=== PATIENT | female | born 1955 | race African-American/Black ===

== ENCOUNTER 2020-05-18 09:41 | Outpatient (REF) | payer MEDICAID, SELFPAY ==
[2020-05-18 11:09] LABS: Alanine Aminotransferase 8 U/L (0-31); Albumin Level 2.8 g/dL (3.5-5.0); Alkaline Phosphatase 96 U/L (39-117); Anion Gap 16 (12-20); Aspartate Amino Transferase 10 U/L (5-31); Bilirubin Total 0.2 mg/dL (0.0-1.0); Blood Urea Nitrogen 17 mg/dL (9-16); Calcium 8.2 mg/dL (8.4-10.2); Carbon Dioxide 27 mmol/L (22-29); Chloride 99 mmol/L (96-108); Cholesterol 142 mg/dL; Estimated Glomerular Filt Rate 15; Glucose Fasting 135 mg/dL (60-99); HDL Cholesterol 40 mg/dL; LDL Cholesterol Calculated 73 mg/dl; Potassium 3.7 mmol/l (3.3-5.1); Sodium 138 mmol/L (135-145); Total Protein 7.2 g/dL (6.5-8.0); Triglycerides 145 mg/dL
[2020-05-22 12:28] LABS: Vitamin D 25-OH, D2 <4 ng/mL; Vitamin D 25-OH, D3 13 ng/mL; Vitamin D 25-OH, Total 13 ng/mL (30-100)
== END 2020-05-18 09:42 | disposition home or self-care (01) ==
LOC: HO.LAB 09:41
PROVIDERS: PCP Internal Medicine; Visit Provider Internal Medicine
DX: E55.9 Vitamin D deficiency, unspecified (principal); E11.9 Type 2 diabetes mellitus without complications; E78.5 Hyperlipidemia, unspecified
CPT/HCPCS: 36415; 80053; 80061; 82306

== ENCOUNTER 2020-06-13 13:47 | Outpatient (RCR) | payer MEDICAID, SELFPAY | END 2020-06-19 11:42 | disposition home or self-care (01) | LOC: HO.WCC 13:47 | PROVIDERS: PCP Internal Medicine; Visit Provider Surgery | DX: Z09 Encounter for follow-up examination after completed treatment for conditions other than malignant neoplasm (principal); E10.22 Type 1 diabetes mellitus with diabetic chronic kidney disease; N18.6 End stage renal disease; I10 Essential (primary) hypertension; Z99.2 Dependence on renal dialysis; Z95.828 Presence of other vascular implants and grafts | CPT/HCPCS: 99212 ==

== ENCOUNTER → 2020-07-04 07:48 | Outpatient (BNVA) | payer OTHER, SELFPAY | PROVIDERS: PCP Internal Medicine; Visit Provider Internal Medicine Endocrinology, Diabetes & Metabolism | DX: E11.65 Type 2 diabetes mellitus with hyperglycemia (principal); E11.42 Type 2 diabetes mellitus with diabetic polyneuropathy; E11.21 Type 2 diabetes mellitus with diabetic nephropathy; E11.22 Type 2 diabetes mellitus with diabetic chronic kidney disease; I12.9 Hypertensive chronic kidney disease with stage 1 through stage 4 chronic kidney disease, or unspecified chronic kidney disease; N18.6 End stage renal disease; Z79.4 Long term (current) use of insulin; Z99.2 Dependence on renal dialysis; E78.5 Hyperlipidemia, unspecified; E55.9 Vitamin D deficiency, unspecified | CPT/HCPCS: 82947; 99202 ==

== ENCOUNTER → 2020-08-07 11:14 | Outpatient (BNVA) | payer OTHER, SELFPAY | PROVIDERS: PCP Internal Medicine; Visit Provider Dietitian, Registered | DX: E11.65 Type 2 diabetes mellitus with hyperglycemia (principal) | CPT/HCPCS: 97802 ==

== ENCOUNTER → 2020-09-19 11:29 | Outpatient (BNVA) | payer OTHER, SELFPAY | PROVIDERS: PCP Internal Medicine; Visit Provider Dietitian, Registered | DX: E11.65 Type 2 diabetes mellitus with hyperglycemia (principal); Z79.4 Long term (current) use of insulin | CPT/HCPCS: 97803 ==

== ENCOUNTER → 2020-10-05 11:38 | Outpatient (BNVA) | payer OTHER, SELFPAY | PROVIDERS: PCP Internal Medicine; Visit Provider Internal Medicine Endocrinology, Diabetes & Metabolism ==

== ENCOUNTER 2020-10-28 11:53 | Emergency (ER) | payer OTHER, SELFPAY ==
--- NOTE | ~2020-10-28 | XR_ITS ---
EXAMINATION: XR FOOT, LEFT CLINICAL INFORMATION: Left foot and left ankle pain. COMPARISON: There is diffuse osteopenia none. TECHNIQUE: AP, lateral, and oblique views of the left foot. FINDINGS: Diffuse osteopenia with no visible acute fracture, dislocation or subluxation seen. The soft tissues are normal. The ankle mortise and subtalar joints are normal. There is vascular calcifications. XR/XR foot LT min 3V IMPRESSION: Diffuse osteopenia with no visible obvious fracture or dislocation. There is diffuse extensive vascular calcification question ischemic changes.
--- NOTE | ~2020-10-28 | US_ITS ---
EXAMINATION: US VENOUS ULTRASOUND WITH DOPPLER LOWER EXTREMITY, LEFT CLINICAL INFORMATION: Atraumatic left lower leg pain. COMPARISON: None TECHNIQUE: Ultrasound of the deep veins is performed from the hip to the calf with compression sonography and color and pulse Doppler assessment. Spectral analysis with color-flow imaging is performed. FINDINGS: There is normal venous compression and respiratory variation and augmented flow. The visualized common femoral vein, superficial femoral vein, profunda femoral vein, popliteal vein, and the trifurcation region shows no evidence of deep venous thrombosis. There is no significant popliteal fossa cyst. If the patient's symptoms persist, followup ultrasound in 5 days 7 days might be of value to exclude proximal propagation from a non-visualized calf vein. US/US venous duplex LE LT IMPRESSION: No DVT demonstrated in the left lower extremity.
--- NOTE | ~2020-10-28 | US_ITS ---
EXAMINATION: COLOR-FLOW DUPLEX IMAGING OF THE LEFT LOWER EXTREMITY ARTERIAL SYSTEM CLINICAL INFORMATION: The patient is a 77 year-old woman with atraumatic foot and ankle pain. TECHNIQUE: Using a linear array transducer with grayscale, color and pulsed modalities, ultrasound evaluation is performed of the [place] left lower extremity arterial system. LEFT FEMORAL RUNOFF VELOCITIES: The left common femoral artery peak systolic velocity is 140 cm/s. The waveform is monophasic. The left proximal profunda femoral artery peak systolic velocity is 109 cm/s. The waveform is biphasic. The left proximal superficial femoral artery peak systolic velocity is 141 cm/s. The waveform is monophasic. The left mid superficial femoral artery peak systolic velocity is 141 cm/s. The waveform is biphasic. The left distal superficial femoral artery peak systolic velocity is 160 cm/s. The waveform is monophasic. The left popliteal artery peak systolic velocity is 454 cm/s. The waveform is biphasic. The left posterior tibial artery peak systolic velocity is 41 cm/s. The waveform is monophasic. US/US arterial duplex LE LT IMPRESSION: Findings are consistent with marked, hemodynamically significant left femoropopliteal arterial disease. If clinically indicated, this can be more fully evaluated with CTA or MRA.
[2020-10-28 11:56] VITALS: BP 158/70; BP 193/84; PULSE 78; PULSE 80; RESP 20; TEMP 36.9; O2SAT 99; BMI 25.6
[2020-10-28] MEDS: oxyCODONE HCl Immed Release 5 MG TABLET PO (12:32)
[2020-10-28 12:36] VITALS: BP 176/75; PULSE 79; RESP 18; TEMP 37; O2SAT 100
[2020-10-28 12:49] LABS: Basophils Absolute Auto 0.1 X10*3/uL (0.0-0.2); Basophils Percent Auto 0.4 % (0-2); Eosinophils Absolute Auto 0.1 X10*3/uL (0.0-0.4); Eosinophils Percent Auto 0.8 % (0-4); Hematocrit 36.8 % (37-47); Hemoglobin 11.7 g/dl (12.0-16.0); Imm Gran Abs Auto 0.04 X10*3/uL (0.00-0.03); Imm Gran Pct Auto 0.3 % (0.0-0.4); Lymphocytes Absolute Auto 2.1 X10*3/uL (1.2-4.9); Lymphocytes Percent Auto 16.7 % (20-40); MANUAL DIFF FLAG NO; Mean Corpuscular HGB Conc 31.8 g/dl (31.0-35.0); Mean Corpuscular Hemoglobin 25.9 pg (27.0-33.0); Mean Corpuscular Volume 81.4 fL (80-98); Mean Platelet Volume 10.4 fL (9.4-12.3); Monocytes Absolute Auto 1.1 X10*3/uL (0.1-1.2); Monocytes Percent Auto 8.7 % (2-11); Neutrophils Absolute Auto 9.1 X10*3/uL (2.0-8.3); Neutrophils Percent Auto 73.1 % (45-73); Platelet Count 223 X10*3/uL (160-400); Red Blood Count 4.52 X10*6/uL (4.20-5.50); Red Cell Distribution Width 16.6 % (11.0-16.0); White Blood Count 12.5 X10*3/uL (4.8-10.8)
[2020-10-28 12:57] LABS: Prothrombin Time 11.9 SEC (10.8-13.0)
[2020-10-28 13:13] LABS: Alanine Aminotransferase 11 U/L (0-31); Albumin Level 3.7 g/dL (3.5-5.0); Alkaline Phosphatase 92 U/L (39-117); Anion Gap 17 (12-20); Aspartate Amino Transferase 13 U/L (5-31); Bilirubin Total 0.2 mg/dL (0.0-1.0); Blood Urea Nitrogen 32 mg/dL (9-16); Calcium 8.9 mg/dL (8.4-10.2); Carbon Dioxide 21 mmol/L (22-29); Chloride 102 mmol/L (96-108); Creatinine Clr Calc Pharmacy 11.6; Estimated Glomerular Filt Rate 10; Glucose Random 133 mg/dL (60-115); Magnesium 2.1 mg/dL (1.6-2.6); Sodium 135 mmol/L (135-145); Total Protein 7.7 g/dL (6.5-8.0)
[2020-10-28 14:08] LABS: Phosphorus 3.7 mg/dL (2.7-4.5)
--- NOTE | 2020-10-28 14:08 | ED.EXTPRO ---
HPI - Extremity Problem General Chief complaint: General Medical Stated complaint: left leg pain Time Seen by Provider: 10/28/20 12:09 Source: patient, family and EMS Mode of arrival: EMS Limitations: language barrier ( Scottish-speaking) History of Present Illness HPI Narrative: 65-year-old female with a past medical history of ESRD on hemodialysis Thursday/ / Thursday recently had hemodialysis yesterday, diabetes, diabetic neuropathy, hypertension, hyperlipidemia with amputation of the left hand and wheelchair-bound presenting to the ED with her daughter at bedside with complaints of acute / sudden onset of left ankle /foot pain that started since last night. They report there were no injuries and the patient did not fall. MD Complaint: extremity pain Onset (ago): day(s) ( Since last night worse today) Pain Consistency: constant Location: left and lower extremity ( ankle/foot) Severity scale (1-10): >10 Quality: stabbing, aching, sharp and constant Radiation: none Relieving factors: nothing Exacerbating factors: weight bearing and palpation Associated symptoms: denies other symptoms Related Data Home Medications Medication Instructions Recorded Confirmed polyethylene glycol 3350 17 17 g PO DAILY 05/08/20 10/05/20 gram/dose oral powder pantoprazole 40 mg tablet,delayed 40 mg PO DAILY 10/05/20 10/05/20 release sucroferric oxyhydroxide 500 mg 500 mg PO BEDTIME 10/05/20 10/05/20 chewable tablet Previous Rx's Medication Instructions Recorded alcohol swabs 1 pad TOPICAL BID 90 Days #100 ea 05/14/20 metoprolol tartrate 100 mg tablet 100 mg PO BID 90 Days #180 tab 05/15/20 underpads #100 ea 05/15/20 acetaminophen 325 mg tablet 975 mg PO TID PRN 30 Days #270 tab 08/20/20 amlodipine 10 mg tablet 10 mg PO DAILY 90 Days #90 tab 08/20/20 aspirin 81 mg tablet,delayed 81 mg PO DAILY 90 Days #90 tab 08/20/20 release atorvastatin 80 mg tablet 80 mg PO DAILY 90 Days #90 tab 08/20/20 cholecalciferol (vitamin D3) 50 50 mcg PO DAILY 30 Days #30 cap 08/20/20 mcg (2,000 unit) capsule diaper,brief,adult,disposable #120 ea 08/20/20 docusate sodium 100 mg capsule 100 mg PO BID PRN 90 Days #180 cap 08/20/20 hydralazine 25 mg tablet 50 mg PO TID 30 Days #180 tab 08/20/20 lidocaine 5 % topical patch 1 patch TOPICAL DAILY 30 Days #30 08/20/20 ea miscellaneous medical supply #1 ea 08/20/20 sennosides 8.6 mg tablet 17.2 mg PO BEDTIME 90 Days #180 tab 08/20/20 tizanidine 2 mg tablet 2 mg PO Q8H PRN 30 Days #90 tab 08/20/20 trazodone 50 mg tablet 50 mg PO BEDTIME PRN 90 Days #90 08/20/20 tab blood sugar diagnostic #120 ea 08/27/20 nut.tx.glucose intolerance,soy 10 1 ea PO .twice a day 30 Days #24 ea 08/27/20 gram-140 kcal/40 gram oral bar insulin glargine 100 unit/mL (3 5 unit SUBCUT QPM 30 Days #1.5 ml 09/20/20 mL) subcutaneous pen Humalog KwikPen Insulin 100 8 - 14 unit SUBCUT TID 30 Days #15 10/05/20 unit/mL subcutaneous ml NS oxycodone 5 mg PO BID PRN #14 tab 10/28/20 Allergies Allergy/AdvReac Type Severity Reaction Status Date / Time No Known Allergies Allergy Verified 08/27/20 09:52 Review of Systems Review of Systems: Constitutional : No changes in activity, No lethargy, No recent prior head injury, No agitation, No increased fussiness ENT/Mouth : No Ear Pain, No Nasal discharge/drainage Eyes: No Eye Pain, No Swelling, No Redness, No Foreign Body, No Vision Changes Cardiovascular : No Chest Pain, No SOB Respiratory : No Cough Gastrointestinal : No Nausea, No Vomiting, No abdominal Pain Genitourinary : No Dysuria, No Urinary Frequency, No Urinary Incontinence, No Urgency, No Flank Pain Musculoskeletal : + joint pain, No neck stiffness, No back pain/injury Skin : No lacerations Neuro : No unsteady gait, No Paresthesias, No Loss of Consciousness, No altered mental status, No Headache Yes all other systems are reviewed and are negative [facility] Past Medical History Attestation statement: The following information was validated with the patient. 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 Long-term use of aspirin therapy Stage II pressure ulcer of ankle Urge urinary incontinence Vitamin D deficiency Wheelchair bound Surgical History Arteriovenous fistula for hemodialysis in place, primary Family History Family History Mother Diabetes Hypertension Father Hypertension Social History Social History Alcohol intake: unknown Patient Tobacco Use Status: Tobacco use Unknown Use of substances other than those prescribed or required for medical reasons: Unknown Advance Directives: No Advance Directives Information Provided: No Physical Exam Vital Signs: Vital Signs: Last Vital Signs Temp 98.6 F 10/28/20 12:36 Pulse 79 10/28/20 12:36 Resp 18 10/28/20 12:36 BP 176/75 H 10/28/20 12:36 Pulse Ox 100 10/28/20 12:36 Body Mass Index 25.6 vital signs have been reviewed as normal and appeared to be correct. Blood pressure hypertensive 193/84. Heart rate normal. Respiration rate normal. Temperature normal. Oxygen saturation normal. Appearance: Alert. Oriented X3. No acute distress. Head: Normal external exam. Normocephalic. Atraumatic. Eyes: PERRLA. EOMI. Conjunctiva and sclera normal. Eyelids normal. ENT: Pharynx normal. Uvula midline. Moist mucous membranes. Neck: Normal inspection. Neck supple. FROM. No adenopathy. Thyroid Normal. No meningeal signs. No neck mass noted. CVS: Normal heart rate and rhythm. Heart sound normal. Pulses normal throughout. No murmurs/rales/gallops. Respiratory: No respiratory distress. Painless inspiration. Breath sounds normal. No wheezes/rales/rhonchi noted. Chest nontender. No accessory muscle usage noted or decreased air movement noted. Back: No CVA tenderness. Full range of motion noted. No rashes/lesion/induration/fluctuance or signs of infection noted. Skin: Skin warm and dry. Normal skin color. Normal skin turgor. No rashes/lesions/lacerations noted. Extremities: patient with tenderness to palpation to medial aspect of left ankle/ foot mild erythema noted. No fluctuance / induration / streaking. No lower extremity edema. Patient amputation to left hand. Otherwise Extremities exhibit normal range of motion and nontender. Neuro: Oriented X 3. No motor deficit. No sensory deficit. Reflexes normal. Normal steady gait. No focal neuro deficits noted. Vascular: + radial pulses/+ 2 distal pedal pulses/+2 dorsalis pedis b/l. Normal cap refill. No cyanosis noted to upper extremity nails and lower extremity toes nails. Course Course Course Narrative: 12:21pm - 65-year-old female with a past medical history of ESRD on hemodialysis Thursday/ / Thursday recently had hemodialysis yesterday, diabetes, diabetic neuropathy, hypertension, hyperlipidemia with amputation of the left hand and wheelchair-bound presenting to the ED with her daughter at bedside with complaints of acute / sudden onset of left ankle /foot pain that started since last night. They report there were no injuries and the patient did not fall. Plan: Labs, x-ray of left foot , arterial/venous ultrasound of left leg. Provide 5 mg oxycodone and re-evaluate. Reevaluation(s) Reevaluation #1: - [place] [id number]. BUN and creatinine at baseline. All other labs are within normal limits. X-ray revealed diffuse osteopenia with no visible obvious fracture or dislocation. There is diffuse extensive vascular calcification question ischemic changes therefore arterial and venous duplex ultrasound of lower extremity of left lower extremity obtained and negative for DVT although revealed marked hemodynamically significant left femoral-popliteal arterial disease. - although on exam patient has pulses distally no cyanosis is noted the foot is warm not cool to the touch. Therefore explained to the patient and her daughter at bedside that we will refer her to vascular surgeon and that she needs to follow up her primary care provider and to return if any new or worsening symptoms will DC home with pain medications. Patient and daughter at bedside understand and agree with this plan. Time: 16:[address] [facility] - Extremity (Nontraumatic) Lab Data Result diagrams: 10/28/20 12:44 10/28/20 12:44 Labs: Lab Results 10/28/20 10/28/20 10/28/20 Range/Units 12:44 12:44 12:44 WBC 12.5 H (4.8-10.8) X10*3/uL RBC 4.52 (4.20-5.50) X10*6/uL Hgb 11.7 L (12.0-16.0) g/dl Hct 36.8 L (37-47) % MCV 81.4 (80-98) fL MCH 25.9 L (27.0-33.0) pg MCHC 31.8 (31.0-35.0) g/dl RDW 16.6 H (11.0-16.0) % Plt Count 223 (160-400) X10*3/uL MPV 10.4 (9.4-12.3) fL Immature Gran % (Auto) 0.3 (0.0-0.4) % Neut % (Auto) 73.1 H (45-73) % Lymph % (Auto) 16.7 L (20-40) % [place] % (Auto) 8.7 (2-11) % Eos % (Auto) 0.8 (0-4) % Baso % (Auto) 0.4 (0-2) % Lymph # (Auto) 2.1 (1.2-4.9) X10*3/uL [place] # (Auto) 1.1 (0.1-1.2) X10*3/uL Eos # (Auto) 0.1 (0.0-0.4) X10*3/uL Baso # (Auto) 0.1 (0.0-0.2) X10*3/uL Abs Immat Gran (auto) 0.04 H (0.00-0.03) X10*3/uL Absolute Neuts (auto) 9.1 H (2.0-8.3) X10*3/uL Absolute Nucleated RBC 0.000 (0.0-0.012) X10*3/uL Nucleated RBC % (auto) 0.0 (0.0-0.2) /100WBC PT 11.9 (10.8-13.0) SEC INR 1.0 (0.9-1.1) Sodium 135 (135-145) mmol/L Potassium 5.0 (3.3-5.1) mmol/L Chloride 102 (96-108) mmol/L Carbon Dioxide 21 L (22-29) mmol/L Anion Gap 17 (12-20) BUN 32 H D (9-16) mg/dL Creatinine 4.29 H* (0.5-1.4) mg/dL Estim Creat Clear Calc 11.6 Estimated GFR 10 Random Glucose 133 H (60-115) mg/dL Calcium 8.9 D (8.4-10.2) mg/dL Phosphorus 3.7 (2.7-4.5) mg/dL Magnesium 2.1 (1.6-2.6) mg/dL Total Bilirubin 0.2 (0.0-1.0) mg/dL AST 13 (5-31) U/L ALT 11 (0-31) U/L Alkaline Phosphatase 92 (39-117) U/L Total Creatine Kinase (26-140) U/L Total Protein 7.7 (6.5-8.0) g/dL Albumin 3.7 D (3.5-5.0) g/dL 10/28/20 Range/Units 12:44 WBC (4.8-10.8) X10*3/uL RBC (4.20-5.50) X10*6/uL Hgb (12.0-16.0) g/dl Hct (37-47) % MCV (80-98) fL MCH (27.0-33.0) pg MCHC (31.0-35.0) g/dl RDW (11.0-16.0) % Plt Count (160-400) X10*3/uL MPV (9.4-12.3) fL Immature Gran % (Auto) (0.0-0.4) % Neut % (Auto) (45-73) % Lymph % (Auto) (20-40) % [place] % (Auto) (2-11) % Eos % (Auto) (0-4) % Baso % (Auto) (0-2) % Lymph # (Auto) (1.2-4.9) X10*3/uL [place] # (Auto) (0.1-1.2) X10*3/uL Eos # (Auto) (0.0-0.4) X10*3/uL Baso # (Auto) (0.0-0.2) X10*3/uL Abs Immat Gran (auto) (0.00-0.03) X10*3/uL Absolute Neuts (auto) (2.0-8.3) X10*3/uL Absolute Nucleated RBC (0.0-0.012) X10*3/uL Nucleated RBC % (auto) (0.0-0.2) /100WBC PT (10.8-13.0) SEC INR (0.9-1.1) Sodium (135-145) mmol/L Potassium (3.3-5.1) mmol/L Chloride (96-108) mmol/L Carbon Dioxide (22-29) mmol/L Anion Gap (12-20) BUN (9-16) mg/dL Creatinine (0.5-1.4) mg/dL Estim Creat Clear Calc Estimated GFR Random Glucose (60-115) mg/dL Calcium (8.4-10.2) mg/dL Phosphorus (2.7-4.5) mg/dL Magnesium (1.6-2.6) mg/dL Total Bilirubin (0.0-1.0) mg/dL AST (5-31) U/L ALT (0-31) U/L Alkaline Phosphatase (39-117) U/L Total Creatine Kinase 34 (26-140) U/L Total Protein (6.5-8.0) g/dL Albumin (3.5-5.0) g/dL Imaging Data left foot/ ankle x-ray: Attestation: I personally reviewed and interpreted this imaging study as follows: Radiologist's impression: FINDINGS: Diffuse osteopenia with no visible acute fracture, dislocation or subluxation seen. The soft tissues are normal. The ankle mortise and subtalar joints are normal. There is vascular calcifications. XR/XR foot LT min 3V IMPRESSION: Diffuse osteopenia with no visible obvious fracture or dislocation. There is diffuse extensive vascular calcification question ischemic changes. Arterial/venous ultrasound of left lower extremity: Attestation: I personally reviewed and interpreted this imaging study as follows: Radiologist's impression: LEFT FEMORAL RUNOFF VELOCITIES: The left common femoral artery peak systolic velocity is 140 cm/s. The waveform is monophasic. The left proximal profunda femoral artery peak systolic velocity is 109 cm/s. The waveform is biphasic. The left proximal superficial femoral artery peak systolic velocity is 141 cm/s. The waveform is monophasic. The left mid superficial femoral artery peak systolic velocity is 141 cm/s. The waveform is biphasic. The left distal superficial femoral artery peak systolic velocity is 160 cm/s. The waveform is monophasic. The left popliteal artery peak systolic velocity is 454 cm/s. The waveform is biphasic. The left posterior tibial artery peak systolic velocity is 41 cm/s. The waveform is monophasic. US/US arterial duplex LE LT IMPRESSION: Findings are consistent with marked, hemodynamically significant left femoropopliteal arterial disease. If clinically indicated, this can be more fully evaluated with CTA or MRA. FINDINGS: There is normal venous compression and respiratory variation and augmented flow. The visualized common femoral vein, superficial femoral vein, profunda femoral vein, popliteal vein, and the trifurcation region shows no evidence of deep venous thrombosis. There is no significant popliteal fossa cyst. If the patient's symptoms persist, followup ultrasound in 5 days 7 days might be of value to exclude proximal propagation from a non-visualized calf vein. US/US venous duplex LE LT IMPRESSION: No DVT demonstrated in the left lower extremity. Discharge Plan Discharge Clinical Impression: CKD (chronic kidney disease), Osteopenia, Arterial vascular disease Patient Disposition: Home, Self-Care Instructions: Peripheral Artery Disease (ED) Prescriptions: New oxycodone 5 mg tablet 5 mg PO BID PRN (Reason: pain) Qty: 14 RF: 0 No Action alcohol swabs [Alcohol Prep Pads] Pads, Medicated 1 pad topical BID 90 Days Qty: 100 RF: 3 (DME) underpads [Bed Underpads] Pad See Rx Instructions .ROUTE .MEDSUPPLY Qty: 100 RF: 11 metoprolol tartrate 100 mg tablet 100 mg PO BID 90 Days Qty: 180 RF: 3 acetaminophen 325 mg tablet 975 mg PO TID PRN (Reason: fever or pain) 30 Days Qty: 270 RF: 3 amlodipine 10 mg tablet 10 mg PO DAILY 90 Days Qty: 90 RF: 3 aspirin [Adult Low Dose Aspirin] 81 mg tablet,delayed release (DR/EC) 81 mg PO DAILY 90 Days Qty: 90 RF: 3 atorvastatin 80 mg tablet 80 mg PO DAILY 90 Days Qty: 90 RF: 3 cholecalciferol (vitamin D3) 50 mcg (2,000 unit) capsule 50 mcg PO DAILY 30 Days Qty: 30 RF: 6 (DME) diaper,brief,adult,disposable Misc See Rx Instructions .ROUTE .MEDSUPPLY Qty: 120 RF: 11 docusate sodium [Colace] 100 mg capsule 100 mg PO BID PRN (Reason: constipation) 90 Days Qty: 180 RF: 2 hydralazine 25 mg tablet 50 mg PO TID 30 Days Qty: 180 RF: 2 lidocaine 5 % adhesive patch,medicated 1 patch topical DAILY 30 Days Qty: 30 RF: 3 (DME) miscellaneous medical supply Misc See Rx Instructions .ROUTE .MEDSUPPLY Qty: 1 RF: 0 sennosides [senna] 8.6 mg tablet 17.2 mg PO BEDTIME 90 Days Qty: 180 RF: 3 tizanidine 2 mg tablet 2 mg PO Q8H PRN (Reason: muscle spasticity) 30 Days Qty: 90 RF: 3 trazodone 50 mg tablet 50 mg PO BEDTIME PRN (Reason: sleep) 90 Days Qty: 90 RF: 0 Lantus Solostar U-100 Insulin 100 unit/mL (3 mL) insulin pen 5 unit subcut QPM 30 Days Qty: 1.5 RF: 6 polyethylene glycol 3350 17 gram/dose powder 17 g PO DAILY RF: 0 (DME) FreeStyle Test Strip See Rx Instructions .ROUTE .MEDSUPPLY Qty: 120 RF: 11 Glucerna Crispy Delights 10 gram-140 kcal/40 gram bar 1 ea PO .twice a day 30 Days Qty: 24 RF: 6 Velphoro 500 mg tablet,chewable 500 mg PO BEDTIME RF: 0 pantoprazole 40 mg tablet,delayed release (DR/EC) 40 mg PO DAILY RF: 0 insulin lispro [Humalog KwikPen Insulin] 100 unit/mL insulin pen 8 - 14 unit subcut TID 30 Days Qty: 15 RF: 6 Referrals: Cole Recinos MD [Physician] - 2 days Deanna Sood MD [Primary Care Provider] - 2 days Print Language: Scottish
[2020-10-28 16:34] VITALS: BP 174/84; PULSE 83; RESP 16; O2SAT 100
== END 2020-10-28 17:08 | disposition home or self-care (01) ==
PROVIDERS: Physician Assistant Medical; Emergency Provider Emergency Medicine; PCP Internal Medicine
DX: I73.9 Peripheral vascular disease, unspecified (principal); M79.605 Pain in left leg; M85.80 Other specified disorders of bone density and structure, unspecified site; I12.0 Hypertensive chronic kidney disease with stage 5 chronic kidney disease or end stage renal disease; E11.22 Type 2 diabetes mellitus with diabetic chronic kidney disease; N18.6 End stage renal disease; Z79.4 Long term (current) use of insulin; Z79.899 Other long term (current) drug therapy; Z99.2 Dependence on renal dialysis; Z99.3 Dependence on wheelchair; Z89.112 Acquired absence of left hand
CPT/HCPCS: 36415; 73630; 80053; 82550; 83735; 84100; 85025; 85610; 93926; 93971; 99284; 99285

== ENCOUNTER 2020-10-31 18:25 | Emergency (ER) | payer OTHER, SELFPAY ==
--- NOTE | ~2020-10-31 | XR_ITS ---
EXAMINATION: XR CHEST CLINICAL INFORMATION: Baseline COMPARISON: None TECHNIQUE: Frontal view of the chest was obtained. FINDINGS: Catheter tip overlying the right atrium. There is no pneumothorax. Lung hinds are grossly clear. XR/XR chest 1V IMPRESSION: Catheter tip overlying the right atrium. No pneumothorax. No effusion.
[2020-10-31 19:10] VITALS: BP 140/70; BP 182/73; PULSE 90; PULSE 98; RESP 16; TEMP 37.8; O2SAT 97; O2SAT 98; BMI 60.2
--- NOTE | 2020-10-31 19:33 | ED.EXTPRO ---
HPI - Extremity Problem General Chief complaint: Extremity Problem Stated complaint: L LEG PAIN SEEN HERE ON THURSDAY Time Seen by Provider: 10/31/20 23:43 Source: patient, family and EMS Mode of arrival: EMS Limitations: language barrier History of Present Illness HPI Narrative: 65-year-old female with past medical history of diabetes type 2, diabetic neuropathy, chronic weakness, end-stage renal disease on hemodialysis Thursday and Thursday, hypertension and hyperlipidemia presents with bilateral lower extremity pain. Was seen here a few days ago for similar circumstances and was referred to vascular, but patient has not presented to vascular for assessment. She does not report any fevers or chills, but states to have anorexia. MD Complaint: extremity pain Onset (ago): week(s) Pain Consistency: constant Location: left, right and lower extremity Severity scale (1-10): 10 Quality: burning and aching Radiation: none Relieving factors: nothing Associated symptoms: denies other symptoms Related Data Home Medications Medication Instructions Recorded Confirmed polyethylene glycol 3350 17 17 g PO DAILY 05/08/20 10/05/20 gram/dose oral powder pantoprazole 40 mg tablet,delayed 40 mg PO DAILY 10/05/20 10/05/20 release sucroferric oxyhydroxide 500 mg 500 mg PO BEDTIME 10/05/20 10/05/20 chewable tablet Previous Rx's Medication Instructions Recorded alcohol swabs 1 pad TOPICAL BID 90 Days #100 ea 05/14/20 metoprolol tartrate 100 mg tablet 100 mg PO BID 90 Days #180 tab 05/15/20 underpads #100 ea 05/15/20 acetaminophen 325 mg tablet 975 mg PO TID PRN 30 Days #270 tab 08/20/20 amlodipine 10 mg tablet 10 mg PO DAILY 90 Days #90 tab 08/20/20 aspirin 81 mg tablet,delayed 81 mg PO DAILY 90 Days #90 tab 08/20/20 release atorvastatin 80 mg tablet 80 mg PO DAILY 90 Days #90 tab 08/20/20 cholecalciferol (vitamin D3) 50 50 mcg PO DAILY 30 Days #30 cap 08/20/20 mcg (2,000 unit) capsule diaper,brief,adult,disposable #120 ea 08/20/20 docusate sodium 100 mg capsule 100 mg PO BID PRN 90 Days #180 cap 08/20/20 hydralazine 25 mg tablet 50 mg PO TID 30 Days #180 tab 08/20/20 lidocaine 5 % topical patch 1 patch TOPICAL DAILY 30 Days #30 08/20/20 ea miscellaneous medical supply #1 ea 08/20/20 sennosides 8.6 mg tablet 17.2 mg PO BEDTIME 90 Days #180 tab 08/20/20 tizanidine 2 mg tablet 2 mg PO Q8H PRN 30 Days #90 tab 08/20/20 trazodone 50 mg tablet 50 mg PO BEDTIME PRN 90 Days #90 08/20/20 tab blood sugar diagnostic #120 ea 08/27/20 nut.tx.glucose intolerance,soy 10 1 ea PO .twice a day 30 Days #24 ea 08/27/20 gram-140 kcal/40 gram oral bar insulin glargine 100 unit/mL (3 5 unit SUBCUT QPM 30 Days #1.5 ml 09/20/20 mL) subcutaneous pen oxycodone 5 mg PO BID PRN #14 tab 10/28/20 Humalog KwikPen Insulin 100 8 - 14 unit SUBCUT TID 30 Days #15 10/30/20 unit/mL subcutaneous ml NS gabapentin 300 mg PO TID PRN #30 cap 10/31/20 Allergies Allergy/AdvReac Type Severity Reaction Status Date / Time No Known Allergies Allergy Verified 10/31/20 19:14 Review of Systems Review of Systems: Constitutional: No Fever, No Chills ENT/Mouth: No Ear Pain, No Hoarseness, No sore throat Eyes: No Eye Pain, No Swelling, No Redness, No Foreign Body Cardiovascular: No Chest Pain, No SOB Respiratory: No Cough, No Dyspnea Gastrointestinal: No Nausea, No Vomiting, No Diarrhea, No abdominal Pain Genitourinary: No Dysuria, No Hematuria Musculoskeletal: positive Bilateral lower extremity pain, No Myalgias, No Joint Swelling Skin: No Skin lacerations, No rash Neuro: No Weakness, No Numbness, No Paresthesias, No Loss of Consciousness, No Dizziness, No Headache Psych: No Anxiety/Panic, No Depression Heme/Lymph: no easy bruising, no Lymphadenopathy Endocrine: No Polyuria, No Polydipsia Yes all other systems are reviewed and are negative [facility] Past Medical History Attestation statement: The following information was validated with the patient. 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 Long-term use of aspirin therapy Stage II pressure ulcer of ankle Urge urinary incontinence Vitamin D deficiency Wheelchair bound Surgical History Arteriovenous fistula for hemodialysis in place, primary Family History Family History Mother Diabetes Hypertension Father Hypertension Social History Social History Alcohol intake: unknown Patient Tobacco Use Status: Tobacco use Unknown Advance Directives: No Advance Directives Information Provided: Yes Physical Exam Vital Signs: Vital Signs: Last Vital Signs Temp 99.4 F 11/01/20 00:00 Pulse 75 11/01/20 00:00 Resp 15 11/01/20 00:00 BP 155/61 H 11/01/20 00:00 Pulse Ox 99 11/01/20 00:00 Body Mass Index 60.2 Appearance: Alert. Oriented X to self. moderate distress. Eyes: Pupils equal, round and reactive to light. ENT: Pharynx normal. Neck: Normal inspection. Neck supple. CVS: Normal heart rate and rhythm. Pulses normal. Respiratory: No respiratory distress. Breath sounds normal. Abdomen: Soft and nontender. Skin: Skin warm and dry. Normal skin color. Normal skin turgor. Extremities: No lower extremity edema. bilateral lower extremity atrophy per baseline. Neuro: No motor deficit. No sensory deficit. Course Course Course Narrative: 65-year-old female presents with bilateral lower extremity pain that is 10/10. Patient had a full workup on Thursday, negative for DVT study, was referred to vascular however patient has not presented for the appointment yet. There has been no change in condition, will order labs, chest x-ray and EKG. patient does not have any indication of DVT to bilateral lower extremities, no edema, swelling negative Rosie sign. I did discuss this case with hospitalist, plan is to give gabapentin for diabetic neuropathy pain and have patient follow-up with primary care provider and Nephrology. She is due for dialysis in the morning. Patient and patient's family verbalized understanding of and agrees to plan of care discharge home. MDM - Extremity (Nontraumatic) MDM Narrative Medical decision making narrative: Diabetic neuropathy pain Differential Diagnosis Differential diagnosis: Likely gout and deep venous thrombosis of upper extremity Medical Records Attestation: I reviewed the patient's medical records. Lab Data Attestation: I reviewed the patient's lab results. Result diagrams: 10/31/20 20:42 10/31/20 21:39 Labs: Lab Results 10/31/20 10/31/20 10/31/20 Range/Units 20:42 20:42 21:13 WBC 15.5 H (4.8-10.8) X10*3/uL RBC 4.14 L (4.20-5.50) X10*6/uL Hgb 10.8 L (12.0-16.0) g/dl Hct 33.6 L (37-47) % MCV 81.2 (80-98) fL MCH 26.1 L (27.0-33.0) pg MCHC 32.1 (31.0-35.0) g/dl RDW 16.8 H (11.0-16.0) % Plt Count 266 (160-400) X10*3/uL MPV 10.7 (9.4-12.3) fL Immature Gran % (Auto) 0.6 H (0.0-0.4) % Neut % (Auto) 80.3 H (45-73) % Lymph % (Auto) 9.9 L (20-40) % [place] % (Auto) 8.9 (2-11) % Eos % (Auto) 0.1 (0-4) % Baso % (Auto) 0.2 (0-2) % Lymph # (Auto) 1.5 (1.2-4.9) X10*3/uL [place] # (Auto) 1.4 H (0.1-1.2) X10*3/uL Eos # (Auto) 0.0 (0.0-0.4) X10*3/uL Baso # (Auto) 0.0 (0.0-0.2) X10*3/uL Abs Immat Gran (auto) 0.10 H (0.00-0.03) X10*3/uL Absolute Neuts (auto) 12.5 H (2.0-8.3) X10*3/uL Absolute Nucleated RBC 0.000 (0.0-0.012) X10*3/uL Nucleated RBC % (auto) 0.0 (0.0-0.2) /100WBC Sodium (135-145) mmol/L Potassium (3.3-5.1) mmol/L Chloride (96-108) mmol/L Carbon Dioxide (22-29) mmol/L Anion Gap (12-20) BUN (9-16) mg/dL Creatinine (0.5-1.4) mg/dL Estim Creat Clear Calc Estimated GFR Random Glucose (60-115) mg/dL Lactic Acid 0.8 (0.5-2.0) mmol/L Calcium (8.4-10.2) mg/dL Troponin I High Sens 14.8 (<3.5-17.0) ng/L 10/31/20 Range/Units 21:39 WBC (4.8-10.8) X10*3/uL RBC (4.20-5.50) X10*6/uL Hgb (12.0-16.0) g/dl Hct (37-47) % MCV (80-98) fL MCH (27.0-33.0) pg MCHC (31.0-35.0) g/dl RDW (11.0-16.0) % Plt Count (160-400) X10*3/uL MPV (9.4-12.3) fL Immature Gran % (Auto) (0.0-0.4) % Neut % (Auto) (45-73) % Lymph % (Auto) (20-40) % [place] % (Auto) (2-11) % Eos % (Auto) (0-4) % Baso % (Auto) (0-2) % Lymph # (Auto) (1.2-4.9) X10*3/uL [place] # (Auto) (0.1-1.2) X10*3/uL Eos # (Auto) (0.0-0.4) X10*3/uL Baso # (Auto) (0.0-0.2) X10*3/uL Abs Immat Gran (auto) (0.00-0.03) X10*3/uL Absolute Neuts (auto) (2.0-8.3) X10*3/uL Absolute Nucleated RBC (0.0-0.012) X10*3/uL Nucleated RBC % (auto) (0.0-0.2) /100WBC Sodium 133 L (135-145) mmol/L Potassium 4.5 (3.3-5.1) mmol/L Chloride 97 (96-108) mmol/L Carbon Dioxide 23 (22-29) mmol/L Anion Gap 18 (12-20) BUN 38 H (9-16) mg/dL Creatinine 5.70 H* (0.5-1.4) mg/dL Estim Creat Clear Calc 15.6 Estimated GFR 7 Random Glucose 158 H (60-115) mg/dL Lactic Acid (0.5-2.0) mmol/L Calcium 8.6 (8.4-10.2) mg/dL Troponin I High Sens (<3.5-17.0) ng/L Imaging Data Chest x-ray: Attestation: I personally reviewed and interpreted this imaging study as follows: Radiologist's impression: EXAMINATION: XR CHEST CLINICAL INFORMATION: Baseline COMPARISON: None TECHNIQUE: Frontal view of the chest was obtained. FINDINGS: Catheter tip overlying the right atrium. There is no pneumothorax. Lung hinds are grossly clear. XR/XR chest 1V IMPRESSION: Catheter tip overlying the right atrium. No pneumothorax. No effusion. ECG Data Attestation EKG: I personally reviewed and interpreted this ECG as follows: ECG interpretation date: 10/31/20 ECG interpretation time: 21:17 Prior ECG tracings: not available for review Interpretation: Vent. rate 83 BPM MI interval 128 ms QRS duration 90 ms QT/QTc 384/451 ms P-R-T axes 29 0 23 Normal sinus rhythm Septal infarct , age undetermined Abnormal ECG No previous ECGs available Discharge Plan Discharge Clinical Impression: Diabetic nephropathy associated with type 2 diabetes mellitus Patient Disposition: Home, Self-Care Instructions: Diabetic Peripheral Neuropathy (ED) Additional Instructions: fue evaluado por dolor bilateral en las extremidades inferiores. [place] gabapentina 300 mg 3 veces al d?a seg?n sea necesario. Debe hacer un seguimiento con Nefrolog?a y boo m?dico de atenci?n primaria con respecto a frandy medicamento. por favor, vaya a di?lisis ma?melia por la ma?melia seg?n lo programado. [place] por elegir frandy departamento de emergencias para boo evaluaci?n. Teodoro un seguimiento con boo m?dico de atenci?n primaria seg?n sea necesario. Regrese al departamento de emergencias por cualquier s?ntoma nuevo, preocupante o que empeore. you were evaluated for bilateral lower extremity pain. Please take gabapentin 300 mg 3 times a day as needed. You must follow-up with Nephrology and her primary care physician regarding this medication please go to dialysis as scheduled tomorrow morning. Thank you for choosing this emergency department for evaluation. Please follow-up with primary care physician as needed. Return to the emergency department for any new, concerning, or worsening symptoms. Prescriptions: New gabapentin 300 mg capsule 300 mg PO TID PRN (Reason: neuropathic pain) Qty: 30 RF: 0 No Action alcohol swabs [Alcohol Prep Pads] Pads, Medicated 1 pad topical BID 90 Days Qty: 100 RF: 3 (DME) underpads [Bed Underpads] Pad See Rx Instructions .ROUTE .MEDSUPPLY Qty: 100 RF: 11 metoprolol tartrate 100 mg tablet 100 mg PO BID 90 Days Qty: 180 RF: 3 acetaminophen 325 mg tablet 975 mg PO TID PRN (Reason: fever or pain) 30 Days Qty: 270 RF: 3 amlodipine 10 mg tablet 10 mg PO DAILY 90 Days Qty: 90 RF: 3 aspirin [Adult Low Dose Aspirin] 81 mg tablet,delayed release (DR/EC) 81 mg PO DAILY 90 Days Qty: 90 RF: 3 atorvastatin 80 mg tablet 80 mg PO DAILY 90 Days Qty: 90 RF: 3 cholecalciferol (vitamin D3) 50 mcg (2,000 unit) capsule 50 mcg PO DAILY 30 Days Qty: 30 RF: 6 (DME) diaper,brief,adult,disposable Misc See Rx Instructions .ROUTE .MEDSUPPLY Qty: 120 RF: 11 docusate sodium [Colace] 100 mg capsule 100 mg PO BID PRN (Reason: constipation) 90 Days Qty: 180 RF: 2 hydralazine 25 mg tablet 50 mg PO TID 30 Days Qty: 180 RF: 2 lidocaine 5 % adhesive patch,medicated 1 patch topical DAILY 30 Days Qty: 30 RF: 3 (DME) miscellaneous medical supply Misc See Rx Instructions .ROUTE .MEDSUPPLY Qty: 1 RF: 0 sennosides [senna] 8.6 mg tablet 17.2 mg PO BEDTIME 90 Days Qty: 180 RF: 3 tizanidine 2 mg tablet 2 mg PO Q8H PRN (Reason: muscle spasticity) 30 Days Qty: 90 RF: 3 trazodone 50 mg tablet 50 mg PO BEDTIME PRN (Reason: sleep) 90 Days Qty: 90 RF: 0 Lantus Solostar U-100 Insulin 100 unit/mL (3 mL) insulin pen 5 unit subcut QPM 30 Days Qty: 1.5 RF: 6 insulin lispro [Humalog KwikPen Insulin] 100 unit/mL insulin pen 8 - 14 unit subcut TID 30 Days Qty: 15 RF: 6 oxycodone 5 mg tablet 5 mg PO BID PRN (Reason: pain) Qty: 14 RF: 0 polyethylene glycol 3350 17 gram/dose powder 17 g PO DAILY RF: 0 (DME) FreeStyle Test Strip See Rx Instructions .ROUTE .MEDSUPPLY Qty: 120 RF: 11 Glucerna Crispy Delights 10 gram-140 kcal/40 gram bar 1 ea PO .twice a day 30 Days Qty: 24 RF: 6 Velphoro 500 mg tablet,chewable 500 mg PO BEDTIME RF: 0 pantoprazole 40 mg tablet,delayed release (DR/EC) 40 mg PO DAILY RF: 0 Interventions: ED Discharge Assessment Last Done: 11/01/20 00:15 Discharge Date/Time: 11/01/20 01:43
--- NOTE | 2020-10-31 19:49 | ECG_ITS ---
Test Reason : ALTERED MENTAL STATU Blood Pressure : / mmHG Vent. Rate : 083 BPM Atrial Rate : 083 BPM P-R Int : 128 ms QRS Dur : 090 ms QT Int : 384 ms P-R-T Axes : 029 000 023 degrees QTc Int : 451 ms Normal sinus rhythm Septal infarct , age undetermined Abnormal ECG No previous ECGs available Referred By: Luci Razo Electronically Signed By:CONCETTA LEE MD
[2020-10-31 20:46] LABS: MANUAL DIFF FLAG NO
[2020-10-31 20:48] LABS: Basophils Percent Auto 0.2 % (0-2); Eosinophils Percent Auto 0.1 % (0-4); Hematocrit 33.6 % (37-47); Hemoglobin 10.8 g/dl (12.0-16.0); Imm Gran Pct Auto 0.6 % (0.0-0.4); Lymphocytes Absolute Auto 1.5 X10*3/uL (1.2-4.9); Lymphocytes Percent Auto 9.9 % (20-40); Mean Corpuscular HGB Conc 32.1 g/dl (31.0-35.0); Mean Corpuscular Hemoglobin 26.1 pg (27.0-33.0); Mean Corpuscular Volume 81.2 fL (80-98); Mean Platelet Volume 10.7 fL (9.4-12.3); Monocytes Absolute Auto 1.4 X10*3/uL (0.1-1.2); Monocytes Percent Auto 8.9 % (2-11); Neutrophils Absolute Auto 12.5 X10*3/uL (2.0-8.3); Neutrophils Percent Auto 80.3 % (45-73); Platelet Count 266 X10*3/uL (160-400); Red Blood Count 4.14 X10*6/uL (4.20-5.50); Red Cell Distribution Width 16.8 % (11.0-16.0); White Blood Count 15.5 X10*3/uL (4.8-10.8)
[2020-10-31] MEDS: Acetaminophen 325 MG TABLET 650 MG PO (21:12)
[2020-10-31 21:25] LABS: Troponin-I High Sensitivity 14.8 ng/L (<3.5-17.0)
--- NOTE | 2020-10-31 21:32 | PC.NURSE ---
Per patient family member, patient has not been making urine due to dialysis unable to provide urine sample.
[2020-10-31 21:45] LABS: Lactic Acid 0.8 mmol/L (0.5-2.0)
[2020-10-31 22:25] LABS: Anion Gap 18 (12-20); Blood Urea Nitrogen 38 mg/dL (9-16); Calcium 8.6 mg/dL (8.4-10.2); Carbon Dioxide 23 mmol/L (22-29); Chloride 97 mmol/L (96-108); Creatinine Clr Calc Pharmacy 15.6; Estimated Glomerular Filt Rate 7; Glucose Random 158 mg/dL (60-115); Potassium 4.5 mmol/L (3.3-5.1); Sodium 133 mmol/L (135-145)
[2020-10-31 23:00] VITALS: BP 169/78; PULSE 80; RESP 16; TEMP 37.3; O2SAT 98
[2020-11-01] VITALS: BP 155/61; PULSE 75; RESP 15; TEMP 37.4; O2SAT 99
[2020-11-01] MEDS: Gabapentin 300 MG CAPSULE PO (00:09)
[2020-11-01 13:00] LABS: Glucose, Whole Blood 171 mg/dL (60-115)
== END 2020-11-01 01:43 | disposition home or self-care (01) ==
PROVIDERS: Emergency Medicine; Nurse Practitioner Family; Emergency Provider Emergency Medicine; PCP Internal Medicine
DX: E11.21 Type 2 diabetes mellitus with diabetic nephropathy (principal); M79.662 Pain in left lower leg; M79.661 Pain in right lower leg; E11.22 Type 2 diabetes mellitus with diabetic chronic kidney disease; I12.0 Hypertensive chronic kidney disease with stage 5 chronic kidney disease or end stage renal disease; N18.6 End stage renal disease; Z99.2 Dependence on renal dialysis; Z79.4 Long term (current) use of insulin; Z79.82 Long term (current) use of aspirin; Z99.3 Dependence on wheelchair
CPT/HCPCS: 36415; 71045; 80048; 82947; 83605; 84484; 85025; 87040; 93005; 99285

== ENCOUNTER 2021-07-06 04:06 | Inpatient (IN) | payer OTHER, SELFPAY ==
[2021-07-06] VITALS (10 sets, daily range): BP systolic 99–195; BP diastolic 57–111; PULSE 68–103; RESP 14–30; TEMP 36.6–37.2; O2SAT 93–100; BMI 32.5
--- NOTE | 2021-07-06 | ECG_ITS ---
Test Reason : repeat ekg Blood Pressure : / mmHG Vent. Rate : 088 BPM Atrial Rate : 088 BPM P-R Int : 138 ms QRS Dur : 078 ms QT Int : 412 ms P-R-T Axes : 053 019 161 degrees QTc Int : 498 ms Normal sinus rhythm Septal infarct , age undetermined ST & T wave abnormality, consider lateral ischemia Abnormal ECG When compared to the previous EKG of No significant changes seen Referred By: Alycia Villegas Electronically Signed By:CONCETTA LEE MD
--- NOTE | 2021-07-06 | ECG_ITS ---
Test Reason : chest pain Blood Pressure : / mmHG Vent. Rate : 102 BPM Atrial Rate : 102 BPM P-R Int : 138 ms QRS Dur : 084 ms QT Int : 362 ms P-R-T Axes : 054 -10 190 degrees QTc Int : 471 ms Sinus tachycardia Septal infarct (cited on or before 31-OCT-2020) ST & T wave abnormality, consider inferolateral ischemia Abnormal ECG When compared with ECG of 31-OCT-2020 21:17, T wave inversion now evident in Inferior leads T wave inversion now evident in Lateral leads Referred By: Generic ED Physician Electronically Signed By:Adan Arriaga
--- NOTE | ~2021-07-06 | XR_ITS ---
EXAMINATION: XR CHEST CLINICAL INFORMATION: Shortness of breath COMPARISON: 10/31/2020 TECHNIQUE: Frontal view of the chest was obtained. FINDINGS: Right IJ dual-lumen catheter tip lies in the region of the cavoatrial junction. The lungs are mildly hypoinflated. There is mild interstitial prominence bilaterally without focal consolidation. No evidence of pneumothorax or pleural effusion. Cardiac silhouette appears near the upper limits of normal in size. Calcification is present at the aortic arch. No acute osseous findings are seen. XR/XR chest 1V IMPRESSION: Mild bilateral interstitial prominence, which could reflect developing interstitial edema.
--- NOTE | ~2021-07-06 | CT_ITS ---
EXAMINATION: CT ABDOMEN AND PELVIS WITHOUT CONTRAST CLINICAL INFORMATION: Abdominal pain. COMPARISON: None TECHNIQUE: Multidetector volumetric imaging was performed from the superior aspect of the liver through the pubic symphysis. Sagittal and coronal reformatted images were obtained on the technologist's workstation. This CT examination was performed using dose optimization techniques as appropriate, variously including the following: *Automated exposure control *Adjustment of mA and/or kV according to patient size (this includes techniques or standardized protocols for targeted exams where dose is matched to indication/reason for exam; i.e. extremities or head) *Use of iterative reconstruction technique DLP: 736 mGy-cm FINDINGS: LUNG BASES: Diffuse interstitial prominence with patchy bilateral airspace opacities. Trace bilateral pleural effusions, right greater than left. LIVER, GALLBLADDER, AND BILIARY TREE: The liver is normal in size, shape, and attenuation. No focal hepatic lesion or biliary ductal dilatation is present. The gallbladder is unremarkable with no evidence of radiopaque gallstones, gallbladder wall thickening, or obvious pericholecystic inflammatory changes. PANCREAS: Unremarkable. SPLEEN: Unremarkable. ADRENAL GLANDS: Unremarkable. KIDNEYS AND URETERS: Bilateral renal cortical atrophy with nonspecific bilateral perinephric stranding. Prominent atherosclerotic calcifications. No parenchymal lesion. No renal or ureteral stone. No hydronephrosis or hydroureter. BLADDER: Nondistended with a Leggett catheter in place. Small amount of air within the urinary bladder related to the catheter placement. GASTROINTESTINAL TRACT: No bowel wall thickening or inflammatory change. No small- or large-bowel obstruction. Unremarkable appendix. PERITONEAL CAVITY: No intra-abdominal free air or free fluid. No intra-abdominal mass or organized fluid collection/abscess formation. ABDOMINAL WALL: No significant hernia is appreciated. LYMPH NODES: Mildly prominent portal lymph node measuring 1.0 x 2.2 cm (axial image 28/92). Subcentimeter retroperitoneal lymph nodes. Mildly prominent right external iliac lymph node measuring 1.6 x 1.1 cm (axial image 80/92). VASCULAR: No abdominal aortic dilatation. Prominent atherosclerotic calcifications. Unremarkable IVC. PELVIC VISCERA: Probable calcified fibroid. OSSEOUS STRUCTURES: No concerning lytic or blastic osseous lesion. No acute osseous abnormality. CT/CT abdomen pelvis wo con IMPRESSION: 1. No bowel wall thickening or inflammatory change. No small- or large-bowel obstruction. Unremarkable appendix. 2. No intra-abdominal mass, ascites, or fluid collection. 3. Nonspecific, mildly prominent portal lymph node and right external iliac lymph node without additional lymphadenopathy. 4. Diffuse interstitial prominence with patchy bilateral airspace opacities in the visualized lung bases. Trace bilateral pleural effusions. Fleischner guidelines were followed.
[2021-07-06 04:58] LABS: MANUAL DIFF FLAG NO
[2021-07-06 05:00] LABS: Basophils Absolute Auto 0.1 X10*3/uL (0.0-0.2); Basophils Percent Auto 0.4 % (0-2); Eosinophils Absolute Auto 0.2 X10*3/uL (0.0-0.4); Eosinophils Percent Auto 1.2 % (0-4); Hematocrit 42.2 % (37.0-47.0); Hemoglobin 12.8 g/dl (12.0-16.0); Imm Gran Pct Auto 0.5 % (0.0-0.4); Lymphocytes Absolute Auto 3.4 X10*3/uL (1.2-4.9); Mean Corpuscular HGB Conc 30.3 g/dl (31.0-35.0); Mean Corpuscular Hemoglobin 26.7 pg (27.0-33.0); Mean Corpuscular Volume 87.9 fL (80.0-98.0); Monocytes Absolute Auto 0.8 X10*3/uL (0.1-1.2); Monocytes Percent Auto 4.5 % (2-11); Neutrophils Absolute Auto 14.1 x10*3/uL (2.0-8.3); Neutrophils Percent Auto 75.4 % (45-73); Platelet Count 272 X10*3/uL (160-400); Red Cell Distribution Width 17.1 % (11.0-16.0); White Blood Count 18.7 X10*3/uL (4.8-10.8)
[2021-07-06 05:03] LABS: Venous Blood Gas Refer to POC result
[2021-07-06 05:05] LABS: VBG Base Excess -1.5 mmol/L; VBG HCO3 25 mmol/L (22-26); VBG pCO2 50 mmHg; VBG pO2 104 mmHg
--- NOTE | 2021-07-06 05:16 | ED_ITS ---
HPI - SOB/Dyspnea General Chief Complaint: Abdominal Pain Stated Complaint: ABD Pain Time Seen by Provider: 07/06/21 04:34 Source: patient, EMS and per diem interpreter Mode of arrival: EMS History of Present Illness HPI Narrative: 65-year-old female with history of diabetes as well as ESRD on dialysis, is consistent with her dialysis which was due today and then states that she developed acute on chronic epigastric pain with shortness of breath. On arrival EMS noted the patient was 88% on room air, does not have a history home oxygen and patient was placed on 4 L nasal cannula. She otherwise denies any fever, chills, nausea, vomiting. Related Data Home Medications Medication Instructions Recorded Confirmed polyethylene glycol 3350 17 17 g PO DAILY 05/08/20 05/20/21 gram/dose oral powder sucroferric oxyhydroxide 500 mg 500 mg PO BEDTIME 10/05/20 05/20/21 chewable tablet lisinopril 20 mg tablet 20 mg PO DAILY 03/27/21 05/20/21 Previous Rx's Medication Instructions Recorded alcohol swabs (Alcohol Prep Pads) 1 pad TOPICAL BID 90 Days #100 ea 05/14/20 underpads (Bed Underpads) #100 ea 05/15/20 acetaminophen 325 mg tablet 975 mg PO TID PRN 30 Days #270 tab 08/20/20 amlodipine 10 mg tablet 10 mg PO DAILY 90 Days #90 tab 08/20/20 aspirin 81 mg tablet,delayed 81 mg PO DAILY 90 Days #90 tab 08/20/20 release (Adult Low Dose Aspirin) atorvastatin 80 mg tablet 80 mg PO DAILY 90 Days #90 tab 08/20/20 cholecalciferol (vitamin D3) 50 50 mcg PO DAILY 30 Days #30 cap 08/20/20 mcg (2,000 unit) capsule diaper,brief,adult,disposable #120 ea 08/20/20 docusate sodium 100 mg capsule 100 mg PO BID PRN 90 Days #180 cap 08/20/20 (Colace) hydralazine 25 mg tablet 50 mg PO TID 30 Days #180 tab 08/20/20 lidocaine 5 % topical patch 1 patch TOPICAL DAILY 30 Days #30 08/20/20 ea miscellaneous medical supply #1 ea 08/20/20 sennosides 8.6 mg tablet (senna) 17.2 mg PO BEDTIME 90 Days #180 tab 08/20/20 tizanidine 2 mg tablet 2 mg PO Q8H PRN 30 Days #90 tab 08/20/20 blood sugar diagnostic (FreeStyle #120 ea 08/27/20 Test) nut.tx.glucose intolerance,soy 10 1 ea PO .twice a day 30 Days #24 ea 08/27/20 gram-140 kcal/40 gram oral bar (Glucerna Crispy Delights) insulin glargine 100 unit/mL (3 5 unit (0.05 mL) SUBCUT QPM 30 09/20/20 mL) subcutaneous pen (Lantus Days #1.5 ml Solostar U-100 Insulin) Humalog KwikPen Insulin 100 8 - 14 unit (0.08 - 0.14 mL) 10/30/20 unit/mL subcutaneous (insulin SUBCUT TID 30 Days #15 ml NS lispro) gabapentin 300 mg capsule 300 mg PO TID PRN #30 cap 10/31/20 trazodone 50 mg tablet 50 mg PO BEDTIME PRN #90 tab 11/11/20 pen needle, diabetic 32 gauge x #360 ea 12/20/20 (BD Ultra-Fine Rin Pen Needle) Shower Chair #1 ea 02/06/21 diclofenac sodium 1 % topical gel 2 g TOPICAL QID #100 g 03/27/21 (Voltaren Arthritis Pain) pantoprazole 40 mg tablet,delayed 40 mg PO QAM 90 Days #90 tab 03/27/21 release simethicone 80 mg chewable tablet 80 mg PO BID-QID PRN #60 tab 03/27/21 (Gas Relief (simethicone)) metoprolol tartrate 100 mg tablet 100 mg PO BID 90 Days #180 tab 05/08/21 Allergies Allergy/AdvReac Type Severity Reaction Status Date / Time No Known Allergies Allergy Verified 05/20/21 16:55 Review of Systems Review of Systems: Pertinent positives and negatives as stated in HPI 10 point review of systems is otherwise negative. [facility] Past Medical History Source: nursing notes reviewed Medical History Abdominal pain Cough Diabetes mellitus Diabetic nephropathy associated with type 2 diabetes mellitus Diabetic polyneuropathy associated with type 2 diabetes mellitus Dyslipidemia ESRD on hemodialysis Essential hypertension Generalized weakness residential (current) use of insulin Long-term use of aspirin therapy Stage II pressure ulcer of ankle Urge urinary incontinence Vitamin D deficiency Wheelchair bound Surgical History Arteriovenous fistula for hemodialysis in place, primary History of amputation Family History Family History Mother Diabetes Hypertension Father Hypertension Social History Social History Housing: Apartment Alcohol intake: never Patient Tobacco Use Status: Never used Tobacco e-Cigarette/Vaping Use: Never Used Second Hand Smoke Exposure: No Advance Directives: No service: No Current occupational status: disabled Physical Exam Vital Signs: Vital Signs: Last Vital Signs Temp 98.3 F 07/06/21 04:21 Pulse 91 07/06/21 05:29 Resp 30 H 07/06/21 05:20 BP 161/82 H 07/06/21 05:29 Pulse Ox 95 07/06/21 05:29 Oxygen Flow Rate 4 07/06/21 04:21 BMI result Body Mass Index 32.5 VITAL SIGNS: Reviewed. GENERAL: Chronically ill,, in moderate distress. HEAD: Normocephalic/atraumatic EYES: PERRLA, EOMI OROPHARYNX: no oral lesions noted, posterior pharynx clear LUNGS: Decreased breath sounds bilaterally with rales noted, tachypnea present, increased work of breathing with retractions. SpO2<95> CARDIOVASCULAR: Regular rate and rhythm without noted murmurs, no JVD or lower extremity edema. ABDOMEN: Soft, non-tender, non-distended with bowel sounds. EXTREMITIES: No cyanosis, clubbing or edema. SKIN: Inspection of the skin reveals no rashes NEUROLOGIC: Alert and oriented x 4. Strength and sensation to light touch were grossly intact x 4. Course Course Course Narrative: 65-year-old female with history and clinical presentation consistent with hypertensive urgency and the development of pulmonary edema with subsequent h ypoxia. Patient was immediately placed with 1/2 inch of nitro, BiPAP, sublingual nitro, as well as 80 mg of Lasix (after ascertaining that patient still makes urine). On re-evaluation patient is noted to be resting comfortably now, no longer tachypneic, and blood pressure has responded well and is now in the 150s systolic. Nitropaste was removed. Review of all investigations consistent with underlying ESRD, and patient is noted to be hyper glycemic without evidence of DKA or HHS. POssible underlying infection with leukocytosis and reports of abdominal discomfort. 0500: I suspect infection This case was discussed with the inpatient hospitalist who accepts admission and understands the patient needs dialysis today. Reevaluation(s) Reevaluation #1: Patient BP noted to be rising and provided additional 1/2 inch of nitro and requested med rec as well as Trop #2. Initial high sensitivity troponin is noted be mildly elevated, however this is strongly felt to be related to patient's hypertensive urgency, but will repeat with 2nd troponin. Time: 07:05 MDM - SOB/Dyspnea Lab Data Result diagrams: 07/06/21 04:54 07/06/21 04:54 Labs: Lab Results 07/06/21 07/06/21 07/06/21 Range/Units 04:54 04:54 04:54 WBC 18.7 H (4.8-10.8) X10*3/uL RBC 4.80 (4.20-5.50) X10*6/uL Hgb 12.8 (12.0-16.0) g/dl Hct 42.2 (37.0-47.0) % MCV 87.9 (80.0-98.0) fL MCH 26.7 L (27.0-33.0) pg MCHC 30.3 L (31.0-35.0) g/dl RDW 17.1 H (11.0-16.0) % Plt Count 272 (160-400) X10*3/uL MPV 12.0 (9.4-12.3) fL Immature Gran % (Auto) 0.5 H (0.0-0.4) % Neut % (Auto) 75.4 H (45-73) % Lymph % (Auto) 18.0 L (20-40) % [place] % (Auto) 4.5 (2-11) % Eos % (Auto) 1.2 (0-4) % Baso % (Auto) 0.4 (0-2) % Lymph # (Auto) 3.4 (1.2-4.9) X10*3/uL [place] # (Auto) 0.8 (0.1-1.2) X10*3/uL Eos # (Auto) 0.2 (0.0-0.4) X10*3/uL Baso # (Auto) 0.1 (0.0-0.2) X10*3/uL Abs Immat Gran (auto) 0.10 H (0.00-0.03) X10*3/uL Absolute Neuts (auto) 14.1 H (2.0-8.3) x10*3/uL Absolute Nucleated RBC 0.000 (0.0-0.012) X10*3/uL Nucleated RBC % (auto) 0.0 (0.0-0.2) /100WBC VBG pH (7.32-7.43) VBG pCO2 mmHg VBG pO2 mmHg VBG HCO3 (22-26) mmol/L VBG O2 Saturation % VBG Base Excess mmol/L Sodium 138 (135-145) mmol/L Potassium 4.9 (3.3-5.1) mmol/L Chloride 102 (96-108) mmol/L Carbon Dioxide 23 (22-29) mmol/L Anion Gap 18 (12-20) BUN 28 H (9-16) mg/dL Creatinine 5.19 H* (0.5-1.4) mg/dL Estim Creat Clear Calc 11.1 Estimated GFR 8 Random Glucose 359 H* (60-115) mg/dL Lactic Acid (0.5-2.0) mmol/L Calcium 8.9 (8.4-10.2) mg/dL Total Bilirubin 0.4 (0.0-1.0) mg/dL Direct Bilirubin < 0.2 (0.0-0.5) mg/dL AST 21 D (5-31) U/L ALT 9 (0-31) U/L Alkaline Phosphatase 105 (39-117) U/L Troponin I High Sens 39.0 H (<3.5-17.0) ng/L B-Natriuretic Peptide 2908 H (<100) pg/mL Total Protein 8.1 H (6.5-8.0) g/dL Albumin 3.6 (3.5-5.0) g/dL Lipase 51 (8-78) U/L COVID-19 (HAYLEE) (Negative) COVID-19 Clin Com 03/05/22 03/05/22 03/05/22 Range/Units 04:58 05:14 06:30 WBC (4.8-10.8) X10*3/uL RBC (4.20-5.50) X10*6/uL Hgb (12.0-16.0) g/dl Hct (37.0-47.0) % MCV (80.0-98.0) fL MCH (27.0-33.0) pg MCHC (31.0-35.0) g/dl RDW (11.0-16.0) % Plt Count (160-400) X10*3/uL MPV (9.4-12.3) fL Immature Gran % (Auto) (0.0-0.4) % Neut % (Auto) (45-73) % Lymph % (Auto) (20-40) % [place] % (Auto) (2-11) % Eos % (Auto) (0-4) % Baso % (Auto) (0-2) % Lymph # (Auto) (1.2-4.9) X10*3/uL [place] # (Auto) (0.1-1.2) X10*3/uL Eos # (Auto) (0.0-0.4) X10*3/uL Baso # (Auto) (0.0-0.2) X10*3/uL Abs Immat Gran (auto) (0.00-0.03) X10*3/uL Absolute Neuts (auto) (2.0-8.3) x10*3/uL Absolute Nucleated RBC (0.0-0.012) X10*3/uL Nucleated RBC % (auto) (0.0-0.2) /100WBC VBG pH 7.30 L (7.32-7.43) VBG pCO2 50 mmHg VBG pO2 104 mmHg VBG HCO3 25 (22-26) mmol/L VBG O2 Saturation 97.0 % VBG Base Excess -1.5 mmol/L Sodium (135-145) mmol/L Potassium (3.3-5.1) mmol/L Chloride (96-108) mmol/L Carbon Dioxide (22-29) mmol/L Anion Gap (12-20) BUN (9-16) mg/dL Creatinine (0.5-1.4) mg/dL Estim Creat Clear Calc Estimated GFR Random Glucose (60-115) mg/dL Lactic Acid 1.6 (0.5-2.0) mmol/L Calcium (8.4-10.2) mg/dL Total Bilirubin (0.0-1.0) mg/dL Direct Bilirubin (0.0-0.5) mg/dL AST (5-31) U/L ALT (0-31) U/L Alkaline Phosphatase (39-117) U/L Troponin I High Sens (<3.5-17.0) ng/L B-Natriuretic Peptide (<100) pg/mL Total Protein (6.5-8.0) g/dL Albumin (3.5-5.0) g/dL Lipase (8-78) U/L COVID-19 (HAYLEE) Negative (Negative) COVID-19 Clin Com See Note ECG Data Attestation: I personally reviewed and interpreted this ECG as follows: Prior ECG tracings: available for review Interpretation: 0427: Sinus tachycardia, HR-102, no STEMI, OK/QRS/QTC are within normal limits, there are noted ST and T-wave changes that at this time or felt to be associated with patient's hypertensive urgency. 0540: Normal sinus rhythm, HR-88, no STEMI, OK/QRS/QTC are within normal limits. Critical Care Time Critical Care Time Critical Care Time: Yes Total Critical Care Time: 30 Attestation: I personally attest to this time spent taking care of the patient. Discharge Plan Discharge Clinical Impression: Hypertensive urgency, Pulmonary edema, Hyperglycemia, Hypoxia, Abdominal pain Patient Disposition: Admitted As Inpatient
[2021-07-06] MEDS: Furosemide 100 MG/10 ML VIAL 80 MG IVPUSH (05:19)
[2021-07-06] MEDS: Nitroglycerin 0.4 MG TAB.SUBL SUBLINGUAL (05:20)
[2021-07-06] MEDS: Nitroglycerin 2 % Oint 1 GM Packet 0.5 INCH TRANSDERMA ×2 (05:22→07:41)
--- NOTE | 2021-07-06 05:23 | PC.NURSE ---
pt placed on bipap, Iv placed and labs drawn. Provider into assess pt. Respiratory at the bedside. Pt medicated per Jul. Leggett will be placed by pt RN. Pt on bedside monitor.
[2021-07-06 05:24] LABS: B Type Natriuretic Peptide 2908 pg/mL (<100)
[2021-07-06 05:26] LABS: Alanine Aminotransferase 9 U/L (0-31); Albumin Level 3.6 g/dL (3.5-5.0); Alkaline Phosphatase 105 U/L (39-117); Anion Gap 18 (12-20); Aspartate Amino Transferase 21 U/L (5-31); Bilirubin Total 0.4 mg/dL (0.0-1.0); Blood Urea Nitrogen 28 mg/dL (9-16); Calcium 8.9 mg/dL (8.4-10.2); Carbon Dioxide 23 mmol/L (22-29); Chloride 102 mmol/L (96-108); Creatinine Clr Calc Pharmacy 11.1; Estimated Glomerular Filt Rate 8; Glucose Random 359 mg/dL (60-115); Potassium 4.9 mmol/L (3.3-5.1); Sodium 138 mmol/L (135-145); Total Protein 8.1 g/dL (6.5-8.0)
[2021-07-06 05:34] LABS: Lactic Acid 1.6 mmol/L (0.5-2.0)
--- NOTE | 2021-07-06 06:30 | PC.NURSE ---
18 Fr. dillard placed with JAYDEN Parra, at bedside Pt tolerated well Will continue to monitor
--- NOTE | 2021-07-06 06:45 | PC.NURSE ---
Pt weaned off of bipap and placed on 2L NC by RT Pt tolerating well at 95% Will continue to monitor
[2021-07-06 06:54] LABS: COVID-19 Test Negative (Negative)
[2021-07-06 06:56] LABS: Bilirubin Direct < 0.2 mg/dL (0.0-0.5); Lipase 51 U/L (8-78)
[2021-07-06] MEDS: cefTRIAXone sodium 1 GM in 0.9 % Sodium Chloride 50 ML IV (07:40)
--- NOTE | 2021-07-06 09:06 | PM.IMHP ---
History of Present Illness Date of Service: 07/06/21 Attending physician on admission: Leighann Ohraa Chief Complaint: Epigastric pain associated with shortness of breath 65-year-old female patient with past medical history significant for non ST-elevation MO in January 2020, severe multivessel coronary artery disease, type 2 diabetes mellitus with neuropathy and nephropathy, hyperlipidemia hypertension, end stage renal disease on hemodialysis Tuesdays and Thursday presented to [facility] with acute onset of epigastric pain with radiation to left upper quadrant symptoms started at 01:00, and she was able to fall asleep and then woke up again at 03:00 with worsening symptoms therefore [id number] called the ambulance , EMS found patient to be hypoxic finger oximetry 88% on room air patient placed on 4 L of oxygen, in the emergency room patient noted to have elevated blood pressure, she was treated with 1/2 inch of nitropaste, BiPAP, Lasix 80 mg and sublingual nitro with some improvement in symptoms, patient complaining of persistent epigastric pain, mild nausea and shortness of breath, she endorses history of chronic gas pain , she denies fever, no chills no lightheadedness no dizziness she denies chest pain, she has chronic lower back discomfort, She denies urinary symptoms of urgency or frequency, she still makes some urine patient at baseline is wheelchair bound and ambulate short distances with the help of cane due to prior back injury, workup in the ER showed a benign CT abdomen and pelvis, chest x-ray showed bilateral interstitial prominence likely representing interstitial edema elevated WBC count of 18,000, elevated BNP 2 908, troponin 39, blood sugar 359, vitals in the ER showed tachypnea, tachycardia, and blood pressure 192/99, will admit patient for continued monitoring and treatment for acute hypoxic respiratory failure likely related to pulmonary edema, elevated troponin, and will require urgent hemodialysis. Review of Systems Review of Systems: General no headache, no dizziness no fever chills. CVS no chest pain, no palpitation. Respiratory cough no sputum production Gastrointestinal epigastric pain, and nausea no urinary urgency, no frequency Skin no rash Musculoskeletal no acute pain Yes all other systems are reviewed and are negative [facility] Medical History Abdominal pain Cough Diabetes mellitus Diabetic nephropathy associated with type 2 diabetes mellitus Diabetic polyneuropathy associated with type 2 diabetes mellitus Dyslipidemia ESRD on hemodialysis Essential hypertension Generalized weakness detention (current) use of insulin Long-term use of aspirin therapy Stage II pressure ulcer of ankle Urge urinary incontinence Vitamin D deficiency Wheelchair bound Family History Mother Diabetes Hypertension Father Hypertension Surgical History Arteriovenous fistula for hemodialysis in place, primary History of amputation Social History Household Members: Family Housing: House Do you presently have visiting nurse or other home services: Yes (VNA, PT) Alcohol intake: unknown Patient Tobacco Use Status: Never used Tobacco e-Cigarette/Vaping Use: Never Used Second Hand Smoke Exposure: No service: No Current occupational status: [employer] Allergies Allergy/AdvReac Type Severity Reaction Status Date / Time No Known Allergies Allergy Verified 05/20/21 16:55 Active Medications: Current Medications Acetaminophen (Acetaminophen 325 Mg Tablet) 650 mg PO Q6H PRN PRN Reason: Pain, Mild (Pain Scale 1-3) Amlodipine Besylate (Amlodipine Besylate 10 Mg Tablet) 10 mg PO DAILY DOLORES; Protocol Aspirin (Aspirin Enteric Coated 81 Mg Tablet.Dr) 81 mg PO DAILY DOLORES Atorvastatin Calcium (Atorvastatin Calcium 80 Mg Tablet) 80 mg PO DAILY DOLORES Docusate Sodium (Docusate Sodium 100 Mg Capsule) 100 mg PO BID PRN PRN Reason: constipation Heparin Sodium (Porcine) (Heparin Sodium,Porcine 5,000 Unit/Ml Vial) 5,000 unit SUBCUT Q12H DOLORES Hydralazine HCl (Hydralazine Hcl 50 Mg Tablet) 50 mg PO TID DOLORES; Protocol Insulin Glargine (Insulin Glargine,Hum.Rec.Anlog 100 Unit/Ml 10 Ml Vial) 5 unit SUBCUT BEDTIME DOLORES Losartan Potassium (Losartan Potassium 25 Mg Tablet) 25 mg PO DAILY DOLORES; Protocol Melatonin (Melatonin 3 Mg Tablet) 6 mg PO BEDTIME PRN PRN Reason: insomnia Metoprolol Tartrate (Metoprolol Tartrate 100 Mg Tablet) 100 mg PO BID DOLORES; Protocol Multivitamins/Vitamin C (Multivitamin Tablet) 1 tab PO DAILY DOLORES Ondansetron HCl (Ondansetron Hcl 4 Mg/2 Ml Vial) 4 mg IVPUSH Q8H PRN PRN Reason: Nausea and Vomiting Pharmacy Consult (Consult Rx Perform Med Rec) 1 each MISCELLANE ONCE PRN PRN Reason: Consult order Pharmacy Consult (Consult Rx Perform Med Rec) 1 each MISCELLANE ONCE PRN PRN Reason: Consult order Polyethylene Glycol (Polyethylene Glycol 3350 17 Gm Powd.Pack) 17 gm PO DAILY DOLORES Senna (Sennosides 8.6 Mg Tablet) 17.2 mg PO BEDTIME DOLORES Simethicone (Simethicone 80 Mg Tab.Chew) 80 mg PO QID PRN PRN Reason: abdominal distention Sodium Chloride (0.9 % Sodium Chloride Flush 3 Ml Syringe) 3 ml IVFLUSH QSHIFT DOLORES Vitamin D (Cholecalciferol (Vitamin D3) 25 Mcg Tablet) 50 mcg PO DAILY [facility] Home Medications Medication Instructions Recorded Confirmed Last Taken Type polyethylene glycol 3350 17 17 g PO DAILY 05/08/20 07/06/21 Unknown History gram/dose oral powder hydralazine 50 mg tablet 1 tab PO TID 07/06/21 07/06/21 Unknown History insulin glargine 100 unit/mL (3 5 unit SUBCUT QPM 07/06/21 07/06/21 Unknown History mL) subcutaneous pen (Lantus Solostar U-100 Insulin) losartan 25 mg tablet 1 tab PO DAILY 07/06/21 07/06/21 Unknown History melatonin 5 mg tablet 1 tab PO BEDTIME PRN 07/06/21 07/06/21 Unknown History vitamin B complex-vitamin C-folic 1 tab PO DAILY 07/06/21 07/06/21 Unknown History acid 0.8 mg tablet (Nephro-Josefina) Physical Exam Vital Signs and Narrative: Vital Signs: Last Vital Signs Temp 98.0 F 07/06/21 07:26 Pulse 82 07/06/21 07:26 Resp 14 07/06/21 07:26 BP 194/97 H 07/06/21 07:26 Pulse Ox 100 07/06/21 07:26 Oxygen Flow Rate 4 07/06/21 04:21 BMI result Body Mass Index 32.5 Const: Other: General awake alert mild distress due to pain Neck supple no JVD. CVS regular rate rhythm, Respiratory bilateral crackles at bases, no use of accessory muscles, mild tachypnea Gastrointestinal abdomen soft, epigastric tenderness to palpation,bowel sounds audible, no guarding , no rigidity. Extremities no edema. Left hand trans metacarpal amputation Neuro nonfocal , speech clear. Back no CVA tenderness Skin no rash Psych appropriate affect Results Labs CBC and Chem 7: 07/07/21 04:38 07/07/21 04:38 Labs: Laboratory Results - last 24 hr 07/06/21 07/06/21 07/06/21 04:54 04:54 04:54 MCV 87.9 MCH 26.7 L MCHC 30.3 L RDW 17.1 H Plt Count 272 MPV 12.0 Immature Gran % (Auto) 0.5 H Neut % (Auto) 75.4 H Lymph % (Auto) 18.0 L [place] % (Auto) 4.5 Eos % (Auto) 1.2 Baso % (Auto) 0.4 Lymph # (Auto) 3.4 [place] # (Auto) 0.8 Eos # (Auto) 0.2 Baso # (Auto) 0.1 Abs Immat Gran (auto) 0.10 H Absolute Neuts (auto) 14.1 H Absolute Nucleated RBC 0.000 Nucleated RBC % (auto) 0.0 VBG pH VBG pCO2 VBG pO2 VBG HCO3 VBG O2 Saturation VBG Base Excess Anion Gap 18 Estim Creat Clear Calc 11.1 Estimated GFR 8 Random Glucose 359 H* Lactic Acid Calcium 8.9 Total Bilirubin 0.4 Direct Bilirubin < 0.2 AST 21 D ALT 9 Alkaline Phosphatase 105 B-Natriuretic Peptide 2908 H Total Protein 8.1 H Albumin 3.6 Lipase 51 COVID-19 (HAYLEE) COVID-19 Clin Com 07/06/21 07/06/21 07/06/21 04:58 05:14 06:30 MCV MCH MCHC RDW Plt Count MPV Immature Gran % (Auto) Neut % (Auto) Lymph % (Auto) [place] % (Auto) Eos % (Auto) Baso % (Auto) Lymph # (Auto) [place] # (Auto) Eos # (Auto) Baso # (Auto) Abs Immat Gran (auto) Absolute Neuts (auto) Absolute Nucleated RBC Nucleated RBC % (auto) VBG pH 7.30 L VBG pCO2 50 VBG pO2 104 VBG HCO3 25 VBG O2 Saturation 97.0 VBG Base Excess -1.5 Anion Gap Estim Creat Clear Calc Estimated GFR Random Glucose Lactic Acid 1.6 Calcium Total Bilirubin Direct Bilirubin AST ALT Alkaline Phosphatase B-Natriuretic Peptide Total Protein Albumin Lipase COVID-19 (HAYLEE) Negative COVID-19 Clin Com See Note Imaging Radiologist's Impressions: Impressions Chest X-Ray 07/06/21 06:24 IMPRESSION: Mild bilateral interstitial prominence, which could reflect developing interstitial edema. Abdomen/Pelvis CT 07/06/21 08:16 IMPRESSION: 1. No bowel wall thickening or inflammatory change. No small- or large-bowel obstruction. Unremarkable appendix. 2. No intra-abdominal mass, ascites, or fluid collection. 3. Nonspecific, mildly prominent portal lymph node and right external iliac lymph node without additional lymphadenopathy. 4. Diffuse interstitial prominence with patchy bilateral airspace opacities in the visualized lung bases. Trace bilateral pleural effusions. Fleischner guidelines were followed. 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 Status: Acute (6) ESRD on hemodialysis: Status: Acute (7) Dyslipidemia: Status: Acute Plan 65-year-old female patient with past medical history significant for multivessel coronary artery disease, hypertension, hyperlipidemia, diabetes mellitus with neuropathy, nephropathy, end-stage renal disease on hemodialysis presented to [facility] due to epigastric pain associated with shortness of breath on arrival patient noted to have elevated blood pressures, acute respiratory distress with hypoxic respiratory failure finger oximetry 88% on room air patient required treatment with BiPAP and oxygen, patient also noted to have elevated BNP, BMP and hyperglycemia. Acute hypoxic respiratory failure Noted to have respiratory distress with tachypnea and tachycardia and hypoxia, symptoms improved with use of BiPAP continue oxygen, patient not on home O2 Likely related to cardiac ischemia, pulmonary edema, no evidence of acute infection status post IV Lasix follow I /os, tele monitor, arrange for urgent hemodialysis. Hypertensive urgency Likely related to cardiac ischemia, continue nitropaste will resume home medication including amlodipine, metoprolol and hydralazine. Clinical course closely Non ST-elevation MO with Elevated troponin with nonspecific EKG changes T-wave inversion inferio lateral leads Question related to elevated blood pressure, pulmonary edema, denies chest pain, elevated repeat troponin, will place on IV heparin, continue beta-blockers statins and aspirin, obtain cardiology consult and echo Reviewed old records from [facility] patient had an echo in March 2021 that showed preserved EF with grade 2 diastolic dysfunction Abdominal pain Persistent epigastric discomfort differential diagnosis cardiac ischemia/ peptic ulcer disease/gastritis CT abdomen showed no acute disease Treat cardiac ischemia,Continue symptomatic treatment with PPI/simethicone follow clinical course Leukocytosis likely reactive and seems chronic no evidence of acute infection chest x-ray showed bilateral lower lobe opacities ,seen in prior chest x-ray report from [facility] , rule out UTI, CT abdomen benign Follow CBC End-stage renal disease Will arrange for hemodialysis obtain nephrology consultation/normal potassium Diabetes mellitus with hyperglycemia Will place on diabetic diet resume home dose of Lantus and sliding scale Code status full code DVT prophylaxis with heparin Needs 2 nights stay due NSTEMI that require treatment with IV heparin and further testing. Quality Stroke Does the patient have a stroke diagnosis?: No VTE Prior VTE?: No VTE Risk Level:: Medical - moderate - high VTE Device Contraindication: Treatment Not Indicated VTE Drug Contraindication: N/A - Med Ordered
[2021-07-06] MEDS: Losartan Potassium 25 MG TABLET PO (09:10)
[2021-07-06] MEDS: Aspirin Enteric Coated 81 MG TABLET.DR PO (09:11)
[2021-07-06] MEDS: Atorvastatin Calcium 80 MG TABLET PO (09:11)
[2021-07-06] MEDS: hydrALAZINE HCl 50 MG TABLET PO ×2 (09:11→16:12)
[2021-07-06] MEDS: amLODIPine Besylate 10 MG TABLET PO (09:11)
[2021-07-06] MEDS: Cholecalciferol (Vitamin D3) 25 MCG TABLET 50 MCG PO (09:11)
[2021-07-06] MEDS: Heparin Sodium,Porcine 5,000 UNIT/ML VIAL 5000 UNIT SUBCUT (09:14)
[2021-07-06] MEDS: Simethicone 80 MG TAB.CHEW PO (09:27)
[2021-07-06] MEDS: Metoprolol Tartrate 100 MG TABLET PO (09:44)
[2021-07-06] MEDS: Multivitamin TABLET 1 TAB PO (09:44)
[2021-07-06] MEDS: Aspirin Enteric Coated 81 MG TABLET.DR 162 MG PO (09:45)
[2021-07-06] MEDS: Omeprazole 40 MG CAPSULE.DR PO (09:45)
[2021-07-06] MEDS: polyethylene glycoL 3350 17 GM POWD.PACK PO (09:45)
--- NOTE | 2021-07-06 10:07 | P.CONCA_ITS ---
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 She is describing epigastric pain which is improving. She is complaining of shortness of breath. She is saying that she has not missed any dialysis sessions. Her blood pressure was significantly elevated and continues to be elevated. Blood workup is abnormal and a troponin level is 271 with anti proBNP of 2 908. COVID is negative. EKG is showing sinus rhythm 88 beats per minute, normal axis, version 1 aVL and pre for to be 6, cannot rule out septal infarct. She is denying any chest discomfort. [facility] Past Medical History Medical History Abdominal pain Cough Diabetes mellitus Diabetic nephropathy associated with type 2 diabetes mellitus Diabetic polyneuropathy associated with type 2 diabetes mellitus Dyslipidemia ESRD on hemodialysis Essential hypertension Generalized weakness jail (current) use of insulin Long-term use of aspirin therapy Stage II pressure ulcer of ankle Urge urinary incontinence Vitamin D deficiency Wheelchair bound Family History Family History Mother Diabetes Hypertension Father Hypertension Surgical History Surgical History Arteriovenous fistula for hemodialysis in place, primary History of amputation Social History Social History Housing: Apartment Alcohol intake: never Patient Tobacco Use Status: Never used Tobacco e-Cigarette/Vaping Use: Never Used Second Hand Smoke Exposure: No Advance Directives: No service: No Current occupational status: disabled Meds Allergies Allergy/AdvReac Type Severity Reaction Status Date / Time No Known Allergies Allergy Verified 05/20/21 16:55 Active Medications: Current Medications Acetaminophen (Acetaminophen 325 Mg Tablet) 650 mg PO Q6H PRN PRN Reason: Pain, Mild (Pain Scale 1-3) Amlodipine Besylate (Amlodipine Besylate 10 Mg Tablet) 10 mg PO DAILY [facility]; Protocol Last Admin: 07/06/21 09:11 Dose: 10 mg Documented by: Aspirin (Aspirin Enteric Coated 81 Mg Tablet.) 81 mg PO DAILY [facility] Last Admin: 07/06/21 09:11 Dose: 81 mg Documented by: Atorvastatin Calcium (Atorvastatin Calcium 80 Mg Tablet) 80 mg PO DAILY [facility] Last Admin: 07/06/21 09:11 Dose: 80 mg Documented by: Docusate Sodium (Docusate Sodium 100 Mg Capsule) 100 mg PO BID PRN PRN Reason: constipation Heparin Sodium (Porcine) (Heparin Sodium,Porcine 5,000 Unit/Ml Vial) 3,500 unit 40 unit/kg (3500 unit) IVPUSH PROTOCOL BOLUS PRN; Protocol PRN Reason: 40 unit/kg - Heparin Protocol Heparin Sodium (Porcine) (Heparin Sodium,Porcine 5,000 Unit/Ml Vial) 6,900 unit 80 unit/kg (6900 unit) IVPUSH PROTOCOL BOLUS PRN; Protocol PRN Reason: 80 unit/kg - Heparin Protocol Hydralazine HCl (Hydralazine Hcl 50 Mg Tablet) 50 mg PO TID [facility]; Protocol Last Admin: 07/06/21 09:11 Dose: 50 mg Documented by: Heparin Sodium/Sodium Chloride () 25,000 unit in 250 mls @ 0 mls/hr IVCONT .Q0M [facility]; Protocol Insulin Glargine (Insulin Glargine,Hum.Rec.Anlog 100 Unit/Ml 10 Ml Vial) 5 unit SUBCUT BEDTIME [facility] Losartan Potassium (Losartan Potassium 25 Mg Tablet) 25 mg PO DAILY [facility]; Protocol Last Admin: 07/06/21 09:10 Dose: 25 mg Documented by: Melatonin (Melatonin 3 Mg Tablet) 6 mg PO BEDTIME PRN PRN Reason: insomnia Metoprolol Tartrate (Metoprolol Tartrate 100 Mg Tablet) 100 mg PO BID [facility]; Protocol Last Admin: 07/06/21 09:44 Dose: 100 mg Documented by: Multivitamins/Vitamin C (Multivitamin Tablet) 1 tab PO DAILY [facility] Last Admin: 07/06/21 09:44 Dose: 1 tab Documented by: Omeprazole (Omeprazole 40 Mg Capsule.) 40 mg PO DAILY@0630 [facility] Last Admin: 07/06/21 09:45 Dose: 40 mg Documented by: Ondansetron HCl (Ondansetron Hcl 4 Mg/2 Ml Vial) 4 mg IVPUSH Q8H PRN PRN Reason: Nausea and Vomiting Pharmacy Consult (Consult Rx Perform Med Rec) 1 each MISCELLANE ONCE PRN PRN Reason: Consult order Pharmacy Consult (Consult Rx Perform Med Rec) 1 each MISCELLANE ONCE PRN PRN Reason: Consult order Polyethylene Glycol (Polyethylene Glycol 3350 17 Gm Powd.Pack) 17 gm PO DAILY [facility] Last Admin: 07/06/21 09:45 Dose: 17 gm Documented by: Senna (Sennosides 8.6 Mg Tablet) 17.2 mg PO BEDTIME [facility] Simethicone (Simethicone 80 Mg Tab.Chew) 80 mg PO QID PRN PRN Reason: abdominal distention Sodium Chloride (0.9 % Sodium Chloride Flush 3 Ml Syringe) 3 ml IVFLUSH QSHIFT [facility] Vitamin D (Cholecalciferol (Vitamin D3) 25 Mcg Tablet) 50 mcg PO DAILY [facility] Last Admin: 07/06/21 09:11 Dose: 50 mcg Documented by: Home Medications Medication Instructions Recorded Confirmed Last Taken Type polyethylene glycol 3350 17 17 g PO DAILY 05/08/20 07/06/21 Unknown History gram/dose oral powder hydralazine 50 mg tablet 1 tab PO TID 07/06/21 07/06/21 Unknown History insulin glargine 100 unit/mL (3 5 unit SUBCUT QPM 07/06/21 07/06/21 Unknown History mL) subcutaneous pen (Lantus Solostar U-100 Insulin) losartan 25 mg tablet 1 tab PO DAILY 07/06/21 07/06/21 Unknown History melatonin 5 mg tablet 1 tab PO BEDTIME PRN 07/06/21 07/06/21 Unknown History vitamin B complex-vitamin C-folic 1 tab PO DAILY 07/06/21 07/06/21 Unknown History acid 0.8 mg tablet (Nephro-Josefina) Physical Exam Vital Signs: Vital Signs: Last Vital Signs Temp 97.9 F 07/06/21 10:03 Pulse 82 07/06/21 10:03 Resp 18 07/06/21 10:03 BP 195/87 H 07/06/21 10:03 Pulse Ox 100 07/06/21 10:03 Oxygen Flow Rate 4 07/06/21 04:21 BMI result Body Mass Index 32.5 GENERAL APPEARANCE: Short of breath and distressed. NECK: no carotid bruit, + jugular venous distention. SKIN: no suspicious lesions, warm and dry. HEART: Systolic murmur, regular rate and rhythm. LUNGS: crackles at bases. ABDOMEN: soft, nontender. EXTREMITIES: no edema. Left upper extremity digits amputated. PERIPHERAL PULSES: equal. NEUROLOGIC: No gross deficits, AAO X 3 Objective Labs and Meds Result diagrams: 07/06/21 10:20 07/06/21 04:54 Lab results: Laboratory Results - last 24 hr 07/06/21 07/06/21 07/06/21 04:54 04:54 04:54 WBC 18.7 H RBC 4.80 Hgb 12.8 Hct 42.2 MCV 87.9 MCH 26.7 L MCHC 30.3 L RDW 17.1 H Plt Count 272 MPV 12.0 Immature Gran % (Auto) 0.5 H Neut % (Auto) 75.4 H Lymph % (Auto) 18.0 L [place] % (Auto) 4.5 Eos % (Auto) 1.2 Baso % (Auto) 0.4 Lymph # (Auto) 3.4 [place] # (Auto) 0.8 Eos # (Auto) 0.2 Baso # (Auto) 0.1 Abs Immat Gran (auto) 0.10 H Absolute Neuts (auto) 14.1 H Absolute Nucleated RBC 0.000 Nucleated RBC % (auto) 0.0 VBG pH VBG pCO2 VBG pO2 VBG HCO3 VBG O2 Saturation VBG Base Excess Sodium 138 Potassium 4.9 Chloride 102 Carbon Dioxide 23 Anion Gap 18 BUN 28 H Creatinine 5.19 H* Estim Creat Clear Calc 11.1 Estimated GFR 8 Random Glucose 359 H* Lactic Acid Calcium 8.9 Total Bilirubin 0.4 Direct Bilirubin < 0.2 AST 21 D ALT 9 Alkaline Phosphatase 105 Troponin I High Sens 39.0 H B-Natriuretic Peptide 2908 H Total Protein 8.1 H Albumin 3.6 Lipase 51 COVID-19 ([facility]) COVID-19 Clin Com 07/06/21 07/06/21 07/06/21 04:58 05:14 06:30 WBC RBC Hgb Hct MCV MCH MCHC RDW Plt Count MPV Immature Gran % (Auto) Neut % (Auto) Lymph % (Auto) [place] % (Auto) Eos % (Auto) Baso % (Auto) Lymph # (Auto) [place] # (Auto) Eos # (Auto) Baso # (Auto) Abs Immat Gran (auto) Absolute Neuts (auto) Absolute Nucleated RBC Nucleated RBC % (auto) VBG pH 7.30 L VBG pCO2 50 VBG pO2 104 VBG HCO3 25 VBG O2 Saturation 97.0 VBG Base Excess -1.5 Sodium Potassium Chloride Carbon Dioxide Anion Gap BUN Creatinine Estim Creat Clear Calc Estimated GFR Random Glucose Lactic Acid 1.6 Calcium Total Bilirubin Direct Bilirubin AST ALT Alkaline Phosphatase Troponin I High Sens B-Natriuretic Peptide Total Protein Albumin Lipase COVID-19 ([facility]) Negative COVID-19 Clin Com See Note 07/06/21 08:50 WBC RBC Hgb Hct MCV MCH MCHC RDW Plt Count MPV Immature Gran % (Auto) Neut % (Auto) Lymph % (Auto) [place] % (Auto) Eos % (Auto) Baso % (Auto) Lymph # (Auto) [place] # (Auto) Eos # (Auto) Baso # (Auto) Abs Immat Gran (auto) Absolute Neuts (auto) Absolute Nucleated RBC Nucleated RBC % (auto) VBG pH VBG pCO2 VBG pO2 VBG HCO3 VBG O2 Saturation VBG Base Excess Sodium Potassium Chloride Carbon Dioxide Anion Gap BUN Creatinine Estim Creat Clear Calc Estimated GFR Random Glucose Lactic Acid Calcium Total Bilirubin Direct Bilirubin AST ALT Alkaline Phosphatase Troponin I High Sens 271.0 H* D B-Natriuretic Peptide Total Protein Albumin Lipase COVID-19 ([facility]) COVID-19 Clin Com Imaging Radiologist's impression: Impressions Chest X-Ray 07/06/21 06:24 IMPRESSION: Mild bilateral interstitial prominence, which could reflect developing interstitial edema. Abdomen/Pelvis CT 07/06/21 08:16 IMPRESSION: 1. No bowel wall thickening or inflammatory change. No small- or large-bowel obstruction. Unremarkable appendix. 2. No intra-abdominal mass, ascites, or fluid collection. 3. Nonspecific, mildly prominent portal lymph node and right external iliac lymph node without additional lymphadenopathy. 4. Diffuse interstitial prominence with patchy bilateral airspace opacities in the visualized lung bases. Trace bilateral pleural effusions. Fleischner guidelines were followed. Assessment and Plan (1) Elevated troponin level: Status: Acute (2) Hypertensive emergency: Status: Acute Plan 65-year-old female here for upper abdominal pain as well as shortness of breath. She has significantly elevated blood pressure and chest x-ray showing mild interstitial edema. She also has mildly abnormal troponin levels with this presentation. ECG is showing septal infarct with lateral T-wave changes with mild depressions which could be due to LV strain. In any case right now she needs hemodialysis. As she gets dialyzed and her respiratory status improves and we can reassess her. In the meantime continue heparin is reasonable. I think she should have repeat troponins in another 4-6 hours. I did look through her chart at [facility] and have not found any ischemic evaluation or cardiac catheterization on her. continue home medications Including aspirin and atorvastatin.. Avoid IV hydralazine right now. I think as she gets dialyzed her blood pressure may improve. We will follow along with you. Thank you for allowing me to participate in the care of your patient. Please feel free to contact me if you have any questions. Procedures Date of Service Date of Service: 07/06/21
[2021-07-06] MEDS: Heparin Sodium,Porcine/1/2NS 25,000 UNIT/250 ML IV.SOLN 12.14 UNIT IVCONT (10:22)
[2021-07-06 10:33] LABS: Hematocrit 36.8 % (37.0-47.0); Hemoglobin 11.2 g/dl (12.0-16.0); Mean Corpuscular HGB Conc 30.4 g/dl (31.0-35.0); Mean Corpuscular Hemoglobin 26.3 pg (27.0-33.0); Mean Corpuscular Volume 86.4 fL (80.0-98.0); Platelet Count 247 X10*3/uL (160-400); Red Blood Count 4.26 X10*6/uL (4.20-5.50); Red Cell Distribution Width 17.4 % (11.0-16.0); White Blood Count 14.8 X10*3/uL (4.8-10.8)
[2021-07-06 10:42] LABS: Prothrombin Time 11.5 SEC (9.9-13.0)
--- NOTE | 2021-07-06 11:25 | PC.NURSE ---
pt wAS TRANSPORTED TO DIALYSIS BY 2 RNS WITHOUT INCIDIENCE, TELE MONITOR APPLIED PRIOR TO TRANSPORT. VSS. REPEAT TROP WAS 271.0
[2021-07-06 11:30] LABS: PTT Heparin Drip 30.3 SEC (53-77.9)
[2021-07-06] MEDS: ondansetron HCL 4 MG/2 ML VIAL IVPUSH (13:28)
--- NOTE | 2021-07-06 13:31 | P.CONNP_ITS ---
History of Present Illness Reason for Consult Consult date: 07/06/21 Reason for consult: ESRD Chief Complaint Chief complaint: Shortness of breath, elevated troponin History of Present Illness Narrative: end-stage renal diseasesec to Diabetic Nephropathy on hemodialysis TTS at [facility] in [facility], h/o diabetes, left? hand digits amputation in the past, hyperlipidemia? who is wheelchair-bound presenting for shortness of breath and abdominal gas pain.? She is describing epigastric pain which is improving.? She is complaining of shortness of breath.? She? is saying that she has not missed any dialysis sessions.? Her blood pressure was significantly elevated and continues to be elevated.?In ER was given O2, NTP, Lasix. Blood workup is abnormal and a troponin level is 271 with anti proBNP of 2 908.? COVID is n egative.? EKG is showing sinus rhythm 88 beats per minute, normal axis, concerning for septal infarct as she is now being dialyzed emergently due to significant volume overload and HTN. She is denying any chest discomfort. In anticipation for fluid removal at HD, NTP has been taken off, BP has dropped from 200s to 140s, remains nauseaous. Review of Systems Review of Systems Yes all other systems are reviewed and are negative PMFSH Past Medical History Medical History Abdominal pain Cough Diabetes mellitus Diabetic nephropathy associated with type 2 diabetes mellitus Diabetic polyneuropathy associated with type 2 diabetes mellitus Dyslipidemia ESRD on hemodialysis Essential hypertension Generalized weakness [facility] (current) use of insulin Long-term use of aspirin therapy Stage II pressure ulcer of ankle Urge urinary incontinence Vitamin D deficiency Wheelchair bound Family History Family History Mother Diabetes Hypertension Father Hypertension Surgical History Surgical History Arteriovenous fistula for hemodialysis in place, primary History of amputation Social History Social History Housing: Apartment Alcohol intake: unknown Patient Tobacco Use Status: Never used Tobacco e-Cigarette/Vaping Use: Never Used Second Hand Smoke Exposure: No Use of substances other than those prescribed or required for medical reasons: Unknown Advance Directives: No service: No Current occupational status: disabled Meds Allergies Allergy/AdvReac Type Severity Reaction Status Date / Time No Known Allergies Allergy Verified 05/20/21 16:55 Active Medications: Current Medications Acetaminophen (Acetaminophen 325 Mg Tablet) 650 mg PO Q6H PRN PRN Reason: Pain, Mild (Pain Scale 1-3) Amlodipine Besylate (Amlodipine Besylate 10 Mg Tablet) 10 mg PO DAILY [facility]; Protocol Last Admin: 07/06/21 09:11 Dose: 10 mg Documented by: Aspirin (Aspirin Enteric Coated 81 Mg Tablet.) 81 mg PO DAILY [facility] Last Admin: 07/06/21 09:11 Dose: 81 mg Documented by: Atorvastatin Calcium (Atorvastatin Calcium 80 Mg Tablet) 80 mg PO DAILY [facility] Last Admin: 07/06/21 09:11 Dose: 80 mg Documented by: Docusate Sodium (Docusate Sodium 100 Mg Capsule) 100 mg PO BID PRN PRN Reason: constipation Heparin Sodium (Porcine) (Heparin Sodium,Porcine 5,000 Unit/Ml Vial) 3,500 unit 40 unit/kg (3500 unit) IVPUSH PROTOCOL BOLUS PRN; Protocol PRN Reason: 40 unit/kg - Heparin Protocol Heparin Sodium (Porcine) (Heparin Sodium,Porcine 5,000 Unit/Ml Vial) 6,900 unit 80 unit/kg (6900 unit) IVPUSH PROTOCOL BOLUS PRN; Protocol PRN Reason: 80 unit/kg - Heparin Protocol Hydralazine HCl (Hydralazine Hcl 50 Mg Tablet) 50 mg PO TID [facility]; Protocol Last Admin: 07/06/21 09:11 Dose: 50 mg Documented by: Heparin Sodium/Sodium Chloride () 25,000 unit in 250 mls @ 0 mls/hr IVCONT .Q0M [facility]; Protocol Last Admin: 07/06/21 10:22 Dose: 14 units/kg/hr, 12.14 mls/hr Documented by: Insulin Glargine (Insulin Glargine,Hum.Rec.Anlog 100 Unit/Ml 10 Ml Vial) 5 unit SUBCUT BEDTIME [facility] Losartan Potassium (Losartan Potassium 25 Mg Tablet) 25 mg PO DAILY [facility]; Protocol Last Admin: 07/06/21 09:10 Dose: 25 mg Documented by: Melatonin (Melatonin 3 Mg Tablet) 6 mg PO BEDTIME PRN PRN Reason: insomnia Metoprolol Tartrate (Metoprolol Tartrate 100 Mg Tablet) 100 mg PO BID [facility]; Protocol Last Admin: 07/06/21 09:44 Dose: 100 mg Documented by: Multivitamins/Vitamin C (Multivitamin Tablet) 1 tab PO DAILY [facility] Last Admin: 07/06/21 09:44 Dose: 1 tab Documented by: Omeprazole (Omeprazole 40 Mg Capsule.) 40 mg PO DAILY@0630 [facility] Last Admin: 07/06/21 09:45 Dose: 40 mg Documented by: Ondansetron HCl (Ondansetron Hcl 4 Mg/2 Ml Vial) 4 mg IVPUSH Q8H PRN PRN Reason: Nausea and Vomiting Last Admin: 07/06/21 13:28 Dose: 4 mg Documented by: Pharmacy Consult (Consult Rx Perform Med Rec) 1 each MISCELLANE ONCE PRN PRN Reason: Consult order Pharmacy Consult (Consult Rx Perform Med Rec) 1 each MISCELLANE ONCE PRN PRN Reason: Consult order Polyethylene Glycol (Polyethylene Glycol 3350 17 Gm Powd.Pack) 17 gm PO DAILY [facility] Last Admin: 07/06/21 09:45 Dose: 17 gm Documented by: Senna (Sennosides 8.6 Mg Tablet) 17.2 mg PO BEDTIME [facility] Simethicone (Simethicone 80 Mg Tab.Chew) 80 mg PO QID PRN PRN Reason: abdominal distention Sodium Chloride (0.9 % Sodium Chloride Flush 3 Ml Syringe) 3 ml IVFLUSH QSHIFT [facility] Vitamin D (Cholecalciferol (Vitamin D3) 25 Mcg Tablet) 50 mcg PO DAILY [facility] Last Admin: 07/06/21 09:11 Dose: 50 mcg Documented by: Home Medications Medication Instructions Recorded Confirmed Last Taken Type polyethylene glycol 3350 17 17 g PO DAILY 05/08/20 07/06/21 Unknown History gram/dose oral powder hydralazine 50 mg tablet 1 tab PO TID 07/06/21 07/06/21 Unknown History insulin glargine 100 unit/mL (3 5 unit SUBCUT QPM 07/06/21 07/06/21 Unknown History mL) subcutaneous pen (Lantus Solostar U-100 Insulin) losartan 25 mg tablet 1 tab PO DAILY 07/06/21 07/06/21 Unknown History melatonin 5 mg tablet 1 tab PO BEDTIME PRN 07/06/21 07/06/21 Unknown History vitamin B complex-vitamin C-folic 1 tab PO DAILY 07/06/21 07/06/21 Unknown History acid 0.8 mg tablet (Nephro-Josefina) Physical Exam Vital Signs: Last Vital Signs Temp 97.9 F 07/06/21 10:03 Pulse 82 07/06/21 10:03 Resp 18 07/06/21 10:03 BP 195/87 H 07/06/21 10:03 Pulse Ox 100 07/06/21 10:03 Oxygen Flow Rate 4 07/06/21 04:21 BMI result Body Mass Index 32.5 in mild distress due to nausea permcath s1s2 decreased BSs on bases abd soft non tender on palpation ext no edema Results Lab Results Result Diagrams: 07/06/21 10:20 07/06/21 04:54 Lab results: Chemistry 07/06/21 04:54 Sodium 138 Potassium 4.9 Carbon Dioxide 23 BUN 28 H Creatinine 5.19 H* Calcium 8.9 Hematology 07/06/21 07/06/21 04:54 10:20 WBC 18.7 H 14.8 H Hgb 12.8 11.2 L Plt Count [address]: Radiologist's impression: CT sacn results reviewed CXR reviewed increased interstitial markings noted Assessment and Plan (1) ESRD on hemodialysis: Status: Acute Returning to HD today, to continue as expected. (2) Diabetic nephropathy associated with type 2 diabetes mellitus: Status: Acute (3) Elevated troponin level: Status: Acute (4) Hypertensive emergency: Status: Acute Returning to HD today expect to improve as ultrafiltration takes place, recommend to resume her outpt BP meds, and use IV hydralazine or IV labetalol as needed to keep SBP<140/90 (5) CHF (congestive heart failure): Status: Acute Plan continue with HD and ultrafiltration at HD today. concern for ACS and septal infarct Cardiology to follow. THank you. Procedures Date of Service Date of Service: 07/06/21
[2021-07-06 15:49] LABS: PTT Heparin Drip 72.4 SEC (53-77.9)
[2021-07-06 21:39] LABS: Glucose, Whole Blood 175 mg/dL (60-115)
[2021-07-06] MEDS: Insulin Glargine,Hum.rec.anlog 100 UNIT/ML 10 ML VIAL SUBCUT (21:52)
[2021-07-06 21:59] LABS: PTT Heparin Drip 43.6 SEC (53-77.9)
[2021-07-06] MEDS: Acetaminophen 325 MG TABLET 650 MG PO (22:08)
[2021-07-06] MEDS: Sennosides 8.6 MG TABLET 17.2 MG PO (22:08)
[2021-07-06] MEDS: 0.9 % Sodium Chloride Flush 3 ML SYRINGE IVFLUSH (22:09)
[2021-07-06] MEDS: Heparin Sodium,Porcine 5,000 UNIT/ML VIAL 3500 UNIT IVPUSH (22:21)
[2021-07-07 03:23] VITALS: BP 124/63; PULSE 68; RESP 18; TEMP 36.5; O2SAT 100
[2021-07-07 04:45] LABS: Hematocrit 36.7 % (37.0-47.0); Mean Corpuscular Hemoglobin 26.5 pg (27.0-33.0); Mean Corpuscular Volume 88.4 fL (80.0-98.0); Mean Platelet Volume 11.2 fL (9.4-12.3); Platelet Count 212 X10*3/uL (160-400); Red Blood Count 4.15 X10*6/uL (4.20-5.50); Red Cell Distribution Width 17.1 % (11.0-16.0); White Blood Count 9.9 X10*3/uL (4.8-10.8)
[2021-07-07 04:52] LABS: Prothrombin Time 11.8 SEC (9.9-13.0)
[2021-07-07 04:54] LABS: PTT Heparin Drip 100.7 SEC (53-77.9)
[2021-07-07 05:05] LABS: B Type Natriuretic Peptide 1454 pg/mL (<100)
[2021-07-07 05:08] LABS: Anion Gap 14 (12-20); Blood Urea Nitrogen 18 mg/dL (9-16); Calcium 8.7 mg/dL (8.4-10.2); Carbon Dioxide 17 mmol/L (22-29); Chloride 102 mmol/L (96-108); Creatinine Clr Calc Pharmacy 16.7; Estimated Glomerular Filt Rate 13; Glucose Random 135 mg/dL (60-115); Potassium 5.4 mmol/L (3.3-5.1); Sodium 128 mmol/L (135-145)
[2021-07-07] MEDS: Omeprazole 40 MG CAPSULE.DR PO (05:36)
[2021-07-07] MEDS: Heparin Sodium,Porcine/1/2NS 25,000 UNIT/250 ML IV.SOLN 11.27 UNIT IVCONT (06:38)
[2021-07-07 07:51] LABS: Cholesterol 154 mg/dL; HDL Cholesterol 38 mg/dL; LDL Cholesterol Calculated 80 mg/dl; Triglycerides 182 mg/dL
[2021-07-07 08:00] VITALS: BP 124/64; PULSE 74; RESP 18; TEMP 36.3; O2SAT 97
[2021-07-07 08:20] LABS: Troponin-I High Sensitivity 2940.6 ng/L (<3.5-17.0)
[2021-07-07] MEDS: Atorvastatin Calcium 80 MG TABLET PO (09:37)
[2021-07-07] MEDS: Aspirin Enteric Coated 81 MG TABLET.DR PO (09:37)
[2021-07-07] MEDS: Metoprolol Tartrate 100 MG TABLET PO ×2 (09:37→22:37)
[2021-07-07] MEDS: Multivitamin TABLET 1 TAB PO (09:37)
[2021-07-07] MEDS: amLODIPine Besylate 10 MG TABLET PO (09:37)
[2021-07-07] MEDS: Cholecalciferol (Vitamin D3) 25 MCG TABLET 50 MCG PO (09:37)
--- NOTE | 2021-07-07 10:01 | P.PNCA_ITS ---
Subjective Subjective Date of Service: 07/07/21 Interval history: Feeling better. Breathing is improved. No chest pain. She said she had cardiac catheterization in 2018 while she was in [place] and had stent placed. At that time she was having chest pains. No chest discomfort or pain on this admission. Physical Exam Vital Signs: Last Vital Signs Temp 97.4 F 07/07/21 08:00 Pulse 74 07/07/21 08:00 Resp 18 07/07/21 08:00 BP 124/64 07/07/21 08:00 Pulse Ox 97 07/07/21 08:00 Oxygen Flow Rate 4 07/06/21 04:21 BMI result Body Mass Index 32.5 GENERAL APPEARANCE: ? In no distress. NECK: no carotid bruit, No jugular venous distention. SKIN: no suspicious lesions, warm and dry. HEART: ? Systolic murmur, regular rate and rhythm. LUNGS:? crackles at bases. ABDOMEN: soft, nontender. EXTREMITIES: no edema. ? Left upper extremity digits amputated. PERIPHERAL PULSES: equal. NEUROLOGIC: No gross deficits, AAO X 3 Objective Labs and Meds Result diagrams: 07/07/21 04:38 07/07/21 04:38 Lab results: Laboratory Results - last 24 hr 07/06/21 07/06/21 07/06/21 10:20 10:20 15:29 WBC 14.8 H RBC 4.26 Hgb 11.2 L Hct 36.8 L MCV 86.4 MCH 26.3 L MCHC 30.4 L RDW 17.4 H Plt Count 247 MPV 12.0 Absolute Nucleated RBC 0.000 Nucleated RBC % (auto) 0.0 PT 11.5 INR 1.0 aPTT Heparin Protocol 30.3 L 72.4 D Sodium Potassium Chloride Carbon Dioxide Anion Gap BUN Creatinine Estim Creat Clear Calc Estimated GFR POC Glucose Random Glucose Calcium Troponin I High Sens B-Natriuretic Peptide Triglycerides Cholesterol LDL Cholesterol, Calc HDL Cholesterol 07/06/21 07/06/21 07/06/21 15:29 21:36 21:45 WBC RBC Hgb Hct MCV MCH MCHC RDW Plt Count MPV Absolute Nucleated RBC Nucleated RBC % (auto) PT INR aPTT Heparin Protocol 43.6 L D Sodium Potassium Chloride Carbon Dioxide Anion Gap BUN Creatinine Estim Creat Clear Calc Estimated GFR POC Glucose 175 H Random Glucose Calcium Troponin I High Sens 2374.4 H* D B-Natriuretic Peptide Triglycerides Cholesterol LDL Cholesterol, Calc HDL Cholesterol 07/07/21 07/07/21 07/07/21 04:38 04:38 04:38 WBC RBC Hgb Hct MCV MCH MCHC RDW Plt Count MPV Absolute Nucleated RBC Nucleated RBC % (auto) PT 11.8 INR 1.0 aPTT Heparin Protocol 100.7 H D Sodium 128 L Potassium 5.4 H Chloride 102 Carbon Dioxide 17 L Anion Gap 14 BUN 18 H Creatinine 3.53 H Estim Creat Clear Calc 16.7 Estimated GFR 13 POC Glucose Random Glucose 135 H Calcium 8.7 Troponin I High Sens 2940.6 H* B-Natriuretic Peptide 1454 H Triglycerides 182 Cholesterol 154 LDL Cholesterol, Calc 80 HDL Cholesterol 38 07/07/21 07/07/21 04:38 04:38 WBC 9.9 RBC 4.15 L Hgb 11.0 L Hct 36.7 L MCV 88.4 MCH 26.5 L MCHC 30.0 L RDW 17.1 H Plt Count 212 MPV 11.2 Absolute Nucleated RBC 0.000 Nucleated RBC % (auto) 0.0 PT Cancelled INR Cancelled aPTT Heparin Protocol Sodium Potassium Chloride Carbon Dioxide Anion Gap BUN Creatinine Estim Creat Clear Calc Estimated GFR POC Glucose Random Glucose Calcium Troponin I High Sens B-Natriuretic Peptide Triglycerides Cholesterol LDL Cholesterol, Calc HDL Cholesterol Progress Note: A&P Assessment and plan (1) Hypertensive emergency: Status: Acute (2) Elevated troponin level: Status: Acute Plan 65-year-old female with complex medical issues presenting with elevated BP, abdominal pain and CHF. She has ESRD. She underwen HD yesterday. Overall seems like type 2 injury. Would continue heparin gtt till tomorrow and will do echocardiograohy. If echo showed significant RWMA then would consider invasive assessment. If echo normal then likely type 2 injury due to elevated BP and CHF. she had cardiac catheterization in [place] in 2018 when she had stent placed by her report. At that time she was having chest pains. Her presentation this time is purely for elevated blood pressures and some shortness of breath. BP improved post HD. Continue heparin drip today. If echocardiography showed normal LV function without any wall motions then stop the heparin drip and treat as type 2 [place]. Thank you for allowing me to participate in the care of your patient. Please feel free to contact me if you have any questions. Fall Risk Details Current Medications: Current Medications Acetaminophen (Acetaminophen 325 Mg Tablet) 650 mg PO Q6H PRN PRN Reason: Pain, Mild (Pain Scale 1-3) Last Admin: 07/06/21 22:08 Dose: 650 mg Documented by: Amlodipine Besylate (Amlodipine Besylate 10 Mg Tablet) 10 mg PO DAILY [facility]; Protocol Last Admin: 07/07/21 09:37 Dose: 10 mg Documented by: Aspirin (Aspirin Enteric Coated 81 Mg Tablet.) 81 mg PO DAILY [facility] Last Admin: 07/07/21 09:37 Dose: 81 mg Documented by: Atorvastatin Calcium (Atorvastatin Calcium 80 Mg Tablet) 80 mg PO DAILY [facility] Last Admin: 07/07/21 09:37 Dose: 80 mg Documented by: Docusate Sodium (Docusate Sodium 100 Mg Capsule) 100 mg PO BID PRN PRN Reason: constipation Heparin Sodium (Porcine) (Heparin Sodium,Porcine 5,000 Unit/Ml Vial) 3,500 unit 40 unit/kg (3500 unit) IVPUSH PROTOCOL BOLUS PRN; Protocol PRN Reason: 40 unit/kg - Heparin Protocol Last Admin: 07/06/21 22:21 Dose: 3,500 unit Documented by: Heparin Sodium (Porcine) (Heparin Sodium,Porcine 5,000 Unit/Ml Vial) 6,900 unit 80 unit/kg (6900 unit) IVPUSH PROTOCOL BOLUS PRN; Protocol PRN Reason: 80 unit/kg - Heparin Protocol Hydralazine HCl (Hydralazine Hcl 50 Mg Tablet) 50 mg PO TID [facility]; Protocol Last Admin: 07/07/21 09:32 Dose: Not Given Documented by: Heparin Sodium/Sodium Chloride () 25,000 unit in 250 mls @ 0 mls/hr IVCONT .Q0M [facility]; Protocol Last Titration: 07/07/21 06:41 Dose: 13 units/kg/hr, 11.27 mls/hr Documented by: Insulin Glargine (Insulin Glargine,Hum.Rec.Anlog 100 Unit/Ml 10 Ml Vial) 5 unit SUBCUT BEDTIME [facility] Last Admin: 07/06/21 21:52 Dose: 5 unit Documented by: Losartan Potassium (Losartan Potassium 25 Mg Tablet) 25 mg PO DAILY [facility]; Protocol Last Admin: 07/07/21 09:32 Dose: Not Given Documented by: Melatonin (Melatonin 3 Mg Tablet) 6 mg PO BEDTIME PRN PRN Reason: insomnia Metoprolol Tartrate (Metoprolol Tartrate 100 Mg Tablet) 100 mg PO BID [facility]; Protocol Last Admin: 07/07/21 09:37 Dose: 100 mg Documented by: Multivitamins/Vitamin C (Multivitamin Tablet) 1 tab PO DAILY [facility] Last Admin: 07/07/21 09:37 Dose: 1 tab Documented by: Omeprazole (Omeprazole 40 Mg Capsule.Dr) 40 mg PO DAILY@0630 [facility] Last Admin: 07/07/21 05:36 Dose: 40 mg Documented by: Ondansetron HCl (Ondansetron Hcl 4 Mg/2 Ml Vial) 4 mg IVPUSH Q8H PRN PRN Reason: Nausea and Vomiting Last Admin: 07/06/21 13:28 Dose: 4 mg Documented by: Pharmacy Consult (Consult Rx Perform Med Rec) 1 each MISCELLANE ONCE PRN PRN Reason: Consult order Pharmacy Consult (Consult Rx Perform Med Rec) 1 each MISCELLANE ONCE PRN PRN Reason: Consult order Polyethylene Glycol (Polyethylene Glycol 3350 17 Gm Powd.Pack) 17 gm PO DAILY [facility] Last Admin: 07/07/21 09:42 Dose: Not Given Documented by: Senna (Sennosides 8.6 Mg Tablet) 17.2 mg PO BEDTIME [facility] Last Admin: 07/06/21 22:08 Dose: 17.2 mg Documented by: Simethicone (Simethicone 80 Mg Tab.Chew) 80 mg PO QID PRN PRN Reason: abdominal distention Sodium Chloride (0.9 % Sodium Chloride Flush 3 Ml Syringe) 3 ml IVFLUSH QSHIFT [facility] Last Admin: 07/07/21 09:28 Dose: Not Given Documented by: Vitamin D (Cholecalciferol (Vitamin D3) 25 Mcg Tablet) 50 mcg PO DAILY [facility] Last Admin: 07/07/21 09:37 Dose: 50 mcg Documented by: Time Spent With Patient Time: Total time spent is greater than 50% in coordination of care (as documented) at patient's floor/unit and/or counseling patient: Time with patient: 15 - 24 minutes Procedures Date of Service Date of Service: 07/07/21
--- NOTE | 2021-07-07 10:44 | HO.PM.IMPN ---
Subjective Subjective Date of Service: 07/08/21 Interval History: Feeling better this morning, denies chest pain, no shortness of breath no epigastric discomfort tolerating diet no acute events overnight noted to have borderline low blood pressures patient is asymptomatic. Review of Systems Review of Systems: Yes all other systems are reviewed and are negative Physical Exam Vital Signs: Vital Signs: Last Vital Signs Temp 97.4 F 07/07/21 08:00 Pulse 74 07/07/21 08:00 Resp 18 07/07/21 08:00 BP 124/64 07/07/21 08:00 Pulse Ox 97 07/07/21 08:00 Oxygen Flow Rate 4 07/06/21 04:21 BMI result Body Mass Index 32.5 Const: Other: General awake alert resting comfortably no acute distress Neck supple no JVD. CVS? regular rate rhythm, Respiratory clear to auscultation, no wheeze, no crackles Gastrointestinal abdomen soft, nontender ,bowel sounds audible, no guarding , no rigidity. Extremities no edema.? Left hand trans metacarpal amputation Neuro nonfocal , speech clear. Back no CVA tenderness Skin no rash Psych appropriate affect Objective Data Active Medications Acetaminophen (Acetaminophen 325 Mg Tablet) 650 mg PO Q6H PRN PRN Reason: Pain, Mild (Pain Scale 1-3) Last Admin: 07/06/21 22:08 Dose: 650 mg Documented by: CANDIDA Amlodipine Besylate (Amlodipine Besylate 10 Mg Tablet) 10 mg PO DAILY [facility]S [facility]CLUDE 234 BEDS AT THE [facility]; Protocol Last Admin: 07/07/21 09:37 Dose: 10 mg Documented by: NATASHA Aspirin (Aspirin Enteric Coated 81 Mg Tablet.) 81 mg PO DAILY COUNTS INCLUDE 234 BEDS AT THE [facility] Last Admin: 07/07/21 09:37 Dose: 81 mg Documented by: NATASHA Atorvastatin Calcium (Atorvastatin Calcium 80 Mg Tablet) 80 mg PO DAILY COUNTS INCLUDE 234 BEDS AT THE [facility] Last Admin: 07/07/21 09:37 Dose: 80 mg Documented by: NATASHA Docusate Sodium (Docusate Sodium 100 Mg Capsule) 100 mg PO BID PRN PRN Reason: constipation Heparin Sodium (Porcine) (Heparin Sodium,Porcine 5,000 Unit/Ml Vial) 3,500 unit 40 unit/kg (3500 unit) IVPUSH PROTOCOL BOLUS PRN; Protocol PRN Reason: 40 unit/kg - Heparin Protocol Last Admin: 07/06/21 22:21 Dose: 3,500 unit Documented by: CANDIDA Heparin Sodium (Porcine) (Heparin Sodium,Porcine 5,000 Unit/Ml Vial) 6,900 unit 80 unit/kg (6900 unit) IVPUSH PROTOCOL BOLUS PRN; Protocol PRN Reason: 80 unit/kg - Heparin Protocol Hydralazine HCl (Hydralazine Hcl 50 Mg Tablet) 50 mg PO TID COUNTS INCLUDE 234 BEDS AT THE [facility]; Protocol Last Admin: 07/07/21 09:32 Dose: Not Given Documented by: NATASHA Non-Admin Reason: Physician Held Med Heparin Sodium/Sodium Chloride () 25,000 unit in 250 mls @ 0 mls/hr IVCONT .Q0M COUNTS INCLUDE 234 BEDS AT THE [facility]; Protocol Last Titration: 07/07/21 06:41 Dose: 13 units/kg/hr, 11.27 mls/hr Documented by: CANDIDA Cosigned by: DORINDA Insulin Glargine (Insulin Glargine,Hum.Rec.Anlog 100 Unit/Ml 10 Ml Vial) 5 unit SUBCUT BEDTIME COUNTS INCLUDE 234 BEDS AT THE [facility] Last Admin: 07/06/21 21:52 Dose: 5 unit Documented by: CANDIDA Losartan Potassium (Losartan Potassium 25 Mg Tablet) 25 mg PO DAILY COUNTS INCLUDE 234 BEDS AT THE [facility]; Protocol Last Admin: 07/07/21 09:32 Dose: Not Given Documented by: NATASHA Non-Admin Reason: Physician Held Med Melatonin (Melatonin 3 Mg Tablet) 6 mg PO BEDTIME PRN PRN Reason: insomnia Metoprolol Tartrate (Metoprolol Tartrate 100 Mg Tablet) 100 mg PO BID COUNTS INCLUDE 234 BEDS AT THE [facility]; Protocol Last Admin: 07/07/21 09:37 Dose: 100 mg Documented by: NATASHA Multivitamins/Vitamin C (Multivitamin Tablet) 1 tab PO DAILY COUNTS INCLUDE 234 BEDS AT THE [facility] Last Admin: 07/07/21 09:37 Dose: 1 tab Documented by: NATASHA Omeprazole (Omeprazole 40 Mg Capsule.Dr) 40 mg PO DAILY@0630 COUNTS INCLUDE 234 BEDS AT THE [facility] Last Admin: 07/07/21 05:36 Dose: 40 mg Documented by: CANDIDA Ondansetron HCl (Ondansetron Hcl 4 Mg/2 Ml Vial) 4 mg IVPUSH Q8H PRN PRN Reason: Nausea and Vomiting Last Admin: 07/06/21 13:28 Dose: 4 mg Documented by: JAZIEL Pharmacy Consult (Consult Rx Perform Med Rec) 1 each MISCELLANE ONCE PRN PRN Reason: Consult order Pharmacy Consult (Consult Rx Perform Med Rec) 1 each MISCELLANE ONCE PRN PRN Reason: Consult order Polyethylene Glycol (Polyethylene Glycol 3350 17 Gm Powd.Pack) 17 gm PO DAILY [facility]S INCLUDE 234 BEDS AT THE [facility] Last Admin: 07/07/21 09:42 Dose: Not Given Documented by: NATASHA Non-Admin Reason: Patient Refused Senna (Sennosides 8.6 Mg Tablet) 17.2 mg PO BEDTIME COUNTS INCLUDE 234 BEDS AT THE [facility] Last Admin: 07/06/21 22:08 Dose: 17.2 mg Documented by: CANDIDA Simethicone (Simethicone 80 Mg Tab.Chew) 80 mg PO QID PRN PRN Reason: abdominal distention Sodium Chloride (0.9 % Sodium Chloride Flush 3 Ml Syringe) 3 ml IVFLUSH QSHIFT COUNTS INCLUDE 234 BEDS AT THE [facility] Last Admin: 07/07/21 09:28 Dose: Not Given Documented by: NATASHA Non-Admin Reason: IV Running Vitamin D (Cholecalciferol (Vitamin D3) 25 Mcg Tablet) 50 mcg PO DAILY COUNTS INCLUDE 234 BEDS AT THE [facility] Last Admin: 07/07/21 09:37 Dose: 50 mcg Documented by: NATASHA Labs CBC & Chem 7: 07/07/21 04:38 07/08/21 06:22 Labs: Laboratory Results - last 24 hr 07/06/21 07/06/21 07/06/21 10:20 15:29 21:36 MCV MCH MCHC RDW Plt Count MPV Absolute Nucleated RBC Nucleated RBC % (auto) PT INR aPTT Heparin Protocol 30.3 L 72.4 D Anion Gap Estim Creat Clear Calc Estimated GFR POC Glucose 175 H Random Glucose Calcium B-Natriuretic Peptide Triglycerides Cholesterol LDL Cholesterol, Calc HDL Cholesterol 07/06/21 07/07/21 07/07/21 21:45 04:38 04:38 MCV MCH MCHC RDW Plt Count MPV Absolute Nucleated RBC Nucleated RBC % (auto) PT INR aPTT Heparin Protocol 43.6 L D Anion Gap 14 Estim Creat Clear Calc 16.7 Estimated GFR 13 POC Glucose Random Glucose 135 H Calcium 8.7 B-Natriuretic Peptide 1454 H Triglycerides 182 Cholesterol 154 LDL Cholesterol, Calc 80 HDL Cholesterol 38 07/07/21 07/07/21 07/07/21 04:38 04:38 04:38 MCV 88.4 MCH 26.5 L MCHC 30.0 L RDW 17.1 H Plt Count 212 MPV 11.2 Absolute Nucleated RBC 0.000 Nucleated RBC % (auto) 0.0 PT 11.8 Cancelled INR 1.0 Cancelled aPTT Heparin Protocol 100.7 H D Anion Gap Estim Creat Clear Calc Estimated GFR POC Glucose Random Glucose Calcium B-Natriuretic Peptide Triglycerides Cholesterol LDL Cholesterol, Calc HDL Cholesterol Microbiology Microbiology Results: Microbiology 07/06/21 05:18 Blood Culture - Preliminary Blood - Venous No growth after 24 hours. 07/06/21 05:18 Blood Culture - Final Blood - Venous Assessment and Plan (1) Non-ST elevation OK (NSTEMI): Status: Acute (2) Hypertensive emergency: Status: Acute (3) Elevated troponin level: Status: Acute (4) CHF (congestive heart failure): Status: Acute (5) Type 2 diabetes mellitus with hyperglycemia: Status: Acute Plan 65-year-old female patient with past medical history significant for multivessel coronary artery disease, hypertension, hyperlipidemia, diabetes mellitus with neuropathy, nephropathy, end-stage renal disease on hemodialysis presented to [facility] due to epigastric pain associated with shortness of breath on arrival patient noted to have elevated blood pressures, acute respiratory distress with hypoxic respiratory failure finger oximetry 88% on room air patient required treatment with BiPAP and oxygen, patient also noted to have elevated BNP, BMP and hyperglycemia. Acute hypoxic respiratory failure Noted to have respiratory distress with tachypnea and tachycardia and hypoxia, on arrival symptoms improved with use of BiPAP continue oxygen in ED Was Likely related to cardiac ischemia, pulmonary edema due to fluid overload/acute diastolic congestive heart failure, oxygenation improved after hemodialysis currently on room air with stable oxygenation Hypertensive urgency Resolved, low blood pressure this a.m. will hold am hydralazine and losartan. Continue other home medications including amlodipine,and metoprolol. Non ST-elevation OK with Elevated troponin with nonspecific EKG changes T-wave inversion inferio lateral leads Doing better this morning no shortness of breath, no chest pain, epigastric pain resolved Question related to elevated blood pressure, pulmonary edema, denies chest pain, elevated repeat troponin, on IV heparin, beta-blockers statins and aspirin LDL 80, echo ordered Case discussed with Dr. Arriaga will follow echo report of noted to have wall motion abnormality or reduced EF will consider cardiac catheterization reviewed old records from [facility] patient had an echo in March 2021 that showed preserved EF with grade 2 diastolic dysfunction Abdominal pain Resolved question angina equivalent versus related to chronic gas pain continue PPI and simethicone Leukocytosis likely reactive, WBC normalized, no evidence of infection noted. End-stage renal disease Status post hemodialysis shortness of breath improved noted to have mild hyperkalemia will follow labs at a.m. and give 1 dose of Kayexalate. Diabetes mellitus with hyperglycemia Blood sugars improved continue diabetic diet , Lantus 5 units and insulin sliding scale Code status full code DVT prophylaxis with heparin Needs continued hospitalization due to NSTEMI that require treatment with IV heparin and further testing. Quality Stroke Does the patient have a stroke diagnosis?: No VTE Prior VTE?: No VTE Risk Level:: Medical - moderate - high VTE Device Contraindication: Treatment Not Indicated VTE Drug Contraindication: N/A - Med Ordered
[2021-07-07 11:31] VITALS: BP 135/72; PULSE 70; RESP 20; TEMP 36.6; O2SAT 99
[2021-07-07 12:53] LABS: PTT Heparin Drip 55.4 SEC (53-77.9)
--- NOTE | 2021-07-07 13:28 | PM.PNNEP ---
Subjective Subjective Date of Service: 07/07/21 Interval history: Feeling better this morning, denies chest pain, no shortness of breath no epigastric discomfort had HD yesterday Physical Exam Vital Signs: Vital Signs: Last Vital Signs Temp 97.8 F 07/07/21 11:31 Pulse 70 07/07/21 11:31 Resp 20 07/07/21 11:31 BP 135/72 07/07/21 11:31 Pulse Ox 99 07/07/21 11:31 Oxygen Flow Rate 4 07/06/21 04:21 BMI result Body Mass Index 32.5 oral moist mucosa lungs clear s1s2 abd soft nt ext no edema Permcath OK Objective Data Labs CBC & Chem 7: 07/07/21 04:38 07/07/21 04:38 Labs: Laboratory Results - last 24 hr 07/06/21 07/06/21 07/06/21 15:29 15:29 21:36 WBC RBC Hgb Hct MCV MCH MCHC RDW Plt Count MPV Absolute Nucleated RBC Nucleated RBC % (auto) PT INR aPTT Heparin Protocol 72.4 D Sodium Potassium Chloride Carbon Dioxide Anion Gap BUN Creatinine Estim Creat Clear Calc Estimated GFR POC Glucose 175 H Random Glucose Calcium Troponin I High Sens 2374.4 H* D B-Natriuretic Peptide Triglycerides Cholesterol LDL Cholesterol, Calc HDL Cholesterol 07/06/21 07/07/21 07/07/21 21:45 04:38 04:38 WBC RBC Hgb Hct MCV MCH MCHC RDW Plt Count MPV Absolute Nucleated RBC Nucleated RBC % (auto) PT INR aPTT Heparin Protocol 43.6 L D Sodium 128 L Potassium 5.4 H Chloride 102 Carbon Dioxide 17 L Anion Gap 14 BUN 18 H Creatinine 3.53 H Estim Creat Clear Calc 16.7 Estimated GFR 13 POC Glucose Random Glucose 135 H Calcium 8.7 Troponin I High Sens 2940.6 H* B-Natriuretic Peptide 1454 H Triglycerides 182 Cholesterol 154 LDL Cholesterol, Calc 80 HDL Cholesterol 38 07/07/21 07/07/21 07/07/21 04:38 04:38 04:38 WBC 9.9 RBC 4.15 L Hgb 11.0 L Hct 36.7 L MCV 88.4 MCH 26.5 L MCHC 30.0 L RDW 17.1 H Plt Count 212 MPV 11.2 Absolute Nucleated RBC 0.000 Nucleated RBC % (auto) 0.0 PT 11.8 Cancelled INR 1.0 Cancelled aPTT Heparin Protocol 100.7 H D Sodium Potassium Chloride Carbon Dioxide Anion Gap BUN Creatinine Estim Creat Clear Calc Estimated GFR POC Glucose Random Glucose Calcium Troponin I High Sens B-Natriuretic Peptide Triglycerides Cholesterol LDL Cholesterol, Calc HDL Cholesterol 07/07/21 12:38 WBC RBC Hgb Hct MCV MCH MCHC RDW Plt Count MPV Absolute Nucleated RBC Nucleated RBC % (auto) PT INR aPTT Heparin Protocol 55.4 D Sodium Potassium Chloride Carbon Dioxide Anion Gap BUN Creatinine Estim Creat Clear Calc Estimated GFR POC Glucose Random Glucose Calcium Troponin I High Sens B-Natriuretic Peptide Triglycerides Cholesterol LDL Cholesterol, Calc HDL Cholesterol Microbiology Microbiology Results: Microbiology 07/06/21 05:18 Blood - Venous Blood Culture - Preliminary No growth after 24 hours. 07/06/21 05:18 Blood - Venous Blood Culture - Final Procedures Date of Service Date of Service: 07/07/21 Assessment & Plan Assessment and plan (1) Essential hypertension: Status: Acute Assessment and Plan: improved post HD and BP meds, today a bit lower agree with holding losartan and Hydralazine, low threshold to restart if BP>140/90 (2) Diabetic nephropathy associated with type 2 diabetes mellitus: Status: Acute (3) Hypertensive emergency: Status: Acute Assessment and Plan: concern for cardiac injury, will have echo appreciate medicine and cards evaluation ?need for cardiac cath let renal team know thx (4) ESRD on hemodialysis: Status: Acute Plan plan for HD on Thursday currently euvolemic stable electrolytes Time Spent With Patient Time: Total time spent is greater than 50% in coordination of care (as documented) at patient's floor/unit and/or counseling patient: Progress Note: Quality Stroke Does the patient have a stroke diagnosis?: No
[2021-07-07 15:59] VITALS: BP 141/69; PULSE 66; RESP 16; TEMP 37; O2SAT 99
[2021-07-07] MEDS: 0.9 % Sodium Chloride Flush 3 ML SYRINGE IVFLUSH ×2 (16:08→22:37)
[2021-07-07] MEDS: hydrALAZINE HCl 50 MG TABLET PO ×2 (16:08→22:37)
[2021-07-07 18:52] LABS: PTT Heparin Drip 53.5 SEC (53-77.9)
[2021-07-07 19:08] VITALS: BP 123/60; PULSE 69; RESP 14; TEMP 36.8; O2SAT 99
[2021-07-07] MEDS: Insulin Glargine,Hum.rec.anlog 100 UNIT/ML 10 ML VIAL SUBCUT (22:36)
[2021-07-07] MEDS: Sennosides 8.6 MG TABLET 17.2 MG PO (22:36)
[2021-07-07 22:38] VITALS: BP 121/59; PULSE 72
[2021-07-08 02:45] VITALS: BP 131/64; PULSE 66; RESP 18; TEMP 36.6; O2SAT 98
[2021-07-08] MEDS: Acetaminophen 325 MG TABLET 650 MG PO ×2 (03:05→17:25)
[2021-07-08] MEDS: Heparin Sodium,Porcine/1/2NS 25,000 UNIT/250 ML IV.SOLN 11.27 UNIT IVCONT (05:44)
[2021-07-08] MEDS: Omeprazole 40 MG CAPSULE.DR PO (05:44)
[2021-07-08 06:49] LABS: PTT Heparin Drip 69.6 SEC (53-77.9)
[2021-07-08 07:18] LABS: Anion Gap 19 (12-20); Blood Urea Nitrogen 39 mg/dL (9-16); Calcium 8.7 mg/dL (8.4-10.2); Carbon Dioxide 13 mmol/L (22-29); Chloride 104 mmol/L (96-108); Creatinine Clr Calc Pharmacy 10.8; Estimated Glomerular Filt Rate 8; Glucose Random 119 mg/dL (60-115); Potassium 5.2 mmol/L (3.3-5.1); Sodium 131 mmol/L (135-145)
[2021-07-08 07:19] VITALS: BP 148/79; PULSE 64; RESP 20; TEMP 36.8; O2SAT 98
--- NOTE | 2021-07-08 10:07 | MHC.CM.PN ---
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
[2021-07-08] MEDS: polyethylene glycoL 3350 17 GM POWD.PACK PO (10:19)
[2021-07-08] MEDS: Sodium Bicarbonate 650 MG TABLET PO ×2 (10:19→17:26)
[2021-07-08] MEDS: 0.9 % Sodium Chloride Flush 3 ML SYRINGE IVFLUSH ×2 (10:19→17:25)
[2021-07-08] MEDS: Cholecalciferol (Vitamin D3) 25 MCG TABLET 50 MCG PO (10:19)
[2021-07-08] MEDS: Metoprolol Tartrate 100 MG TABLET PO (10:20)
[2021-07-08] MEDS: Atorvastatin Calcium 80 MG TABLET PO (10:20)
[2021-07-08] MEDS: hydrALAZINE HCl 50 MG TABLET PO (10:20)
[2021-07-08] MEDS: amLODIPine Besylate 10 MG TABLET PO (10:20)
[2021-07-08] MEDS: Losartan Potassium 25 MG TABLET PO (10:20)
[2021-07-08] MEDS: Multivitamin TABLET 1 TAB PO (10:20)
[2021-07-08] MEDS: Aspirin Enteric Coated 81 MG TABLET.DR PO (10:20)
--- NOTE | 2021-07-08 10:25 | P.CDIC_ITS ---
CDI Concurrent Query Documentation Clarification: PHYSICIAN'S DOCUMENTATION REQUEST Date of Query: 07/08/21 1025 Patient Name: Nicole Aquino Admit Date: 07/06/21 Dear Doctor, A review of the medical record indicates additional documentation may be needed. Please review below and update the documentation accordingly. Clinical Indicators: Risk Factors/Clinical Indicators/Treatments BNP 2908 per MD progress note 07/07/21: CHF, grade 2 diastolic dysfunction Lasix Please provide further specificity regarding the most likely type and acuity of CHF you are evaluating, treating, or monitoring. Examples include: Type: * Systolic * Diastolic * Combined Systolic/Diastolic * Other ? please specify * Unable to determine Acuity: * Acute * Chronic * Acute on chronic * Unable to determine Use of terms such as suspected, likely, concern for, or probable (associated with a specific diagnosis that is being evaluated, monitored, or treated as if it exists) are acceptable and can be coded in the inpatient setting, when documented at the time of discharge. Thank you, Jaja Cassidy RN Extension: [phone] Please use your independent medical judgment in providing your response. THIS QUERY IS PART OF THE PERMANENT MEDICAL RECORD Provider Response: Other Other Diagnosis: see note
[2021-07-08 11:14] VITALS: BP 110/50; PULSE 68; RESP 20; TEMP 36; O2SAT 100
[2021-07-08] MEDS: Furosemide 100 MG/10 ML VIAL 80 MG IVPUSH (12:02)
--- NOTE | 2021-07-08 12:08 | PM.PNCARD ---
Subjective Subjective Date of Service: 07/08/21 Principal diagnosis: CHF Interval history: Patient was seen at bed sign with help of foundry manager and despite that was a poor historian. Patient complains of shortness of breath but denies chest pain. Echocardiogram shows [id number] LV systolic dysfunction with regional wall motion abnormality in the LAD territory with increased filling pressures. Her heparin was discontinued. Blood pressure is optimal. She was last dialyzed on Thursday. Review of Systems Constitutional: Reports no additional constitutional complaints Cardiovascular: Denies chest pain and Reports orthopnea Respiratory: Reports no additional respiratory complaints Gastrointestinal: Reports no additional gastrointestinal complaints Genitourinary: Reports no additional female genitourinary complaints Musculoskeletal: Reports no additional musculoskeletal complaints Skin/Breast: Reports system reviewed and no additional complaints, except as docu Reports system reviewed and no additional complaints, except as documented Physical Exam Vital Signs: Last Vital Signs Temp 96.8 F 07/08/21 11:14 Pulse 68 07/08/21 11:14 Resp 20 07/08/21 11:14 BP 110/50 L 07/08/21 11:14 Pulse Ox 100 07/08/21 11:14 Oxygen Flow Rate 4 07/06/21 04:21 BMI result Body Mass Index 32.5 Const General: cooperative, comfortable, alert, awake, in distress moderate and ill appearing Nutritional Appearance: obese Orientation/consciousness: patient oriented x3 Neck Neck: Yes trachea midline, Yes supple and Yes JVD Chest Chest palpation & inspection: normal inspection of the chest Resp Effort & Inspection: normal respiratory effort Auscultation: crackles bilateral at the base Cardio Jugular venous distension: JVD Palpation: normal PMI Rate: regular rate Rhythm: regular rhythm Heart sounds: S1 normal heart sound present, S2 normal heart sound present, no click, no gallops and no murmurs GI Auscultation: normal bowel sounds Neuro General: patient oriented x3 and no focal motor deficits Extrem General: Yes no clubbing, cyanosis or edema Psych Affect: Indifferent affect present and Blunted affect present Objective Labs and Meds Result diagrams: 07/07/21 04:38 07/08/21 06:22 Lab results: Laboratory Results - last 24 hr 07/07/21 07/07/21 07/08/21 12:38 18:33 06:22 aPTT Heparin Protocol 55.4 D 53.5 Sodium 131 L Potassium 5.2 H Chloride 104 Carbon Dioxide 13 L Anion Gap 19 BUN 39 H D Creatinine 5.47 H* Estim Creat Clear Calc 10.8 Estimated GFR 8 Random Glucose 119 H Calcium 8.7 07/08/21 06:22 aPTT Heparin Protocol 69.6 D Sodium Potassium Chloride Carbon Dioxide Anion Gap BUN Creatinine Estim Creat Clear Calc Estimated GFR Random Glucose Calcium Progress Note: A&P Assessment and plan (1) CHF (congestive heart failure): Status: Acute Assessment and Plan: Patient with persistent symptoms and findings of congestive heart failure clinically exam with [id number] LV systolic dysfunction with LAD territory wall motion abnormality prior stenting of unclear vessel in the past in [place]. Still appears short of breath. Needs diuresis and/or volume removal. She does have urine output and will pre prescribe her Lasix 80 mg IV push x1 and monitor intake and output closely as well as provider with nitro paste for preload reduction. Consider us short session of dialysis today, please consult with Nephrology, this will help with further management of heart failure and will require cardiac catheterization to evaluate for coronary anatomy as well as hemodynamics. Most likely cause of her heart failure appears to be ischemic and this needs to be evaluated aggressively. This was discussed with the with help of foundry manager, not sure if she understands the condition completely. Had a detailed discussion about need for cardiac catheterization. Will arrange for transfer to [facility]. For now continue nitropaste, strict intake and output chart. Continue metoprolol, hydralazine and losartan. IV heparin has been discontinued for now which is okay. (2) Non-ST elevation [place] (NSTEMI): Status: Acute Assessment and Plan: NSTEMI question related to congestive heart failure/hypertensive urgency or underlying significant coronary artery disease with elevated troponin precipitated by heart failure. Currently off IV heparin. Currently not having any ischemic symptoms. However needs more aggressive management of her congestive heart failure needs cardiac catheterization to evaluate coronary anatomy. This was discussed with her. She understands agrees. Continue aspirin statin. Aggressive management diabetes. Will follow up with her as outpatient. Fall Risk Details Current Medications: Current Medications Acetaminophen (Acetaminophen 325 Mg Tablet) 650 mg PO Q6H PRN PRN Reason: Pain, Mild (Pain Scale 1-3) Last Admin: 07/08/21 03:05 Dose: 650 mg Documented by: Amlodipine Besylate (Amlodipine Besylate 10 Mg Tablet) 10 mg PO DAILY [facility]; Protocol Last Admin: 07/08/21 10:20 Dose: 10 mg Documented by: Aspirin (Aspirin Enteric Coated 81 Mg Tablet.) 81 mg PO DAILY [facility] Last Admin: 07/08/21 10:20 Dose: 81 mg Documented by: Atorvastatin Calcium (Atorvastatin Calcium 80 Mg Tablet) 80 mg PO DAILY [facility] Last Admin: 07/08/21 10:20 Dose: 80 mg Documented by: Docusate Sodium (Docusate Sodium 100 Mg Capsule) 100 mg PO BID PRN PRN Reason: constipation Hydralazine HCl (Hydralazine Hcl 50 Mg Tablet) 50 mg PO TID [facility]; Protocol Last Admin: 07/08/21 10:20 Dose: 50 mg Documented by: Insulin Glargine (Insulin Glargine,Hum.Rec.Anlog 100 Unit/Ml 10 Ml Vial) 5 unit SUBCUT BEDTIME [facility] Last Admin: 07/07/21 22:36 Dose: 5 unit Documented by: Losartan Potassium (Losartan Potassium 25 Mg Tablet) 25 mg PO DAILY [facility]; Protocol Last Admin: 07/08/21 10:20 Dose: 25 mg Documented by: Melatonin (Melatonin 3 Mg Tablet) 6 mg PO BEDTIME PRN PRN Reason: insomnia Metoprolol Tartrate (Metoprolol Tartrate 100 Mg Tablet) 100 mg PO BID [facility]; Protocol Last Admin: 07/08/21 10:20 Dose: 100 mg Documented by: Multivitamins/Vitamin C (Multivitamin Tablet) 1 tab PO DAILY [facility] Last Admin: 07/08/21 10:20 Dose: 1 tab Documented by: Omeprazole (Omeprazole 40 Mg Capsule.) 40 mg PO DAILY@0630 [facility] Last Admin: 07/08/21 05:44 Dose: 40 mg Documented by: Ondansetron HCl (Ondansetron Hcl 4 Mg/2 Ml Vial) 4 mg IVPUSH Q8H PRN PRN Reason: Nausea and Vomiting Last Admin: 07/06/21 13:28 Dose: 4 mg Documented by: Pharmacy Consult (Consult Rx Perform Med Rec) 1 each MISCELLANE ONCE PRN PRN Reason: Consult order Pharmacy Consult (Consult Rx Perform Med Rec) 1 each MISCELLANE ONCE PRN PRN Reason: Consult order Polyethylene Glycol (Polyethylene Glycol 3350 17 Gm Powd.Pack) 17 gm PO DAILY [facility] Last Admin: 07/08/21 10:19 Dose: 17 gm Documented by: Senna (Sennosides 8.6 Mg Tablet) 17.2 mg PO BEDTIME [facility] Last Admin: 07/07/21 22:36 Dose: 17.2 mg Documented by: Simethicone (Simethicone 80 Mg Tab.Chew) 80 mg PO QID PRN PRN Reason: abdominal distention Sodium Bicarbonate (Sodium Bicarbonate 650 Mg Tablet) 650 mg PO TID [facility] Last Admin: 07/08/21 10:19 Dose: 650 mg Documented by: Sodium Chloride (0.9 % Sodium Chloride Flush 3 Ml Syringe) 3 ml IVFLUSH QSHIFT [facility] Last Admin: 07/08/21 10:19 Dose: 3 ml Documented by: Vitamin D (Cholecalciferol (Vitamin D3) 25 Mcg Tablet) 50 mcg PO DAILY [facility] Last Admin: 07/08/21 10:19 Dose: 50 mcg Documented by: Time Spent With Patient Time: Total time spent is greater than 50% in coordination of care (as documented) at patient's floor/unit and/or counseling patient: Time with patient: 25 - 35 minutes Progress Note: Quality Stroke Does the patient have a stroke diagnosis?: No Procedures Date of Service Date of Service: 07/08/21
--- NOTE | 2021-07-08 13:53 | P.DS_ITS ---
DS: Providers Provider Date of Service: 07/08/21 Date of admission: 07/06/21 08:51 Primary care physician: Unknown Physician Consults: 07/06/21 08:53 Consult to Nephrology Routine Consulting Provider: Rick Ivy Reason for consultation: esrd/pulm edema Has provider been notified: No 07/06/21 09:34 Consult to Cardiology Routine Consulting Provider: Adan Arriaga Reason for consultation: nstemi Has provider been notified: No DS: Diagnosis Discharge Diagnosis (1) Non-ST elevation [place] (NSTEMI): Status: Acute (2) Hypertensive emergency: Status: Acute (3) Elevated troponin level: Status: Acute (4) CHF (congestive heart failure): Status: Acute (5) Type 2 diabetes mellitus with hyperglycemia: Status: Acute DS: Summary Hospital Course Hospital Course: Date of Service: 07/06/21 Attending physician on admission: Leighann Ohara Chief Complaint: Epigastric pain associated with shortness of breath 65-year-old female patient with past medical history significant for non ST- elevation [place] in January 2020, severe multivessel coronary artery disease, type 2 diabetes mellitus with neuropathy and nephropathy, hyperlipidemia hypertension, end stage renal disease on hemodialysis Tuesdays and Thursday presented to [facility] with acute onset of epigastric pain with radiation to left upper quadrant symptoms started at 01:00, and she was able to fall asleep and then woke up again at 03:00 with worsening symptoms therefore [id number] called the ambulance , EMS found patient to be hypoxic finger oximetry 88% on room air patient placed on 4 L of oxygen, in the emergency room patient noted to have elevated blood pressure, she was treated with 1/2 inch of nitropaste, BiPAP, Lasix 80 mg and sublingual nitro with some improvement in symptoms, patient complaining of persistent epigastric pain, mild nausea and shortness of breath, she endorses history of chronic gas pain , she denies fever, no chills no lightheadedness no dizziness she denies chest pain, she has chronic lower back discomfort, She denies urinary symptoms of urgency or frequency, she still makes some urine patient at baseline is wheelchair bound and ambulate short distances with the help of cane due to prior back injury, workup in the ER showed a benign CT abdomen and pelvis, chest x-ray showed bilateral interstitial prominence likely representing interstitial edema elevated WBC count of 18,000, elevated BNP 2 908, troponin 39, blood sugar 359, vitals in the ER showed tachypnea, tachycardia, and blood pressure 192/99, will admit patient for continued monitoring and treatment for acute hypoxic respiratory failure likely related to pulmonary edema, elevated troponin, and will require urgent hemodialysis. Hospital course 65-year-old female patient with past medical history significant for multivessel coronary artery disease, hypertension, hyperlipidemia, diabetes mellitus with neuropathy, nephropathy, end-stage renal disease on hemodialysis presented to [facility] due to epigastric pain associated with shortness of breath on arrival patient noted to have elevated blood pressures, acute respiratory distress with acute hypoxic respiratory failure finger oximetry 88% on room air patient required treatment with BiPAP and oxygen, patient also noted to have elevated troponin, BNP, BMP and hyperglycemia patient admitted to intermediate care unit with a diagnosis of non ST elevation [place] and placed on IV heparin co ntinued on beta-blockers statins and aspirin patient was noted to be in acute diastolic congestive heart failure therefore urgent hemodialysis was arranged patient was noted to continued rise in troponin, patient's symptoms of shortness of breath and epigastric discomfort improved over next 24 hours, however again this morning patient noted to be short breath, lung examination revealed bilateral crackles therefore patient underwent repeat hemodialysis this afternoon an echocardiogram showed EF of 40-45% with wall motion abnormality in territory of LAD, last echo from [facility] March 2021 showed preserved EF with grade 2 diastolic dysfunction, due to decline in EF with acute CHF and wall motion abnormality patient is being transferred to [facility] for cardiac catheterization, patient oxygenation improved currently on 2 L of oxygen with stable oxygenation. Epigastric pain was likely angina equivalent, leukocytosis was likely reactive, WBC has normalized, no source of infection was found. On arrival patient noted to have hypertensive urgency that has since resolved and patient has been continued on all home medicatios. In regard to End-stage renal disease patient receives hemodialysis on Thursday and Saturdays and is compliant, patient receive hemodialysis prior to discharge this afternoon For Diabetes mellitus patient initially noted to have elevated blood sugars with no evidence of DKA patient has been continued on diabetic diet, Lantus and insulin sliding scale. Time Spent with Patient Time attestation: Total time spent providing and/or coordinating discharge services: Discharge coordination time: Greater than 30 minutes Quality: Stroke Does the patient have a stroke diagnosis?: No Physical Exam Vital Signs: Vital Signs: Last Vital Signs Temp 96.8 F 07/08/21 11:14 Pulse 68 07/08/21 11:14 Resp 20 07/08/21 11:14 BP 110/50 L 07/08/21 11:14 Pulse Ox 100 07/08/21 11:14 Oxygen Flow Rate 4 07/06/21 04:21 BMI result Body Mass Index 32.5 Const: Other: General awake alert no acute distress Neck supple no JVD. CVS? regular rate rhythm, Respiratory bilateral crackles, no wheeze, no use of accessory muscles Gastrointestinal abdomen soft, nontender ,bowel sounds audible, no guarding , no rigidity. Extremities no edema.? Left hand trans metacarpal amputation Neuro nonfocal , speech clear. Back no CVA tenderness Skin no rash Psych appropriate affect DS: Data Data Completed and Pending Labs on day of discharge: Laboratory Results - last 24 hr 07/07/21 07/08/21 07/08/21 18:33 06:22 06:22 aPTT Heparin Protocol 53.5 69.6 D Sodium 131 L Potassium 5.2 H Chloride 104 Carbon Dioxide 13 L Anion Gap 19 BUN 39 H D Creatinine 5.47 H* Estim Creat Clear Calc 10.8 Estimated GFR 8 Random Glucose 119 H Calcium 8.7 Preliminary micro results at discharge 07/06/21 05:18 Blood Culture - Preliminary Blood - Venous No growth after 48 hours. Discharge Plan Discharge Patient Disposition: Xfer Acute Care Hospital Discharge Diagnosis: Non ST-elevation IN Acute diastolic congestive heart failure Hypertensive urgency Acute hypoxic respiratory failure Referrals: Physician,Unknown J [Primary Care Provider] - 1 Week Discharge Medications: New sodium bicarbonate 650 mg Tablet 650 mg PO TID Qty: 90 0RF Continued (DME) underpads [Bed Underpads] Pad See Rx Instructions .ROUTE .MEDSUPPLY Qty: 100 11RF Rx Instructions: Use 1 underpad as needed every 8 hours amlodipine 10 mg tablet 10 mg PO DAILY 90 Days Qty: 90 3RF aspirin [Adult Low Dose Aspirin] 81 mg tablet,delayed release (DR/EC) 81 mg PO DAILY 90 Days Qty: 90 3RF atorvastatin 80 mg tablet 80 mg PO DAILY 90 Days Qty: 90 3RF cholecalciferol (vitamin D3) 50 mcg (2,000 unit) capsule 50 mcg PO DAILY 30 Days Qty: 30 6RF (DME) diaper,brief,adult,dis[facility] See Rx Instructions .ROUTE .MEDSUPPLY Qty: 120 11RF Rx Instructions: Use 1 diaper as needed 6 times a day docusate sodium [Colace] 100 mg capsule 100 mg PO BID PRN (Reason: constipation) 90 Days Qty: 180 2RF (DME) miscellaneous medical supply [facility] See Rx Instructions .ROUTE .MEDSUPPLY Qty: 1 0RF Rx Instructions: hospital bed sennosides [senna] 8.6 mg tablet 17.2 mg PO BEDTIME 90 Days Qty: 180 3RF insulin lispro [Humalog KwikPen Insulin] 100 unit/mL insulin pen 8 - 14 unit subcut TID 30 Days Qty: 15 6RF (DME) pen needle, diabetic [BD Ultra-Fine Rin Pen Needle] 32 gauge x 5/32 needle See Rx Instructions .ROUTE .MEDSUPPLY Qty: 360 3RF Rx Instructions: As directed 4x daily (DME) Shower Chair [facility] See Rx Instructions .Route Qty: 1 0RF Rx Instructions: As directed metoprolol tartrate 100 mg tablet 100 mg PO BID 90 Days Qty: 180 3RF losartan 25 mg tablet 1 tab PO DAILY 0RF Nephro-Josefina 0.8 mg tablet 1 tab PO DAILY 0RF hydralazine 50 mg tablet 1 tab PO TID 0RF Lantus Solostar U-100 Insulin 100 unit/mL (3 mL) insulin pen 5 unit subcut QPM 0RF melatonin 5 mg tablet 1 tab PO BEDTIME PRN (Reason: insomnia) 0RF polyethylene glycol 3350 17 gram/dose powder 17 g PO DAILY 0RF (DME) FreeStyle Test Strip See Rx Instructions .ROUTE .MEDSUPPLY Qty: 120 11RF Rx Instructions: Use 1 test strips four times a day pantoprazole 40 mg tablet,delayed release (DR/EC) 40 mg PO QAM 90 Days Qty: 90 1RF simethicone [Gas Relief (simethicone)] 80 mg tablet,chewable 80 mg PO BID-QID PRN (Reason: abdominal distention) Qty: 60 0RF Discharge Orders: Discharge Order (Routine); Ordered 07/08/21 Ordered By: Leighann Ohara Diet: diabetic diet and low fat, low cholesterol Activity on Discharge: As tolerated Stand Alone Forms: Patient Portal Discharge page Care Plan Goals: Non ST-elevation [place] status post IV heparin times 48 hours, continue aspirin, statins, beta-blockers transferred to [facility] since echocardiogram showed wall motion abnormality in LAD territory, EF declined to 40 45% as compared to prior study and patient in pulmonary edema.,patient receive hemodialysis this afternoon Health Concerns: End-stage renal disease receive hemodialysis on Tuesdays and Saturdays/diabetes mellitus on insulin, Plan of Treatment: Transferred to [facility] for cardiac catheterization Assessment: As per discharge summary
--- NOTE | 2021-07-08 14:30 | CA_ITS ---
Transthoracic Echocardiogram Patient (Last, First, Middle): Nicole Vasquez M Gender: Female Date of : 1955 Age: 65 Procedure Date: 07/08/2021 Procedure Type: Transthoracic Echocardiogram Location: [facility] [place] Height: 160.02 cm Weight: 86.64 kg BSA: 1.90 m2 Heart Rate: bpm BP: 131 / 64 mmHg Sand Sifter: JOHANNA Sylvester MD: Leighann Ohara MD Bird Tender: Artur Ji MD Symptoms: elevated troponin Study Quality: Fair ECG Rhythm: Sinus Conclusions: - 1. Uedj-[id number]-dvzbskds LV systolic dysfunction with impaired relaxation filling pattern and elevated filling pressures with wall motion abnormality in LAD territory 2. Mildly dilated left atrium 3. At least moderate mitral annular calcification with normal cardiac valvular Doppler 4. Normal RV systolic pressure 5. No gross pericardial effusion Findings Left Ventricle The visually estimated ejection fraction is between 40-45%. Spectral Doppler is indicative of an impaired relaxation filling pattern. Elevated filling pressures. E/E prime ratio is >15, consistent with elevated filling pressures. Wall Motion Rest Echo Findings The apex, apical anterior, apical septum, and mid anteroseptal segments are hypokinetic. All other scored wall segments showed normal motion. Right Ventricle Normal right ventricular cavity size and systolic function. Atria The left atrium is mildly dilated. There is no evidence of interatrial shunt. The right atrium is normal in size. Aortic Valve There is mild calcification of the aortic valve. There is mild thickening of the aortic valve. There is no aortic valve stenosis. There is no aortic valve regurgitation. Mitral Valve There is mild anterior and moderate posterior mitral leaflet thickening. There is moderate mitral annular calcification. There is trace mitral valve regurgitation. There is no mitral valve stenosis. Pulmonic Valve The pulmonic valve was not well visualized. Tricuspid Valve Likely normal tricuspid valve structure and function. There is trace tricuspid valve regurgitation. The right ventricular systolic pressure is normal. Normal right atrial pressure. There is no evidence of pulmonary hypertension. Great Vessels All visible segments of the aorta are normal in size. The pulmonary artery was not well visualized. Small plaque is seen in the ascending aorta. Venous The inferior vena cava is normal in size. Inferior vena cava flow is normal. Pericardium/Pleural There is no evidence of pericardial effusion. Prior Study Comparison No prior study available for comparison. Measurements 2D Linear Measurements IVSd: 1.37 0.6-0.9/0.6-1.0 cm LVIDd: 4.73 3.9-5.3/4.2-5.9 cm LVIDd Index: 2.49 2.4-3.2/2.2-3.1 cm/m2 LVIDs: 3.26 2.0-3.6 cm LVPWd: 1.32 0.7-1.1 cm LA Diam: 3.60 2.7-3.8/3.0-4.0 cm LAIDs Index: 1.89 1.5-2.3 cm/m2 LV Mass: 251.27 67-162/88-224 g LV Mass Index: 132.25 43-95/49-115 g/m2 LVOT Diam: 2.00 3.0+(-)1.3 cm 2D Systolic Function EF 4C: 46.90 >55% EF 2C: 38.40 >55% EF BiP: 44.30 >55% Mitral Valve MV Pk E: 1.09 MV PK A: 1.16 MV Decel Time: 227.00 E/A: 0.90 E'Lateral: 4.57 E'Medial: 4.35 E/E' Med: 25.10 E/E' Lat: 23.90 PHT: 67.00 MVA PHT: 3.28 Decel [place]: 4.78 Aortic Valve AoV Pk Shaun: 1.43 AoV Mn Shaun: 1.04 AoV VTI: 0.31 AoV Pk Grad: 8.00 Aov Mn Grad: 5.00 HILARIA Cont.VTI: 1.92 LVOT LVOT Pk Hsaun: 0.84 LVOT Mn Shaun: 0.57 LVOT VTI: 0.19 LVOT Pk Grad: 3.00 LVOT Mn Grad: 1.00 LVOT Diam: 2.00 LVOT Area: 3.14 Diastolic Function MV Pk E: 1.09 MV Pk A: 1.16 E/A: 0.90 E'Medial: 4.35 E/E' Med: 25.10 E' Laterial: 4.57 E/E' Lat: 23.90 Right Ventricle TAPSE (mm): 18.00 TVS' Shaun: 13.00 Tricuspid Valve TR Pk Shaun: 1.52 TR Pk Grad: 9.00 RA Press: 3.00 RVSP: 12.00 Great Vessels Aorta Ao Asc: 3.20 2.1-3.4 cm Updated in Other Vendor System with Status of Final Artur Ji MD electronically signed on 07/08/2021 10:31:00 AM with status of Final
--- NOTE | 2021-07-08 14:35 | MHC.CM.PN ---
pt goping to [facility] for cardiac cath when pt avaliable
[2021-07-08 17:30] VITALS: BP 100/48; PULSE 65; RESP 18; TEMP 36.8; O2SAT 100
== END 2021-07-08 19:15 | disposition short-term general hospital (02) | DRG 194 ==
LOC: HO.ED 05:54 → HO.EDOVER 09:00 → HO.IMC 13:21
PROVIDERS: Hospitalist; Admitting Provider Hospitalist; Emergency Provider Student in an Organized Health Care Education/Training Program; PCP Internal Medicine; Visit Provider Hospitalist
DX: I13.2 Hypertensive heart and chronic kidney disease with heart failure and with stage 5 chronic kidney disease, or end stage renal disease (principal); J96.01 Acute respiratory failure with hypoxia; I21.A1 Myocardial infarction type 2; N18.6 End stage renal disease; E11.22 Type 2 diabetes mellitus with diabetic chronic kidney disease; D72.829 Elevated white blood cell count, unspecified; E11.40 Type 2 diabetes mellitus with diabetic neuropathy, unspecified; E11.65 Type 2 diabetes mellitus with hyperglycemia; I16.0 Hypertensive urgency; I25.10 Atherosclerotic heart disease of native coronary artery without angina pectoris; Z20.822 Contact with and (suspected) exposure to COVID-19; I50.20 Unspecified systolic (congestive) heart failure; E78.5 Hyperlipidemia, unspecified; Z99.2 Dependence on renal dialysis; Z99.3 Dependence on wheelchair; Z79.4 Long term (current) use of insulin; Z79.82 Long term (current) use of aspirin; Z79.899 Other long term (current) drug therapy
CPT/HCPCS: 36415; 71045; 74176; 80048; 80053; 80061; 82248; 82803; 82947; 83605; 83690; 83880; 84484; 85025; 85027; 85610; 85730; 87040; 87635; 90999; 93005; 93306; 94660; 96365; 96375; 99285; J0696; J1940; J2405; Q9957

== ENCOUNTER 2021-07-17 16:23 | Emergency (ER) | payer OTHER, SELFPAY ==
--- NOTE | ~2021-07-17 | XR_ITS ---
EXAMINATION: PORTABLE CHEST 1 VIEW CLINICAL INFORMATION: Short of breath. COMPARISON: 07/06/2021. TECHNIQUE: Portable frontal view of the chest was obtained. FINDINGS: Lungs mildly hypoexpanded and the patient is rotated to the right. Mild peribronchial cuffing again noted but no superimposed focal infiltrate, effusion, edema, or pneumothorax. Cardiac and mediastinal silhouettes within normal limits for size with vascular calcification in aorta. Right IJ dialysis catheter tip overlying the proximal right atrium. No acute bony abnormality. XR/XR chest 1V IMPRESSION: Chronic appearing changes similar to the 07/06/2021 study. Mild peribronchial cuffing. No overt edema.
--- NOTE | ~2021-07-17 | CT_ITS ---
EXAMINATION: CT ABDOMEN AND PELVIS WITHOUT CONTRAST CLINICAL INFORMATION: Epigastric pain COMPARISON: CT abdomen pelvis 07/06/2021 TECHNIQUE: Multidetector volumetric imaging was performed from the superior aspect of the liver through the pubic symphysis. Sagittal and coronal reformatted images were obtained on the technologist's workstation. This CT examination was performed using dose optimization techniques as appropriate, variously including the following: *Automated exposure control *Adjustment of mA and/or kV according to patient size (this includes techniques or standardized protocols for targeted exams where dose is matched to indication/reason for exam; i.e. extremities or head) *Use of iterative reconstruction technique DLP: 803 mGy-cm FINDINGS: LUNG BASES: Since the prior study from 11 days ago, there has been a marked improvement in the appearances of the lung bases with resolution of the patchy infiltrates and small bilateral pleural effusions. LIVER, GALLBLADDER, AND BILIARY TREE: The liver is normal in size, shape, and attenuation. No focal hepatic lesion or biliary ductal dilatation is present. The gallbladder is unremarkable with no evidence of radiopaque gallstones, gallbladder wall thickening, or obvious pericholecystic inflammatory changes. PANCREAS: Unremarkable. SPLEEN: Unremarkable. ADRENAL GLANDS: Unremarkable. KIDNEYS AND URETERS: The kidneys are normal in size, shape, and attenuation. No hydronephrosis, hydroureter, or calculi seen. There is bilateral moderate nonspecific perinephric stranding. BLADDER: Leggett catheter is present in a collapsed thick-walled bladder. GASTROINTESTINAL TRACT: The small and large bowel are unremarkable. The appendix is unremarkable. ABDOMINAL WALL: No significant hernia is appreciated. There is a tiny periumbilical hernia containing only fat. Hematomas in the anterior abdominal wall presumably secondary to subcutaneous injections. LYMPH NODES: A precaval lymph node is again seen along with some small shotty retroperitoneal lymph nodes.. No gross retroperitoneal lymphadenopathy is present. VASCULAR: There is marked calcific atherosclerotic change present in the aorta and its branches. No aneurysms. PELVIC VISCERA: An anteverted uterus is present with calcifications secondary to fibroids. An abnormal adnexal mass or free intraperitoneal fluid is not seen. OSSEOUS STRUCTURES: There are mild degenerative changes present at L4-L5. There is a rounded lytic lesions seen in L2 measuring just under a centimeter in size, unchanged from prior. No other lytic lesions or bony destructive lesions are seen CT/CT abdomen pelvis wo con IMPRESSION: 1. A cause for the patient's epigastric pain has not been found. 2. Resolution of interstitial infiltrates and pleural effusions since the prior study which may be indicative of improved CHF with interstitial edema. 3. Other incidental findings as described above including one lytic area in the L2 vertebral body. Correlate with blood chemistries and bone scan if clinically indicated. Fleischner guidelines were followed.
[2021-07-17 16:50] VITALS: BP 177/60; PULSE 88; RESP 21; TEMP 36.2; O2SAT 100; BMI 30.8
--- NOTE | 2021-07-17 17:19 | ECG_ITS ---
Test Reason : ABDOMINAL PAIN Blood Pressure : / mmHG Vent. Rate : 066 BPM Atrial Rate : 066 BPM P-R Int : 166 ms QRS Dur : 092 ms QT Int : 462 ms P-R-T Axes : 028 -09 174 degrees QTc Int : 484 ms Normal sinus rhythm Septal infarct (cited on or before 31-OCT-2020) T wave abnormality, consider lateral ischemia Abnormal ECG When compared with ECG of 06-JUL-2021 05:40, No significant change was found Referred By: Gladys Thomas Electronically Signed By:DEV BARNETT
--- NOTE | 2021-07-17 17:22 | ED_ITS ---
HPI - Abdominal Pain General Chief Complaint: Abdominal Pain Stated Complaint: abdominal pain Time Seen by Provider: 07/17/21 17:07 Source: patient Mode of arrival: EMS Limitations: no limitations History of Present Illness HPI narrative: pt comes to the ED via ambulance, c/o epigastric pain. Patient states that t here is a bubble in the epigastric area that is not allowing her to breathe. Patient states that whenever she gets oxygen, the vulval has releases and feels better. Patient is in no respiratory distress oxygen saturation is 100% on room air on arrival to the emergency room. Patient has been evaluated multiple times Related Data Home Medications Medication Instructions Recorded Confirmed polyethylene glycol 3350 17 17 g PO DAILY 05/08/20 07/06/21 gram/dose oral powder hydralazine 50 mg tablet 1 tab PO TID 07/06/21 07/06/21 insulin glargine 100 unit/mL (3 5 unit SUBCUT QPM 07/06/21 07/06/21 mL) subcutaneous pen (Lantus Solostar U-100 Insulin) losartan 25 mg tablet 1 tab PO DAILY 07/06/21 07/06/21 melatonin 5 mg tablet 1 tab PO BEDTIME PRN 07/06/21 07/06/21 vitamin B complex-vitamin C-folic 1 tab PO DAILY 07/06/21 07/06/21 acid 0.8 mg tablet (Nephro-Josefina) Previous Rx's Medication Instructions Recorded underpads (Bed Underpads) #100 ea 05/15/20 amlodipine 10 mg tablet 10 mg PO DAILY 90 Days #90 tab 08/20/20 aspirin 81 mg tablet,delayed 81 mg PO DAILY 90 Days #90 tab 08/20/20 release (Adult Low Dose Aspirin) atorvastatin 80 mg tablet 80 mg PO DAILY 90 Days #90 tab 08/20/20 cholecalciferol (vitamin D3) 50 50 mcg PO DAILY 30 Days #30 cap 08/20/20 mcg (2,000 unit) capsule diaper,brief,adult,disposable #120 ea 08/20/20 docusate sodium 100 mg capsule 100 mg PO BID PRN 90 Days #180 cap 08/20/20 (Colace) miscellaneous medical supply #1 ea 08/20/20 sennosides 8.6 mg tablet (senna) 17.2 mg PO BEDTIME 90 Days #180 tab 08/20/20 blood sugar diagnostic (FreeStyle #120 ea 08/27/20 Test) Humalog KwikPen Insulin 100 8 - 14 unit (0.08 - 0.14 mL) 10/30/20 unit/mL subcutaneous (insulin SUBCUT TID 30 Days #15 ml NS lispro) pen needle, diabetic 32 gauge x #360 ea 12/20/20 (BD Ultra-Fine Rin Pen Needle) Shower Chair #1 ea 02/06/21 pantoprazole 40 mg tablet,delayed 40 mg PO QAM 90 Days #90 tab 03/27/21 release simethicone 80 mg chewable tablet 80 mg PO BID-QID PRN #60 tab 03/27/21 (Gas Relief (simethicone)) metoprolol tartrate 100 mg tablet 100 mg PO BID 90 Days #180 tab 05/08/21 sodium bicarbonate 650 mg tablet 650 mg PO TID #90 tab 07/08/21 Allergies Allergy/AdvReac Type Severity Reaction Status Date / Time No Known Allergies Allergy Verified 05/20/21 16:55 Review of Systems Review of Systems Constitutional : No Weight loss, No Fever, No Chills, No Night Sweats, No Fatigue, No Malaise ENT/Mouth : No Hearing loss, No Ear Pain, No Nasal Congestion, No Sinus Pain, No Hoarseness, No sore throat, No Rhinorrhea, No Swallowing Difficulty Eyes: No Eye Pain, No Swelling, No Redness, No Foreign Body, No Discharge, No Vision Changes Cardiovascular : No Chest Pain, No SOB, No Dyspnea on Exertion, No Orthopnea, No Edema, No Palpitations Respiratory : No Cough, No Sputum, No Wheezing, No Smoke Exposure, No Dyspnea Gastrointestinal : No Nausea, No Vomiting, No Diarrhea, No Constipation, patient complaining of epigastric discomfort, states she feels there is a bubble buildup in her epigastric area, No Hematochezia, No Melena Genitourinary : no irregular bleeding, No Dysuria, No Urinary Frequency, No Hematuria, No Urinary Incontinence, No Urgency, No Flank Pain, No Urinary Flow Changes, No Hesitancy Musculoskeletal : No joint pain, No Myalgias, No Joint Swelling Skin : No Skin Lesions, No rash Neuro : No Weakness, No Numbness, No Paresthesias, No Loss of Consciousness, No Dizziness, No Headache Psych : No Anxiety/Panic, No Depression, No SI/HI/AH/VH, No Social Issues, Heme/Lymph: No Bruising, No Bleeding,No Lymphadenopathy Endocrine : No Polyuria, No Polydipsia, No Temperature Intolerance [facility] Past Medical History Medical History Abdominal pain Cough Diabetes mellitus Diabetic nephropathy associated with type 2 diabetes mellitus Diabetic polyneuropathy associated with type 2 diabetes mellitus Dyslipidemia ESRD on hemodialysis Essential hypertension Generalized weakness half-way (current) use of insulin Long-term use of aspirin therapy Stage II pressure ulcer of ankle Type 2 diabetes mellitus with hyperglycemia Urge urinary incontinence Vitamin D deficiency Wheelchair bound Surgical History Arteriovenous fistula for hemodialysis in place, primary History of amputation Family History Family History Mother Diabetes Hypertension Father Hypertension Social History Social History Household Members: Family Housing: House Do you presently have visiting nurse or other home services: Yes ([facility], PT) Alcohol intake: unknown Patient Tobacco Use Status: Never used Tobacco e-Cigarette/Vaping Use: Never Used Second Hand Smoke Exposure: No Advance Directives: Yes Advance Directives on File: Yes Advance Directives Date on File: 07/09/21 service: No Current occupational status: disabled Physical Exam ED Vital Signs: Vital Signs - 24 hr 07/17/21 16:50 07/17/21 17:58 Temperature 97.2 F 98.2 F Pulse Rate 88 65 Respiratory Rate 21 H 18 Blood Pressure 177/60 H 144/59 H Pulse Oximetry 100 100 BMI result Body Mass Index 30.8 Const Other: Appearance: Alert. Oriented X3. No acute distress. Eyes: Pupils equal, round and reactive to light. ENT: Pharynx normal. Neck: Normal inspection. Neck supple. No lymph nodes noted. No crepitus CVS: Normal heart rate and rhythm. Pulses normal. Normal S1 and S2 Respiratory: No respiratory distress. Breath sounds normal. No Wheezing. No rales , oxygen saturation 100% on room air Abdomen: Soft and nontender. No rigidity. No distention. Skin: Skin warm and dry. Normal skin color. Normal skin turgor. Extremities: No lower extremity edema. No Lacerations. No Rash Neuro: Oriented X 3. No motor deficit. No sensory deficit. Moving all extremities. No slurred speech. CN 2 through 12 grossly intact Psych: calm, cooperative, normal affect Course Course Course Narrative: Patient's creatinine and BNP is at baseline. After patient's NSTEMI troponin is decreasing, today 32.2, patient has no chest pain. Discussed the labs and i maging with the patient, no acute findings. Patient was given simethicone and a GI cocktail. Patient instructed to follow-up with her primary care physician and GI MDM - Abdominal Pain Lab Data Result diagrams: 07/17/21 17:49 07/17/21 17:49 Labs: Lab Results 07/17/21 07/17/21 07/17/21 Range/Units 17:49 17:49 17:49 WBC 10.1 (4.8-10.8) X10*3/uL RBC 3.84 L (4.20-5.50) X10*6/uL Hgb 10.0 L (12.0-16.0) g/dl Hct 33.1 L (37.0-47.0) % MCV 86.2 (80.0-98.0) fL MCH 26.0 L (27.0-33.0) pg MCHC 30.2 L (31.0-35.0) g/dl RDW 17.1 H (11.0-16.0) % Plt Count 394 D (160-400) X10*3/uL MPV 11.2 (9.4-12.3) fL Immature Gran % (Auto) 0.4 (0.0-0.4) % Neut % (Auto) 66.3 (45-73) % Lymph % (Auto) 21.5 (20-40) % [place] % (Auto) 7.9 (2-11) % Eos % (Auto) 3.1 (0-4) % Baso % (Auto) 0.8 (0-2) % Lymph # (Auto) 2.2 (1.2-4.9) X10*3/uL [place] # (Auto) 0.8 (0.1-1.2) X10*3/uL Eos # (Auto) 0.3 (0.0-0.4) X10*3/uL Baso # (Auto) 0.1 (0.0-0.2) X10*3/uL Abs Immat Gran (auto) 0.04 H (0.00-0.03) X10*3/uL Absolute Neuts (auto) 6.7 (2.0-8.3) x10*3/uL Absolute Nucleated RBC 0.000 (0.0-0.012) X10*3/uL Nucleated RBC % (auto) 0.0 (0.0-0.2) /100WBC PT 11.5 (9.9-13.0) SEC INR 1.0 (0.9-1.1) VBG pH (7.32-7.43) VBG pCO2 mmHg VBG pO2 mmHg VBG HCO3 (22-26) mmol/L VBG O2 Saturation % VBG Base Excess mmol/L Sodium 133 L (135-145) mmol/L Potassium 5.4 H (3.3-5.1) mmol/L Chloride 97 (96-108) mmol/L Carbon Dioxide 22 (22-29) mmol/L Anion Gap 19 (12-20) BUN 22 H (9-16) mg/dL Creatinine 4.43 H* (0.5-1.4) mg/dL Estim Creat Clear Calc 14.7 Estimated GFR 10 Random Glucose 240 H (60-115) mg/dL Calcium 8.9 (8.4-10.2) mg/dL Total Bilirubin 0.2 (0.0-1.0) mg/dL Direct Bilirubin < 0.2 (0.0-0.5) mg/dL AST 28 (5-31) U/L ALT 17 (0-31) U/L Alkaline Phosphatase 75 D (39-117) U/L Troponin I High Sens (<3.5-17.0) ng/L B-Natriuretic Peptide (<100) pg/mL Total Protein 7.6 (6.5-8.0) g/dL Albumin 3.4 L (3.5-5.0) g/dL Lipase 59 (8-78) U/L COVID-19 ([facility]) (Negative) COVID-19 Clin Com 07/17/21 07/17/21 07/17/21 Range/Units 17:49 17:49 17:56 WBC (4.8-10.8) X10*3/uL RBC (4.20-5.50) X10*6/uL Hgb (12.0-16.0) g/dl Hct (37.0-47.0) % MCV (80.0-98.0) fL MCH (27.0-33.0) pg MCHC (31.0-35.0) g/dl RDW (11.0-16.0) % Plt Count (160-400) X10*3/uL MPV (9.4-12.3) fL Immature Gran % (Auto) (0.0-0.4) % Neut % (Auto) (45-73) % Lymph % (Auto) (20-40) % [place] % (Auto) (2-11) % Eos % (Auto) (0-4) % Baso % (Auto) (0-2) % Lymph # (Auto) (1.2-4.9) X10*3/uL [place] # (Auto) (0.1-1.2) X10*3/uL Eos # (Auto) (0.0-0.4) X10*3/uL Baso # (Auto) (0.0-0.2) X10*3/uL Abs Immat Gran (auto) (0.00-0.03) X10*3/uL Absolute Neuts (auto) (2.0-8.3) x10*3/uL Absolute Nucleated RBC (0.0-0.012) X10*3/uL Nucleated RBC % (auto) (0.0-0.2) /100WBC PT (9.9-13.0) SEC INR (0.9-1.1) VBG pH 7.51 H (7.32-7.43) VBG pCO2 32 mmHg VBG pO2 140 mmHg VBG HCO3 26 (22-26) mmol/L VBG O2 Saturation 99.0 % VBG Base Excess 3.9 mmol/L Sodium (135-145) mmol/L Potassium (3.3-5.1) mmol/L Chloride (96-108) mmol/L Carbon Dioxide (22-29) mmol/L Anion Gap (12-20) BUN (9-16) mg/dL Creatinine (0.5-1.4) mg/dL Estim Creat Clear Calc Estimated GFR Random Glucose (60-115) mg/dL Calcium (8.4-10.2) mg/dL Total Bilirubin (0.0-1.0) mg/dL Direct Bilirubin (0.0-0.5) mg/dL AST (5-31) U/L ALT (0-31) U/L Alkaline Phosphatase (39-117) U/L Troponin I High Sens 32.2 H D (<3.5-17.0) ng/L B-Natriuretic Peptide 2242 H (<100) pg/mL Total Protein (6.5-8.0) g/dL Albumin (3.5-5.0) g/dL Lipase (8-78) U/L COVID-19 ([facility]) Negative (Negative) COVID-19 Clin Com See Note Imaging Data CT scan - abdomen: Radiologist's impression: FINDINGS: LUNG BASES: Since the prior study from 11 days ago, there has been a marked improvement in the appearances of the lung bases with resolution of the patchy infiltrates and small bilateral pleural effusions.? LIVER, GALLBLADDER, AND BILIARY TREE: The liver is normal in size, shape, and attenuation. No focal hepatic lesion or biliary ductal dilatation is present. The gallbladder is unremarkable with no evidence of radiopaque gallstones, gallbladder wall thickening, or obvious pericholecystic inflammatory changes.? PANCREAS: Unremarkable.? SPLEEN: Unremarkable.? ADRENAL GLANDS: Unremarkable.? KIDNEYS AND URETERS: The kidneys are normal in size, shape, and attenuation. No hydronephrosis, hydroureter, or calculi seen. There is bilateral moderate nonspecific perinephric stranding. ? BLADDER: Leggett catheter is present in a collapsed thick-walled bladder. ? GASTROINTESTINAL TRACT: The small and large bowel are unremarkable. The appendix is unremarkable.? ABDOMINAL WALL: No significant hernia is appreciated. There is a tiny periumbilical hernia containing only fat. Hematomas in the anterior abdominal wall presumably secondary to subcutaneous injections. LYMPH NODES: A precaval lymph node is again seen along with some small shotty retroperitoneal lymph nodes.. No gross retroperitoneal lymphadenopathy is present. VASCULAR: There is marked calcific atherosclerotic change present in the aorta and its branches. No aneurysms. PELVIC VISCERA: An anteverted uterus is present with calcifications secondary to fibroids. An abnormal adnexal mass or free intraperitoneal fluid is not seen.? OSSEOUS STRUCTURES: There are mild degenerative changes present at L4-L5. There is a rounded lytic lesions seen in L2 measuring just under a centimeter in size, unchanged from prior. No other lytic lesions or bony destructive lesions are seen? CT/CT abdomen pelvis wo con IMPRESSION: 1.? A cause for the patient's epigastric pain has not been found. 2.? Resolution of interstitial infiltrates and pleural effusions since the prior study which may be indicative of improved CHF with interstitial edema. 3.? Other incidental findings as described above including one lytic area in the L2 vertebral body. Correlate with blood chemistries and bone scan if clinically indicated.? ? Fleischner guidelines were followed. Chest x-ray: Radiologist's impression: Lungs mildly hypoexpanded and the patient is rotated to the right. Mild peribronchial cuffing again noted but no superimposed focal infiltrate, effusion, edema, or pneumothorax. Cardiac and mediastinal silhouettes within normal limits for size with vascular calcification in aorta. Right IJ dialysis catheter tip overlying the proximal right atrium. No acute bony abnormality. XR/XR chest 1V IMPRESSION: Chronic appearing changes similar to the 07/06/2021 study. Mild peribronchial cuffing. No overt edema. ? Discharge Plan Discharge Clinical Impression: Chronic abdominal pain Patient Disposition: Home, Self-Care Instructions: Abdominal Pain (ED) Additional Instructions: Please follow-up with your primary care physician tomorrow. If you have any worsening or new symptoms, please return to the emergency room or call 911 Prescriptions: No Action (DME) underpads [Bed Underpads] Pad See Rx Instructions .ROUTE .MEDSUPPLY Qty: 100 11RF Rx Instructions: Use 1 underpad as needed every 8 hours amlodipine 10 mg tablet 10 mg PO DAILY 90 Days Qty: 90 3RF aspirin [Adult Low Dose Aspirin] 81 mg tablet,delayed release (DR/EC) 81 mg PO DAILY 90 Days Qty: 90 3RF atorvastatin 80 mg tablet 80 mg PO DAILY 90 Days Qty: 90 3RF cholecalciferol (vitamin D3) 50 mcg (2,000 unit) capsule 50 mcg PO DAILY 30 Days Qty: 30 6RF (DME) diaper,brief,adult,disposable Misc See Rx Instructions .ROUTE .MEDSUPPLY Qty: 120 11RF Rx Instructions: Use 1 diaper as needed 6 times a day docusate sodium [Colace] 100 mg capsule 100 mg PO BID PRN (Reason: constipation) 90 Days Qty: 180 2RF (DME) [facility] See Rx Instructions .ROUTE .MEDSUPPLY Qty: 1 0RF Rx Instructions: hospital bed sennosides [senna] 8.6 mg tablet 17.2 mg PO BEDTIME 90 Days Qty: 180 3RF insulin lispro [Humalog KwikPen Insulin] 100 unit/mL insulin pen 8 - 14 unit subcut TID 30 Days Qty: 15 6RF (DME) pen needle, diabetic [BD Ultra-Fine Rin Pen Needle] 32 gauge x 5/32 needle See Rx Instructions .ROUTE .MEDSUPPLY Qty: 360 3RF Rx Instructions: As directed 4x daily (DME) Shower Chair Misc See Rx Instructions .Route Qty: 1 0RF Rx Instructions: As directed metoprolol tartrate 100 mg tablet 100 mg PO BID 90 Days Qty: 180 3RF losartan 25 mg tablet 1 tab PO DAILY 0RF Nephro-Josefina 0.8 mg tablet 1 tab PO DAILY 0RF hydralazine 50 mg tablet 1 tab PO TID 0RF Lantus Solostar U-100 Insulin 100 unit/mL (3 mL) insulin pen 5 unit subcut QPM 0RF melatonin 5 mg tablet 1 tab PO BEDTIME PRN (Reason: insomnia) 0RF sodium bicarbonate 650 mg Tablet 650 mg PO TID Qty: 90 0RF polyethylene glycol 3350 17 gram/dose powder 17 g PO DAILY 0RF (DME) FreeStyle Test Strip See Rx Instructions .ROUTE .MEDSUPPLY Qty: 120 11RF Rx Instructions: Use 1 test strips four times a day pantoprazole 40 mg tablet,delayed release (DR/EC) 40 mg PO QAM 90 Days Qty: 90 1RF simethicone [Gas Relief (simethicone)] 80 mg tablet,chewable 80 mg PO BID-QID PRN (Reason: abdominal distention) Qty: 60 0RF Referrals: Julito Bolden [Physician] - 2 days (Chronic abdominal pain/distension)
[2021-07-17 17:56] LABS: MANUAL DIFF FLAG NO
[2021-07-17 17:58] VITALS: BP 144/59; PULSE 65; RESP 18; TEMP 36.8; O2SAT 100
[2021-07-17 17:59] LABS: Basophils Absolute Auto 0.1 X10*3/uL (0.0-0.2); Basophils Percent Auto 0.8 % (0-2); Eosinophils Absolute Auto 0.3 X10*3/uL (0.0-0.4); Eosinophils Percent Auto 3.1 % (0-4); Hematocrit 33.1 % (37.0-47.0); Imm Gran Abs Auto 0.04 X10*3/uL (0.00-0.03); Imm Gran Pct Auto 0.4 % (0.0-0.4); Lymphocytes Absolute Auto 2.2 X10*3/uL (1.2-4.9); Lymphocytes Percent Auto 21.5 % (20-40); Mean Corpuscular HGB Conc 30.2 g/dl (31.0-35.0); Mean Corpuscular Volume 86.2 fL (80.0-98.0); Mean Platelet Volume 11.2 fL (9.4-12.3); Monocytes Absolute Auto 0.8 X10*3/uL (0.1-1.2); Monocytes Percent Auto 7.9 % (2-11); Neutrophils Absolute Auto 6.7 x10*3/uL (2.0-8.3); Neutrophils Percent Auto 66.3 % (45-73); Platelet Count 394 X10*3/uL (160-400); Red Blood Count 3.84 X10*6/uL (4.20-5.50); Red Cell Distribution Width 17.1 % (11.0-16.0); White Blood Count 10.1 X10*3/uL (4.8-10.8)
[2021-07-17 18:04] LABS: VBG Base Excess 3.9 mmol/L; VBG HCO3 26 mmol/L (22-26); VBG pCO2 32 mmHg; VBG pH 7.51 (7.32-7.43); VBG pO2 140 mmHg
[2021-07-17 18:06] LABS: Venous Blood Gas Refer to POC result
[2021-07-17 18:08] LABS: Prothrombin Time 11.5 SEC (9.9-13.0)
[2021-07-17 18:16] LABS: COVID-19 Test Negative (Negative); IDNOW Serial# 16C4AD1C
[2021-07-17 18:17] LABS: Alanine Aminotransferase 17 U/L (0-31); Albumin Level 3.4 g/dL (3.5-5.0); Alkaline Phosphatase 75 U/L (39-117); Anion Gap 19 (12-20); Aspartate Amino Transferase 28 U/L (5-31); Bilirubin Direct < 0.2 mg/dL (0.0-0.5); Bilirubin Total 0.2 mg/dL (0.0-1.0); Blood Urea Nitrogen 22 mg/dL (9-16); Calcium 8.9 mg/dL (8.4-10.2); Carbon Dioxide 22 mmol/L (22-29); Chloride 97 mmol/L (96-108); Creatinine Clr Calc Pharmacy 14.7; Estimated Glomerular Filt Rate 10; Glucose Random 240 mg/dL (60-115); Lipase 59 U/L (8-78); Potassium 5.4 mmol/L (3.3-5.1); Sodium 133 mmol/L (135-145); Total Protein 7.6 g/dL (6.5-8.0)
[2021-07-17 18:30] LABS: B Type Natriuretic Peptide 2242 pg/mL (<100); Troponin-I High Sensitivity 32.2 ng/L (<3.5-17.0)
[2021-07-17] MEDS: Simethicone 80 MG TAB.CHEW 160 MG PO (18:53)
[2021-07-17] MEDS: Magnesium Hydrox/Alum Hydrox 30 ML ORAL.SUSP PO (18:53)
[2021-07-17] MEDS: Lidocaine HCl Viscous 2 % 15 ML SOLUTION MUCOUS MEM (18:53)
--- NOTE | 2021-07-17 21:09 | PC.NURSE ---
THIS CALLED [facility]([phone]) AT 2108 REGARDING TRANSPORT BACK HOME. ETA AT 0000.
--- NOTE | 2021-07-17 21:52 | PC.NURSE ---
patient provided food and beverage at this time. no apparent distress. aware of wait for ambulance. will continue to monitor
== END 2021-07-18 01:34 | disposition home or self-care (01) ==
PROVIDERS: Emergency Provider Emergency Medicine; PCP Internal Medicine
DX: R10.13 Epigastric pain (principal); R10.9 Unspecified abdominal pain; R06.02 Shortness of breath; Z79.899 Other long term (current) drug therapy; Z20.822 Contact with and (suspected) exposure to COVID-19
CPT/HCPCS: 36415; 71045; 74176; 80048; 80076; 82803; 83690; 83880; 84484; 85025; 85610; 87635; 93005; 99283; 99284

== ENCOUNTER → 2021-09-04 13:58 | Outpatient (BNVA) | payer OTHER, SELFPAY | PROVIDERS: PCP Internal Medicine; Referring Provider Internal Medicine; Visit Provider Nurse Practitioner Family | DX: I25.10 Atherosclerotic heart disease of native coronary artery without angina pectoris (principal); I50.9 Heart failure, unspecified; I25.2 Old myocardial infarction; Z79.82 Long term (current) use of aspirin; Z79.899 Other long term (current) drug therapy | CPT/HCPCS: 99212 ==

== ENCOUNTER 2021-09-10 07:35 | Outpatient (REF) | payer OTHER, SELFPAY ==
[2021-09-10 09:01] LABS: MANUAL DIFF FLAG NO
[2021-09-10 09:51] LABS: Basophils Absolute Auto 0.1 X10*3/uL (0.0-0.2); Basophils Percent Auto 0.7 % (0-2); Eosinophils Absolute Auto 0.3 X10*3/uL (0.0-0.4); Eosinophils Percent Auto 3.2 % (0-4); Hematocrit 35.5 % (37.0-47.0); Hemoglobin 10.8 g/dl (12.0-16.0); Imm Gran Abs Auto 0.03 X10*3/uL (0.00-0.03); Imm Gran Pct Auto 0.3 % (0.0-0.4); Lymphocytes Absolute Auto 1.8 X10*3/uL (1.2-4.9); Lymphocytes Percent Auto 20.9 % (20-40); Mean Corpuscular HGB Conc 30.4 g/dl (31.0-35.0); Mean Corpuscular Volume 85.5 fL (80.0-98.0); Mean Platelet Volume 10.6 fL (9.4-12.3); Monocytes Absolute Auto 0.8 X10*3/uL (0.1-1.2); Monocytes Percent Auto 9.4 % (2-11); Neutrophils Absolute Auto 5.8 x10*3/uL (2.0-8.3); Neutrophils Percent Auto 65.5 % (45-73); Platelet Count 337 X10*3/uL (160-400); Red Blood Count 4.15 X10*6/uL (4.20-5.50); Red Cell Distribution Width 17.6 % (11.0-16.0); White Blood Count 8.8 X10*3/uL (4.8-10.8)
[2021-09-10 09:54] LABS: INTERNATIONAL NORM RATIO 1.1 (0.9-1.1); Prothrombin Time 12.3 SEC (9.9-13.0)
[2021-09-10 10:34] LABS: Anion Gap 16 (12-20); Blood Urea Nitrogen 22 mg/dL (9-16); Carbon Dioxide 28 mmol/L (22-29); Chloride 100 mmol/L (96-108); Estimated Glomerular Filt Rate 11; Glucose Random 123 mg/dL (60-115); Iron 37 mcg/dL (30-160); Percent Iron Saturation 24 % (15-50); Potassium 4.4 mmol/L (3.3-5.1); Sodium 140 mmol/L (135-145); Total Iron Binding Capacity 153 mcg/dL (228-428); Unsaturated Iron Binding 116 ug/dL
[2021-09-10 10:35] LABS: Vitamin D 25-OH Total 36.7 ng/mL (>30)
[2021-09-12 09:17] LABS: NT-proBNP 25000 pg/mL
== END 2021-09-10 07:36 | disposition home or self-care (01) ==
LOC: HO.LAB 07:35
PROVIDERS: Nurse Practitioner Family; Absent Provider Internal Medicine; PCP Internal Medicine; Referring Provider Internal Medicine; Visit Provider Nurse Practitioner
DX: Z01.810 Encounter for preprocedural cardiovascular examination (principal); D64.9 Anemia, unspecified; I50.9 Heart failure, unspecified; E55.9 Vitamin D deficiency, unspecified; K59.04 Chronic idiopathic constipation; R14.0 Abdominal distension (gaseous)
CPT/HCPCS: 36415; 80048; 82306; 83540; 83880; 85025; 85610; 99202

== ENCOUNTER → 2021-10-03 09:36 | Outpatient (BNVA) | payer MEDICARE, MEDICAID, SELFPAY | PROVIDERS: PCP Internal Medicine; Visit Provider Internal Medicine Endocrinology, Diabetes & Metabolism | DX: K59.04 Chronic idiopathic constipation (principal); K30 Functional dyspepsia; R14.0 Abdominal distension (gaseous); K21.9 Gastro-esophageal reflux disease without esophagitis; E11.22 Type 2 diabetes mellitus with diabetic chronic kidney disease; N18.6 End stage renal disease; Z99.2 Dependence on renal dialysis; Z79.4 Long term (current) use of insulin; Z79.899 Other long term (current) drug therapy | CPT/HCPCS: 82947; 83036; 99212 ==

== ENCOUNTER 2021-10-18 06:07 | Inpatient (IN) | payer MEDICARE, MEDICAID, SELFPAY ==
[2021-10-18] VITALS (29 sets, daily range): BP systolic 126–222; BP diastolic 53–101; PULSE 63–100; RESP 11–30; TEMP 36.3–37.1; O2SAT 92–100; BMI 31.6
--- NOTE | 2021-10-18 | ECG_ITS ---
Test Reason : ELEVATED TROPONINS Blood Pressure : / mmHG Vent. Rate : 068 BPM Atrial Rate : 068 BPM P-R Int : 140 ms QRS Dur : 090 ms QT Int : 500 ms P-R-T Axes : 039 -02 182 degrees QTc Int : 531 ms Sinus rhythm with occasional Premature ventricular complexes Minimal voltage criteria for LVH, may be normal variant ( Alejandro product ) ST & T wave abnormality, consider anterolateral ischemia Prolonged QT Abnormal ECG When compared with ECG of 18-OCT-2021 06:14, Premature ventricular complexes are now Present Criteria for Anteroseptal infarct are no longer Present T wave inversion now evident in Anterior leads QT has lengthened Referred By: Cindy Sarmiento Electronically Signed By:dAan Arriaga
--- NOTE | ~2021-10-18 | XR_ITS ---
EXAMINATION: XR CHEST CLINICAL INFORMATION: Congestive heart failure COMPARISON: 07/17/2021 TECHNIQUE: Frontal view of the chest was obtained. FINDINGS: Dual lumen hemodialysis catheter terminates in the right atrium. Low lung volumes crowd bronchovascular markings. Heart size within normal limits for portable technique. The tanika are enlarged and indistinct, with prominence of the axial interstitium. No pleural effusion or pneumothorax. Aorta is atherosclerotic. No acute osseous abnormalities. XR/XR chest 1V IMPRESSION: Pulmonary venous congestion, interstitial and mild alveolar edema.
--- NOTE | 2021-10-18 06:24 | ECG_ITS ---
Test Reason : SHORT OF BREATH Blood Pressure : / mmHG Vent. Rate : 098 BPM Atrial Rate : 098 BPM P-R Int : 142 ms QRS Dur : 086 ms QT Int : 368 ms P-R-T Axes : 050 000 166 degrees QTc Int : 469 ms Normal sinus rhythm Anteroseptal infarct (cited on or before 31-OCT-2020) Abnormal ECG When compared with ECG of 17-JUL-2021 17:36, Vent. rate has increased BY 32 BPM Nonspecific T wave abnormality, worse in Inferior leads Referred By: Hu Castillo Electronically Signed By:Adan Arriaga
--- NOTE | 2021-10-18 06:26 | ED.SOB ---
HPI - SOB/Dyspnea General Chief Complaint: Dyspnea Stated Complaint: SOB Time Seen by Provider: 10/18/21 06:23 Source: patient Mode of arrival: EMS History of Present Illness HPI Narrative: 66 years old with history of multivessel coronary disease status post SISI to left circumflex, type 2 diabetes with neuropathy and nephropathy, hyperlipidemia, hypertension, end-stage renal disease on dialysis Thursday and Thursday comes here for increased shortness of breath starte 3 days got worse today. Apparently patient missed her dialysis 2 days ago and supposed to go for dialysis today was very short of breath saturating 78% when EMS came. Patient has similar events in the past when she was intubated. Patient able to speak full sentences in severe distress Related Data Home Medications Medication Instructions Recorded Confirmed hydralazine 50 mg tablet 1 tab PO TID 07/06/21 09/05/21 insulin glargine 100 unit/mL (3 5 unit subcut QPM 07/06/21 09/05/21 mL) subcutaneous pen (Lantus Solostar U-100 Insulin) melatonin 5 mg tablet 1 tab PO BEDTIME PRN insomnia 07/06/21 09/05/21 acetaminophen 325 mg tablet mg PO 09/10/21 Previous Rx's Medication Instructions Recorded underpads (Bed Underpads) #100 ea 05/15/20 amlodipine 10 mg tablet 10 mg PO DAILY 90 days #90 tabs 08/20/20 aspirin 81 mg tablet,delayed 81 mg PO DAILY 90 days #90 tabs 08/20/20 release (Adult Low Dose Aspirin) cholecalciferol (vitamin D3) 50 50 mcg PO DAILY 30 days #30 caps 08/20/20 mcg (2,000 unit) capsule diaper,brief,adult,disposable #120 ea 08/20/20 docusate sodium 100 mg capsule 100 mg PO BID PRN constipation 90 08/20/20 (Colace) days #180 caps miscellaneous medical supply #1 ea 08/20/20 blood sugar diagnostic (FreeStyle #120 ea 08/27/20 Test) Humalog KwikPen Insulin 100 8 - 14 unit (0.08 - 0.14 mL) 10/30/20 unit/mL subcutaneous (insulin subcut TID 30 days #15 mL lispro) pen needle, diabetic 32 gauge x #360 ea 12/20/20 (BD Ultra-Fine Rin Pen Needle) metoprolol tartrate 100 mg tablet 100 mg PO BID 90 days #180 tabs 05/08/21 sodium bicarbonate 650 mg tablet 650 mg PO TID #90 tabs 07/08/21 ticagrelor 90 mg tablet (Brilinta) 90 mg PO BID 90 days #180 tabs 08/12/21 Shower Chair #1 ea 08/13/21 walker #1 ea 08/13/21 carvedilol 25 mg tablet 25 mg PO BID 90 days #180 tabs 08/23/21 losartan 25 mg tablet 25 mg PO DAILY 90 days #90 tabs 08/23/21 isosorbide mononitrate 60 mg 60 mg PO DAILY #90 tabs 09/04/21 tablet,extended release 24 hr linaclotide 72 mcg capsule 72 mcg PO QAM #30 caps 09/10/21 (Linzess) pantoprazole 40 mg tablet,delayed 40 mg PO QAM 90 days #90 tabs 09/10/21 release simethicone 180 mg capsule 180 mg PO BID 30 days #60 caps 09/10/21 raised toilet seat #1 ea 09/30/21 metoclopramide HCl 5 mg tablet 5 mg PO .TIDAC #90 tabs 10/03/21 (Reglan) atorvastatin 80 mg tablet 80 mg PO DAILY 90 days #90 tabs 10/07/21 vitamin B complex-vitamin C-folic 1 tab PO DAILY 90 days #90 tabs 10/07/21 acid 0.8 mg tablet (Nephro-Josefina) Allergies Allergy/AdvReac Type Severity Reaction Status Date / Time No Known Allergies Allergy Verified 10/03/21 16:18 Review of Systems Review of Systems: Yes all other systems are reviewed and are negative [facility] Past Medical History Medical History Diabetic nephropathy associated with type 2 diabetes mellitus Dyslipidemia ESRD on hemodialysis Essential hypertension Type 2 diabetes mellitus with hyperglycemia Surgical History Arteriovenous fistula for hemodialysis in place, primary History of amputation Family History Family History Mother Diabetes Hypertension Father Hypertension Social History Social History Household Members: Family Housing: House Do you presently have visiting nurse or other home services: Yes (VNA, PT) Alcohol intake: never Patient Tobacco Use Status: Never used Tobacco e-Cigarette/Vaping Use: Never Used Second Hand Smoke Exposure: No Advance Directives: Yes Advance Directives on File: Yes Advance Directives Date on File: 07/09/21 service: No Current occupational status: disabled Physical Exam Vital Signs: Vital Signs: Last Vital Signs Temp 98.6 F 10/18/21 06:12 Pulse 63 10/18/21 06:58 Resp 17 10/18/21 06:58 BP 131/62 10/18/21 06:58 Pulse Ox 96 10/18/21 06:58 O2 Del Method 10/18/21 06:58 O2 Flow Rate 2 10/18/21 06:58 Oxygen Flow Rate 8 10/18/21 06:12 BMI result Body Mass Index 31.6 Appearance: Alert. Oriented X3. In moderate distress Eyes: PERRLA, No Nystagmus pallor++ ENT: Pharynx normal. Oral Mucosa moist Neck: Normal inspection. Neck supple. CVS: Normal heart rate and rhythm. Pulses normal. Respiratory: Moderate respiratory distress. Equal air entry bilateral, bilateral diffuse rales Abdomen: Soft and nontender. Bowel sounds are present, no mass palpable, no CVA tenderness Skin: Skin warm and dry. Normal skin color. Normal skin turgor. Extremities: + lower extremity edema. No calf tenderness Neuro: Oriented X 3. No motor deficit. MDM - SOB/Dyspnea MDM Narrative Medical decision making narrative: 630 patient with fluid overload after missing dialysis case discussed with nephrology will do dialysis as soon as possible meanwhile patient placed on CPAP patient signed out to Dr. Villegas pending labs. Patient was given 100 mg of Lasix patient is saturating 97% on 30% CPAP 635; case discussed with picu nurse Dr. Aldana, will admit, chest x-ray with fluid overload findings++ Differential Diagnosis Differential diagnosis: Likely congestive heart failure Lab Data Attestation: I reviewed the patient's lab results. Result diagrams: 10/18/21 06:31 10/18/21 06:31 Labs: Lab Results 10/18/21 10/18/21 10/18/21 Range/Units 06:30 06:31 06:31 WBC 14.9 H (4.8-10.8) X10*3/uL RBC 5.16 D (4.20-5.50) X10*6/uL Hgb 14.1 D (12.0-16.0) g/dl Hct 45.4 D (37.0-47.0) % MCV 88.0 (80.0-98.0) fL MCH 27.3 (27.0-33.0) pg MCHC 31.1 (31.0-35.0) g/dl RDW 17.4 H (11.0-16.0) % Plt Count 261 (160-400) X10*3/uL MPV 10.7 (9.4-12.3) fL Immature Gran % (Auto) 0.3 (0.0-0.4) % Neut % (Auto) 79.5 H (45-73) % Lymph % (Auto) 12.3 L (20-40) % [place] % (Auto) 5.9 (2-11) % Eos % (Auto) 1.7 (0-4) % Baso % (Auto) 0.3 (0-2) % Lymph # (Auto) 1.8 (1.2-4.9) X10*3/uL [place] # (Auto) 0.9 (0.1-1.2) X10*3/uL Eos # (Auto) 0.3 (0.0-0.4) X10*3/uL Baso # (Auto) 0.0 (0.0-0.2) X10*3/uL Abs Immat Gran (auto) 0.04 H (0.00-0.03) X10*3/uL Absolute Neuts (auto) 11.9 H (2.0-8.3) x10*3/uL Absolute Nucleated RBC 0.000 (0.0-0.012) X10*3/uL Nucleated RBC % (auto) 0.0 (0.0-0.2) /100WBC PT (9.9-13.0) SEC INR (0.9-1.1) APTT (24.1-38.0) SEC Sodium 139 (135-145) mmol/L Potassium 5.3 H D (3.3-5.1) mmol/L Chloride 108 (96-108) mmol/L Carbon Dioxide 19 L (22-29) mmol/L Anion Gap 17 (12-20) BUN 51 H D (9-16) mg/dL Creatinine 7.68 H* (0.5-1.4) mg/dL Estim Creat Clear Calc 7.3 Estimated GFR 5 Random Glucose 272 H (60-115) mg/dL Calcium 8.7 (8.4-10.2) mg/dL Total Bilirubin 0.4 (0.0-1.0) mg/dL AST 13 D (5-31) U/L ALT 10 (0-31) U/L Alkaline Phosphatase 94 D (39-117) U/L Troponin I High Sens (<3.5-17.0) ng/L Total Protein 7.9 (6.5-8.0) g/dL Albumin 3.7 (3.5-5.0) g/dL COVID-19 (HAYLEE) Negative (Negative) COVID-19 Clin Com See Note 10/18/21 10/18/21 10/18/21 Range/Units 06:31 06:32 06:32 WBC (4.8-10.8) X10*3/uL RBC (4.20-5.50) X10*6/uL Hgb (12.0-16.0) g/dl Hct (37.0-47.0) % MCV (80.0-98.0) fL MCH (27.0-33.0) pg MCHC (31.0-35.0) g/dl RDW (11.0-16.0) % Plt Count (160-400) X10*3/uL MPV (9.4-12.3) fL Immature Gran % (Auto) (0.0-0.4) % Neut % (Auto) (45-73) % Lymph % (Auto) (20-40) % [place] % (Auto) (2-11) % Eos % (Auto) (0-4) % Baso % (Auto) (0-2) % Lymph # (Auto) (1.2-4.9) X10*3/uL [place] # (Auto) (0.1-1.2) X10*3/uL Eos # (Auto) (0.0-0.4) X10*3/uL Baso # (Auto) (0.0-0.2) X10*3/uL Abs Immat Gran (auto) (0.00-0.03) X10*3/uL Absolute Neuts (auto) (2.0-8.3) x10*3/uL Absolute Nucleated RBC (0.0-0.012) X10*3/uL Nucleated RBC % (auto) (0.0-0.2) /100WBC PT 11.3 (9.9-13.0) SEC INR 1.0 (0.9-1.1) APTT 30.4 (24.1-38.0) SEC Sodium (135-145) mmol/L Potassium (3.3-5.1) mmol/L Chloride (96-108) mmol/L Carbon Dioxide (22-29) mmol/L Anion Gap (12-20) BUN (9-16) mg/dL Creatinine (0.5-1.4) mg/dL Estim Creat Clear Calc Estimated GFR Random Glucose (60-115) mg/dL Calcium (8.4-10.2) mg/dL Total Bilirubin (0.0-1.0) mg/dL AST (5-31) U/L ALT (0-31) U/L Alkaline Phosphatase (39-117) U/L Troponin I High Sens 26.6 H (<3.5-17.0) ng/L Total Protein (6.5-8.0) g/dL Albumin (3.5-5.0) g/dL COVID-19 (HAYLEE) (Negative) COVID-19 Clin Com ECG Data Attestation: I personally reviewed and interpreted this ECG as follows: Interpretation: Normal sinus rhythm heart rate 98 normal interval normal axis poor progression of R-wave no acute ST T wave changes no acute ischemia Critical Care Time Critical Care Time Critical Care Time: Yes Total Critical Care Time: 45 Attestation: I spent 45 minutes of critical care, with interventions, assessments, speaking to patient, consultants, and family. Discharge Plan Discharge Clinical Impression: Congestive cardiac failure, End-stage renal disease (ESRD), Acute respiratory failure with hypoxia Patient Disposition: Admitted As Inpatient
[2021-10-18] MEDS: Furosemide 100 MG/10 ML VIAL IVPUSH (06:34)
[2021-10-18 06:37] LABS: MANUAL DIFF FLAG NO
[2021-10-18] MEDS: Nitroglycerin 2 % Oint 1 GM Packet 1 INCH TRANSDERMA (06:37)
[2021-10-18] MEDS: Sodium Bicarbonate 8.4% 50 MEQ/50 ML SYRINGE IVPUSH (06:38)
[2021-10-18 06:39] LABS: Basophils Percent Auto 0.3 % (0-2); Eosinophils Absolute Auto 0.3 X10*3/uL (0.0-0.4); Eosinophils Percent Auto 1.7 % (0-4); Hematocrit 45.4 % (37.0-47.0); Hemoglobin 14.1 g/dl (12.0-16.0); Imm Gran Abs Auto 0.04 X10*3/uL (0.00-0.03); Imm Gran Pct Auto 0.3 % (0.0-0.4); Lymphocytes Absolute Auto 1.8 X10*3/uL (1.2-4.9); Lymphocytes Percent Auto 12.3 % (20-40); Mean Corpuscular HGB Conc 31.1 g/dl (31.0-35.0); Mean Corpuscular Hemoglobin 27.3 pg (27.0-33.0); Mean Platelet Volume 10.7 fL (9.4-12.3); Monocytes Absolute Auto 0.9 X10*3/uL (0.1-1.2); Monocytes Percent Auto 5.9 % (2-11); Neutrophils Absolute Auto 11.9 x10*3/uL (2.0-8.3); Neutrophils Percent Auto 79.5 % (45-73); Platelet Count 261 X10*3/uL (160-400); Red Blood Count 5.16 X10*6/uL (4.20-5.50); Red Cell Distribution Width 17.4 % (11.0-16.0); White Blood Count 14.9 X10*3/uL (4.8-10.8)
[2021-10-18 06:53] LABS: COVID-19 Test Negative (Negative)
[2021-10-18 06:54] LABS: Prothrombin Time 11.3 SEC (9.9-13.0)
[2021-10-18 06:57] LABS: Partial Thromboplastin Time 30.4 SEC (24.1-38.0)
[2021-10-18 06:59] LABS: Alanine Aminotransferase 10 U/L (0-31); Albumin Level 3.7 g/dL (3.5-5.0); Alkaline Phosphatase 94 U/L (39-117); Anion Gap 17 (12-20); Aspartate Amino Transferase 13 U/L (5-31); Bilirubin Total 0.4 mg/dL (0.0-1.0); Blood Urea Nitrogen 51 mg/dL (9-16); Calcium 8.7 mg/dL (8.4-10.2); Carbon Dioxide 19 mmol/L (22-29); Chloride 108 mmol/L (96-108); Creatinine Clr Calc Pharmacy 7.3; Estimated Glomerular Filt Rate 5; Glucose Random 272 mg/dL (60-115); Potassium 5.3 mmol/L (3.3-5.1); Sodium 139 mmol/L (135-145); Total Protein 7.9 g/dL (6.5-8.0)
[2021-10-18 07:00] LABS: Troponin-I High Sensitivity 26.6 ng/L (<3.5-17.0)
--- NOTE | 2021-10-18 07:08 | P.HPCC_ITS ---
History of Present Illness Date of Service: 10/18/21 Attending physician on admission: Juana Aldana Chief Complaint: dyspnea 66-year-old type 2 diabetic moderately obese female also hypertensive with ischemic heart disease end-stage renal disease and hemodialysis dependent and once again because of transportation missed dialysis comes in now short of breath with obvious pulmonary edema but my bedside echo reveals that she has an akinetic inferior 0 posterolateral distribution with an overall ejection fraction probably in the mid to high 30% range reason why she is intolerant of volume and her EKG now shows edema diminished R-wave progression in the apical distribution but diffuse nonspecific ST-T changes certainly no acute ST elevation or ST depression DE but chest x-ray is also apparent and she is tachypneic with diaphragmatic effort on BiPAP although with the now lower respiratory rate than previously less use of accessory muscles the 1st troponin in this renal failure patient is negative and the EKG shows nonspecific ST-T changes but no acute issue but the bedside echo reflects a 25- 30% ejection fraction with segmental wall motion abnormality at least in the pos terior lateral potentially apical distribution and I finally got the catheterization results from [facility] a few months ago and they did not have segmental wall motion abnormality in the ejection fraction was 50-55% so this raises the question about and ischemic contribution to her pulmonary edema so we will watch this through dialysis but the dialysis certainly represents the acute need she did well through dialysis hemodynamically with good blood pressure and her respiratory rate and effort dramatically improved so she was able to come off BiPAP and just on a nasal cannula no more dyspnea but she started to complain of epigastric pain gave her sublingual nitro on 2-3 occasions each time she fell asleep with a respiratory rate of 16 but awoke again with the complaint of epigastric pain and the repeat EKG showed in evolving ST-T E inversion with prolongation of the QT interval across the precordium and in the lateral limb leads along with a bump in the troponin to several 100 and therefore they know this is at least a subendocardial infarct but the question and after I did the repeat echo at the bedside shows that she no longer had the wall motion abnormality that she was back to a greater than 50% ejection fraction and therefore waxing waning ischemia and by definition unstable ischemia certainly is an issue and the big question is whether not this represents a threatened lef t anterior descending stent and that is important because it also collateralized circumflex so I ran this by the Interventional Cardiology Department at [facility] ultimately looking at the EKGs we decided that it would be safer to transfer her for the availability of the aquatic laborer should be a push comes to shove situation we started IV heparin by standard protocol and just a low-dose of IV nitroglyc larry bearing in mind that the propylene glycol certainly could contribute to toxicity Review of Systems Review of Systems: Yes all other systems are reviewed and are negative PMFSH Past Medical History Medical History Diabetic nephropathy associated with type 2 diabetes mellitus Dyslipidemia ESRD on hemodialysis Essential hypertension Type 2 diabetes mellitus with hyperglycemia Family History Family History Mother Diabetes Hypertension Father Hypertension Surgical History Surgical History Arteriovenous fistula for hemodialysis in place, primary History of amputation Social History Social History Household Members: Children Household Members Other:: son & daughter Housing: Apartment Do you presently have visiting nurse or other home services: Yes (VNA, PT) Alcohol intake: never Patient Tobacco Use Status: Never used Tobacco e-Cigarette/Vaping Use: Never Used Second Hand Smoke Exposure: No Use of substances other than those prescribed or required for medical reasons: No Have you been hit, kicked, punched, or otherwise hurt by someone within the past year? If so, by whom?: No Do you feel safe in your current relationship?: No Current Relationship Is there a partner from a previous relationship who is making you feel unsafe now?: No Are you made to feel afraid or neglected: No Advance Directives: Yes Advance Directives on File: Yes Advance Directives Date on File: 07/09/21 Do you have thoughts of harming others: None Do you have a plan to hurt others: No Plan Recently lost weight without trying: No Eating poorly because of decreased appetite: No Nutrition Risks: No Nutritional Risk Patient : No : No Poor oral hygiene: No service: No Current occupational status: disabled Meds Allergies Allergy/AdvReac Type Severity Reaction Status Date / Time No Known Allergies Allergy Verified 10/03/21 16:18 Active Medications: Current Medications Pantoprazole Sodium 40 mg/ (Sodium Chloride) 110 mls @ 400 mls/hr IV DAILY@0630 DOLORES Morphine Sulfate (Morphine Sulfate 4 Mg/Ml Cartridge) 4 mg IVPUSH Q4H PRN; Protocol PRN Reason: Dyspnea Home Medications Medication Instructions Recorded Confirmed Last Taken Type hydralazine 50 mg tablet 1 tab PO TID 07/06/21 10/18/21 Unknown History insulin glargine 100 unit/mL (3 5 unit subcut QPM 07/06/21 10/18/21 Unknown History mL) subcutaneous pen (Lantus Solostar U-100 Insulin) melatonin 5 mg tablet 1 tab PO BEDTIME PRN insomnia 07/06/21 10/18/21 Unknown History acetaminophen 325 mg tablet 2 tab PO Q4H PRN pain 10/18/21 10/18/21 Unknown History vitamin B complex-vitamin C-folic 1 tab PO DAILY 10/18/21 10/18/21 Unknown History acid 0.8 mg tablet (Nephro-Joesfina) Physical Exam Vital Signs: Vital Signs: Last Vital Signs Temp 98.6 F 10/18/21 06:12 Pulse 63 10/18/21 06:58 Resp 17 10/18/21 06:58 BP 131/62 10/18/21 06:58 Pulse Ox 96 10/18/21 06:58 O2 Del Method 10/18/21 06:58 O2 Flow Rate 2 10/18/21 06:58 Oxygen Flow Rate 8 10/18/21 06:12 BMI result Body Mass Index 31.6 currently blood pressure 167/74 normal sinus rhythm rate 71 with oxygen saturation now 100% on nasal cannula sleeping comfo rtably respiratory rate 16 nonfocal neurologic bedside echo with 50% ejection fraction no segmental wall m otion abnormality lungs clear abdomen soft no organomegaly Results Labs CBC and Chem 7: 10/18/21 06:31 10/18/21 06:31 Labs: Laboratory Results - last 24 hr 10/18/21 10/18/21 10/18/21 06:30 06:31 06:31 MCV 88.0 MCH 27.3 MCHC 31.1 RDW 17.4 H Plt Count 261 MPV 10.7 Immature Gran % (Auto) 0.3 Neut % (Auto) 79.5 H Lymph % (Auto) 12.3 L [place] % (Auto) 5.9 Eos % (Auto) 1.7 Baso % (Auto) 0.3 Lymph # (Auto) 1.8 [place] # (Auto) 0.9 Eos # (Auto) 0.3 Baso # (Auto) 0.0 Abs Immat Gran (auto) 0.04 H Absolute Neuts (auto) 11.9 H Absolute Nucleated RBC 0.000 Nucleated RBC % (auto) 0.0 PT INR APTT Anion Gap 17 Estim Creat Clear Calc 7.3 Estimated GFR 5 Random Glucose 272 H Calcium 8.7 Total Bilirubin 0.4 AST 13 D ALT 10 Alkaline Phosphatase 94 D Troponin I High Sens Total Protein 7.9 Albumin 3.7 COVID-19 (HAYLEE) Negative COVID-19 Clin Com See Note 10/18/21 10/18/21 10/18/21 06:31 06:32 06:32 MCV MCH MCHC RDW Plt Count MPV Immature Gran % (Auto) Neut % (Auto) Lymph % (Auto) [place] % (Auto) Eos % (Auto) Baso % (Auto) Lymph # (Auto) [place] # (Auto) Eos # (Auto) Baso # (Auto) Abs Immat Gran (auto) Absolute Neuts (auto) Absolute Nucleated RBC Nucleated RBC % (auto) PT 11.3 INR 1.0 APTT 30.4 Anion Gap Estim Creat Clear Calc Estimated GFR Random Glucose Calcium Total Bilirubin AST ALT Alkaline Phosphatase Troponin I High Sens 26.6 H Total Protein Albumin COVID-19 (HAYLEE) COVID-19 Clin Com Imaging Radiologist's Impressions: Impressions Chest X-Ray 10/18/21 06:43 IMPRESSION: Pulmonary venous congestion, interstitial and mild alveolar edema. Assessment and Plan (1) Acute subendocardial DE of anterior wall: Status: Acute (2) Congestive cardiac failure: Status: Acute (3) End-stage renal disease (ESRD): Status: Acute (4) Acute respiratory failure with hypoxia: Status: Acute (5) Delayed gastric emptying: Status: Acute (6) GERD (gastroesophageal reflux disease): Status: Acute (7) DM renal manif type II: Status: Acute (8) Abdominal bloating: Status: Acute (9) Chronic idiopathic constipation: Status: Acute (10) CAD (coronary artery disease): Status: Acute (11) Preop cardiovascular exam: Status: Acute (12) Status post cardiac catheterization: Status: Acute (13) Status post cardiac catheterization: Status: Acute (14) Non-ST elevation DE (NSTEMI): Status: Acute (15) CHF (congestive heart failure): Status: Acute (16) Elevated troponin level: Status: Acute (17) Pulmonary edema: Status: Acute (18) Hypoxia: Status: Acute (19) Abdominal pain: Status: Acute (20) Cough: Status: Acute (21) Gastritis: Status: Acute (22) Diabetic polyneuropathy associated with type 2 diabetes mellitus: Status: Acute (23) Vitamin D deficiency: Status: Acute (24) intermediate card tender (current) use of insulin: Status: Acute (25) Necrosis: Status: Acute (26) Urge urinary incontinence: Status: Acute (27) Generalized weakness: Status: Acute (28) Stage II pressure ulcer of ankle: Status: Acute (29) Wheelchair bound: Status: Acute (30) Long-term use of aspirin therapy: Status: Acute (31) Diabetes mellitus: Qualifiers: Diabetes mellitus type: type 2 Diabetes mellitus fci insulin use: with fci use Diabetes mellitus complication status: with hyperglycemia Qualified Code(s): E11.65 - Type 2 diabetes mellitus with hyperglycemia; Z79.4 - intermediate card tender (current) use of insulin Status: Acute Plan 66-year-old moderately obese female type 2 diabetic with end-stage renal disease and hemodialysis dependent with ischemic heart disease and peripheral vascular disease several months status post left anterior descending stent but chronically occluded mid circumflex collateral E fed by both the distal LAD as well as the right coronary artery and came in in pulmonary edema but clear-cut evidence of waxing waning unstable ischemia with a subendocardial infarct possibly in the anterior wall threatening not only LAD but circumflex territory positive troponin evolutionary EKG changes and status post successful hem odialysis with over 5 L of of volume removal with 3 achieving comfort patient is no longer in failure but she does have on again off again ischemia responsive to sublingual nitro so we are beginning heparin drip and a very very low-dose IV nitro drip because of her renal failure and then transfer to [facility] where if intervention is necessary they can perform at
--- NOTE | 2021-10-18 07:57 | PC.NURSE ---
patient alert , appears comfortable . lungs diminished throughout, on CPAP at 30 % . skin tenting . socks removed due to indentation . patient repositioned . Heart sounds irregular 85-90 . Positive hypoactive bowel sounds . Expander Machine Operator at bedside /pt/daughter aware of plan of care .
--- NOTE | 2021-10-18 08:19 | PC.NURSE ---
patient incontinent and modern about of urine in her brief. Patient changed and cleaned.
--- NOTE | 2021-10-18 08:20 | PC.NURSE ---
RN report to Report given to MANNEI
--- NOTE | 2021-10-18 12:00 | PHA.MEDREC ---
Pharmacy Consult ? Medication Reconciliation Pharmacy has completed the medication reconciliation. Patient did not know her meds. We called her daughter, daughter is primarily nepali speaking. Uke Operator office did not get back to us. Preformed primarily through claim history, and provider notes.
[2021-10-18] MEDS: Ticagrelor 90 MG TABLET PO (13:00)
[2021-10-18 13:22] LABS: Troponin-I High Sensitivity 614.2 ng/L (<3.5-17.0)
--- NOTE | 2021-10-18 14:03 | CONS_ITS ---
DATE OF SERVICE: REASON FOR CONSULTATION: I was called to see this patient to assist in management of patient dialysis requirements. HISTORY OF PRESENT ILLNESS: To summarize, Nicole is a 66-year-old woman with ESRD. She usually follows with Dr. Rick Ivy. We were asked to take care of this patient, hence he does not round in this hospital. Nicole gets her dialysis 3 times weekly. She missed her dialysis due to transportation issues. She comes in with shortness of breath. At the of admission, she was found to have fluid overload and dialysis has been arranged. ONGOING MEDICAL PROBLEMS: Include history of ESRD, on dialysis 3 times a week; diabetes mellitus; diabetic nephropathy; history of dyslipidemia; hypertension. FAMILY HISTORY: Noncontributory to this admission. SURGICAL HISTORY: Includes history of amputation and also AV fistula creation. SOCIAL HISTORY: Lives with her family. No history of smoking or alcohol abuse. ALLERGIES: NO KNOWN DRUG ALLERGIES. MEDICATIONS: All the home medications were reviewed, showed some hydralazine, insulin, melatonin, acetaminophen. REVIEW OF SYSTEMS: She had shortness of breath. No chest pain, nausea, or vomiting. All other systems were reviewed as per HPI. PHYSICAL EXAMINATION: GENERAL: The patient is an elderly woman. She is comfortable at present. NECK: Supple. No JVD. LUNGS: Bilateral crackles. HEART: S1, S2 heard. No gallop. ABDOMEN: Soft, nontender. EXTREMITIES: No edema. She has an AV access, which works well. VITAL SIGNS: Blood pressure was 127/70, pulse 76. IMAGING: Chest x-ray revealed pulmonary vascular congestion with alveolar edema. LABORATORY DATA: Hemoglobin 14.1, usual hemoglobin is around 10.8. Platelets 261. Sodium 113, potassium 5.3, BUN 51, creatinine 7.68, CO2 of 18. Blood sugar was 272. IMPRESSION: 66-year-old woman with end-stage renal disease, comes in with fluid overload and mild hyperkalemia with acidosis. PLAN: Hemodialysis as per protocol. We will remove fluid as tolerated. Keep on a low potassium diet with the current hyperkalemia. Reassess electrolytes including her total CO2 to see if she needs any sodium bicarbonate supplementation. There is no indication for Epogen. We will follow closely along with the team. Gabriel Diaz MD BPA/MODL / [id number]
[2021-10-18] MEDS: Nitroglycerin 0.4 MG TAB.SUBL SUBLINGUAL (15:25)
[2021-10-18 16:49] LABS: Hematocrit 47.8 % (37.0-47.0); Hemoglobin 14.8 g/dl (12.0-16.0); Mean Corpuscular Hemoglobin 26.7 pg (27.0-33.0); Mean Corpuscular Volume 86.1 fL (80.0-98.0); Mean Platelet Volume 11.2 fL (9.4-12.3); Platelet Count 262 X10*3/uL (160-400); Red Blood Count 5.55 X10*6/uL (4.20-5.50); Red Cell Distribution Width 17.7 % (11.0-16.0); White Blood Count 9.9 X10*3/uL (4.8-10.8)
[2021-10-18 16:54] LABS: Prothrombin Time 11.7 SEC (9.9-13.0)
[2021-10-18 16:57] LABS: PTT Heparin Drip 29.2 SEC (53-77.9)
[2021-10-18] MEDS: Heparin Sodium,Porcine 5,000 UNIT/ML VIAL 4000 UNIT IVPUSH (17:13)
[2021-10-18] MEDS: Heparin Sodium,Porcine/1/2NS 25,000 UNIT/250 ML IV.SOLN 11.34 UNIT IVCONT (17:22)
[2021-10-18 17:38] LABS: Anion Gap 18 (12-20); Blood Urea Nitrogen 27 mg/dL (9-16); Calcium 8.6 mg/dL (8.4-10.2); Carbon Dioxide 17 mmol/L (22-29); Chloride 105 mmol/L (96-108); Creatinine Clr Calc Pharmacy 11.3; Estimated Glomerular Filt Rate 9; Glucose Random 130 mg/dL (60-115); Potassium 5.3 mmol/L (3.3-5.1); Sodium 135 mmol/L (135-145)
[2021-10-18 17:39] LABS: Troponin-I High Sensitivity 1217.9 ng/L (<3.5-17.0)
--- NOTE | 2021-10-18 17:41 | P.DS_ITS ---
DS: Providers Provider Date of Service: 10/18/21 Date of admission: 10/18/21 07:01 Date of discharge: 10/18/21 Primary care physician: Deanna Hedrick MD Admitting clinician: Juana Aldana Attending physician on admission: Juana Aldana Consults: 10/18/21 14:27 Consult to Cardiology Routine Consulting Provider: Adan Arriaga Reason for consultation: elevated trops -hx of cad s/p stent few smonths back Has provider been notified: No Attending physician on discharge: Juana Aldana Discharging clinician: Juana Aldana DS: Transfer Hospital Acceptance Reason for Transfer: acute anterolateral subendocardial MD with ischemic pulmonary edema Name of Facility: [facility] DS: Diagnosis Discharge Diagnosis (1) Acute subendocardial MD of anterior wall: Status: Acute (2) Congestive cardiac failure: Status: Acute (3) End-stage renal disease (ESRD): Status: Acute (4) Acute respiratory failure with hypoxia: Status: Acute (5) Delayed gastric emptying: Status: Acute (6) GERD (gastroesophageal reflux disease): Status: Acute (7) DM renal manif type II: Status: Acute (8) Abdominal bloating: Status: Acute (9) Chronic idiopathic constipation: Status: Acute (10) CAD (coronary artery disease): Status: Acute (11) Preop cardiovascular exam: Status: Acute (12) Status post cardiac catheterization: Status: Acute (13) Status post cardiac catheterization: Status: Acute (14) Non-ST elevation MD (NSTEMI): Status: Acute (15) CHF (congestive heart failure): Status: Acute (16) Elevated troponin level: Status: Acute (17) Pulmonary edema: Status: Acute (18) Hypoxia: Status: Acute (19) Abdominal pain: Status: Acute (20) Cough: Status: Acute (21) Gastritis: Status: Acute (22) Diabetic polyneuropathy associated with type 2 diabetes mellitus: Status: Acute (23) Vitamin D deficiency: Status: Acute (24) nursing home (current) use of insulin: Status: Acute (25) Necrosis: Status: Acute (26) Urge urinary incontinence: Status: Acute (27) Generalized weakness: Status: Acute (28) Stage II pressure ulcer of ankle: Status: Acute (29) Wheelchair bound: Status: Acute (30) Long-term use of aspirin therapy: Status: Acute (31) Diabetes mellitus: Status: Acute DS: Summary Hospital Course Hospital Course: admitted in respiratory distress chief complaint dyspnea in acute hypoxemic respiratory failure unequivocally pulmonary edema and she did by her story missed dialysis on Thursday so at 1st we thought that this was just simply fl uid overload because of that missed dialysis and there were no acute changes on the initial EKG there which is minor nonspecific ST-T changes and a negative troponin she was acutely hypertensive but in distress and we started her for symptomatic maintenance on BiPAP which helped alleviate some of the work of breathing and immediate emergent dialysis removed close to 5 L of fluid with dramatic imp rovement in her respiratory work and she was able to come off BiPAP onto nasal cannula with very comfortable breathing at that point but my initial bedside echo showed significant wall motion abnormality involving the apex and the posterior lateral wall and subsequent to that echo I received the requested information from [facility] from the cath lab radiological technologist where just a few months ago they found 2 vessel disease a chronic total occlusion of the midportion of the circumflex and there was a drug-eluting stent placed in distal LAD at that point but all vessel severely calcified and the LAD as well as the right coronary both collateralized the totally occluded circumflex and at the end of dialysis interestingly when I saw the the no this ejection fraction which was at best 30% with segmental wall motion abnormality I compared to the catheterization where she was discharged with a 50% ejection fraction and no distinct wall motion abnormality so my repeat EKG post dialysis when she was complaining of epigastric pain but not dyspnea showed evolutionary changes of T- wave inversion across the precordium with prolongation of the QT also involving lateral limb leads 1 and aVL and when I repeated the echo after sublingual nitroglycerin she had no more wall motion abnormality the posterolateral in apex looked normal so the repeat troponins then went from normal to 600 and then to over 1200 confirming that this was a subendocardial infarct but the question is if this was in the stented territory of the LAD and you could be threatening LAD plus circumflex and that was my big concern because her epigastric pain seemed to wax and wane with what looked like clinical response to sublingual nitroglycerin so on that basis we reached out to [facility] described the situation sent over the EKGs at at 1st they were hesitant to than a call back and said that she would be accepted so this way she could be near cath lab radiological technologist in case and they could the no look particularly at the LAD stent but in the interim she remains on her ticagrelor and we added and IV heparin protocol and a very low-dose of IV nitroglycerin because as a hemodialysis patient with just afraid of of propylene glycol toxicity etc. so this is just a temporizing measure Status at Discharge Cognitive/behavioral status at discharge: awake and alert Time Spent with Patient Time attestation: Total time spent providing and/or coordinating discharge services: Discharge coordination time: Greater than 30 minutes Quality: Safe Use of Opioids Does Pt have an Active Cancer Diagnosis on the Problem List?: No Quality: Stroke Does the patient have a stroke diagnosis?: No Physical Exam Vital Signs: Vital Signs: Last Vital Signs Temp 98.7 F 10/18/21 16:00 Pulse 63 10/18/21 17:00 Resp 26 H 10/18/21 17:00 BP 170/70 H 10/18/21 17:00 Pulse Ox 100 10/18/21 17:00 O2 Del Method 10/18/21 17:00 O2 Flow Rate 2 10/18/21 17:00 FiO2 30 10/18/21 13:00 Oxygen Flow Rate 8 10/18/21 06:12 BMI result Body Mass Index 31.6 blood pressure 170/70 oxygen saturation 100% heart rate 68 and sinus rhythm respiratory rate of about 20 n eurologically intact bedside echo without segmental wall motion abnormality and 50% ejection fraction and no primary valve or pericardial disease lungs now clear abdomen benign DS: Data Data Completed and Pending Completed studies during hospitalization [Text1]: Procedures Performance of Urinary Filtration, Intermittent, Less than 6 Hours Per Day (07/06/21) Labs on day of discharge: Laboratory Results - last 24 hr 10/18/21 10/18/21 10/18/21 06:30 06:31 06:31 WBC 14.9 H RBC 5.16 D Hgb 14.1 D Hct 45.4 D MCV 88.0 MCH 27.3 MCHC 31.1 RDW 17.4 H Plt Count 261 MPV 10.7 Immature Gran % (Auto) 0.3 Neut % (Auto) 79.5 H Lymph % (Auto) 12.3 L [place] % (Auto) 5.9 Eos % (Auto) 1.7 Baso % (Auto) 0.3 Lymph # (Auto) 1.8 [place] # (Auto) 0.9 Eos # (Auto) 0.3 Baso # (Auto) 0.0 Abs Immat Gran (auto) 0.04 H Absolute Neuts (auto) 11.9 H Absolute Nucleated RBC 0.000 Nucleated RBC % (auto) 0.0 PT INR APTT aPTT Heparin Protocol Sodium 139 Potassium 5.3 H D Chloride 108 Carbon Dioxide 19 L Anion Gap 17 BUN 51 H D Creatinine 7.68 H* Estim Creat Clear Calc 7.3 Estimated GFR 5 Random Glucose 272 H Calcium 8.7 Total Bilirubin 0.4 AST 13 D ALT 10 Alkaline Phosphatase 94 D Troponin I High Sens Total Protein 7.9 Albumin 3.7 COVID-19 ([facility]) Negative COVID-19 Clin Com See Note 10/18/21 10/18/21 10/18/21 06:31 06:32 06:32 WBC RBC Hgb Hct MCV MCH MCHC RDW Plt Count MPV Immature Gran % (Auto) Neut % (Auto) Lymph % (Auto) [place] % (Auto) Eos % (Auto) Baso % (Auto) Lymph # (Auto) [place] # (Auto) Eos # (Auto) Baso # (Auto) Abs Immat Gran (auto) Absolute Neuts (auto) Absolute Nucleated RBC Nucleated RBC % (auto) PT 11.3 INR 1.0 APTT 30.4 aPTT Heparin Protocol Sodium Potassium Chloride Carbon Dioxide Anion Gap BUN Creatinine Estim Creat Clear Calc Estimated GFR Random Glucose Calcium Total Bilirubin AST ALT Alkaline Phosphatase Troponin I High Sens 26.6 H Total Protein Albumin COVID-19 ([facility]) COVID-19 Clin Com 10/18/21 10/18/21 10/18/21 12:51 16:40 16:40 WBC RBC Hgb Hct MCV MCH MCHC RDW Plt Count MPV Immature Gran % (Auto) Neut % (Auto) Lymph % (Auto) [place] % (Auto) Eos % (Auto) Baso % (Auto) Lymph # (Auto) [place] # (Auto) Eos # (Auto) Baso # (Auto) Abs Immat Gran (auto) Absolute Neuts (auto) Absolute Nucleated RBC Nucleated RBC % (auto) PT INR APTT aPTT Heparin Protocol Sodium 135 Potassium 5.3 H Chloride 105 Carbon Dioxide 17 L Anion Gap 18 BUN 27 H Creatinine 4.99 H* Estim Creat Clear Calc 11.3 Estimated GFR 9 Random Glucose 130 H Calcium 8.6 Total Bilirubin AST ALT Alkaline Phosphatase Troponin I High Sens 614.2 H* D 1217.9 H* D Total Protein Albumin COVID-19 ([facility]) [employer] 10/18/21 10/18/21 16:40 16:40 WBC 9.9 RBC 5.55 H Hgb 14.8 Hct 47.8 H MCV 86.1 MCH 26.7 L MCHC 31.0 RDW 17.7 H Plt Count 262 MPV 11.2 Immature Gran % (Auto) Neut % (Auto) Lymph % (Auto) [place] % (Auto) Eos % (Auto) Baso % (Auto) Lymph # (Auto) [place] # (Auto) Eos # (Auto) Baso # (Auto) Abs Immat Gran (auto) Absolute Neuts (auto) Absolute Nucleated RBC 0.000 Nucleated RBC % (auto) 0.0 PT 11.7 INR 1.0 APTT aPTT Heparin Protocol 29.2 L D Sodium Potassium Chloride Carbon Dioxide Anion Gap BUN Creatinine Estim Creat Clear Calc Estimated GFR Random Glucose Calcium Total Bilirubin AST ALT Alkaline Phosphatase Troponin I High Sens Total Protein Albumin COVID-19 ([facility]) COVID-19 [employer] Discharge Plan Discharge Anticipated Discharge Date/Time: 10/18/21 17:49 Patient Disposition: Xfer Acute Care Hospital Discharge Diagnosis: acute subendocardial MD ischemic pulmonary edema fluid overload from missed dialysis treatment and acute on chronic CHF Referrals: Deanna Sood MD [Primary Care Provider] - 1 Week Discharge Medications: No Action (DME) underpads [Bed Underpads] Pad See Rx Instructions .ROUTE .MEDSUPPLY Qty: 100 11RF Rx Instructions: Use 1 underpad as needed every 8 hours aspirin [Adult Low Dose Aspirin] 81 mg tablet,delayed release (DR/EC) 81 mg PO DAILY 90 Days Qty: 90 3RF cholecalciferol (vitamin D3) 50 mcg (2,000 unit) capsule 50 mcg PO DAILY 30 Days Qty: 30 6RF (DME) diaper,brief,adult,disposable Misc See Rx Instructions .ROUTE .MEDSUPPLY Qty: 120 11RF Rx Instructions: Use 1 diaper as needed 6 times a day docusate sodium [Colace] 100 mg capsule 100 mg PO BID PRN (Reason: constipation) 90 Days Qty: 180 2RF (DME) miscellaneous medical supply [facility] [place] See Rx Instructions .ROUTE .MEDSUPPLY Qty: 1 0RF Rx Instructions: hospital bed (DME) pen needle, diabetic [BD Ultra-Fine Rin Pen Needle] 32 gauge x 5/32 needle See Rx Instructions .ROUTE .MEDSUPPLY Qty: 360 3RF Rx Instructions: As directed 4x daily metoprolol tartrate 100 mg tablet 100 mg PO BID 90 Days Qty: 180 3RF Brilinta 90 mg tablet 90 mg PO BID 90 Days Qty: 180 1RF (DME) walker [facility] [place] See Rx Instructions .Route Qty: 1 0RF Rx Instructions: As directed (DME) Shower Chair [facility] [place] See Rx Instructions .Route Qty: 1 0RF Rx Instructions: As directed losartan 25 mg tablet 25 mg PO DAILY 90 Days Qty: 90 1RF carvedilol 25 mg tablet 25 mg PO BID 90 Days Qty: 180 1RF Rx Instructions: must administer with a meal/food (DME) raised toilet seat See Rx Instructions .Route .MEDSUPPLY Qty: 1 0RF Rx Instructions: As directed atorvastatin 80 mg tablet 80 mg PO DAILY 90 Days Qty: 90 3RF hydralazine 50 mg tablet 1 tab PO TID insulin glargine [Lantus Solostar U-100 Insulin] 100 unit/mL (3 mL) insulin pen 5 unit subcut QPM melatonin 5 mg tablet 1 tab PO BEDTIME PRN (Reason: insomnia) sodium bicarbonate 650 mg Tablet 650 mg PO TID Qty: 90 0RF Nephro-Josefina 0.8 mg tablet 1 tab PO DAILY acetaminophen 325 mg tablet 2 tab PO Q4H PRN (Reason: pain) (DME) FreeStyle Test Strip See Rx Instructions .ROUTE .MEDSUPPLY Qty: 120 11RF Rx Instructions: Use 1 test strips four times a day pantoprazole 40 mg tablet,delayed release (DR/EC) 40 mg PO QAM 90 Days Qty: 90 1RF Linzess 72 mcg capsule 72 mcg PO QAM Qty: 30 3RF simethicone 180 mg capsule 180 mg PO BID 30 Days Qty: 60 3RF Rx Instructions: after meals isosorbide mononitrate 60 mg tablet extended release 24 hr 60 mg PO DAILY Qty: 90 1RF metoclopramide HCl [Reglan] 5 mg tablet 5 mg PO .TIDAC Qty: 90 3RF Discharge Orders: Discharge Order (Routine); Ordered 10/18/21 Ordered By: Juana Aldana Activity on Discharge: Rest with bed elevated Stand Alone Forms: Patient Portal Discharge page Care Plan Goals: transfer to [facility] for possible cardiac catheterization Health Concerns: keeping NPO in case of recurrent instability minimize dose and time on IV nitro because of potential toxicity Plan of Treatment: transfer to [facility] tertiary care for continued medical therapy and possible cardiac catheterization if unstable Assessment: oriented x3 and and no longer demonstrating instability and neurologically intact
--- NOTE | 2021-10-18 18:05 | PC.NURSE ---
1500-Report received from JACKSON James manager. 1520- Dr. Aldana wants pt to remain NPO, including po meds.
--- NOTE | 2021-10-18 20:39 | PC.NURSE ---
Addendum entered by Harriet Montes RN 10/18/21 22:49: CALLED [facility] BACK AND SPOKE WITH WILMA AT [phone] TO TELL THEM THAT WE KEEP GETTING DELAYED TIMES FROM [facility] FOR TRANSPORT. WILL PASS ON TO ONCOMING RN TO CALL [facility] [phone] ONCE THEY ARE BEING TRANSPORTING TO [place] [id number] BED 3. Original Note: REPORT TO [facility] JACKSON SRINIVASAN GIVEN AT 2037. AWAITING AMBULANCE CREW FOR TRANSPORT. PATIENTS FAMILY UPDATED BY BULLARD MACHINE OPERATOR AND THIS RN AND AWARE OF PLAN TO TRANSFER TO [facility].
[2021-10-18] MEDS: Morphine Sulfate 2 MG/ML CARTRIDGE 0.5 MG IVPUSH (22:43)
[2021-10-19] VITALS: BP 147/57; PULSE 65; RESP 23; O2SAT 99
--- NOTE | 2021-10-19 00:57 | PC.NURSE ---
Addendum entered by Shawn Smith RN 10/19/21 02:55: TRANSFERRED BY EMS TO [facility] AT 0241..ALERT..NO DISTRESS Addendum entered by Shawn Smith RN 10/19/21 02:10: [facility] PAGED....EMS TRANSFER REMAINS PENDING D/T EMS AVAILABILITY PER [facility] Original Note: CARE ASSUMED 23:15...AWAKE..ALERT..ORIENTED X3...DENIED PAIN OR SOB VIA CHEF DE PARTIE..NSR..NO ECTOPY..NSR..NO ECTOPY...HEPARIN DRIP 14 UNITS/KG/HR (11.3 CC/HR)..IV SITE RIGHT ANTECUBITAL FOUND DISLODGED/NON-PATENT...NEW #22 ANGIO RESTARTED RIGHT WRIST....EXERCISE INSTRUCTOR UNABLE TO DRAW 11:30PM PTT-HD....LEFT ARM FISTULA PRESENT..LOSS CONTROL REPRESENTATIVE AWARE...[facility] CALLED AND STATED ETA 01:30 AT LATEST FOR ARRIVAL..RESTFUL..NAPPING W/O DIFFICULTY
[2021-10-19 01:00] VITALS: BP 119/49; PULSE 67; RESP 20; O2SAT 97
[2021-10-19 02:00] VITALS: BP 148/70; PULSE 68; RESP 17; O2SAT 100
--- NOTE | 2021-10-19 07:03 | PHA.MEDREC ---
Pharmacy Consult ? Medication Reconciliation Pharmacy has completed the medication reconciliation. Nursing completed med rec, reviewed by pharmacy
== END 2021-10-19 02:41 | disposition short-term general hospital (02) | DRG 280 ==
LOC: HO.ED 06:59 → HO.EDOVER 07:14 → HO.ICU 07:23 → HO.S3 13:03 → HO.ICU 15:53
PROVIDERS: Admitting Provider Internal Medicine Cardiovascular Disease; Emergency Provider Internal Medicine; PCP Internal Medicine; Visit Provider Internal Medicine Cardiovascular Disease
DX: I21.4 Non-ST elevation (NSTEMI) myocardial infarction (principal); N18.6 End stage renal disease; J96.01 Acute respiratory failure with hypoxia; E87.2 Acidosis; I13.2 Hypertensive heart and chronic kidney disease with heart failure and with stage 5 chronic kidney disease, or end stage renal disease; E78.5 Hyperlipidemia, unspecified; E11.40 Type 2 diabetes mellitus with diabetic neuropathy, unspecified; I25.10 Atherosclerotic heart disease of native coronary artery without angina pectoris; E66.9 Obesity, unspecified; Z68.31 Body mass index [BMI] 31.0-31.9, adult; E87.5 Hyperkalemia; Z95.5 Presence of coronary angioplasty implant and graft; E11.22 Type 2 diabetes mellitus with diabetic chronic kidney disease; Z99.2 Dependence on renal dialysis; Z20.822 Contact with and (suspected) exposure to COVID-19; Z89.112 Acquired absence of left hand; Z79.4 Long term (current) use of insulin; Z79.82 Long term (current) use of aspirin; Z79.899 Other long term (current) drug therapy; I50.9 Heart failure, unspecified
CPT/HCPCS: 36415; 71045; 80048; 80053; 84484; 85025; 85027; 85610; 85730; 87635; 90999; 93005; 94660; 96374; 96375; 99285; J1940; J2270

== ENCOUNTER 2021-10-25 12:46 | Emergency (ER) | payer MEDICARE, MEDICAID, SELFPAY ==
--- NOTE | ~2021-10-25 | US_ITS ---
EXAMINATION: US VENOUS ULTRASOUND WITH DOPPLER LOWER EXTREMITY, LEFT CLINICAL INFORMATION: Left leg pain COMPARISON: Previous exam October 2020 TECHNIQUE: Ultrasound of the deep veins is performed from the hip to the calf with compression sonography and color and pulse Doppler assessment. Spectral analysis with color-flow imaging is performed. FINDINGS: There is normal venous compression and respiratory variation and augmented flow. The visualized common femoral vein, superficial femoral vein, profunda femoral vein, popliteal vein, and the trifurcation region shows no evidence of deep venous thrombosis. There is no significant popliteal fossa cyst. US/US venous duplex LE LT IMPRESSION: No DVT demonstrated in the left lower extremity.
--- NOTE | ~2021-10-25 | XR_ITS ---
EXAMINATION: XR ANKLE, LEFT CLINICAL INFORMATION: Left ankle swelling. COMPARISON: None TECHNIQUE: AP, lateral, and mortise views of the left ankle. FINDINGS: There is generalized osteopenia. The ankle joint and mortise are intact. There is no acute fracture or dislocation. The tarsal bones are normally aligned. Moderate to severe atherosclerosis is noted. Mild soft tissue swelling. XR/XR ankle LT min 3V IMPRESSION: 1. Generalized osteopenia and mild soft tissue swelling without acute fracture. 2. Moderate to severe atherosclerosis.
[2021-10-25 12:54] VITALS: BP 132/64; BP 133/67; PULSE 76; PULSE 80; RESP 18; TEMP 37.4; O2SAT 96; O2SAT 98; BMI 29.5
--- NOTE | 2021-10-25 14:02 | ED_ITS ---
HPI - Extremity Injury (Lower) General Chief Complaint: Extremity Injury, Lower Stated Complaint: lower LEFT LEG PAIN Time Seen by Provider: 10/25/21 13:32 Source: patient Mode of arrival: ambulatory Limitations: other (Majority of history coming from patient's daughter, patient appears to be tired/sleepy.) History of Present Illness HPI Narrative: [age] year old female history multivessel coronary disease status post JORGE to left circumflex, type 2 diabetes with neuropathy and nephropathy, hyperlipidemia, hypertension, end-stage renal disease on dialysis Thursday presents to the emergency department with left lower extremity pain, swelling x2 days worsening. According to daughter patient was hospitalized from October to October 22, she tells me she initially came in here to [place] and then got transferred to [facility] daughter tells me that she was admitted for respiratory failure and fluid overload. Patient's last dialysis session was today. She tells me that usually after her patient is hospitalized she gets blood clots or lower extremities. Patient is not anticoagulated. Denies chest pain, shortness of breath,fevers, chills, nausea, vomiting, abdominal pain. Related Data Home Medications Medication Instructions Recorded Confirmed hydralazine 50 mg tablet 1 tab PO TID 07/06/21 10/18/21 insulin glargine 100 unit/mL (3 5 unit subcut QPM 07/06/21 10/18/21 mL) subcutaneous pen (Lantus Solostar U-100 Insulin) melatonin 5 mg tablet 1 tab PO BEDTIME PRN insomnia 07/06/21 10/18/21 acetaminophen 325 mg tablet 2 tab PO Q4H PRN pain 10/18/21 10/18/21 vitamin B complex-vitamin C-folic 1 tab PO DAILY 10/18/21 10/18/21 acid 0.8 mg tablet (Nephro-Josefina) metoclopramide HCl 5 mg tablet 1 tab PO TIDAC 10/19/21 10/19/21 Previous Rx's Medication Instructions Recorded underpads (Bed Underpads) #100 ea 05/15/20 aspirin 81 mg tablet,delayed 81 mg PO DAILY 90 days #90 tabs 08/20/20 release (Adult Low Dose Aspirin) cholecalciferol (vitamin D3) 50 50 mcg PO DAILY 30 days #30 caps 08/20/20 mcg (2,000 unit) capsule diaper,brief,adult,disposable #120 ea 08/20/20 docusate sodium 100 mg capsule 100 mg PO BID PRN constipation 90 08/20/20 (Colace) days #180 caps miscellaneous medical supply #1 ea 08/20/20 blood sugar diagnostic (FreeStyle #120 ea 08/27/20 Test) pen needle, diabetic 32 gauge x #360 ea 12/20/20 (BD Ultra-Fine Rin Pen Needle) metoprolol tartrate 100 mg tablet 100 mg PO BID 90 days #180 tabs 05/08/21 sodium bicarbonate 650 mg tablet 650 mg PO TID #90 tabs 07/08/21 ticagrelor 90 mg tablet (Brilinta) 90 mg PO BID 90 days #180 tabs 08/12/21 Shower Chair #1 ea 08/13/21 walker #1 ea 08/13/21 carvedilol 25 mg tablet 25 mg PO BID 90 days #180 tabs 08/23/21 losartan 25 mg tablet 25 mg PO DAILY 90 days #90 tabs 08/23/21 isosorbide mononitrate 60 mg 60 mg PO DAILY #90 tabs 09/04/21 tablet,extended release 24 hr linaclotide 72 mcg capsule 72 mcg PO QAM #30 caps 09/10/21 (Linzess) pantoprazole 40 mg tablet,delayed 40 mg PO QAM 90 days #90 tabs 09/10/21 release simethicone 180 mg capsule 180 mg PO BID 30 days #60 caps 09/10/21 raised toilet seat #1 ea 09/30/21 atorvastatin 80 mg tablet 80 mg PO DAILY 90 days #90 tabs 10/07/21 Allergies Allergy/AdvReac Type Severity Reaction Status Date / Time No Known Allergies Allergy Verified 10/03/21 16:18 Review of Systems Review of Systems: Constitutional : No Weight loss, No Fever, No Chills, No Fatigue, No Malaise ENT/Mouth : No sore throat, No Rhinorrhea Eyes: No Eye Pain, No Swelling, No Redness Cardiovascular : No Chest Pain, No SOB, No Dyspnea on Exertion, No Orthopnea, No Edema, No Palpitations Respiratory : No Cough, No Sputum, No Wheezing Gastrointestinal : No Nausea, No Vomiting, No Diarrhea, No Constipation, No abdominal Pain, No Hematochezia, No Melena Genitourinary : No Dysuria, No Urinary Frequency, No Hematuria, Musculoskeletal : No joint pain, No Myalgias, No Joint Swelling, + lower extremity swelling and pain Skin : No Skin Lesions, No rash Neuro : No Weakness, No Numbness, No Dizziness, No Headache Psych : No Anxiety/Panic, No Depression All other systems reviewed and are negative Yes all other systems are reviewed and are negative [facility] Past Medical History Attestation statement: The following information was validated with the patient. Source: old records reviewed and nursing notes reviewed Medical History Diabetic nephropathy associated with type 2 diabetes mellitus Dyslipidemia ESRD on hemodialysis Essential hypertension Type 2 diabetes mellitus with hyperglycemia Surgical History Arteriovenous fistula for hemodialysis in place, primary History of amputation Family History Family History Mother Diabetes Hypertension Father Hypertension Social History Social History Household Members: Children Household Members Other:: son & daughter Housing: Apartment Do you presently have visiting nurse or other home services: Yes ([facility], PT) Alcohol intake: never Patient Tobacco Use Status: Never used Tobacco e-Cigarette/Vaping Use: Never Used Second Hand Smoke Exposure: No Advance Directives: Yes Advance Directives on File: Yes Advance Directives Date on File: 07/09/21 service: No Current occupational status: disabled Physical Exam Vital Signs: Vital Signs: Last Vital Signs Temp 99.4 F 10/25/21 12:54 Pulse 76 10/25/21 12:54 Resp 18 10/25/21 12:54 BP 133/67 10/25/21 12:54 Pulse Ox 96 10/25/21 12:54 O2 Del Method 10/25/21 12:54 BMI result Body Mass Index 29.5 Vital signs stable Appearance: Alert.? Oriented X3.? No acute distress.? Head: Normocephalic, atraumatic, no step-offs or deformities Eyes: Pupils equal, round and reactive to light.? ENT: Pharynx normal.? Neck: Normal inspection.? Neck supple.? CVS: Normal heart rate and rhythm.? Pulses normal.? Respiratory: No respiratory distress.? Breath sounds normal.? Abdomen: Soft and nontender.? Skin: Skin warm and dry.? Normal skin color.? Normal skin turgor.? Extremities: No lower extremity edema.? No calf ttp, negative malini b/l. Global weakness. Slight swelling noted to the left ankle. 2+ dorsalis pedis and posterior tibialis pulses equal bilateral. No foot drop b/l Back: No midline tenderness, no C-spine tenderness, full range of motion, no CVA tenderness bilaterally Neuro: Oriented X 3.? No motor deficit.? No sensory deficit. CN 2-12 intact Course Reevaluation(s) Reevaluation #1: CBC appears to be at patient's baseline. Chemistry within elevated creatinine however patient is receiving dialysis Wednesdays and Fridays, last session today. Her creatinine is lower than usual. BNP 283, no need for intervention at this time is patient as patient is not complaining of shortness of breath or chest pain. COVID negative. At this time obtaining an x-ray of the left ankle to ensure there is no fractures or dislocations. Time: 16:25 Reevaluation #2: Ultrasound of the left lower extremity with no blood clot. Ankle x-ray of the left ankle with slight soft tissue swelling, likely ankle sprain/strain. No footdrop bilaterally. At this time patient will be discharged home, she is only complaining of left ankle pain, no chest pain, shortness of breath. I spoke to patient and patient's healthcare proxy/daughter on file (Javier Suárez) both of which are up wear of plan, if patient's symptoms persist she should have a follow-up ultrasound to rule out DVT. At this time patient's vital signs are stable and she is stable fo discharge home. Patient is wheelchair-bound and will require transportation home however due to delays in transportation patient may be here for few more hours if not until tomorrow. At this time patient will be discharged. Time: 18:18 MDM - Extremity Injury (Lower) MDM Narrative Medical decision making narrative: 1400 66-year-old female presents with left lower extremity pain, history of DVT x3 days Physical examination significant for slight swelling to the left ankle however negative Malini bilaterally, normal pulses 2+ equal bilateral to bilateral lower extremities. Plan at this time is basic labs, venous duplex. Will rule out DVT. Likely ankle sprain or strain, unlikely cellulitis. Medical Records Attestation: I reviewed the patient's medical records. Lab Data Attestation: I reviewed the patient's lab results. Result diagrams: 10/25/21 15:17 10/25/21 15:17 Labs: Lab Results 10/25/21 10/25/21 10/25/21 Range/Units 14:32 15:17 15:17 WBC 10.1 (4.8-10.8) X10*3/uL RBC 4.48 (4.20-5.50) X10*6/uL Hgb 12.0 (12.0-16.0) g/dl Hct 38.0 D (37.0-47.0) % MCV 84.8 (80.0-98.0) fL MCH 26.8 L (27.0-33.0) pg MCHC 31.6 (31.0-35.0) g/dl RDW 16.7 H (11.0-16.0) % Plt Count 256 (160-400) X10*3/uL MPV 11.1 (9.4-12.3) fL Immature Gran % (Auto) 0.2 (0.0-0.4) % Neut % (Auto) 73.3 H (45-73) % Lymph % (Auto) 16.5 L (20-40) % Carson % (Auto) 8.9 (2-11) % Eos % (Auto) 0.7 (0-4) % Baso % (Auto) 0.4 (0-2) % Lymph # (Auto) 1.7 (1.2-4.9) X10*3/uL Carson # (Auto) 0.9 (0.1-1.2) X10*3/uL Eos # (Auto) 0.1 (0.0-0.4) X10*3/uL Baso # (Auto) 0.0 (0.0-0.2) X10*3/uL Abs Immat Gran (auto) 0.02 (0.00-0.03) X10*3/uL Absolute Neuts (auto) 7.4 (2.0-8.3) x10*3/uL Absolute Nucleated RBC 0.000 (0.0-0.012) X10*3/uL Nucleated RBC % (auto) 0.0 (0.0-0.2) /100WBC Sodium 137 (135-145) mmol/L Potassium 3.7 D (3.3-5.1) mmol/L Chloride 98 (96-108) mmol/L Carbon Dioxide 28 (22-29) mmol/L Anion Gap 15 (12-20) BUN 13 D (9-16) mg/dL Creatinine 3.20 H (0.5-1.4) mg/dL Estim Creat Clear Calc 17.7 Estimated GFR 15 Random Glucose 295 H (60-115) mg/dL Calcium 8.4 (8.4-10.2) mg/dL Magnesium 1.8 (1.6-2.6) mg/dL Total Bilirubin 0.4 (0.0-1.0) mg/dL AST 10 (5-31) U/L ALT 10 (0-31) U/L Alkaline Phosphatase 72 D (39-117) U/L B-Natriuretic Peptide (<100) pg/mL Total Protein 6.9 (6.5-8.0) g/dL Albumin 3.3 L (3.5-5.0) g/dL COVID-19 (HAYLEE) Negative (Negative) COVID-19 Clin Com See Note 10/25/21 Range/Units 15:17 WBC (4.8-10.8) X10*3/uL RBC (4.20-5.50) X10*6/uL Hgb (12.0-16.0) g/dl Hct (37.0-47.0) % MCV (80.0-98.0) fL MCH (27.0-33.0) pg MCHC (31.0-35.0) g/dl RDW (11.0-16.0) % Plt Count (160-400) X10*3/uL MPV (9.4-12.3) fL Immature Gran % (Auto) (0.0-0.4) % Neut % (Auto) (45-73) % Lymph % (Auto) (20-40) % Carson % (Auto) (2-11) % Eos % (Auto) (0-4) % Baso % (Auto) (0-2) % Lymph # (Auto) (1.2-4.9) X10*3/uL Carson # (Auto) (0.1-1.2) X10*3/uL Eos # (Auto) (0.0-0.4) X10*3/uL Baso # (Auto) (0.0-0.2) X10*3/uL Abs Immat Gran (auto) (0.00-0.03) X10*3/uL Absolute Neuts (auto) (2.0-8.3) x10*3/uL Absolute Nucleated RBC (0.0-0.012) X10*3/uL Nucleated RBC % (auto) (0.0-0.2) /100WBC Sodium (135-145) mmol/L Potassium (3.3-5.1) mmol/L Chloride (96-108) mmol/L Carbon Dioxide (22-29) mmol/L Anion Gap (12-20) BUN (9-16) mg/dL Creatinine (0.5-1.4) mg/dL Estim Creat Clear Calc Estimated GFR Random Glucose (60-115) mg/dL Calcium (8.4-10.2) mg/dL Magnesium (1.6-2.6) mg/dL Total Bilirubin (0.0-1.0) mg/dL AST (5-31) U/L ALT (0-31) U/L Alkaline Phosphatase (39-117) U/L B-Natriuretic Peptide 283 H (<100) pg/mL Total Protein (6.5-8.0) g/dL Albumin (3.5-5.0) g/dL COVID-19 (HAYLEE) (Negative) COVID-19 Clin Com Critical Care Time Critical Care Time Critical Care Time: No Discharge Plan Discharge Clinical Impression: Left ankle sprain Patient Disposition: Still a Patient Instructions: Ankle Sprain (ED), R.I.C.E. Treatment (ED) Additional Instructions: Take your medications as prescribed. If you were prescribed antibiotics today, it is important that you take your medication to their entirety, do not skip any doses, do not finish them early. Follow-up with your primary care provider this week. Return to the emergency department with new or worsening symptoms. Such as fevers, chills, chest pain, shortness of breath, nausea, vomiting, dizziness, headache, vision changes, lethargy In case of emergency call 911 If symptoms persist, you should obtain a repeat ultrasound in 2- 3 days to rule out clot. Zwolle carlyn medicamentos seg?n lo prescrito. Si le recetaron antibi?ticos hoy, es i mportante que tome boo medicamento en boo totalidad, no se salte ninguna dosis, no los termine antes de tiempo. Seguimiento con boo proveedor de atenci?n primaria esta semana. Regrese al departamento de emergencias con s?ntomas nuevos o que empeoran. Melissa fiebre, escalofr?os, dolor de pecho, dificultad para respirar, n?useas, v?mitos, mareos, dolor de camilo, cambios en la visi?n, letargo En baylee de emergencia llama al 911 Si los s?ntomas persisten, debe repetir la ecograf?a en 2 o 3 d?as para jorge cartar un co?gulo. US/US venous duplex LE LT IMPRESSION: No DVT demonstrated in the left lower extremity. ?XR/XR ankle LT min 3V IMPRESSION: 1. Generalized osteopenia and mild soft tissue swelling without acute fracture. 2. Moderate to severe atherosclerosis. Prescriptions: No Action (DME) underpads [Bed Underpads] Pad See Rx Instructions .ROUTE .MEDSUPPLY Qty: 100 11RF Rx Instructions: Use 1 underpad as needed every 8 hours aspirin [Adult Low Dose Aspirin] 81 mg tablet,delayed release (DR/EC) 81 mg PO DAILY 90 Days Qty: 90 3RF cholecalciferol (vitamin D3) 50 mcg (2,000 unit) capsule 50 mcg PO DAILY 30 Days Qty: 30 6RF (DME) diaper,brief,adult,disposable Misc See Rx Instructions .ROUTE .MEDSUPPLY Qty: 120 11RF Rx Instructions: Use 1 diaper as needed 6 times a day docusate sodium [Colace] 100 mg capsule 100 mg PO BID PRN (Reason: constipation) 90 Days Qty: 180 2RF (DME) miscellaneous medical supply Misc See Rx Instructions .ROUTE .MEDSUPPLY Qty: 1 0RF Rx Instructions: hospital bed (DME) pen needle, diabetic [BD Ultra-Fine Rin Pen Needle] 32 gauge x 5/32 needle See Rx Instructions .ROUTE .MEDSUPPLY Qty: 360 3RF Rx Instructions: As directed 4x daily metoprolol tartrate 100 mg tablet 100 mg PO BID 90 Days Qty: 180 3RF Brilinta 90 mg tablet 90 mg PO BID 90 Days Qty: 180 1RF (DME) [place] [facility] [place] .[place] Qty: 1 0RF Rx Instructions: As directed (DME) Shower [place] [facility] [place] [facility] [place] .Route Qty: 1 0RF Rx Instructions: As directed losartan 25 mg tablet 25 mg PO DAILY 90 Days Qty: 90 1RF carvedilol 25 mg tablet 25 mg PO BID 90 Days Qty: 180 1RF Rx Instructions: must administer with a meal/food (DME) raised toilet seat See Rx Instructions .Route .MEDSUPPLY Qty: 1 0RF Rx Instructions: As directed atorvastatin 80 mg tablet 80 mg PO DAILY 90 Days Qty: 90 3RF hydralazine 50 mg tablet 1 tab PO TID insulin glargine [Lantus Solostar U-100 Insulin] 100 unit/mL (3 mL) insulin pen 5 unit subcut QPM melatonin 5 mg tablet 1 tab PO BEDTIME PRN (Reason: insomnia) sodium bicarbonate 650 mg Tablet 650 mg PO TID Qty: 90 0RF Nephro-Josefina 0.8 mg tablet 1 tab PO DAILY acetaminophen 325 mg tablet 2 tab PO Q4H PRN (Reason: pain) metoclopramide HCl 5 mg tablet 1 tab PO TIDAC (DME) FreeStyle Test Strip See Rx Instructions .ROUTE .MEDSUPPLY Qty: 120 11RF Rx Instructions: Use 1 test strips four times a day pantoprazole 40 mg tablet,delayed release (DR/EC) 40 mg PO QAM 90 Days Qty: 90 1RF Linzess 72 mcg capsule 72 mcg PO QAM Qty: 30 3RF simethicone 180 mg capsule 180 mg PO BID 30 Days Qty: 60 3RF Rx Instructions: after meals isosorbide mononitrate 60 mg tablet extended release 24 hr 60 mg PO DAILY Qty: 90 1RF Referrals: Deanna Sood MD [Primary Care Provider] - 2 days Stand Alone Forms: Work/School Release
[2021-10-25 14:55] LABS: COVID-19 Test Negative (Negative)
[2021-10-25 15:28] LABS: MANUAL DIFF FLAG NO
[2021-10-25 15:31] LABS: Basophils Percent Auto 0.4 % (0-2); Eosinophils Absolute Auto 0.1 X10*3/uL (0.0-0.4); Eosinophils Percent Auto 0.7 % (0-4); Imm Gran Abs Auto 0.02 X10*3/uL (0.00-0.03); Imm Gran Pct Auto 0.2 % (0.0-0.4); Lymphocytes Absolute Auto 1.7 X10*3/uL (1.2-4.9); Lymphocytes Percent Auto 16.5 % (20-40); Mean Corpuscular HGB Conc 31.6 g/dl (31.0-35.0); Mean Corpuscular Hemoglobin 26.8 pg (27.0-33.0); Mean Corpuscular Volume 84.8 fL (80.0-98.0); Mean Platelet Volume 11.1 fL (9.4-12.3); Monocytes Absolute Auto 0.9 X10*3/uL (0.1-1.2); Monocytes Percent Auto 8.9 % (2-11); Neutrophils Absolute Auto 7.4 x10*3/uL (2.0-8.3); Neutrophils Percent Auto 73.3 % (45-73); Platelet Count 256 X10*3/uL (160-400); Red Blood Count 4.48 X10*6/uL (4.20-5.50); Red Cell Distribution Width 16.7 % (11.0-16.0); White Blood Count 10.1 X10*3/uL (4.8-10.8)
[2021-10-25 15:47] LABS: Alanine Aminotransferase 10 U/L (0-31); Albumin Level 3.3 g/dL (3.5-5.0); Alkaline Phosphatase 72 U/L (39-117); Anion Gap 15 (12-20); Aspartate Amino Transferase 10 U/L (5-31); Bilirubin Total 0.4 mg/dL (0.0-1.0); Blood Urea Nitrogen 13 mg/dL (9-16); Calcium 8.4 mg/dL (8.4-10.2); Carbon Dioxide 28 mmol/L (22-29); Chloride 98 mmol/L (96-108); Creatinine Clr Calc Pharmacy 17.7; Estimated Glomerular Filt Rate 15; Glucose Random 295 mg/dL (60-115); Magnesium 1.8 mg/dL (1.6-2.6); Potassium 3.7 mmol/L (3.3-5.1); Sodium 137 mmol/L (135-145); Total Protein 6.9 g/dL (6.5-8.0)
[2021-10-25 15:51] LABS: B Type Natriuretic Peptide 283 pg/mL (<100)
[2021-10-25] MEDS: Morphine Sulfate Immed Release 15 MG TABLET PO (18:24)
[2021-10-25 21:07] VITALS: BP 130/68; PULSE 71; RESP 16; TEMP 37.1; O2SAT 95
[2021-10-26 00:38] VITALS: BP 135/69; PULSE 80; RESP 14; TEMP 36.6; O2SAT 97
== END 2021-10-26 00:41 | disposition home or self-care (01) ==
PROVIDERS: Physician Assistant; Emergency Provider Emergency Medicine Emergency Medical Services; PCP Internal Medicine
DX: S93.402A Sprain of unspecified ligament of left ankle, initial encounter (principal); M79.605 Pain in left leg; R60.0 Localized edema; R06.02 Shortness of breath; I25.10 Atherosclerotic heart disease of native coronary artery without angina pectoris; E11.9 Type 2 diabetes mellitus without complications; X58.XXXA Exposure to other specified factors, initial encounter; Y93.9 Activity, unspecified; Y92.9 Unspecified place or not applicable; Y99.9 Unspecified external cause status; Z20.822 Contact with and (suspected) exposure to COVID-19; Z79.899 Other long term (current) drug therapy; Z79.4 Long term (current) use of insulin
CPT/HCPCS: 36415; 73610; 80053; 83735; 83880; 85025; 87635; 93971; 99284

== ENCOUNTER 2021-10-26 14:23 | Emergency (ER) | payer MEDICARE, MEDICAID, SELFPAY ==
[2021-10-26] VITALS (7 sets, daily range): BP systolic 118–141; BP diastolic 54–87; PULSE 71–82; RESP 13–18; TEMP 36.6–37.2; O2SAT 95–98; BMI 27.8
--- NOTE | 2021-10-26 15:10 | ECG_ITS ---
Test Reason : NAUSEA Blood Pressure : / mmHG Vent. Rate : 073 BPM Atrial Rate : 073 BPM P-R Int : 136 ms QRS Dur : 086 ms QT Int : 412 ms P-R-T Axes : 039 -03 190 degrees QTc Int : 453 ms Normal sinus rhythm Septal infarct , age undetermined ST & T wave abnormality, consider inferolateral ischemia Abnormal ECG When compared with ECG of 18-OCT-2021 14:48, Premature ventricular complexes are no longer Present Nonspecific T wave abnormality has replaced inverted T waves in Anterior leads QT has shortened Referred By: Generic ED Physician Electronically Signed By:CONCETTA LEE MD
[2021-10-26 15:30] LABS: MANUAL DIFF FLAG NO
[2021-10-26 15:33] LABS: Basophils Percent Auto 0.4 % (0-2); Eosinophils Absolute Auto 0.2 X10*3/uL (0.0-0.4); Eosinophils Percent Auto 2.1 % (0-4); Hematocrit 42.4 % (37.0-47.0); Hemoglobin 13.2 g/dl (12.0-16.0); Imm Gran Abs Auto 0.03 X10*3/uL (0.00-0.03); Imm Gran Pct Auto 0.3 % (0.0-0.4); Lymphocytes Absolute Auto 1.6 X10*3/uL (1.2-4.9); Lymphocytes Percent Auto 13.9 % (20-40); Mean Corpuscular HGB Conc 31.1 g/dl (31.0-35.0); Mean Corpuscular Hemoglobin 26.7 pg (27.0-33.0); Mean Corpuscular Volume 85.7 fL (80.0-98.0); Mean Platelet Volume 11.5 fL (9.4-12.3); Monocytes Percent Auto 8.7 % (2-11); Neutrophils Absolute Auto 8.4 x10*3/uL (2.0-8.3); Neutrophils Percent Auto 74.6 % (45-73); Platelet Count 290 X10*3/uL (160-400); Red Blood Count 4.95 X10*6/uL (4.20-5.50); Red Cell Distribution Width 16.6 % (11.0-16.0); White Blood Count 11.2 X10*3/uL (4.8-10.8)
--- NOTE | 2021-10-26 15:49 | PC.NURSE ---
PATIENT GOT CHANGE INTO HOSPITAL ATTIRE .
[2021-10-26 15:54] LABS: Alanine Aminotransferase 10 U/L (0-31); Albumin Level 3.5 g/dL (3.5-5.0); Alkaline Phosphatase 76 U/L (39-117); Anion Gap 17 (12-20); Aspartate Amino Transferase 11 U/L (5-31); Bilirubin Direct 0.2 mg/dL (0.0-0.5); Bilirubin Total 0.4 mg/dL (0.0-1.0); Blood Urea Nitrogen 26 mg/dL (9-16); Calcium 8.8 mg/dL (8.4-10.2); Carbon Dioxide 28 mmol/L (22-29); Chloride 99 mmol/L (96-108); Creatinine Clr Calc Pharmacy 10.2; Estimated Glomerular Filt Rate 8; Glucose Random 177 mg/dL (60-115); Potassium 4.1 mmol/L (3.3-5.1); Sodium 140 mmol/L (135-145); Total Protein 7.6 g/dL (6.5-8.0)
--- NOTE | 2021-10-26 16:00 | PC.NURSE ---
Daughter Left - update when possible: Mayda Colon:
[2021-10-26 16:20] LABS: Troponin-I High Sensitivity 84.6 ng/L (<3.5-17.0)
--- NOTE | 2021-10-26 16:31 | ED_ITS ---
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 Patient was seen yesterday in the emergency department for evaluation of left ankle pain, patient had Doppler venous ultrasound of the left lower extremities, had an x-ray of the left lower extremities which showed no acute pathology, patient also had unremarkable labs at her baseline, reviewing old record patient is taking Tylenol for her pain medication stated immediately after she took her 1st pill for pain at home she started feeling nauseous and she vomited several times at home since yesterday. Patient is known to have gastritis, complaining of no abdominal pain, no diarrhea, no fever. No CP, no SOB. Related Data Home Medications Medication Instructions Recorded Confirmed hydralazine 50 mg tablet 1 tab PO TID 07/06/21 10/18/21 insulin glargine 100 unit/mL (3 5 unit subcut QPM 07/06/21 10/18/21 mL) subcutaneous pen (Lantus Solostar U-100 Insulin) melatonin 5 mg tablet 1 tab PO BEDTIME PRN insomnia 07/06/21 10/18/21 acetaminophen 325 mg tablet 2 tab PO Q4H PRN pain 10/18/21 10/18/21 vitamin B complex-vitamin C-folic 1 tab PO DAILY 10/18/21 10/18/21 acid 0.8 mg tablet (Nephro-Josefina) metoclopramide HCl 5 mg tablet 1 tab PO TIDAC 10/19/21 10/19/21 Previous Rx's Medication Instructions Recorded underpads (Bed Underpads) #100 ea 05/15/20 aspirin 81 mg tablet,delayed 81 mg PO DAILY 90 days #90 tabs 08/20/20 release (Adult Low Dose Aspirin) cholecalciferol (vitamin D3) 50 50 mcg PO DAILY 30 days #30 caps 08/20/20 mcg (2,000 unit) capsule diaper,brief,adult,disposable #120 ea 08/20/20 docusate sodium 100 mg capsule 100 mg PO BID PRN constipation 90 08/20/20 (Colace) days #180 caps miscellaneous medical supply #1 ea 08/20/20 blood sugar diagnostic (FreeStyle #120 ea 08/27/20 Test) pen needle, diabetic 32 gauge x #360 ea 12/20/20 (BD Ultra-Fine Rin Pen Needle) metoprolol tartrate 100 mg tablet 100 mg PO BID 90 days #180 tabs 05/08/21 sodium bicarbonate 650 mg tablet 650 mg PO TID #90 tabs 07/08/21 ticagrelor 90 mg tablet (Brilinta) 90 mg PO BID 90 days #180 tabs 08/12/21 Shower Chair #1 ea 08/13/21 walker #1 ea 08/13/21 carvedilol 25 mg tablet 25 mg PO BID 90 days #180 tabs 08/23/21 losartan 25 mg tablet 25 mg PO DAILY 90 days #90 tabs 08/23/21 isosorbide mononitrate 60 mg 60 mg PO DAILY #90 tabs 09/04/21 tablet,extended release 24 hr linaclotide 72 mcg capsule 72 mcg PO QAM #30 caps 09/10/21 (Linzess) pantoprazole 40 mg tablet,delayed 40 mg PO QAM 90 days #90 tabs 09/10/21 release simethicone 180 mg capsule 180 mg PO BID 30 days #60 caps 09/10/21 raised toilet seat #1 ea 09/30/21 atorvastatin 80 mg tablet 80 mg PO DAILY 90 days #90 tabs 10/07/21 gabapentin 100 mg capsule 100 mg PO BID #20 caps 10/26/21 Allergies Allergy/AdvReac Type Severity Reaction Status Date / Time No Known Allergies Allergy Verified 10/03/21 16:18 Review of Systems Review of Systems: All other systems are reviewed and are negative Constitutional: Reports as per HPI and Reports no additional constitutional c omplaints Eyes: Reports as per HPI and Reports no additional eye complaints Reports system reviewed and no additional complaints, except as documented Cardiovascular: Reports as per HPI and Reports no additional cardiovascular complaints Respiratory: Reports as per HPI and Reports no additional respiratory complaints Gastrointestinal: Reports as per HPI and Reports no additional gastrointestinal complaints Genitourinary: Reports no additional female genitourinary complaints Musculoskeletal: Reports no additional musculoskeletal complaints Skin/Breast: Reports system reviewed and no additional complaints, except as docu Psychiatric: Reports no additional psychiatric complaints Endocrine: Reports no additional endocrine complaints Hematologic/Lymphatic: Reports no additional hematologic/lymphatic complaints Allergic/Immunologic: Reports no additional allergic/immunologic complaints Reports system reviewed and no additional complaints, except as documented and Reports Abnormal speech present [facility] Past Medical History Medical History Diabetic nephropathy associated with type 2 diabetes mellitus Dyslipidemia ESRD on hemodialysis Essential hypertension Type 2 diabetes mellitus with hyperglycemia Surgical History Arteriovenous fistula for hemodialysis in place, primary History of amputation Family History Family History Mother Diabetes Hypertension Father Hypertension Social History Social History Household Members: Children Household Members Other:: son & daughter Housing: Apartment Do you presently have visiting nurse or other home services: Yes ([facility], PT) Alcohol intake: never Patient Tobacco Use Status: Never used Tobacco e-Cigarette/Vaping Use: Never Used Second Hand Smoke Exposure: No Advance Directives: Yes Advance Directives on File: Yes Advance Directives Date on File: 07/09/21 service: No Current occupational status: disabled Physical Exam ED Vital Signs: Vital Signs - 24 hr 10/26/21 15:03 10/26/21 15:49 10/26/21 18:00 Temperature 98.7 F 97.9 F 98.9 F Pulse Rate 77 71 74 Respiratory Rate 18 16 16 Blood Pressure 137/69 139/60 134/72 Pulse Oximetry 97 97 98 Oxygen Delivery Method Room Air Room Air Room Air 10/26/21 19:09 10/26/21 19:59 Temperature 98.7 F Pulse Rate 72 72 Respiratory Rate 13 16 Blood Pressure 138/54 L 122/60 Pulse Oximetry 95 98 Oxygen Delivery Method Room Air Room Air BMI result Body Mass Index 27.8 Vital signs have been reviewed as appeared to be correct. Blood pressure normal. Heart rate normal. Respiration rate normal. Temperature normal. Oxygen saturation normal. Appearance: Alert. Oriented X3. No acute distress. Head: Normal external exam. Normocephalic. Atraumatic. No Lux signs noted. No raccoon eyes noted Eyes: PERRLA. EOMI. Conjunctiva and sclera normal. Eyelids normal. ENT: TM's Normal. Pharynx normal. Uvula midline. Moist mucous membranes. No trismus noted. No drooling noted. No muffled voice noted. Neck: Normal inspection. Neck supple. FROM. No adenopathy. Thyroid Normal. No meningeal signs. No neck mass noted. CVS: Normal heart rate and rhythm. Heart sound normal. No murmurs noted. Pulses normal throughout. Respiratory: No respiratory distress. Painless inspiration. Breath sounds normal. No wheezes/rales/rhonchi noted. Chest nontender. No accessory muscle usage noted or decreased air movement noted. Abdomen: Soft and nontender. Bowel sounds normal in all 4 quadrants. No distention noted. No organomegaly noted. No visible injury noted. Back: No CVA tenderness. Full range of motion noted. Skin: Skin warm and dry. Normal skin color. Normal skin turgor. No rashes/lesions/lacerations noted. Extremities: No lower extremity edema. No left lower extremities redness or hotness, no evidence of cellulitis, no ischemic change, no skin discoloration left foot is warm to touch, faint but palpable left PT/DP pulsation. Neuro: Oriented X 3. Cranial nerve exam: II-XII are grossly intact No motor deficit. No sensory deficit. Reflexes normal. Course Course Course Narrative: Assessment and plan. 66-year-old female came in with left ankle pain for 2 days, patient had a full workup yesterday and DVT, cellulitis, and acute ischemic event was ruled out, slight leukocytosis secondary to vomiting and stress, otherwise labs at baseline revealing chronic renal failure patient is due for dialysis tomorrow no electrolyte abnormality, chronic troponin elevation but overall trending down from patient's baseline, patient received Zofran/Prilosec/Maalox/gabapentin for left foot/ankle pain which is likely secondary to peripheral diabetic neuropathy. Medical Decision Making Lab Data Lab results reviewed: Yes I reviewed the patient's lab results. Result diagrams: 10/26/21 15:25 10/26/21 15:25 Labs: Lab Results 10/26/21 10/26/21 10/26/21 Range/Units 15:25 15:25 15:25 WBC 11.2 H (4.8-10.8) X10*3/uL RBC 4.95 (4.20-5.50) X10*6/uL Hgb 13.2 (12.0-16.0) g/dl Hct 42.4 (37.0-47.0) % MCV 85.7 (80.0-98.0) fL MCH 26.7 L (27.0-33.0) pg MCHC 31.1 (31.0-35.0) g/dl RDW 16.6 H (11.0-16.0) % Plt Count 290 (160-400) X10*3/uL MPV 11.5 (9.4-12.3) fL Immature Gran % (Auto) 0.3 (0.0-0.4) % Neut % (Auto) 74.6 H (45-73) % Lymph % (Auto) 13.9 L (20-40) % Newberry % (Auto) 8.7 (2-11) % Eos % (Auto) 2.1 (0-4) % Baso % (Auto) 0.4 (0-2) % Lymph # (Auto) 1.6 (1.2-4.9) X10*3/uL Newberry # (Auto) 1.0 (0.1-1.2) X10*3/uL Eos # (Auto) 0.2 (0.0-0.4) X10*3/uL Baso # (Auto) 0.0 (0.0-0.2) X10*3/uL Abs Immat Gran (auto) 0.03 (0.00-0.03) X10*3/uL Absolute Neuts (auto) 8.4 H (2.0-8.3) x10*3/uL Absolute Nucleated RBC 0.000 (0.0-0.012) X10*3/uL Nucleated RBC % (auto) 0.0 (0.0-0.2) /100WBC Sodium 140 (135-145) mmol/L Potassium 4.1 (3.3-5.1) mmol/L Chloride 99 (96-108) mmol/L Carbon Dioxide 28 (22-29) mmol/L Anion Gap 17 (12-20) BUN 26 H D (9-16) mg/dL Creatinine 5.36 H* (0.5-1.4) mg/dL Estim Creat Clear Calc 10.2 Estimated GFR 8 Random Glucose 177 H (60-115) mg/dL Calcium 8.8 (8.4-10.2) mg/dL Total Bilirubin 0.4 (0.0-1.0) mg/dL Direct Bilirubin 0.2 (0.0-0.5) mg/dL AST 11 (5-31) U/L ALT 10 (0-31) U/L Alkaline Phosphatase 76 (39-117) U/L Troponin I High Sens 84.6 H* D (<3.5-17.0) ng/L Total Protein 7.6 (6.5-8.0) g/dL Albumin 3.5 (3.5-5.0) g/dL 10/26/21 Range/Units 18:29 WBC (4.8-10.8) X10*3/uL RBC (4.20-5.50) X10*6/uL Hgb (12.0-16.0) g/dl Hct (37.0-47.0) % MCV (80.0-98.0) fL MCH (27.0-33.0) pg MCHC (31.0-35.0) g/dl RDW (11.0-16.0) % Plt Count (160-400) X10*3/uL MPV (9.4-12.3) fL Immature Gran % (Auto) (0.0-0.4) % Neut % (Auto) (45-73) % Lymph % (Auto) (20-40) % Newberry % (Auto) (2-11) % Eos % (Auto) (0-4) % Baso % (Auto) (0-2) % Lymph # (Auto) (1.2-4.9) X10*3/uL Newberry # (Auto) (0.1-1.2) X10*3/uL Eos # (Auto) (0.0-0.4) X10*3/uL Baso # (Auto) (0.0-0.2) X10*3/uL Abs Immat Gran (auto) (0.00-0.03) X10*3/uL Absolute Neuts (auto) (2.0-8.3) x10*3/uL Absolute Nucleated RBC (0.0-0.012) X10*3/uL Nucleated RBC % (auto) (0.0-0.2) /100WBC Sodium (135-145) mmol/L Potassium (3.3-5.1) mmol/L Chloride (96-108) mmol/L Carbon Dioxide (22-29) mmol/L Anion Gap (12-20) BUN (9-16) mg/dL Creatinine (0.5-1.4) mg/dL Estim Creat Clear Calc Estimated GFR Random Glucose (60-115) mg/dL Calcium (8.4-10.2) mg/dL Total Bilirubin (0.0-1.0) mg/dL Direct Bilirubin (0.0-0.5) mg/dL AST (5-31) U/L ALT (0-31) U/L Alkaline Phosphatase (39-117) U/L Troponin I High Sens 84.5 H* (<3.5-17.0) ng/L Total Protein (6.5-8.0) g/dL Albumin (3.5-5.0) g/dL Discharge Plan Discharge Clinical Impression: Gastritis, Diabetic polyneuropathy associated with type 2 diabetes mellitus Patient Disposition: Home, Self-Care Instructions: Diabetic Peripheral Neuropathy (ED) Prescriptions: New gabapentin 100 mg capsule 100 mg PO BID Qty: 20 0RF [facility] (DME) underpads [Bed Underpads] Pad See Rx Instructions .ROUTE .MEDSUPPLY Qty: 100 11RF Rx Instructions: Use 1 underpad as needed every 8 hours aspirin [Adult Low Dose Aspirin] 81 mg tablet,delayed release (DR/EC) 81 mg PO DAILY 90 Days Qty: 90 3RF cholecalciferol (vitamin D3) 50 mcg (2,000 unit) capsule 50 mcg PO DAILY 30 Days Qty: 30 6RF (DME) diaper,brief,adult,disposable Misc See Rx Instructions .ROUTE .MEDSUPPLY Qty: 120 11RF Rx Instructions: Use 1 diaper as needed 6 times a day docusate sodium [Colace] 100 mg capsule 100 mg PO BID PRN (Reason: constipation) 90 Days Qty: 180 2RF (DME) miscellaneous medical supply Misc See Rx Instructions .ROUTE .MEDSUPPLY Qty: 1 0RF Rx Instructions: hospital bed (DME) pen needle, diabetic [BD Ultra-Fine Rin Pen Needle] 32 gauge x 5/32 needle See Rx Instructions .ROUTE .MEDSUPPLY Qty: 360 3RF Rx Instructions: As directed 4x daily metoprolol tartrate 100 mg tablet 100 mg PO BID 90 Days Qty: 180 3RF Brilinta 90 mg tablet 90 mg PO BID 90 Days Qty: 180 1RF (DME) walker Misc See Rx Instructions .Route Qty: 1 0RF Rx Instructions: As directed (DME) Shower Chair Misc See Rx Instructions .Route Qty: 1 0RF Rx Instructions: As directed losartan 25 mg tablet 25 mg PO DAILY 90 Days Qty: 90 1RF carvedilol 25 mg tablet 25 mg PO BID 90 Days Qty: 180 1RF Rx Instructions: must administer with a meal/food (DME) raised toilet seat See Rx Instructions .Route .MEDSUPPLY Qty: 1 0RF Rx Instructions: As directed atorvastatin 80 mg tablet 80 mg PO DAILY 90 Days Qty: 90 3RF hydralazine 50 mg tablet 1 tab PO TID insulin glargine [Lantus Solostar U-100 Insulin] 100 unit/mL (3 mL) insulin pen 5 unit subcut QPM melatonin 5 mg tablet 1 tab PO BEDTIME PRN (Reason: insomnia) sodium bicarbonate 650 mg Tablet 650 mg PO TID Qty: 90 0RF Nephro-Josefina 0.8 mg tablet 1 tab PO DAILY acetaminophen 325 mg tablet 2 tab PO Q4H PRN (Reason: pain) metoclopramide HCl 5 mg tablet 1 tab PO TIDAC (DME) FreeStyle Test Strip See Rx Instructions .ROUTE .MEDSUPPLY Qty: 120 11RF Rx Instructions: Use 1 test strips four times a day pantoprazole 40 mg tablet,delayed release (DR/EC) 40 mg PO QAM 90 Days Qty: 90 1RF Linzess 72 mcg capsule 72 mcg PO QAM Qty: 30 3RF simethicone 180 mg capsule 180 mg PO BID 30 Days Qty: 60 3RF Rx Instructions: after meals isosorbide mononitrate 60 mg tablet extended release 24 hr 60 mg PO DAILY Qty: 90 1RF Referrals: Physician,Unknown J [Primary Care Provider] -
[2021-10-26] MEDS: Gabapentin 100 MG CAPSULE 200 MG PO (17:22)
[2021-10-26] MEDS: Magnesium Hydrox/Alum Hydrox 30 ML ORAL.SUSP PO (17:22)
[2021-10-26] MEDS: Ondansetron ODT 4 MG TAB.RAPDIS TRANSLINGU (17:22)
[2021-10-26 19:04] LABS: Troponin-I High Sensitivity 84.5 ng/L (<3.5-17.0)
[2021-10-26] MEDS: Omeprazole 40 MG CAPSULE.DR PO (19:28)
--- NOTE | 2021-10-26 20:00 | PC.NURSE ---
PATIENT ATE A TURKEY SANDWICH AND DRANK SOME WATER TOLERATED WELL ,MD REYES AWARE .
--- NOTE | 2021-10-26 21:34 | PC.NURSE ---
pt family katy called and refused to pick the pt up due to they have to go up to the 2nd floor and the family is woried they will loose her services in the future if the family takes her home. with medical staff assistant explained that she will not loose her services, but family still refused to pick her up.
--- NOTE | 2021-10-27 00:26 | PC.NURSE ---
This US/Pct called [facility] @ 2134 to book a s transport home,Gladys from [facility] stated she would try to pass the call that there unable to take any transfers. At 2311 Gladys called and stated she was still trying to pass,At 0009 she stated she is unable to pass and its booked for the am. [employer] Analyst aware.
[2021-10-27 04:26] VITALS: BP 156/74; PULSE 67; RESP 17; TEMP 36.7; O2SAT 95
== END 2021-10-27 09:55 | disposition home or self-care (01) ==
PROVIDERS: Emergency Provider Emergency Medicine
DX: K29.70 Gastritis, unspecified, without bleeding (principal); R11.2 Nausea with vomiting, unspecified; E11.9 Type 2 diabetes mellitus without complications; Z79.899 Other long term (current) drug therapy; Z79.4 Long term (current) use of insulin
CPT/HCPCS: 36415; 80053; 82248; 84484; 85025; 93005; 99283; 99284

== ENCOUNTER 2021-10-31 16:46 | Outpatient (REF) | payer MEDICARE, MEDICAID, SELFPAY ==
--- NOTE | ~2021-10-31 | XR_ITS ---
EXAMINATION: XR CHEST CLINICAL INFORMATION: Dyspnea, unspecified. COMPARISON: Chest radiographs 10/18/2021, 07/17/2021. TECHNIQUE: 2 views of the chest were obtained. FINDINGS: There are low lung volumes. No vascular congestion, airspace consolidation, ground-glass opacity, or effusion. Heart size normal. Hilar and mediastinal contours are unremarkable. Right internal jugular double-lumen catheter again seen with tip at right atrium. No acute bony abnormality. XR/XR chest 2V IMPRESSION: Low lung volumes. Lungs clear.
== END 2021-10-31 16:47 | disposition home or self-care (01) ==
LOC: HO.XRAY 16:46
PROVIDERS: PCP Internal Medicine; Visit Provider Internal Medicine
DX: R06.00 Dyspnea, unspecified (principal)
CPT/HCPCS: 71046

== ENCOUNTER 2021-11-12 11:50 | Emergency (ER) | payer MEDICARE, MEDICAID, SELFPAY ==
--- NOTE | ~2021-11-12 | CT_ITS ---
EXAMINATION: CT ABDOMEN AND PELVIS WITHOUT CONTRAST CLINICAL INFORMATION: Abdominal pain. Diarrhea. Colitis COMPARISON: 07/17/2021 TECHNIQUE: Multidetector volumetric imaging was performed from the superior aspect of the liver through the pubic symphysis. Sagittal and coronal reformatted images were obtained on the technologist's workstation. This CT examination was performed using dose optimization techniques as appropriate, variously including the following: *Automated exposure control *Adjustment of mA and/or kV according to patient size (this includes techniques or standardized protocols for targeted exams where dose is matched to indication/reason for exam; i.e. extremities or head) *Use of iterative reconstruction technique DLP: 760 mGy-cm FINDINGS: LUNG BASES: Patchy groundglass opacities are present in the perihilar region of both lungs. No dense airspace consolidation. Three-vessel atherosclerotic calcifications at the heart. Heart is normal in size. LIVER, GALLBLADDER, AND BILIARY TREE: The liver is normal in size, shape, and attenuation. No focal hepatic lesion or biliary ductal dilatation is present. The gallbladder is unremarkable with no evidence of radiopaque gallstones, gallbladder wall thickening, or obvious pericholecystic inflammatory changes. PANCREAS: Unremarkable. SPLEEN: Unremarkable. ADRENAL GLANDS: Unremarkable. KIDNEYS AND URETERS: There is mild generalized renal cortical thinning bilaterally. No hydronephrosis or nephrolithiasis. No focal renal lesions. Bilateral perinephric stranding. Ureters are normal in course and caliber. BLADDER: Unremarkable. GASTROINTESTINAL TRACT: Stomach, small bowel, and colon are normal in caliber. No bowel wall thickening or surrounding inflammatory changes. Appendix is normal. No intraperitoneal free fluid or free air. ABDOMINAL WALL: Small fat-containing umbilical hernia. No bowel involvement. LYMPH NODES: A 1.2 cm (short axis) aortocaval lymph node is unchanged from prior studies and within normal limits. No pathologic adenopathy. VASCULAR: Calcific atherosclerosis is present throughout the abdominal aorta and its branch vessels, most notably in the renal arteries. Calcific atherosclerosis is also noted in the iliac and femoral arteries. No aneurysmal dilatation. PELVIC VISCERA: Dystrophic calcifications are present in the uterus, likely due to calcified fibroids. No acute findings. No adnexal lesions.. OSSEOUS STRUCTURES: Mild multilevel degenerative disc disease in the lumbar spine with disc bulges in the lower lumbar spine that are most notable at L4-L5. Moderate to severe central canal stenosis is suspected at L4-L5. Mild osteoarthritis in the hips and SI joints. Superior endplate compression deformity at the T7 vertebral body is unchanged. CT/CT abdomen pelvis wo con IMPRESSION: No acute findings are identified in the abdomen and pelvis to correlate directly with the patient's symptoms. Perihilar interstitial and groundglass airspace opacities which may correspond to edema. Atypical or viral pneumonia are also on the differential. No acute osseous abnormalities.
[2021-11-12 12:05] VITALS: BP 140/78; PULSE 63; O2SAT 99
[2021-11-12 12:25] VITALS: BP 167/80; PULSE 59; RESP 19; TEMP 36.6; O2SAT 98; BMI 35.9
[2021-11-12 15:11] LABS: MANUAL DIFF FLAG NO
[2021-11-12 15:14] LABS: Basophils Absolute Auto 0.1 X10*3/uL (0.0-0.2); Basophils Percent Auto 0.6 % (0-2); Eosinophils Absolute Auto 0.3 X10*3/uL (0.0-0.4); Eosinophils Percent Auto 3.1 % (0-4); Hematocrit 40.9 % (37.0-47.0); Hemoglobin 12.6 g/dl (12.0-16.0); Imm Gran Abs Auto 0.02 X10*3/uL (0.00-0.03); Imm Gran Pct Auto 0.2 % (0.0-0.4); Lymphocytes Percent Auto 23.8 % (20-40); Mean Corpuscular HGB Conc 30.8 g/dl (31.0-35.0); Mean Corpuscular Volume 84.3 fL (80.0-98.0); Monocytes Absolute Auto 0.7 X10*3/uL (0.1-1.2); Monocytes Percent Auto 8.4 % (2-11); Neutrophils Absolute Auto 5.4 x10*3/uL (2.0-8.3); Neutrophils Percent Auto 63.9 % (45-73); Platelet Count 286 X10*3/uL (160-400); Red Blood Count 4.85 X10*6/uL (4.20-5.50); Red Cell Distribution Width 15.4 % (11.0-16.0); White Blood Count 8.5 X10*3/uL (4.8-10.8)
[2021-11-12 15:37] LABS: Alanine Aminotransferase 23 U/L (0-31); Albumin Level 3.7 g/dL (3.5-5.0); Alkaline Phosphatase 96 U/L (39-117); Anion Gap 16 (12-20); Aspartate Amino Transferase 15 U/L (5-31); Bilirubin Direct 0.2 mg/dL (0.0-0.5); Bilirubin Total 0.4 mg/dL (0.0-1.0); Blood Urea Nitrogen 29 mg/dL (9-16); Calcium 8.9 mg/dL (8.4-10.2); Carbon Dioxide 28 mmol/L (22-29); Chloride 100 mmol/L (96-108); Creatinine Clr Calc Pharmacy 10.9; Estimated Glomerular Filt Rate 8; Glucose Random 164 mg/dL (60-115); Lipase 121 U/L (8-78); Potassium 4.8 mmol/L (3.3-5.1); Sodium 139 mmol/L (135-145); Total Protein 7.8 g/dL (6.5-8.0)
[2021-11-12 15:45] LABS: Influenza A Negative (Negative); Influenza B2 Negative (Negative)
[2021-11-12 15:46] LABS: COVID-19 Test Negative (Negative); IDNOW Serial# 16C4AD1C
[2021-11-12 21:33] VITALS: BP 185/84; PULSE 65; RESP 16; TEMP 36.8; O2SAT 99
[2021-11-12 22:00] VITALS: BP 182/76; PULSE 67; RESP 16; TEMP 37.1; O2SAT 99
--- NOTE | 2021-11-12 22:29 | ED.GENADULT ---
HPI - General Adult General Chief complaint: Nausea/Vomiting/Diarrhea Stated complaint: Diarrhea Time Seen by Provider: 11/12/21 21:24 Source: patient Mode of arrival: ambulatory Limitations: no limitations History of Present Illness HPI narrative: 66-year-old female history of end-stage renal disease, diabetes, coronary artery disease, CHF, NSTEMI presents to ED for lower abdominal pain with diarrhea for the past 8 days. Patient describes diarrhea as clear yellow. Patient denies any blood in stool, upper abdominal pain, chest pain, shortness of breath, fever, chills, recent long travel, recent surgery, recent hospital admission, or any recent new antibiotics. Patient does not produce urine. Related Data Home Medications Medication Instructions Recorded Confirmed insulin glargine 100 unit/mL (3 5 unit subcut QPM 07/06/21 10/30/21 mL) subcutaneous pen (Lantus Solostar U-100 Insulin) melatonin 5 mg tablet 1 tab PO BEDTIME PRN insomnia 07/06/21 10/30/21 acetaminophen 325 mg tablet 2 tab PO Q4H PRN pain 10/18/21 10/30/21 vitamin B complex-vitamin C-folic 1 tab PO DAILY 10/18/21 10/30/21 acid 0.8 mg tablet (Nephro-Josefina) metoclopramide HCl 5 mg tablet 1 tab PO TIDAC 10/19/21 10/30/21 Previous Rx's Medication Instructions Recorded underpads (Bed Underpads) #100 ea 05/15/20 cholecalciferol (vitamin D3) 50 50 mcg PO DAILY 30 days #30 caps 08/20/20 mcg (2,000 unit) capsule diaper,brief,adult,disposable #120 ea 08/20/20 docusate sodium 100 mg capsule 100 mg PO BID PRN constipation 90 08/20/20 (Colace) days #180 caps miscellaneous medical supply #1 ea 08/20/20 blood sugar diagnostic (FreeStyle #120 ea 08/27/20 Test) pen needle, diabetic 32 gauge x #360 ea 12/20/20 (BD Ultra-Fine Rin Pen Needle) metoprolol tartrate 100 mg tablet 100 mg PO BID 90 days #180 tabs 05/08/21 sodium bicarbonate 650 mg tablet 650 mg PO TID #90 tabs 07/08/21 ticagrelor 90 mg tablet (Brilinta) 90 mg PO BID 90 days #180 tabs 08/12/21 Shower Chair #1 ea 08/13/21 walker #1 ea 08/13/21 carvedilol 25 mg tablet 25 mg PO BID 90 days #180 tabs 08/23/21 isosorbide mononitrate 60 mg 60 mg PO DAILY #90 tabs 09/04/21 tablet,extended release 24 hr linaclotide 72 mcg capsule 72 mcg PO QAM #30 caps 09/10/21 (Linzess) pantoprazole 40 mg tablet,delayed 40 mg PO QAM 90 days #90 tabs 09/10/21 release simethicone 180 mg capsule 180 mg PO BID 30 days #60 caps 09/10/21 raised toilet seat #1 ea 09/30/21 atorvastatin 80 mg tablet 80 mg PO DAILY 90 days #90 tabs 10/07/21 gabapentin 100 mg capsule 100 mg PO BID #20 caps 10/26/21 hydralazine 25 mg tablet 25 mg PO TID 30 days #90 tabs 10/30/21 hydroseal gauze #30 ea 10/30/21 aspirin 81 mg tablet,delayed 81 mg PO DAILY 90 days #90 tabs 11/07/21 release (Adult Low Dose Aspirin) azithromycin 250 mg tablet See Rx Instructions PO .COMPLEX #6 11/13/21 tabs Allergies Allergy/AdvReac Type Severity Reaction Status Date / Time No Known Allergies Allergy Verified 10/30/21 15:52 Review of Systems Review of Systems: Abdominal pain and diarrhea Yes all other systems are reviewed and are negative FOR[facility]LY [facility] Past Medical History Medical History (Updated 11/13/21 @ 03:47 by MAHAMED Crowley) Abdominal pain Cough Delayed gastric emptying Diabetic nephropathy associated with type 2 diabetes mellitus Diabetic polyneuropathy associated with type 2 diabetes mellitus DM renal manif type II Dyslipidemia ESRD on hemodialysis Essential hypertension Gastritis GERD (gastroesophageal reflux disease) Type 2 diabetes mellitus with hyperglycemia Vitamin D deficiency Surgical History Arteriovenous fistula for hemodialysis in place, primary History of amputation Status post cardiac catheterization Status post cardiac catheterization Family History Family History Mother Diabetes Hypertension Father Hypertension Social History Social History Household Members: Children Household Members Other:: son & daughter Housing: Apartment Do you presently have visiting nurse or other home services: Yes ([facility], PT) Alcohol intake: never Patient Tobacco Use Status: Never used Tobacco e-Cigarette/Vaping Use: Never Used Second Hand Smoke Exposure: No Advance Directives: Yes Advance Directives on File: Yes Advance Directives Date on File: 07/09/21 service: No Current occupational status: disabled Cognitive needs: Yes Hearing needs: No Vision needs: Yes Physical Exam ED Vital Signs: Vital Signs - 24 hr 11/12/21 12:25 11/12/21 21:33 11/12/21 22:00 Temperature 98 F 98.2 F 98.7 F Pulse Rate 59 65 67 Respiratory Rate 19 16 16 Blood Pressure 167/80 H 185/84 H 182/76 H Pulse Oximetry 98 99 99 Oxygen Delivery Method Room Air Room Air Room Air 11/12/21 23:18 11/12/21 23:45 11/13/21 02:50 Temperature 98.2 F 97.9 F Pulse Rate 66 99 64 Respiratory Rate 20 16 14 Blood Pressure 178/68 H 186/79 H 139/52 L Pulse Oximetry 100 99 94 Oxygen Delivery Method Room Air Room Air Room Air BMI result Body Mass Index 35.9 Const General: cooperative, healthy appearing, comfortable, no acute distress, well developed, alert, awake and Physically active Orientation/consciousness: patient oriented x3 HENMT Head: Yes normal to inspection, Yes No palpable skull fracture present, Yes normocephalic, Yes atraumatic and No abrasion Eyes General: appearance normal, both eyes and all related structures Neck Neck: Yes normal visual inspection, Yes full ROM, Yes no lymphadenopathy, Yes no meningeal signs, Yes trachea midline, Yes supple, No anterior neck swelling and No tender Chest Chest palpation & inspection: normal inspection of the chest and normal palpation of entire chest wall Resp Effort & Inspection: normal respiratory effort and able to speak in complete sentences Auscultation: clear to auscultation bilaterally Cardio Jugular venous distension: no JVD Heart sounds: S1 normal heart sound present and S2 normal heart sound present GI Inspection: Yes normal to inspection and No abdominal wall ecchymosis Palpation (GI): Soft to palpation, not firm, nontender, no guarding and not rigid General: No CVA tenderness and Yes no CVA tenderness Back/Spine/Pelvis Back: no CVA tenderness, No CVA tenderness and No back tenderness Skin General skin exam: no rashes or lesions noted, abnormal elasticity and no ecchymosis Neuro Other: Bed bound General: patient oriented x3, no meningeal signs and CN's II-XI intact bilaterally Extrem Other: lower extremity negative for swelling, pitting edema, or calf tenderness. General: Yes normal to inspection, Yes full ROM and Yes capillary refill normal Psych Appearance: grossly normal, well kempt and not disheveled Course Course Course Narrative: Labs drawn. abdominal CT scan ordered check for colitis. Stool sample ordered. Reevaluation(s) Reevaluation #1: Negative for Elevated WBC. UA is negative. BUN creatinine is at baseline. COVID swab negative. Still waiting for stool sample for. , CT scan abdomen pelvis normal. Does shows possible atypical or viral pneumonia versus edema on lung. Patient not showing physical signs of fluid overload. Patient went to dialysis. ALthoug patient not having URI symptoms patient will be discharged with antibiotics. Patient not able to give stool sample Time: 03:50 Medical Decision Making [facility] Narrative Medical decision making narrative: Gastroenteritis. Atypical pneumonia Lab Data Result diagrams: 11/12/21 15:04 11/12/21 15:04 Labs: Lab Results 11/12/21 11/12/21 11/12/21 Range/Units 15:01 15:02 15:04 WBC (4.8-10.8) X10*3/uL RBC (4.20-5.50) X10*6/uL Hgb (12.0-16.0) g/dl Hct (37.0-47.0) % MCV (80.0-98.0) fL MCH (27.0-33.0) pg MCHC (31.0-35.0) g/dl RDW (11.0-16.0) % Plt Count (160-400) X10*3/uL MPV (9.4-12.3) fL Immature Gran % (Auto) (0.0-0.4) % Neut % (Auto) (45-73) % Lymph % (Auto) (20-40) % Mckenzie % (Auto) (2-11) % Eos % (Auto) (0-4) % Baso % (Auto) (0-2) % Lymph # (Auto) (1.2-4.9) X10*3/uL Mckenzie # (Auto) (0.1-1.2) X10*3/uL Eos # (Auto) (0.0-0.4) X10*3/uL Baso # (Auto) (0.0-0.2) X10*3/uL Abs Immat Gran (auto) (0.00-0.03) X10*3/uL Absolute Neuts (auto) (2.0-8.3) x10*3/uL Absolute Nucleated RBC (0.0-0.012) X10*3/uL Nucleated RBC % (auto) (0.0-0.2) /100WBC Sodium 139 (135-145) mmol/L Potassium 4.8 (3.3-5.1) mmol/L Chloride 100 (96-108) mmol/L Carbon Dioxide 28 (22-29) mmol/L Anion Gap 16 (12-20) BUN 29 H (9-16) mg/dL Creatinine 5.12 H* (0.5-1.4) mg/dL Estim Creat Clear Calc 10.9 Estimated GFR 8 POC Glucose (60-115) mg/dL Random Glucose 164 H (60-115) mg/dL Calcium 8.9 (8.4-10.2) mg/dL Total Bilirubin 0.4 (0.0-1.0) mg/dL Direct Bilirubin 0.2 (0.0-0.5) mg/dL AST 15 (5-31) U/L ALT 23 (0-31) U/L Alkaline Phosphatase 96 D (39-117) U/L Total Protein 7.8 (6.5-8.0) g/dL Albumin 3.7 (3.5-5.0) g/dL Lipase 121 H (8-78) U/L Urine Color Urine Appearance Urine pH (5.0-8.0) Ur Specific [place] (1.005-1.025) Urine Protein (NEG-TRACE) MG/DL Urine Glucose (UA) (NEG) MG/DL Urine Ketones (NEG) MG/DL Urine Blood (NEG) Urine Nitrite (NEG) Ur Leukocyte Esterase (NEG) Urine RBC (0) /HPF Urine WBC (0-4) /HPF Ur Squamous Epith Cells /LPF Urine Bacteria /LPF Urine Mucus /LPF COVID-19 (HAYLEE) Negative (Negative) COVID-19 Clin Com See Note Influenza Type A (DEDE) Negative (Negative) Influenza Type B (DEDE) Negative (Negative) Influenza A & B Note See Note 11/12/21 11/12/21 11/13/21 Range/Units 15:04 23:27 01:26 WBC 8.5 (4.8-10.8) X10*3/uL RBC 4.85 (4.20-5.50) X10*6/uL Hgb 12.6 (12.0-16.0) g/dl Hct 40.9 (37.0-47.0) % MCV 84.3 (80.0-98.0) fL MCH 26.0 L (27.0-33.0) pg MCHC 30.8 L (31.0-35.0) g/dl RDW 15.4 (11.0-16.0) % Plt Count 286 (160-400) X10*3/uL MPV 11.0 (9.4-12.3) fL Immature Gran % (Auto) 0.2 (0.0-0.4) % Neut % (Auto) 63.9 (45-73) % Lymph % (Auto) 23.8 (20-40) % Mckenzie % (Auto) 8.4 (2-11) % Eos % (Auto) 3.1 (0-4) % Baso % (Auto) 0.6 (0-2) % Lymph # (Auto) 2.0 (1.2-4.9) X10*3/uL Mckenzie # (Auto) 0.7 (0.1-1.2) X10*3/uL Eos # (Auto) 0.3 (0.0-0.4) X10*3/uL Baso # (Auto) 0.1 (0.0-0.2) X10*3/uL Abs Immat Gran (auto) 0.02 (0.00-0.03) X10*3/uL Absolute Neuts (auto) 5.4 (2.0-8.3) x10*3/uL Absolute Nucleated RBC 0.000 (0.0-0.012) X10*3/uL Nucleated RBC % (auto) 0.0 (0.0-0.2) /100WBC Sodium (135-145) mmol/L Potassium (3.3-5.1) mmol/L Chloride (96-108) mmol/L Carbon Dioxide (22-29) mmol/L Anion Gap (12-20) BUN (9-16) mg/dL Creatinine (0.5-1.4) mg/dL Estim Creat Clear Calc Estimated GFR POC Glucose 142 H (60-115) mg/dL Random Glucose (60-115) mg/dL Calcium (8.4-10.2) mg/dL Total Bilirubin (0.0-1.0) mg/dL Direct Bilirubin (0.0-0.5) mg/dL AST (5-31) U/L ALT (0-31) U/L Alkaline Phosphatase (39-117) U/L Total Protein (6.5-8.0) g/dL Albumin (3.5-5.0) g/dL Lipase (8-78) U/L Urine Color YELLOW Urine Appearance HAZY Urine pH 8.0 (5.0-8.0) Ur Specific [place] 1.015 (1.005-1.025) Urine Protein 3+ H (NEG-TRACE) MG/DL Urine Glucose (UA) 250 H (NEG) MG/DL Urine Ketones NEG (NEG) MG/DL Urine Blood NEG (NEG) Urine Nitrite NEG (NEG) Ur Leukocyte Esterase TRACE H (NEG) Urine RBC 1-4 (0) /HPF Urine WBC 1-4 (0-4) /HPF Ur Squamous Epith Cells 2+ /LPF Urine Bacteria 2+ /LPF Urine Mucus 1+ /LPF COVID-19 (HAYLEE) (Negative) COVID-19 Clin Com Influenza Type A (DEDE) (Negative) Influenza Type B (DEDE) (Negative) Influenza A & B Note Discharge Plan Discharge Clinical Impression: Gastroenteritis, Atypical pneumonia Patient Disposition: Home, Self-Care Instructions: Gastroenteritis (ED), Pneumonia (ED) Additional Instructions: boo an?lisis de angela volvi? a la l?zena de base cualquier tomograf?a computarizada abdominal no mostr? ninguna anomal?a en el abdomen. La tomograf?a computarizada abdominal muestra alex posible neumon?a en los pulmones inferiores, por lo que ser? carlyn de isma con antibi?ticos. Por favor, renetta un seguimiento con el proveedor de atenci?n primaria. Indica que no pudo daren alex muestra de heces, renetta un seguimiento con boo proveedor de atenci?n primaria para proporcionar alex muestra de heces. Regrese al servicio de urgencias de inmediato por cualquier dolor en el pecho, dificultad para respirar, debilidad, mareos, angela en las heces, debilidad, hinchaz?n de las piernas, tos con angela, diarrea intratable o cualquier otro s?ntoma preocupante. Prescriptions: New azithromycin 250 mg tablet See Rx Instructions .ROUTE .COMPLEX Qty: 6 0RF Rx Instructions: For 250 mg dose pack: take 500 mg today (day 1), then 250 mg for 4 days (days 2-5) No Action (DME) underpads [Bed Underpads] Pad See Rx Instructions .ROUTE .MEDSUPPLY Qty: 100 11RF Rx Instructions: Use 1 underpad as needed every 8 hours cholecalciferol (vitamin D3) 50 mcg (2,000 unit) capsule 50 mcg PO DAILY 30 Days Qty: 30 6RF (DME) diaper,brief,adult,disposable Misc See Rx Instructions .ROUTE .MEDSUPPLY Qty: 120 11RF Rx Instructions: Use 1 diaper as needed 6 times a day docusate sodium [Colace] 100 mg capsule 100 mg PO BID PRN (Reason: constipation) 90 Days Qty: 180 2RF (DME) miscellaneous medical supply Misc See Rx Instructions .ROUTE .MEDSUPPLY Qty: 1 0RF Rx Instructions: hospital bed (DME) pen needle, diabetic [BD Ultra-Fine Rin Pen Needle] 32 gauge x 5/32 needle See Rx Instructions .ROUTE .MEDSUPPLY Qty: 360 3RF Rx Instructions: As directed 4x daily metoprolol tartrate 100 mg tablet 100 mg PO BID 90 Days Qty: 180 3RF Brilinta 90 mg tablet 90 mg PO BID 90 Days Qty: 180 1RF (DME) walker Misc See Rx Instructions .Route Qty: 1 0RF Rx Instructions: As directed (DME) Shower Chair Misc See Rx Instructions .Route Qty: 1 0RF Rx Instructions: As directed carvedilol 25 mg tablet 25 mg PO BID 90 Days Qty: 180 1RF Rx Instructions: must administer with a meal/food (DME) raised toilet seat See Rx Instructions .Route .MEDSUPPLY Qty: 1 0RF Rx Instructions: As directed atorvastatin 80 mg tablet 80 mg PO DAILY 90 Days Qty: 90 3RF aspirin [Adult Low Dose Aspirin] 81 mg tablet,delayed release (DR/EC) 81 mg PO DAILY 90 Days Qty: 90 3RF insulin glargine [Lantus Solostar U-100 Insulin] 100 unit/mL (3 mL) insulin pen 5 unit subcut QPM melatonin 5 mg tablet 1 tab PO BEDTIME PRN (Reason: insomnia) sodium bicarbonate 650 mg Tablet 650 mg PO TID Qty: 90 0RF Nephro-Josefina 0.8 mg tablet 1 tab PO DAILY acetaminophen 325 mg tablet 2 tab PO Q4H PRN (Reason: pain) metoclopramide HCl 5 mg tablet 1 tab PO TIDAC gabapentin 100 mg capsule 100 mg PO BID Qty: 20 0RF (DME) FreeStyle Test Strip See Rx Instructions .ROUTE .MEDSUPPLY Qty: 120 11RF Rx Instructions: Use 1 test strips four times a day hydralazine 25 mg tablet 25 mg PO TID 30 Days Qty: 90 3RF (DME) hydroseal gauze 7 x 7 See Rx Instructions .Route .MEDSUPPLY Qty: 30 6RF Rx Instructions: As directed pantoprazole 40 mg tablet,delayed release (DR/EC) 40 mg PO QAM 90 Days Qty: 90 1RF Linzess 72 mcg capsule 72 mcg PO QAM Qty: 30 3RF simethicone 180 mg capsule 180 mg PO BID 30 Days Qty: 60 3RF Rx Instructions: after meals isosorbide mononitrate 60 mg tablet extended release 24 hr 60 mg PO DAILY Qty: 90 1RF Print Language: Gabonese
[2021-11-12 23:18] VITALS: BP 178/68; PULSE 66; RESP 20; O2SAT 100
[2021-11-12 23:32] LABS: Glucose, Whole Blood 142 mg/dL (60-115)
[2021-11-12 23:45] VITALS: BP 186/79; PULSE 99; RESP 16; TEMP 36.8; O2SAT 99
[2021-11-13 01:32] LABS: Appearance Urine HAZY; Color Urine YELLOW; Glucose Urine UA 250 MG/DL (NEG); Leukocyte Esterase Urine TRACE (NEG); Nitrite Urine NEG (NEG); Specific Gravity - Urine 1.015 (1.005-1.025); UACC Culture Trigger NO; Urine Blood NEG (NEG); Urine Ketones NEG (NEG); Urine Protein 3+ MG/DL (NEG-TRACE)
[2021-11-13 01:44] LABS: Bacteria Urine 2+ /LPF; Mucus Urine 1+ /LPF; Squamous Epithelial Cell Urine 2+ /LPF
--- NOTE | 2021-11-13 01:58 | PC.NURSE ---
Pt requested to use the bathroom with bed side commode. Pt able to stand and pivot to commode with x1 assist. Pt did not have BM, unable to collect stool sample. Pt's urine sample collected.
[2021-11-13 02:50] VITALS: BP 139/52; PULSE 64; RESP 14; TEMP 36.6; O2SAT 94
--- NOTE | 2021-11-13 05:09 | PC.NURSE ---
This US called Action @04:53 to book bls transfer to patient to dialysis, action advised that the [employer] transport truck can get patient is at @07:00
== END 2021-11-13 08:01 | disposition home or self-care (01) ==
PROVIDERS: Emergency Provider Internal Medicine
DX: J18.9 Pneumonia, unspecified organism (principal); K52.9 Noninfective gastroenteritis and colitis, unspecified; R11.2 Nausea with vomiting, unspecified; R10.30 Lower abdominal pain, unspecified; Z20.822 Contact with and (suspected) exposure to COVID-19; Z79.899 Other long term (current) drug therapy
CPT/HCPCS: 36415; 74176; 80048; 80076; 81001; 82947; 83690; 85025; 87502; 87635; 99211; 99284

== ENCOUNTER → 2021-11-28 10:51 | Outpatient (BNVA) | payer MEDICARE, MEDICAID, SELFPAY | PROVIDERS: PCP Internal Medicine; Visit Provider Dietitian, Registered | DX: E11.29 Type 2 diabetes mellitus with other diabetic kidney complication (principal); Z71.3 Dietary counseling and surveillance | CPT/HCPCS: 97802 ==

== ENCOUNTER → 2021-12-09 11:35 | Outpatient (BNVA) | payer OTHER, SELFPAY | PROVIDERS: PCP Internal Medicine; Visit Provider Registered Nurse Diabetes Educator | DX: E11.29 Type 2 diabetes mellitus with other diabetic kidney complication (principal) | CPT/HCPCS: 99211 ==

== ENCOUNTER 2021-12-24 13:33 | Outpatient (REF) | payer OTHER, SELFPAY ==
[2021-12-24 14:16] LABS: MANUAL DIFF FLAG NO
[2021-12-24 15:22] LABS: Basophils Absolute Auto 0.1 X10*3/uL (0.0-0.2); Basophils Percent Auto 0.6 % (0-2); Eosinophils Absolute Auto 0.2 X10*3/uL (0.0-0.4); Eosinophils Percent Auto 2.6 % (0-4); Hematocrit 35.2 % (37.0-47.0); Imm Gran Abs Auto 0.04 X10*3/uL (0.00-0.03); Imm Gran Pct Auto 0.5 % (0.0-0.4); Lymphocytes Absolute Auto 2.3 X10*3/uL (1.2-4.9); Lymphocytes Percent Auto 28.6 % (20-40); Mean Corpuscular HGB Conc 31.3 g/dl (31.0-35.0); Mean Corpuscular Volume 86.3 fL (80.0-98.0); Mean Platelet Volume 11.2 fL (9.4-12.3); Monocytes Absolute Auto 0.7 X10*3/uL (0.1-1.2); Monocytes Percent Auto 8.5 % (2-11); NRBC Pct Auto 0.2 /100WBC (0.0-0.2); Neutrophils Absolute Auto 4.9 x10*3/uL (2.0-8.3); Neutrophils Percent Auto 59.2 % (45-73); Platelet Count 300 X10*3/uL (160-400); Red Blood Count 4.08 X10*6/uL (4.20-5.50); Red Cell Distribution Width 16.7 % (11.0-16.0); White Blood Count 8.2 X10*3/uL (4.8-10.8)
[2021-12-24 15:44] LABS: Estimated Glomerular Filt Rate 9
[2021-12-24 15:45] LABS: Anion Gap 17 (12-20); Blood Urea Nitrogen 24 mg/dL (9-16); Carbon Dioxide 27 mmol/L (22-29); Chloride 100 mmol/L (96-108); Glucose Random 156 mg/dL (60-115); Potassium 5.2 mmol/L (3.3-5.1); Sodium 139 mmol/L (135-145)
== END 2021-12-24 13:34 | disposition home or self-care (01) ==
LOC: HO.LAB 13:33
PROVIDERS: PCP Internal Medicine; Visit Provider Internal Medicine Cardiovascular Disease
DX: I11.0 Hypertensive heart disease with heart failure (principal); I50.9 Heart failure, unspecified; R06.00 Dyspnea, unspecified
CPT/HCPCS: 36415; 80048; 85025

== ENCOUNTER → 2022-01-02 12:08 | Outpatient (BNVA) | payer OTHER, SELFPAY | PROVIDERS: PCP Internal Medicine; Visit Provider Nurse Practitioner | DX: K59.04 Chronic idiopathic constipation (principal); K30 Functional dyspepsia; K21.9 Gastro-esophageal reflux disease without esophagitis; E11.9 Type 2 diabetes mellitus without complications; Z79.899 Other long term (current) drug therapy | CPT/HCPCS: 99212 ==

== ENCOUNTER → 2022-01-14 13:04 | Outpatient (BNVA) | payer OTHER, SELFPAY | PROVIDERS: PCP Internal Medicine; Referring Provider Internal Medicine; Visit Provider Nurse Practitioner Family | DX: I21.4 Non-ST elevation (NSTEMI) myocardial infarction (principal); I50.9 Heart failure, unspecified; Z79.82 Long term (current) use of aspirin; Z79.899 Other long term (current) drug therapy; Z99.3 Dependence on wheelchair; Z98.890 Other specified postprocedural states | CPT/HCPCS: 99212 ==

== ENCOUNTER → 2022-01-23 11:30 | Outpatient (BNVA) | payer OTHER, SELFPAY | PROVIDERS: PCP Internal Medicine; Visit Provider Dietitian, Registered | DX: E11.22 Type 2 diabetes mellitus with diabetic chronic kidney disease (principal); N18.5 Chronic kidney disease, stage 5; Z99.2 Dependence on renal dialysis; Z71.3 Dietary counseling and surveillance | CPT/HCPCS: 97803 ==

== ENCOUNTER → 2022-05-27 08:32 | Outpatient (REF) | payer OTHER, SELFPAY ==
--- NOTE | 2022-05-27 09:00 | ECG_ITS ---
Test Reason : PRE OP Blood Pressure : / mmHG Vent. Rate : 062 BPM Atrial Rate : 062 BPM P-R Int : 140 ms QRS Dur : 086 ms QT Int : 482 ms P-R-T Axes : 013 -15 180 degrees QTc Int : 489 ms Normal sinus rhythm Left ventricular hypertrophy with repolarization abnormality ( R in aVL , Alejandro product ) Abnormal ECG When compared with ECG of 26-OCT-2021 15:11, No significant change was found Referred By: Deanna Hedrick Electronically Signed By:DEV BARNETT
[2022-05-27 09:06] LABS: MANUAL DIFF FLAG NO
[2022-05-27 09:25] LABS: Basophils Absolute Auto 0.1 X10*3/uL (0.0-0.2); Basophils Percent Auto 0.6 % (0-2); Eosinophils Absolute Auto 0.3 X10*3/uL (0.0-0.4); Eosinophils Percent Auto 3.8 % (0-4); Hematocrit 31.8 % (37.0-47.0); Imm Gran Abs Auto 0.03 X10*3/uL (0.00-0.03); Imm Gran Pct Auto 0.4 % (0.0-0.4); Lymphocytes Absolute Auto 1.8 X10*3/uL (1.2-4.9); Lymphocytes Percent Auto 20.7 % (20-40); Mean Corpuscular HGB Conc 31.4 g/dl (31.0-35.0); Mean Corpuscular Hemoglobin 27.3 pg (27.0-33.0); Mean Corpuscular Volume 86.9 fL (80.0-98.0); Mean Platelet Volume 10.6 fL (9.4-12.3); Monocytes Absolute Auto 0.8 X10*3/uL (0.1-1.2); Neutrophils Absolute Auto 5.6 x10*3/uL (2.0-8.3); Neutrophils Percent Auto 65.5 % (45-73); Platelet Count 257 X10*3/uL (160-400); Red Blood Count 3.66 X10*6/uL (4.20-5.50); Red Cell Distribution Width 16.1 % (11.0-16.0); White Blood Count 8.5 X10*3/uL (4.8-10.8)
[2022-05-27 10:37] LABS: Alanine Aminotransferase 12 U/L (0-31); Albumin Level 3.1 g/dL (3.5-5.0); Alkaline Phosphatase 81 U/L (39-117); Anion Gap 13 (12-20); Aspartate Amino Transferase 12 U/L (5-31); Bilirubin Total 0.3 mg/dL (0.0-1.0); Blood Urea Nitrogen 11 mg/dL (9-16); Calcium 8.5 mg/dL (8.4-10.2); Carbon Dioxide 28 mmol/L (22-29); Chloride 103 mmol/L (96-108); Estimated Glomerular Filt Rate 13; Glucose Random 170 mg/dL (60-115); Iron 44 mcg/dL (30-160); Percent Iron Saturation 41 % (15-50); Potassium 3.7 mmol/L (3.3-5.1); Sodium 140 mmol/L (135-145); Total Iron Binding Capacity 107 mcg/dL (228-428); Total Protein 6.4 g/dL (6.5-8.0); Unsaturated Iron Binding 63 ug/dL
[2022-05-27 10:40] LABS: Vitamin D 25-OH Total 19.8 ng/mL (>30)
[2022-05-29 11:53] LABS: NT-proBNP 21300 pg/mL
== END ==
LOC: HO.CARD 08:32
PROVIDERS: PCP Internal Medicine; Visit Provider Internal Medicine
DX: Z01.818 Encounter for other preprocedural examination (principal); D64.9 Anemia, unspecified; E55.9 Vitamin D deficiency, unspecified; I50.9 Heart failure, unspecified; E11.9 Type 2 diabetes mellitus without complications
CPT/HCPCS: 36415; 80053; 82306; 83540; 83880; 85025; 93005

== ENCOUNTER → 2022-06-05 12:16 | Outpatient (BNVA) | payer OTHER, SELFPAY | PROVIDERS: PCP Internal Medicine; Visit Provider Nurse Practitioner Family | DX: Z01.810 Encounter for preprocedural cardiovascular examination (principal); I13.0 Hypertensive heart and chronic kidney disease with heart failure and stage 1 through stage 4 chronic kidney disease, or unspecified chronic kidney disease; N18.9 Chronic kidney disease, unspecified; I50.9 Heart failure, unspecified; I25.2 Old myocardial infarction; Z98.890 Other specified postprocedural states; Z99.3 Dependence on wheelchair | CPT/HCPCS: 99212 ==

== ENCOUNTER 2022-06-10 04:21 | Inpatient (IN) | payer OTHER, SELFPAY ==
[2022-06-10] VITALS (12 sets, daily range): BP systolic 135–223; BP diastolic 60–89; PULSE 60–88; RESP 15–20; TEMP 36.9–38.4; O2SAT 95–100; BMI 31.1
--- NOTE | 2022-06-10 | ECG_ITS ---
Test Reason : CHEST PAIN Blood Pressure : / mmHG Vent. Rate : 074 BPM Atrial Rate : 074 BPM P-R Int : 130 ms QRS Dur : 086 ms QT Int : 468 ms P-R-T Axes : 013 -08 156 degrees QTc Int : 519 ms Normal sinus rhythm Minimal voltage criteria for LVH, may be normal variant ( Adrian product ) Septal infarct (cited on or before 10-JUN-2022) ST & T wave abnormality, consider lateral ischemia Prolonged QT Abnormal ECG When compared with ECG of 10-JUN-2022 04:39, Serial changes of Septal infarct Present Referred By: Nathalie Rocha Electronically Signed By:CONCETTA LEE MD
--- NOTE | ~2022-06-10 | XR_ITS ---
EXAMINATION: XR CHEST CLINICAL INFORMATION: Chest pain COMPARISON: 10/31/2021 TECHNIQUE: Frontal view of the chest was obtained. FINDINGS: Right subclavian dual lumen hemodialysis catheter redemonstrated. Normal symmetric lung volumes. No parenchymal consolidation. No pleural effusion. No pneumothorax. Cardiomediastinal silhouette and pulmonary vascularity are within normal limits. No acute osseous abnormalities. XR/XR chest 1V IMPRESSION: No acute findings.
--- NOTE | ~2022-06-10 | CT_ITS ---
EXAMINATION: CT ABDOMEN AND PELVIS WITHOUT CONTRAST CLINICAL INFORMATION: Abdominal pain COMPARISON: 11/12/2021 TECHNIQUE: Multidetector volumetric imaging was performed from the superior aspect of the liver through the pubic symphysis. Sagittal and coronal reformatted images were obtained on the technologist's workstation. This CT examination was performed using dose optimization techniques as appropriate, variously including the following: *Automated exposure control *Adjustment of mA and/or kV according to patient size (this includes techniques or standardized protocols for targeted exams where dose is matched to indication/reason for exam; i.e. extremities or head) *Use of iterative reconstruction technique DLP: 643 mGy-cm FINDINGS: LUNG BASES: Interstitial edema peribronchial thickening. Trace bilateral pleural effusions, larger on the right. There are some patchy groundglass opacities in the right lower lung which may represent subsegmental atelectasis or areas of alveolar edema. Cardiomegaly. Coronary calcifications. LIVER, GALLBLADDER, AND BILIARY TREE: The liver is normal in size, shape, and attenuation. No focal hepatic lesion or biliary ductal dilatation is present. The gallbladder is unremarkable with no evidence of radiopaque gallstones, gallbladder wall thickening, or obvious pericholecystic inflammatory changes. PANCREAS: Unremarkable. SPLEEN: Unremarkable. ADRENAL GLANDS: Unremarkable. KIDNEYS AND URETERS: The kidneys are normal in size, shape, and attenuation. No hydronephrosis, hydroureter, or calculi seen. No perinephric stranding. BLADDER: Unremarkable. GASTROINTESTINAL TRACT: The small and large bowel are unremarkable. The appendix is unremarkable. ABDOMINAL WALL: Diastases of the rectus abdominis. Small fat-containing umbilical hernia. LYMPH NODES: Normal. VASCULAR: Aorta is atherosclerotic. Extensive renal vascular calcifications. PELVIC VISCERA: Uterus and adnexa unremarkable. OSSEOUS STRUCTURES: No acute or suspicious osseous abnormalities. CT/CT abdomen pelvis wo IV con IMPRESSION: * No acute findings within the abdomen or pelvis to explain the patient's symptomatology. * Cardiomegaly, interstitial pulmonary edema and trace bilateral pleural effusions. There are a few patchy groundglass opacities within the right lower lung which may represent an alveolar component of the pulmonary edema. Superimposed infection should be excluded clinically. Fleischner guidelines were followed.
--- NOTE | 2022-06-10 04:52 | ED_ITS ---
HPI - Abdominal Pain General Chief Complaint: Abdominal Pain Stated Complaint: N/V Time Seen by Provider: 06/10/22 04:22 History of Present Illness HPI narrative: Patient is a 66-year-old female with a history of gastroesophageal reflux history of end-stage renal disease presents today with having a fever. No coughing or congestion or upper respiratory symptoms. Positive epigastric pain nausea. Patient was noted to have a fever. She normally gets her dialysis on Thursday the last dialysis was yesterday. Patient denies any diarrhea. Positive nausea. No vomiting. Pain ever since patient had our issues after dialysis yesterday Related Data Home Medications Medication Instructions Recorded Confirmed insulin glargine 100 unit/mL (3 5 unit subcut QPM 07/06/21 06/05/22 mL) subcutaneous pen (Lantus Solostar U-100 Insulin) melatonin 5 mg tablet 1 tab PO BEDTIME PRN insomnia 07/06/21 06/05/22 Previous Rx's Medication Instructions Recorded cholecalciferol (vitamin D3) 50 50 mcg PO DAILY 30 days #30 caps 08/20/20 mcg (2,000 unit) capsule docusate sodium 100 mg capsule 100 mg PO BID PRN constipation 90 08/20/20 (Colace) days #180 caps miscellaneous medical supply #1 ea 08/20/20 blood sugar diagnostic (FreeStyle #120 ea 08/27/20 Test strips) pen needle, diabetic 32 gauge x #360 ea 12/20/2032 (BD Ultra-Fine Rin Pen Needle) Shower Chair #1 ea 08/13/21 walker #1 ea 08/13/21 isosorbide mononitrate 60 mg 60 mg PO DAILY #90 tabs 09/04/21 tablet,extended release 24 hr pantoprazole 40 mg tablet,delayed 40 mg PO QAM 90 days #90 tabs 09/10/21 release simethicone 180 mg capsule 180 mg PO BID 30 days #60 caps 09/10/21 raised toilet seat #1 ea 09/30/21 atorvastatin 80 mg tablet 80 mg PO DAILY 90 days #90 tabs 10/07/21 aspirin 81 mg tablet,delayed 81 mg PO DAILY 90 days #90 tabs 11/07/21 release (Adult Low Dose Aspirin) diaper,brief,adult,disposable #120 ea 08/04/22 underpads (Bed Underpads) #100 ea 12/05/21 linaclotide 72 mcg capsule 72 mcg PO QAM #30 caps 01/02/22 (Linzess) ticagrelor 90 mg tablet (Brilinta) 90 mg PO BID 90 days #180 tabs 01/14/22 vitamin B complex-vitamin C-folic 1 tab PO DAILY 90 days #90 tabs 01/15/22 acid 0.8 mg tablet (Nephro-Josefina) acetaminophen 325 mg tablet 650 mg PO Q4H PRN pain 30 days 03/05/22 #180 tabs carvedilol 25 mg tablet 25 mg PO BID 90 days #180 tabs 03/05/22 flash glucose sensor (FreeStyle #1 ea 03/06/22 Pedro 14 Day Sensor kit) hydroseal gauze #30 ea 03/06/22 insulin glargine 100 unit/mL (3 5 unit (0.05 mL) subcut QPM 90 06/01/22 mL) subcutaneous pen (Basaglar days #4.5 mL KwikPen U-100 Insulin) insulin lispro 100 unit/mL 5 unit (0.05 mL) subcut TID 90 06/04/22 subcutaneous pen (Humalog KwikPen days #13.5 mL (U-100) Insulin) hydralazine 50 mg tablet 50 mg PO TID #90 tabs 06/05/22 Allergies Allergy/AdvReac Type Severity Reaction Status Date / Time No Known Allergies Allergy Verified 06/05/22 13:17 Review of Systems Review of Systems Positive epigastric pain Yes all other systems are reviewed and are negative PMFSH Past Medical History Attestation statement: The following information was validated with the patient. Medical History Abdominal pain Cough Delayed gastric emptying Diabetic nephropathy associated with type 2 diabetes mellitus Diabetic polyneuropathy associated with type 2 diabetes mellitus DM renal manif type II Dyslipidemia ESRD on hemodialysis Essential hypertension Gastritis GERD (gastroesophageal reflux disease) Type 2 diabetes mellitus with hyperglycemia Vitamin D deficiency Surgical History Arteriovenous fistula for hemodialysis in place, primary History of amputation Status post cardiac catheterization Status post cardiac catheterization Family History Family History Mother Diabetes Hypertension Father Hypertension Social History Social History Household Members: Children Household Members Other:: son & daughter Housing: Apartment Do you presently have visiting nurse or other home services: Yes ([facility], PT) Alcohol intake: never Patient Tobacco Use Status: Never used Tobacco e-Cigarette/Vaping Use: Never Used Second Hand Smoke Exposure: No Advance Directives: Yes Advance Directives on File: Yes Advance Directives Date on File: 07/09/21 service: No Current occupational status: disabled Cognitive needs: Yes Hearing needs: No Vision needs: Yes Physical Exam ED Vital Signs: Vital Signs - 24 hr 06/10/22 04:37 06/10/22 05:30 06/10/22 06:52 Temperature 101.1 F H 99.1 F Pulse Rate 88 82 Respiratory Rate 16 20 Blood Pressure 223/89 H 203/87 H Pulse Oximetry 100 100 Oxygen Delivery Method Nasal Cannula Nasal Cannula Oxygen Flow Rate 2 BMI result Body Mass Index 31.1 Appearance: Alert. Oriented X3. No acute distress. Eyes: Pupils equal, round and reactive to light. ENT: Pharynx normal. Neck: Normal inspection. Neck supple. No lymph nodes noted. No crepitus CVS: Normal heart rate and rhythm. Pulses normal. Normal S1 and S2 Respiratory: No respiratory distress. Breath sounds normal. No Wheezing. No rales Abdomen: Soft and nontender. No rigidity. No distention. good BS x4 Skin: Skin warm and dry. Normal skin color. Normal skin turgor. Extremities: No lower extremity edema. Neurovascular intact to all extremities. No Lacerations. No Rash Neuro: Oriented X 3. No motor deficit. No sensory deficit. Moving all extermities. No slurred speech Medical Decision Making Medical Decision Making MDM Narrative: Patient complaining of abdominal pain in the epigastric area after drinking are issues. Feeling weak tired. Patient gets dialysis 3 times a week last time was on Thursday. Patient is compliant with her dialysis schedule. Her CT scan of the abdomen showed no acute evidence of obstruction abscess perforation. Normally does not make urine. Patient's electrolytes otherwise are normal. Lactate is n ormal. She developed a fever here 101. COVID test was checked patient's COVID test came back positive. Likely the cause of patient's fever. The shunt did not appear grossly infected. Patient's chest x-ray showed no focal infiltrate. Her O2 sat is 100% on room air. No evidence for hypoxia. Patient's troponin however was elevated the 1st set being 156. Likely this is related to end-stage renal disease. Patient had even more elevated troponin in the past. Will check a 2nd enzyme. My interpretation of her EKG showed a sinus pattern heart rate is 90 ME QRS QT within normal limits there is T-wave inversion over V5 V6. This is grossly unchanged from previous. If her 2nd set of troponins in the same range he could most likely be discharged home. Differential Diagnosis Differential Diagnoses: The differential diagnosis associated with the presentation includes Myocardial infarction, obstruction, abscess, perforation, line infection, pneumonia, COVID Admission/Observation Consideration of admission/observation: Escalation of care including admis georgina/observation considered Consult Healthcare Provider Management of the patient was discussed with: Hospitalist Lab Data MDM Lab Attestation statement: I reviewed the patient's lab results. 06/10/22 04:51 06/10/22 04:51 Labs: Lab Results 06/10/22 06/10/22 06/10/22 Range/Units 04:51 04:51 04:51 WBC 12.8 H (4.8-10.8) X10*3/uL RBC 3.92 L (4.20-5.50) X10*6/uL Hgb 10.9 L (12.0-16.0) g/dl Hct 34.2 L (37.0-47.0) % MCV 87.2 (80.0-98.0) fL MCH 27.8 (27.0-33.0) pg MCHC 31.9 (31.0-35.0) g/dl RDW 16.3 H (11.0-16.0) % Plt Count 321 (160-400) X10*3/uL MPV 11.2 (9.4-12.3) fL Immature Gran % (Auto) 0.5 H (0.0-0.4) % Neut % (Auto) 81.2 H (45-73) % Lymph % (Auto) 8.6 L (20-40) % [place] % (Auto) 9.0 (2-11) % Eos % (Auto) 0.3 (0-4) % Baso % (Auto) 0.4 (0-2) % Lymph # (Auto) 1.1 L (1.2-4.9) X10*3/uL [place] # (Auto) 1.2 (0.1-1.2) X10*3/uL Eos # (Auto) 0.0 (0.0-0.4) X10*3/uL Baso # (Auto) 0.1 (0.0-0.2) X10*3/uL Abs Immat Gran (auto) 0.07 H (0.00-0.03) X10*3/uL Absolute Neuts (auto) 10.4 H (2.0-8.3) x10*3/uL Absolute Nucleated RBC 0.000 (0.0-0.012) X10*3/uL Nucleated RBC % (auto) 0.0 (0.0-0.2) /100WBC VBG pH (7.32-7.43) VBG pCO2 mmHg VBG pO2 mmHg VBG HCO3 (22-26) mmol/L VBG O2 Saturation % VBG Base Excess mmol/L Sodium 138 (135-145) mmol/L Potassium 4.3 (3.3-5.1) mmol/L Chloride 102 (96-108) mmol/L Carbon Dioxide 20 L (22-29) mmol/L Anion Gap 20 (12-20) BUN 16 (9-16) mg/dL Creatinine 3.87 H (0.5-1.4) mg/dL Estim Creat Clear Calc 14.5 Estimated GFR 12 Random Glucose 264 H (60-115) mg/dL Lactic Acid (0.5-2.0) mmol/L Calcium 8.8 (8.4-10.2) mg/dL Magnesium 1.9 (1.6-2.6) mg/dL Troponin I High Sens 156.9 H* (<3.5-17.0) ng/L Influenza Type A (PCR) (Negative) Influenza Type B (PCR) (Negative) RSV RNA Qual (PCR) (Negative) SARS-CoV-2 RNA (RT-PCR) (Negative) 06/10/22 06/10/22 06/10/22 Range/Units 05:06 05:06 05:09 WBC (4.8-10.8) X10*3/uL RBC (4.20-5.50) X10*6/uL Hgb (12.0-16.0) g/dl Hct (37.0-47.0) % MCV (80.0-98.0) fL MCH (27.0-33.0) pg MCHC (31.0-35.0) g/dl RDW (11.0-16.0) % Plt Count (160-400) X10*3/uL MPV (9.4-12.3) fL Immature Gran % (Auto) (0.0-0.4) % Neut % (Auto) (45-73) % Lymph % (Auto) (20-40) % [place] % (Auto) (2-11) % Eos % (Auto) (0-4) % Baso % (Auto) (0-2) % Lymph # (Auto) (1.2-4.9) X10*3/uL [place] # (Auto) (0.1-1.2) X10*3/uL Eos # (Auto) (0.0-0.4) X10*3/uL Baso # (Auto) (0.0-0.2) X10*3/uL Abs Immat Gran (auto) (0.00-0.03) X10*3/uL Absolute Neuts (auto) (2.0-8.3) x10*3/uL Absolute Nucleated RBC (0.0-0.012) X10*3/uL Nucleated RBC % (auto) (0.0-0.2) /100WBC VBG pH 7.48 H (7.32-7.43) VBG pCO2 35 mmHg VBG pO2 66 mmHg VBG HCO3 27 H (22-26) mmol/L VBG O2 Saturation 93.0 % VBG Base Excess 4.0 mmol/L Sodium (135-145) mmol/L Potassium (3.3-5.1) mmol/L Chloride (96-108) mmol/L Carbon Dioxide (22-29) mmol/L Anion Gap (12-20) BUN (9-16) mg/dL Creatinine (0.5-1.4) mg/dL Estim Creat Clear Calc Estimated GFR Random Glucose (60-115) mg/dL Lactic Acid 1.8 (0.5-2.0) mmol/L Calcium (8.4-10.2) mg/dL Magnesium (1.6-2.6) mg/dL Troponin I High Sens (<3.5-17.0) ng/L Influenza Type A (PCR) NEGATIVE (Negative) Influenza Type B (PCR) NEGATIVE (Negative) RSV RNA Qual (PCR) NEGATIVE (Negative) SARS-CoV-2 RNA (RT-PCR) POSITIVE A (Negative) Independent Interpretation I performed an independent interpretation of an: EKG Interpretation: Sinus heart rate is 90 ME QRS QT within normal limits there is nonspecific T- wave inversion over the lateral leads. Medications Administered Discontinued Medications Generic Name Dose Route Start Last Admin Trade Name Freq PRN Reason Stop Dose Admin Acetaminophen 975 mg 06/10/22 04:49 06/10/22 05:27 Acetaminophen 325 Mg Tablet PO 06/10/22 04:50 975 mg ONCE ONE Administration Al Hydroxide/Mg Hydroxide 30 ml 06/10/22 04:56 06/10/22 05:27 Magnesium Hydrox/Alum Hydrox 30 Ml Oral.Susp PO 06/10/22 04:57 30 ml ONCE ONE Administration Ondansetron HCl 4 mg 06/10/22 04:56 06/10/22 05:27 Ondansetron Hcl 4 Mg/2 Ml Vial IVPUSH 06/10/22 04:57 4 mg ONCE ONE Administration Discharge Plan Discharge Clinical Impression: Essential hypertension, Abdominal pain, COVID-19 Patient Disposition: er LTC Instructions: Abdominal Pain (ED), Hypertension (ED), COVID-19 (Coronavirus Disease 2019) (ED) Prescriptions: No Action cholecalciferol (vitamin D3) 50 mcg (2,000 unit) capsule 50 mcg PO DAILY 30 Days Qty: 30 6RF docusate sodium [Colace] 100 mg capsule 100 mg PO BID PRN (Reason: constipation) 90 Days Qty: 180 2RF (DME) miscellaneous medical supply [facility] See Rx Instructions .ROUTE .MEDSUPPLY Qty: 1 0RF Rx Instructions: hospital bed (DME) pen needle, diabetic [BD Ultra-Fine Rin Pen Needle] 32 gauge x 5/32 needle See Rx Instructions .ROUTE .MEDSUPPLY Qty: 360 3RF Rx Instructions: As directed 4x daily (DME) walker Misc See Rx Instructions .Route Qty: 1 0RF Rx Instructions: As directed (DME) Shower Chair Misc See Rx Instructions .Route Qty: 1 0RF Rx Instructions: As directed (DME) raised toilet seat See Rx Instructions .Route .MEDSUPPLY Qty: 1 0RF Rx Instructions: As directed atorvastatin 80 mg tablet 80 mg PO DAILY 90 Days Qty: 90 3RF aspirin [Adult Low Dose Aspirin] 81 mg tablet,delayed release (DR/EC) 81 mg PO DAILY 90 Days Qty: 90 3RF (DME) diaper,brief,adult,disposable Misc See Rx Instructions .ROUTE .MEDSUPPLY Qty: 120 11RF Rx Instructions: Use 1 diaper as needed 6 times a day (DME) underpads [Bed Underpads] Pad See Rx Instructions .ROUTE .MEDSUPPLY Qty: 100 11RF Rx Instructions: Use 1 underpad as needed every 8 hours Brilinta 90 mg tablet 90 mg PO BID 90 Days Qty: 180 1RF Nephro-Josefina 0.8 mg tablet 1 tab PO DAILY 90 Days Qty: 90 3RF acetaminophen 325 mg tablet 650 mg PO Q4H PRN (Reason: pain) 30 Days Qty: 180 1RF carvedilol 25 mg tablet 25 mg PO BID 90 Days Qty: 180 1RF Rx Instructions: must administer with a meal/food insulin glargine [Basaglar KwikPen U-100 Insulin] 100 unit/mL (3 mL) insulin pen 5 unit subcut QPM 90 Days Qty: 4.5 1RF insulin lispro [Humalog KwikPen Insulin] 100 unit/mL insulin pen 5 unit subcut TID 90 Days Qty: 13.5 1RF insulin glargine [Lantus Solostar U-100 Insulin] 100 unit/mL (3 mL) insulin pen 5 unit subcut QPM melatonin 5 mg tablet 1 tab PO BEDTIME PRN (Reason: insomnia) (DME) FreeStyle Test Strip See Rx Instructions .ROUTE .MEDSUPPLY Qty: 120 11RF Rx Instructions: Use 1 test strips four times a day (DME) hydroseal gauze 7 x 7 See Rx Instructions .Route .MEDSUPPLY Qty: 30 6RF Rx Instructions: As directed (DME) FreeStyle Pedro 14 Day Sensor Kit See Rx Instructions .Route Qty: 1 0RF Rx Instructions: As directed pantoprazole 40 mg tablet,delayed release (DR/EC) 40 mg PO QAM 90 Days Qty: 90 1RF simethicone 180 mg capsule 180 mg PO BID 30 Days Qty: 60 3RF Rx Instructions: after meals hydralazine 50 mg tablet 50 mg PO TID Qty: 90 5RF isosorbide mononitrate 60 mg tablet extended release 24 hr 60 mg PO DAILY Qty: 90 1RF Linzess 72 mcg capsule 72 mcg PO QAM Qty: 30 6RF
[2022-06-10 04:56] LABS: MANUAL DIFF FLAG NO
[2022-06-10 04:58] LABS: Basophils Absolute Auto 0.1 X10*3/uL (0.0-0.2); Basophils Percent Auto 0.4 % (0-2); Eosinophils Percent Auto 0.3 % (0-4); Hematocrit 34.2 % (37.0-47.0); Hemoglobin 10.9 g/dl (12.0-16.0); Imm Gran Abs Auto 0.07 X10*3/uL (0.00-0.03); Imm Gran Pct Auto 0.5 % (0.0-0.4); Lymphocytes Absolute Auto 1.1 X10*3/uL (1.2-4.9); Lymphocytes Percent Auto 8.6 % (20-40); Mean Corpuscular HGB Conc 31.9 g/dl (31.0-35.0); Mean Corpuscular Hemoglobin 27.8 pg (27.0-33.0); Mean Corpuscular Volume 87.2 fL (80.0-98.0); Mean Platelet Volume 11.2 fL (9.4-12.3); Monocytes Absolute Auto 1.2 X10*3/uL (0.1-1.2); Neutrophils Absolute Auto 10.4 x10*3/uL (2.0-8.3); Neutrophils Percent Auto 81.2 % (45-73); Platelet Count 321 X10*3/uL (160-400); Red Blood Count 3.92 X10*6/uL (4.20-5.50); Red Cell Distribution Width 16.3 % (11.0-16.0); White Blood Count 12.8 X10*3/uL (4.8-10.8)
[2022-06-10 05:13] LABS: Anion Gap 20 (12-20); Blood Urea Nitrogen 16 mg/dL (9-16); Calcium 8.8 mg/dL (8.4-10.2); Carbon Dioxide 20 mmol/L (22-29); Chloride 102 mmol/L (96-108); Creatinine Clr Calc Pharmacy 14.5; Estimated Glomerular Filt Rate 12; Glucose Random 264 mg/dL (60-115); Magnesium 1.9 mg/dL (1.6-2.6); Potassium 4.3 mmol/L (3.3-5.1); Sodium 138 mmol/L (135-145)
[2022-06-10 05:14] LABS: VBG HCO3 27 mmol/L (22-26); VBG pCO2 35 mmHg; VBG pH 7.48 (7.32-7.43); VBG pO2 66 mmHg
[2022-06-10 05:15] LABS: Venous Blood Gas Refer to POC result
[2022-06-10 05:20] LABS: Troponin-I High Sensitivity 156.9 ng/L (<3.5-17.0)
[2022-06-10 05:24] LABS: Lactic Acid 1.8 mmol/L (0.5-2.0)
[2022-06-10] MEDS: ondansetron HCL 4 MG/2 ML VIAL IVPUSH ×2 (05:27→14:24)
[2022-06-10] MEDS: Magnesium Hydrox/Alum Hydrox 30 ML ORAL.SUSP PO (05:27)
[2022-06-10] MEDS: Acetaminophen 325 MG TABLET 975 MG PO (05:27)
[2022-06-10 06:01] LABS: Influenza A PCR NEGATIVE (Negative); Influenza B PCR NEGATIVE (Negative); Resp Syncy Virus RNA Qual PCR NEGATIVE (Negative); SARS COV2 PCR INHOUSE POSITIVE (Negative)
--- NOTE | 2022-06-10 06:19 | PC.NURSE ---
patient came n via ambulance c/o severe nausea and epigastric pain. O2 95% RA but patient working hard to breathe/sob - placed on 2L O2 NC for comfort. iv line placed #20G R forearm. patient has fistula to L arm so unable to use L arm. BP very high 223/87. MD aware of blood pressures. troponin critical likely d/t kidney failure. patient medicated for pain and fever of 101.1. CT abd done and cxray done. 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 will continue to monitor
--- NOTE | 2022-06-10 06:56 | ECG_ITS ---
Test Reason : ABD PAIN Blood Pressure : / mmHG Vent. Rate : 091 BPM Atrial Rate : 091 BPM P-R Int : 136 ms QRS Dur : 084 ms QT Int : 390 ms P-R-T Axes : 051 -03 139 degrees QTc Int : 479 ms Normal sinus rhythm Septal infarct , age undetermined ST & T wave abnormality, consider lateral ischemia Abnormal ECG When compared with ECG of 27-MAY-2022 09:12, T wave inversion no longer evident in Inferior leads Referred By: Kellee Washington Electronically Signed By:CONCETTA LEE MD
--- NOTE | 2022-06-10 07:19 | PC.NURSE ---
assumed care of patient, pt aox3, calm and cooperative, VSS, abd pain resolved per patient at this time
[2022-06-10 08:13] LABS: Troponin-I High Sensitivity 581.1 ng/L (<3.5-17.0)
--- NOTE | 2022-06-10 08:28 | CA_ITS ---
Transthoracic Echocardiogram Patient (Last, First, Middle): Nicole Vasquez M Gender: Female Date of : 1955 Age: 66 Procedure Date: 06/10/2022 Procedure Type: Transthoracic Echocardiogram [place] [facility] [place] Height: 160.02 cm Weight: 78.93 kg BSA: 1.82 m2 Heart Rate: bpm BP: 165 / 87 mmHg Elevator Constructor Electric: Referring MD: Carlos Holliday MD Symptoms: chest pain ? wall motion abnormalities Study Quality: Fair ECG Rhythm: Sinus Conclusions: - 1. Mild LV systolic dysfunction with severe LVH with grade 2 diastolic dysfunction with RCA territory regional wall motion abnormality 2. At least moderate left atrial enlargement 3. Mild mitral regurgitation 4. Normal RV systolic pressure 5. No gross pericardial effusion Findings Procedure Information Contrast agent, definity, is being given per protocol without apparent complications. Left Ventricle Normal left ventricular cavity size. There is severely increased left ventricular wall thickness. The left ventricular systolic function is mildly decreased. The visually estimated ejection fraction is between 45-50%. Spectral Doppler is indicative of a pseudonormal filling pattern. E/E prime ratio is >15, consistent with elevated filling pressures. Evidence suggests grade II (moderate) diastolic dysfunction. Wall Motion Rest Echo Findings The basal inferior and basal inferoseptal segments are akinetic. All other scored wall segments showed normal motion. Right Ventricle Mildly increased right ventricular cavity size. There is normal right ventricular systolic function. Atria The left atrium is moderately dilated. Interatrial shunt cannot be excluded. The right atrium is normal in size. Aortic Valve Normal aortic valve structure and function. There is no aortic valve stenosis. There is no aortic valve regurgitation. Mitral Valve There is mild anterior and moderate posterior mitral leaflet thickening. There is moderate mitral annular calcification. There is mild mitral valve regurgitation. There is no mitral valve stenosis. Pulmonic Valve The pulmonic valve was not well visualized. Tricuspid Valve Likely normal tricuspid valve structure and function. There is trace tricuspid valve regurgitation. The right ventricular systolic pressure is normal. Normal right atrial pressure. There is no evidence of pulmonary hypertension. Great Vessels All visible segments of the aorta are normal in size. The pulmonary artery was not well visualized. Venous The inferior vena cava is normal in size and collapses greater than 50% with inspiration. Pericardium/Pleural There is no evidence of pericardial effusion. Prior Study Comparison Changes noted compared to prior study. LAD territory augustine shows notice not apparent on this study Measurements 2D Linear Measurements IVSd: 1.58 0.6-0.9/0.6-1.0 cm LVIDd: 3.95 3.9-5.3/4.2-5.9 cm LVIDd Index: 2.17 2.4-3.2/2.2-3.1 cm/m2 LVIDs: 2.44 2.0-3.6 cm LVPWd: 1.65 0.7-1.1 cm Ao Root: 3.00 2.1-3.5 cm LA Diam: 3.80 2.7-3.8/3.0-4.0 cm LAIDs Index: 2.09 1.5-2.3 cm/m2 LV Mass: 320.86 67-162/88-224 g LV Mass Index: 176.30 43-95/49-115 g/m2 LVOT Diam: 2.00 3.0+(-)1.3 cm 2D Systolic Function EF 4C: 46.40 >55% EF 2C: 41.40 >55% EF BiP: 43.50 >55% Mitral Valve MV Pk E: 1.27 MV PK A: 1.12 MV Decel Time: 214.00 E/A: 1.10 E'Lateral: 3.81 E'Medial: 3.48 E/E' Med: 36.50 E/E' Lat: 33.30 PHT: 63.00 MVA PHT: 3.49 Decel Gilchrist: 5.93 Aortic Valve AoV Pk Shaun: 1.52 AoV Mn Shaun: 1.05 AoV VTI: 0.37 AoV Pk Grad: 9.00 Aov Mn Grad: 5.00 HILARIA Cont.VTI: 1.57 LVOT LVOT Pk Shaun: 0.78 LVOT Mn Shaun: 0.50 LVOT VTI: 0.19 LVOT Pk Grad: 2.00 LVOT Mn Grad: 1.00 LVOT Diam: 2.00 LVOT Area: 3.14 Diastolic Function MV Pk E: 1.27 MV Pk A: 1.12 E/A: 1.10 E'Medial: 3.48 E/E' Med: 36.50 E' Laterial: 3.81 E/E' Lat: 33.30 Right Ventricle TAPSE (mm): 22.00 TVS' Shaun: 13.00 Tricuspid Valve TR Pk Shaun: 2.41 TR Pk Grad: 23.00 RA Press: 3.00 RVSP: 26.00 Great Vessels Aorta Ao Root-2D: 3.00 2.0-3.7 cm Ao Asc: 2.80 2.1-3.4 cm Pulmonary Valve PV Pk Shaun: 0.88 Peak PV Grad: 3.00 Updated in Other Vendor System with Status of Final Artur Ji MD electronically signed on 06/10/2022 3:01:13 PM with status of Final
[2022-06-10] MEDS: Aspirin 81 MG TAB.CHEW PO (09:52)
[2022-06-10] MEDS: Heparin Sodium,Porcine 5,000 UNIT/ML VIAL 4000 UNIT IVPUSH (09:52)
--- NOTE | 2022-06-10 10:00 | PC.NURSE ---
secondary IV in place, PTT drawn and sent, PO aspirin and bolus heparin given, awaiting PTT results to start heparin gtt
[2022-06-10 10:01] LABS: Prothrombin Time 11.9 SEC (10.0-13.1)
[2022-06-10 10:04] LABS: PTT Heparin Drip 28.3 SEC (53-77.9)
[2022-06-10 10:07] LABS: COVID-19 Test Positive (Negative); IDNOW Serial# BCCEAD1C
[2022-06-10] MEDS: Heparin Sodium,Porcine/1/2NS 25,000 UNIT/250 ML IV.SOLN 9.37 UNIT IVCONT ×2 (10:10→16:05)
--- NOTE | 2022-06-10 12:00 | PM.IMHP ---
History of Present Illness Date of Service: 06/10/22 <MAHAMED Hart - Last Filed: 06/10/22 14:04> Attending physician on admission: Zandra Pate <MAHAMED Hart - Last Filed: 06/10/22 14:04> Chief Complaint: epigastric pain, chest pain, sob <MAHAMED Hart - Last Filed: 06/10/22 14:04> 66-year-old female with history of coronary artery disease s/p SISI of the mid LAD in 07/2019, insulin-dependent type 2 diabetes, GERD, gastritis, hypertension, ESRD on hemodialysis MWF related to diabetic nephropathy, dyslipidemia, diabetic polyneuropathy presented to the ED early this morning for evaluation of epigastric pain, nausea, chest pain, shortness of breath that started around 03:00 this morning. She states she drink orange juice and shortly after developed epigastric pain rated as a 3/10 occurring both at rest and with exertion without any radiation. She describes this as a pressure. She states that chest pain has resolved but still has mild epigastric pain. She was febrile on arrival to 101.4. She is also in hypertensive urgency with BP of 223/89. Initial troponin 156.9. EKG showed NSR without any ST T or ST depressions suggestive of acute ischemia. She was given aspirin, placed on supplemental O2 and started on heparin drip. Repeat troponin 581.1. She is also found to have COVID-19 with leukocytosis of 12.8, H/H 10.9/34.2. Renal function baseline, electrolytes normal. VBG showed pH 7.48, pCO2 35, PO2 66, HC03 27. Bedside echo performed. Discussed with Dr. Ji. No evidence of CHF, questions myocarditis related to COVID-19 rather than NSTEMI. CXR negative for any acute cardiopulmonary abnormality. CT abdomen is without any acute intra-abdominal abnormality but did also no cardiomegaly, interstitial pulmonary edema and trace bilateral pleural effusions as well as a few patchy ground-glass opacities within right lower lung. Patient to be admitted for COVID-19 related myocarditis. <MAHAMED Hart - Last Filed: 06/10/22 14:04> Review of Systems Review of Systems: General: No fevers, malaise, unintentional weight loss HEENT: No blurred vision, diplopia. No sore throat, nasal congestion, rhinorrhea, sinus pain, ear pain Cardiovascular: +chest pain. No palpitations, or leg edema Respiratory: +sob, +cough. No wheezing GI: +epigastric pain, +nausea. No vomiting, diarrhea, constipation, melena, hematochezia : No dysuria, hematuria, increased urinary frequency, decreased urinary output MSK: No myalgia, back pain Neuro: No headaches, weakness, paresthesias Skin: No rashes or lesions <MAHAMED Hart - Last Filed: 06/10/22 14:04> [facility], [facility] Medical History: Medical History (Updated 06/10/22 @ 15:51 by Artur Ji MD) Abdominal pain Cough COVID-19 Delayed gastric emptying Diabetic nephropathy associated with type 2 diabetes mellitus Diabetic polyneuropathy associated with type 2 diabetes mellitus DM renal manif type II Dyslipidemia ESRD on hemodialysis Essential hypertension Gastritis GERD (gastroesophageal reflux disease) Type 2 diabetes mellitus with hyperglycemia Vitamin D deficiency <MAHAMED Hart - Last Filed: 06/10/22 14:04> Family History: Family History Mother Diabetes Hypertension Father Hypertension <MAHAMED Hart - Last Filed: 06/10/22 14:04> Surgical History: Surgical History Arteriovenous fistula for hemodialysis in place, primary History of amputation Status post cardiac catheterization Status post cardiac catheterization <MAHAMED Hart - Last Filed: 06/10/22 14:04> Social History: Social History Household Members: Children Household Members Other:: son & daughter Housing: Apartment Do you presently have visiting nurse or other home services: Yes ([facility], PT) Alcohol intake: never Patient Tobacco Use Status: Never used Tobacco e-Cigarette/Vaping Use: Never Used Second Hand Smoke Exposure: No Advance Directives: Yes Advance Directives on File: Yes Advance Directives Date on File: 07/09/21 service: No Current occupational status: disabled Cognitive needs: Yes Hearing needs: No Vision needs: Yes <MAHAMED Hart - Last Filed: 06/10/22 14:04> Meds Allergies/Adverse reactions: Allergies Allergy/AdvReac Type Severity Reaction Status Date / Time No Known Allergies Allergy Verified 06/05/22 13:17 <MAHAMED Hart - Last Filed: 06/10/22 14:04> Active Medications: Current Medications Pharmacy Consult (Consult Rx Perform Med Rec) 1 each MISCELLANE ONCE PRN PRN Reason: Consult order <MAHAMED Hart - Last Filed: 06/10/22 14:04> Home medications: Home Medications Medication Instructions Recorded Confirmed Last Taken Type insulin glargine 100 unit/mL (3 5 unit subcut QPM 07/06/21 06/05/22 Unknown History mL) subcutaneous pen (Lantus Solostar U-100 Insulin) melatonin 5 mg tablet 1 tab PO BEDTIME PRN insomnia 07/06/21 06/05/22 Unknown History <MAHAMED Hart - Last Filed: 06/10/22 14:04> Physical Exam Vital Signs and Narrative: Vital Signs: Last Vital Signs Temp 99.1 F 06/10/22 06:52 Pulse 82 06/10/22 05:30 Resp 20 06/10/22 05:30 BP 165/87 H 06/10/22 08:24 Pulse Ox 100 06/10/22 05:30 O2 Del Method 06/10/22 05:30 O2 Flow Rate 2 06/10/22 05:30 Oxygen Flow Rate 2 06/10/22 04:37 BMI result Body Mass Index 31.1 <MAHAMED Hart Last Filed: 06/10/22 14:04> Constitutional - Awake and Alert, No apparent distress Eyes - PERRLA, EOMI Cardiovascular - S1S2, RRR, No edema Respiratory - Normal lung expansion, Normal respiratory effort, No respiratory distress, coarse crackles BLL and scattered rhonchi BLL Gastrointestinal - Mild epigastric ttp. ND; +BS; No rebound or guarding Extremities - no calf tenderness bilaterally, no swelling Skin - Warm/Dry Neurological - Alert & oriented x3, CN II-XII in tact, 5/5 strength BUE and RLE, except 4/5 LLE Psychological - Appropriate affect <MAHAMED Hart Last Filed: 06/10/22 14:04> Results Labs CBC and Chem 7: 06/10/22 04:51 06/10/22 04:51 <MAHAMED Hart - Last Filed: 06/10/22 14:04> Labs: Laboratory Results - last 24 hr 06/10/22 06/10/22 06/10/22 04:51 04:51 04:51 MCV 87.2 MCH 27.8 MCHC 31.9 RDW 16.3 H Plt Count 321 MPV 11.2 Immature Gran % (Auto) 0.5 H Neut % (Auto) 81.2 H Lymph % (Auto) 8.6 L [place] % (Auto) 9.0 Eos % (Auto) 0.3 Baso % (Auto) 0.4 Lymph # (Auto) 1.1 L [place] # (Auto) 1.2 Eos # (Auto) 0.0 Baso # (Auto) 0.1 Abs Immat Gran (auto) 0.07 H Absolute Neuts (auto) 10.4 H Absolute Nucleated RBC 0.000 Nucleated RBC % (auto) 0.0 PT INR aPTT Heparin Protocol VBG pH VBG pCO2 VBG pO2 VBG HCO3 VBG O2 Saturation VBG Base Excess Anion Gap 20 Estim Creat Clear Calc 14.5 Estimated GFR 12 Random Glucose 264 H Lactic Acid Calcium 8.8 Magnesium 1.9 Troponin I High Sens 156.9 H* COVID-19 ([facility]) COVID-19 Clin Com Influenza Type A (PCR) Influenza Type B (PCR) RSV RNA Qual (PCR) SARS-CoV-2 RNA (RT-PCR) 06/10/22 06/10/22 06/10/22 05:06 05:06 05:09 MCV MCH MCHC RDW Plt Count MPV Immature Gran % (Auto) Neut % (Auto) Lymph % (Auto) [place] % (Auto) Eos % (Auto) Baso % (Auto) Lymph # (Auto) [place] # (Auto) Eos # (Auto) Baso # (Auto) Abs Immat Gran (auto) Absolute Neuts (auto) Absolute Nucleated RBC Nucleated RBC % (auto) PT INR aPTT Heparin Protocol VBG pH 7.48 H VBG pCO2 35 VBG pO2 66 VBG HCO3 27 H VBG O2 Saturation 93.0 VBG Base Excess 4.0 Anion Gap Estim Creat Clear Calc Estimated GFR Random Glucose Lactic Acid 1.8 Calcium Magnesium Troponin I High Sens COVID-19 ([facility]) COVID-19 Clin Com Influenza Type A (PCR) NEGATIVE Influenza Type B (PCR) NEGATIVE RSV RNA Qual (PCR) NEGATIVE SARS-CoV-2 RNA (RT-PCR) POSITIVE A 06/10/22 06/10/22 06/10/22 07:44 09:50 09:50 MCV MCH MCHC RDW Plt Count MPV Immature Gran % (Auto) Neut % (Auto) Lymph % (Auto) [place] % (Auto) Eos % (Auto) Baso % (Auto) Lymph # (Auto) [place] # (Auto) Eos # (Auto) Baso # (Auto) Abs Immat Gran (auto) Absolute Neuts (auto) Absolute Nucleated RBC Nucleated RBC % (auto) PT 11.9 INR 1.0 aPTT Heparin Protocol 28.3 L VBG pH VBG pCO2 VBG pO2 VBG HCO3 VBG O2 Saturation VBG Base Excess Anion Gap Estim Creat Clear Calc Estimated GFR Random Glucose Lactic Acid Calcium Magnesium Troponin I High Sens 581.1 H* D COVID-19 ([facility]) Positive A COVID-19 Clin Com See Note Influenza Type A (PCR) Influenza Type B (PCR) RSV RNA Qual (PCR) SARS-CoV-2 RNA (RT-PCR) <MAHAMED Hart - Last Filed: 06/10/22 14:04> Imaging Radiologist's Impressions: Impressions Chest X-Ray 06/10/22 05:25 IMPRESSION: No acute findings. Abdomen/Pelvis CT 06/10/22 05:27 IMPRESSION: * No acute findings within the abdomen or pelvis to explain the patient's symptomatology. * Cardiomegaly, interstitial pulmonary edema and trace bilateral pleural effusions. There are a few patchy groundglass opacities within the right lower lung which may represent an alveolar component of the pulmonary edema. Superimposed infection should be excluded clinically. Fleischner guidelines were followed. <MAHAMED Hart - Last Filed: 06/10/22 14:04> Assessment and Plan (1) Myocarditis due to COVID-19 virus: Status: Acute <MAHAMED Hart - Last Filed: 06/10/22 14:04> (2) COVID-19: Status: Acute <MAHAMED Hart Last Filed: 06/10/22 14:04> 66-year-old female with history of coronary artery disease s/p SISI of the mid LAD in 07/2019, insulin-dependent type 2 diabetes, GERD, gastritis, hypertension, ESRD on hemodialysis MWF related to diabetic nephropathy, dyslipidemia, diabetic polyneuropathy admitted for COVID-19 myocarditis. #Myocarditis related to COVID-19 -Chest pain has resolved, ?related to gastritis/GERD -Trops 156.9 --> 581.1. EKG showing NSR without any ST-T or depressions suggestive of acute ischemia -discussed with Dr. Ji, presentation atypical. Feels this is more likely related to myocarditis rather than NSTEMI. Heparin drip discontinued -repeat trops q.6h until peaked -initial bedside echo without evidence of CHF per Dr. Ji, final read pending -appreciate cardiology input -Admit to telemetry #COVID-19 -No hypoxia- no indication for IV remdesivir or Decadron -CXR negative with patchy ground-glass opacities. Will cover for any superimposed bacterial infection with azithromycin -Symptomatic management with Tessalon Perles and guaifenesin -airborne/contact precautions # chronic gastritis/GERD -patient's symptoms of epigastric pain, heartburn, nausea, chest pressure likely related to gastritis -continue PPI -add Carafate -denies melena, vomiting. H/H stable -consider Gastroenterology consult if no improvement # hypertensive urgency- resolved -monitor BP # hypertension -continue home antihypertensives # coronary artery disease/HLD -continue ASA, statin, beta-caterina, isosorbide # uncontrolled type 2 diabetes with hyperglycemia, diabetic nephropathy, and diabetic polyneuropathy -continue home basal insulin -Humalog on sliding scale -POC glucose -diabetic diet # ESRD on hemodialysis related to diabetic nephropathy -continue dialysis MWF. Nephro consult -renal function baseline DVT prophylaxis-heparin Full code HCP- daughterMayda [phone] Patient requires inpatient stay of at least 2 midnights for management of COVID-19 myocarditis with close monitoring of cardiac enzymes and telemetry monitoring. <MAHAMED Hart - Last Filed: 06/10/22 14:04> 66-year-old female with history of coronary artery disease s/p SISI of the mid LAD in 07/2019, insulin-dependent type 2 diabetes, GERD, gastritis, hypertension, ESRD on hemodialysis MWF related to diabetic nephropathy, dyslipidemia, diabetic polyneuropathy admitted for COVID-19 myocarditis. #Myocarditis related to COVID-19 -Chest pain has resolved, ?related to gastritis/GERD -Trops 156.9 --> 581.1. EKG showing NSR without any ST-T or depressions suggestive of acute ischemia -discussed with Dr. Ji, presentation atypical. Feels this is more likely related to myocarditis rather than NSTEMI. Heparin drip discontinued -repeat trops q.6h until peaked -initial bedside echo without evidence of CHF per Dr. Ji, final read pending -appreciate cardiology input -Admit to telemetry #COVID-19 -No hypoxia- no indication for IV remdesivir or Decadron -CXR negative with patchy ground-glass opacities. Will cover for any superimposed bacterial infection with azithromycin -Symptomatic management with Tessalon Perles and guaifenesin -airborne/contact precautions # chronic gastritis/GERD -patient's symptoms of epigastric pain, heartburn, nausea, chest pressure likely related to gastritis -continue PPI -add Carafate -denies melena, vomiting. H/H stable -consider Gastroenterology consult if no improvement # hypertensive urgency- resolved -monitor BP # hypertension -continue home antihypertensives # coronary artery disease/HLD -continue ASA, statin, beta-caterina, isosorbide # uncontrolled type 2 diabetes with hyperglycemia, diabetic nephropathy, and diabetic polyneuropathy -continue home basal insulin -Humalog on sliding scale -POC glucose -diabetic diet # ESRD on hemodialysis related to diabetic nephropathy -continue dialysis MWF. Nephro consult -renal function baseline DVT prophylaxis-heparin Full code HCP- daughterMayda [phone] Patient requires inpatient stay of at least 2 midnights for management of COVID-19 myocarditis with close monitoring of cardiac enzymes and telemetry monitoring. Addendum to history and physical by the advanced practice provider, MAHAMED Rocha I interviewed and examined the patient. I discussed their presentation and management with the BAKARI. I reviewed the history and physical and agree with the documentation, with the following additions and corrections: History obtained in [place] from the patient 66yo F with hx CAD s/p PCI of LAD [most recently in December], unstented LCX 95% stenosis on that same cath. ESRD on HD MWF, DM2. Presenting with epigastric pain that started at 03:00. Found to be febrile to 101.4 in the ED and with positive Covid-19 [facility]. Initial BP 223/89. Hs Tn-I 156.9 -> 581.1 -> 1080.1. EKG with inferolateral TWIs. Initial TTE with improved LVEF + improved wall motion in LAD territory. Impression is of NSTEMI, possibly ACS versus myocarditis from Covid-19. Plan admit to [facility], IV heparinization, Cardiology consultation. May need eventual cardiac catheterization when viral syndrome resolves. Not hypoxic so no role for dexamethasone. No remdesivir given ESRD. <Zandra Pate MD - Last Filed: 06/10/22 16:13> Time Spent With Patient Time: Total time managing care of this patient today ____ minutes. <MAHAMED Hart - Last Filed: 06/10/22 14:04> Quality Stroke Does the patient have a stroke diagnosis?: No <MAHAMED Hart - Last Filed: 06/10/22 14:04> VTE Prior VTE?: No <MAHAMED Hart - Last Filed: 06/10/22 14:04> VTE Risk Level:: Medical - moderate - high <MAHAMED Hart - Last Filed: 06/10/22 14:04> VTE Device Contraindication: Treatment Not Indicated <MAHAMED Hart - Last Filed: 06/10/22 14:04> VTE Drug Contraindication: N/A - Med Ordered <MAHAMED Hart - Last Filed: 06/10/22 14:04>
[2022-06-10 13:18] LABS: Troponin-I High Sensitivity 1080.1 ng/L (<3.5-17.0)
[2022-06-10] MEDS: Azithromycin 500 MG in 0.9 % Sodium Chloride 250 ML 125 MG IV (13:34)
[2022-06-10] MEDS: hydrALAZINE HCl 50 MG TABLET PO (13:36)
[2022-06-10] MEDS: carvediloL 25 MG TABLET PO ×2 (13:36→20:22)
[2022-06-10] MEDS: Isosorbide Mononitrate 60 MG TAB.ER.24H PO (13:36)
[2022-06-10] MEDS: Nitroglycerin 2 % Oint 1 GM Packet 1 INCH TRANSDERMA (14:24)
--- NOTE | 2022-06-10 14:33 | P.CONCA_ITS ---
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 History was obtained with help of domestic technician at bedside. And came to the hospital because she was getting retrosternal chest discomfort and epigastric discomfort since professor of pathology. Patient is very vague historian about the same. Has extensive prior cardiovascular history with recurrent PCI of the LAD and circumflex artery with nonobstructive disease in the RCA last catheterization January last year at which time she presented with NSTEMI. She is not able to compare her symptoms. She says she started feeling epigastric symptoms since after drinking orange juice and thinks this is gastritis. She keeps saying that she has been told that these symptoms are related to gastritis in the past. She also been came to the hospital was noted to be febrile with temperature up to 101. She subsequently tested positive for COVID. EKG initially showed normal sinus rhythm with nonspecific with ST sagging in the anterolateral leads. Repeat EKG shows T-wave inversion in anterolateral leads. Her blood pressure is elevated. She has multiple comor bidities including poor functional status, end-stage renal disease, diffuse vascular disease and complex coronary artery disease with diabetes Review of Systems Review of Systems: Yes Unobtainable due to mental condition [facility] Past Medical History Medical History (Updated 06/10/22 @ 15:51 by Artur Ji MD) Abdominal pain Cough COVID-19 Delayed gastric emptying Diabetic nephropathy associated with type 2 diabetes mellitus Diabetic polyneuropathy associated with type 2 diabetes mellitus DM renal manif type II Dyslipidemia ESRD on hemodialysis Essential hypertension Gastritis GERD (gastroesophageal reflux disease) Type 2 diabetes mellitus with hyperglycemia Vitamin D deficiency Family History Family History Mother Diabetes Hypertension Father Hypertension Surgical History Surgical History Arteriovenous fistula for hemodialysis in place, primary History of amputation Status post cardiac catheterization Status post cardiac catheterization Social History Social History Household Members: Children Household Members Other:: son & daughter Housing: Apartment Do you presently have visiting nurse or other home services: Yes ([facility], PT) Alcohol intake: never Patient Tobacco Use Status: Never used Tobacco e-Cigarette/Vaping Use: Never Used Second Hand Smoke Exposure: No Advance Directives: Yes Advance Directives on File: Yes Advance Directives Date on File: 07/09/21 service: No Current occupational status: disabled Cognitive needs: Yes Hearing needs: No Vision needs: Yes Meds Allergies Allergy/AdvReac Type Severity Reaction Status Date / Time No Known Allergies Allergy Verified 06/05/22 13:17 Active Medications: Current Medications Albuterol Sulfate (Albuterol Sulfate 90 Mcg 8 Gm Inhaler) 2 puff INHALE Q2H PRN PRN Reason: Shortness of Breath/Wheezing Benzonatate (Benzonatate 100 Mg Capsule) 100 mg PO TID PRN PRN Reason: Cough Carvedilol (Carvedilol 25 Mg Tablet) 25 mg PO BID [facility]; Protocol Last Admin: 06/10/22 13:36 Dose: 25 mg Dextrose (Dextrose 50 % 25 Gm/50 Ml Syringe) 25 gm IVPUSH Q15M PRN; Protocol PRN Reason: per Hypoglycemia Standing Ord. Glucose (Glucose Gel 15 Gm Gel..Gram.) 15 gm PO Q15M PRN; Protocol PRN Reason: per Hypoglycemia Standing Ord. Guaifenesin (Guaifenesin 200 Mg/10 Ml 10 Ml Liquid) 10 ml PO Q4H PRN PRN Reason: Cough Heparin Sodium (Porcine) (Heparin Sodium,Porcine 5,000 Unit/Ml Vial) 3,100 unit 40 unit/kg (3100 unit) IVPUSH PROTOCOL BOLUS PRN; Protocol PRN Reason: 40 unit/kg - Heparin Protocol Heparin Sodium (Porcine) (Heparin Sodium,Porcine 5,000 Unit/Ml Vial) 6,200 unit 80 unit/kg (6200 unit) IVPUSH PROTOCOL BOLUS PRN; Protocol PRN Reason: 80 unit/kg - Heparin Protocol Hydralazine HCl (Hydralazine Hcl 50 Mg Tablet) 50 mg PO TID [facility]; Protocol Last Admin: 06/10/22 13:36 Dose: 50 mg Heparin Sodium/Sodium Chloride (Heparin Sodium,Porcine/1/2ns) 25,000 unit in 250 mls @ 0 mls/hr IVCONT .Q0M [facility]; Protocol Last Titration: 06/10/22 12:02 Dose: Infused Azithromycin 500 mg/ Sodium (Chloride) 250 mls @ 125 mls/hr IV Q24H [facility] Stop: 06/12/22 15:59 Last Admin: 06/10/22 13:34 Dose: 125 mls/hr Insulin Human Lispro (Insulin Lispro 100 Unit/Ml 3 Ml Vial) 0 unit SUBCUT QIDACHS [facility]; Protocol Isosorbide Mononitrate (Isosorbide Mononitrate 60 Mg Tab.Er.24h) 60 mg PO DAILY [facility]; Protocol Last Admin: 06/10/22 13:36 Dose: 60 mg Nitroglycerin (Nitroglycerin 2 % Oint 1 Gm Packet) 1 inch TRANSDERMA RQ6H WHILE AWAKE [facility] Last Admin: 06/10/22 14:24 Dose: 1 inch Ondansetron HCl (Ondansetron Hcl 4 Mg/2 Ml Vial) 4 mg IVPUSH Q8H PRN PRN Reason: Nausea and Vomiting Last Admin: 06/10/22 14:24 Dose: 4 mg Pharmacy Consult (Consult Rx Perform Med Rec) 1 each MISCELLANE ONCE PRN PRN Reason: Consult order Senna (Sennosides 8.6 Mg Tablet) 17.2 mg PO BEDTIME PRN PRN Reason: Constipation Sodium Chloride (0.9 % Sodium Chloride Flush 3 Ml Syringe) 3 ml IVFLUSH QSHIFT [facility] Last Admin: 06/10/22 14:24 Dose: Not Given Sucralfate (Sucralfate 1 Gm Tablet) 1 gm PO QIDACHS [facility] Home Medications Medication Instructions Recorded Confirmed Last Taken Type insulin glargine 100 unit/mL (3 5 unit subcut QPM 07/06/21 06/05/22 Unknown History mL) subcutaneous pen (Lantus Solostar U-100 Insulin) melatonin 5 mg tablet 1 tab PO BEDTIME PRN insomnia 07/06/21 06/05/22 Unknown History Physical Exam Vital Signs: Vital Signs: Last Vital Signs Temp 98.5 F 06/10/22 14:17 Pulse 84 06/10/22 14:27 Resp 15 06/10/22 14:27 BP 150/60 H 06/10/22 14:27 Pulse Ox 99 06/10/22 14:27 O2 Del Method 06/10/22 14:27 O2 Flow Rate 2 06/10/22 14:27 Oxygen Flow Rate 2 06/10/22 04:37 BMI result Body Mass Index 31.1 Const: General: cooperative, comfortable, no acute distress, alert and awake Nutritional Appearance: overweight Orientation/consciousness: patient oriented x3 Limitations: no limitations HEENT: Head: Yes normocephalic and Yes atraumatic Neck: Neck: Yes trachea midline, Yes supple and Yes no JVD Resp: Effort & Inspection: normal respiratory effort Auscultation: no rales, no wheezes and other (Coarse breath sounds) Cardio: Jugular venous distension: no JVD Rate: regular rate Rhythm: regular rhythm Heart sounds: S1 normal heart sound present, S2 normal heart sound present, no click, no gallops, no murmurs and no rubs GI: Auscultation: normal bowel sounds Skin: General skin exam: no rashes or lesions noted and ecchymosis Neuro: General: patient oriented x3 and no focal motor deficits Extrem: General: Yes no clubbing, cyanosis or edema Objective Labs and Meds 06/10/22 04:51 06/10/22 04:51 Lab results: Laboratory Results - last 24 hr 06/10/22 06/10/22 06/10/22 04:51 04:51 04:51 WBC 12.8 H RBC 3.92 L Hgb 10.9 L Hct 34.2 L MCV 87.2 MCH 27.8 MCHC 31.9 RDW 16.3 H Plt Count 321 MPV 11.2 Immature Gran % (Auto) 0.5 H Neut % (Auto) 81.2 H Lymph % (Auto) 8.6 L [place] % (Auto) 9.0 Eos % (Auto) 0.3 Baso % (Auto) 0.4 Lymph # (Auto) 1.1 L [place] # (Auto) 1.2 Eos # (Auto) 0.0 Baso # (Auto) 0.1 Abs Immat Gran (auto) 0.07 H Absolute Neuts (auto) 10.4 H Absolute Nucleated RBC 0.000 Nucleated RBC % (auto) 0.0 PT INR aPTT Heparin Protocol VBG pH VBG pCO2 VBG pO2 VBG HCO3 VBG O2 Saturation VBG Base Excess Sodium 138 Potassium 4.3 Chloride 102 Carbon Dioxide 20 L Anion Gap 20 BUN 16 Creatinine 3.87 H Estim Creat Clear Calc 14.5 Estimated GFR 12 Random Glucose 264 H Lactic Acid Calcium 8.8 Magnesium 1.9 Troponin I High Sens 156.9 H* COVID-19 ([facility]) COVID-19 Clin Com Influenza Type A (PCR) Influenza Type B (PCR) RSV RNA Qual (PCR) SARS-CoV-2 RNA (RT-PCR) 06/10/22 06/10/22 06/10/22 05:06 05:06 05:09 WBC RBC Hgb Hct MCV MCH MCHC RDW Plt Count MPV Immature Gran % (Auto) Neut % (Auto) Lymph % (Auto) [place] % (Auto) Eos % (Auto) Baso % (Auto) Lymph # (Auto) [place] # (Auto) Eos # (Auto) Baso # (Auto) Abs Immat Gran (auto) Absolute Neuts (auto) Absolute Nucleated RBC Nucleated RBC % (auto) PT INR aPTT Heparin Protocol VBG pH 7.48 H VBG pCO2 35 VBG pO2 66 VBG HCO3 27 H VBG O2 Saturation 93.0 VBG Base Excess 4.0 Sodium Potassium Chloride Carbon Dioxide Anion Gap BUN Creatinine Estim Creat Clear Calc Estimated GFR Random Glucose Lactic Acid 1.8 Calcium Magnesium Troponin I High Sens COVID-19 ([facility]) COVID-19 Clin Com Influenza Type A (PCR) NEGATIVE Influenza Type B (PCR) NEGATIVE RSV RNA Qual (PCR) NEGATIVE SARS-CoV-2 RNA (RT-PCR) POSITIVE A 06/10/22 06/10/22 06/10/22 07:44 09:50 09:50 WBC RBC Hgb Hct MCV MCH MCHC RDW Plt Count MPV Immature Gran % (Auto) Neut % (Auto) Lymph % (Auto) [place] % (Auto) Eos % (Auto) Baso % (Auto) Lymph # (Auto) [place] # (Auto) Eos # (Auto) Baso # (Auto) Abs Immat Gran (auto) Absolute Neuts (auto) Absolute Nucleated RBC Nucleated RBC % (auto) PT 11.9 INR 1.0 aPTT Heparin Protocol 28.3 L VBG pH VBG pCO2 VBG pO2 VBG HCO3 VBG O2 Saturation VBG Base Excess Sodium Potassium Chloride Carbon Dioxide Anion Gap BUN Creatinine Estim Creat Clear Calc Estimated GFR Random Glucose Lactic Acid Calcium Magnesium Troponin I High Sens 581.1 H* D COVID-19 ([facility]) Positive A COVID-19 Clin Com See Note Influenza Type A (PCR) Influenza Type B (PCR) RSV RNA Qual (PCR) SARS-CoV-2 RNA (RT-PCR) 06/10/22 12:26 WBC RBC Hgb Hct MCV MCH MCHC RDW Plt Count MPV Immature Gran % (Auto) Neut % (Auto) Lymph % (Auto) [place] % (Auto) Eos % (Auto) Baso % (Auto) Lymph # (Auto) [place] # (Auto) Eos # (Auto) Baso # (Auto) Abs Immat Gran (auto) Absolute Neuts (auto) Absolute Nucleated RBC Nucleated RBC % (auto) PT INR aPTT Heparin Protocol VBG pH VBG pCO2 VBG pO2 VBG HCO3 VBG O2 Saturation VBG Base Excess Sodium Potassium Chloride Carbon Dioxide Anion Gap BUN Creatinine Estim Creat Clear Calc Estimated GFR Random Glucose Lactic Acid Calcium Magnesium Troponin I High Sens 1080.1 H* D COVID-19 ([facility]) COVID-19 Clin Com Influenza Type A (PCR) Influenza Type B (PCR) RSV RNA Qual (PCR) SARS-CoV-2 RNA (RT-PCR) Imaging Radiologist's impression: Impressions Chest X-Ray 06/10/22 05:25 IMPRESSION: No acute findings. Abdomen/Pelvis CT 06/10/22 05:27 IMPRESSION: * No acute findings within the abdomen or pelvis to explain the patient's symptomatology. * Cardiomegaly, interstitial pulmonary edema and trace bilateral pleural effusions. There are a few patchy groundglass opacities within the right lower lung which may represent an alveolar component of the pulmonary edema. Superimposed infection should be excluded clinically. Fleischner guidelines were followed. Assessment and Plan (1) NSTEMI (non-ST elevated myocardial infarction): Status: Acute Patient present with symptoms of lower retrosternal and epigastric discomfort with elevated troponin suggestive of myocardial injury. Given her extensive vascular and coronary artery disease, likely that this represents acute coronary syndrome. Although she is COVID positive and has fever and could also represent myocarditis. Also her chest pain is currently reproducible especially in the epigastric area and the could be component of gastritis. However given her extensive coronary artery disease and vascular disease to with complex coronary artery disease I would treat her as primary acute coronary syndrome with IV heparin, nitrates for both reduction of myocardial ischemia as well as blood pressure control, high-intensity statin therapy, aspirin, continue carvedilol as well as consider addition of dual antiplatelet agent with Plavix. Continue monitor and trend troponin till that downtrending. Echocardiogram actually shows mildly improved LV ejection fraction actually improved wall motion the LAD territory. Currently given her acute viral syndrome will pursue conservative medical therapy and aggressive medical therapy. She may require repeat cardiac catheterization after viral syndrome and subsided. Will follow with you Time Spent With Patient Time: Total time managing care of this patient today ____ minutes. Procedures Date of Service Date of Service: 06/10/22
[2022-06-10 14:39] LABS: Glucose, Whole Blood 200 mg/dL (60-115)
[2022-06-10 14:53] LABS: Partial Thromboplastin Time 26.5 SEC (26.0-36.4)
[2022-06-10] MEDS: Pantoprazole Sodium 40 MG/10 ML VIAL IVPUSH (16:13)
[2022-06-10] MEDS: Insulin Lispro 100 UNIT/ML 3 ML VIAL SUBCUT (16:13)
--- NOTE | 2022-06-10 17:02 | PHA.MEDREC ---
MED REC COMPLETE, NO ISSUES Pharmacy Consult ? Medication Reconciliation Pharmacy has completed the medication reconciliation.
[2022-06-10 19:32] LABS: Troponin-I High Sensitivity 908.8 ng/L (<3.5-17.0)
[2022-06-10 19:52] LABS: Glucose, Whole Blood 115 mg/dL (60-115)
[2022-06-10] MEDS: Sucralfate 1 GM TABLET PO (20:21)
[2022-06-10] MEDS: Metoclopramide HCl 10 MG TABLET PO (20:21)
[2022-06-10] MEDS: Ticagrelor 90 MG TABLET PO (20:22)
[2022-06-10] MEDS: Insulin Glargine,Hum.rec.anlog 100 UNIT/ML 10 ML VIAL SUBCUT (20:22)
[2022-06-10] MEDS: hydrALAZINE HCl 25 MG TABLET PO (20:22)
[2022-06-10 22:30] LABS: Partial Thromboplastin Time 38.2 SEC (26.0-36.4)
[2022-06-10] MEDS: Heparin Sodium,Porcine 5,000 UNIT/ML VIAL 3100 UNIT IVPUSH (23:48)
[2022-06-11 00:53] LABS: Troponin-I High Sensitivity 726.2 ng/L (<3.5-17.0)
[2022-06-11] MEDS: Acetaminophen 325 MG TABLET 650 MG PO ×3 (01:03→20:32)
[2022-06-11 04:00] VITALS: BP 171/79; PULSE 80; RESP 20; TEMP 37.4; O2SAT 94
[2022-06-11] MEDS: Pantoprazole Sodium 40 MG/10 ML VIAL IVPUSH ×2 (05:41→16:56)
[2022-06-11 05:51] LABS: Appearance Urine Turbid; Color Urine Yellow; Glucose Urine UA 250 mg/dL (Negative); Leukocyte Esterase Urine Large (3+) (Negative); Nitrite Urine Negative (Negative); PH 8.5 (5.0-9.0); UMIC TRIGGER UACC YES; Urine Blood Negative (Negative); Urine Ketones Negative (Negative); Urine Protein >=1000 (4+) mg/dL (Neg-Trace)
[2022-06-11 06:05] LABS: Bacteria Urine 4+ (None Seen); Squamous Epithelial Cell Urine >20 /HPF (0-2); UACC Culture Trigger YES; WBC Urine >50 /HPF (0-5)
[2022-06-11 07:02] LABS: MANUAL DIFF FLAG NO
[2022-06-11 07:10] LABS: INTERNATIONAL NORM RATIO 1.1 (0.9-1.1); Prothrombin Time 12.8 SEC (10.0-13.1)
[2022-06-11 07:13] LABS: PTT Heparin Drip 60.6 SEC (53-77.9)
[2022-06-11 07:19] LABS: Basophils Absolute Auto 0.1 X10*3/uL (0.0-0.2); Basophils Percent Auto 0.5 % (0-2); Eosinophils Absolute Auto 0.1 X10*3/uL (0.0-0.4); Hematocrit 30.8 % (37.0-47.0); Hemoglobin 9.7 g/dl (12.0-16.0); Imm Gran Abs Auto 0.07 X10*3/uL (0.00-0.03); Imm Gran Pct Auto 0.5 % (0.0-0.4); Lymphocytes Absolute Auto 1.9 X10*3/uL (1.2-4.9); Lymphocytes Percent Auto 14.7 % (20-40); Mean Corpuscular HGB Conc 31.5 g/dl (31.0-35.0); Mean Platelet Volume 11.2 fL (9.4-12.3); Monocytes Absolute Auto 1.4 X10*3/uL (0.1-1.2); Monocytes Percent Auto 10.6 % (2-11); Neutrophils Absolute Auto 9.4 x10*3/uL (2.0-8.3); Neutrophils Percent Auto 72.7 % (45-73); Platelet Count 285 X10*3/uL (160-400); Red Blood Count 3.46 X10*6/uL (4.20-5.50); Red Cell Distribution Width 16.6 % (11.0-16.0); White Blood Count 12.9 X10*3/uL (4.8-10.8)
[2022-06-11 07:35] VITALS: BP 168/80; PULSE 85; RESP 20; TEMP 37.4; O2SAT 96
[2022-06-11 07:40] LABS: Glucose, Whole Blood 132 mg/dL (60-115)
[2022-06-11 07:42] LABS: Anion Gap 19 (12-20); Blood Urea Nitrogen 28 mg/dL (9-16); Calcium 8.8 mg/dL (8.4-10.2); Carbon Dioxide 23 mmol/L (22-29); Chloride 104 mmol/L (96-108); Estimated Glomerular Filt Rate 8; Glucose Random 119 mg/dL (60-115); Potassium 4.5 mmol/L (3.3-5.1); Sodium 141 mmol/L (135-145); Troponin-I High Sensitivity 481.4 ng/L (<3.5-17.0)
[2022-06-11] MEDS: Nitroglycerin 2 % Oint 1 GM Packet 1 INCH TRANSDERMA (08:00)
[2022-06-11] MEDS: Sucralfate 1 GM TABLET PO ×4 (08:00→20:32)
[2022-06-11] MEDS: carvediloL 25 MG TABLET PO ×2 (08:01→20:32)
[2022-06-11] MEDS: Metoclopramide HCl 10 MG TABLET PO ×4 (08:01→20:31)
[2022-06-11] MEDS: Ticagrelor 90 MG TABLET PO ×2 (08:01→20:33)
[2022-06-11] MEDS: Aspirin Enteric Coated 81 MG TABLET.DR PO (08:01)
[2022-06-11] MEDS: Multivitamin TABLET 1 TAB PO (08:01)
[2022-06-11] MEDS: hydrALAZINE HCl 25 MG TABLET PO ×3 (08:01→20:32)
[2022-06-11] MEDS: Atorvastatin Calcium 80 MG TABLET PO (08:01)
[2022-06-11] MEDS: Cholecalciferol (Vitamin D3) 25 MCG TABLET 50 MCG PO (08:01)
[2022-06-11] MEDS: Heparin Sodium,Porcine/1/2NS 25,000 UNIT/250 ML IV.SOLN 10.93 UNIT IVCONT (08:02)
[2022-06-11] MEDS: 0.9 % Sodium Chloride Flush 3 ML SYRINGE IVFLUSH ×2 (08:02→16:06)
--- NOTE | 2022-06-11 11:15 | P.PNCA_ITS ---
Subjective Subjective Date of Service: 06/11/22 Principal diagnosis: NSTEMI Interval history: Patient currently not having any chest discomfort. History was obtained with help of for transformation specialist at bedside. She mainly complains of shortness of breath and says this is due to stuffy nose. She denies any palpitation irregular heartbeat. Troponins are downtrending. Blood pressure still remains elevated. Review of Systems Constitutional: Reports no additional constitutional complaints Cardiovascular: Denies chest pain, Denies leg edema, Denies lightheadedness, Denies palpitations and Reports dyspnea Respiratory: Reports dyspnea Gastrointestinal: Reports no additional gastrointestinal complaints Reports system reviewed and no additional complaints, except as documented Endocrine: Denies palpitations Physical Exam Vital Signs: Last Vital Signs Temp 99.3 F 06/11/22 07:35 Pulse 85 06/11/22 07:35 Resp 20 06/11/22 07:35 BP 168/80 H 06/11/22 07:35 Pulse Ox 96 06/11/22 07:35 O2 Del Method 06/11/22 07:35 O2 Flow Rate 2 06/10/22 16:39 Oxygen Flow Rate 2 06/10/22 04:37 BMI result Body Mass Index 31.1 Const General: cooperative, comfortable, no acute distress, alert, awake and tired appearing Nutritional Appearance: overweight Orientation/consciousness: patient oriented x3 Neck Neck: Yes trachea midline, Yes supple and Yes no JVD Resp Effort & Inspection: normal respiratory effort Auscultation: no crackles, no rales and no wheezes Cardio Jugular venous distension: no JVD Palpation: normal PMI Rate: regular rate Rhythm: regular rhythm Heart sounds: S1 normal heart sound present, S2 normal heart sound present, no click, no gallops, no murmurs and no rubs GI Auscultation: normal bowel sounds Neuro General: patient oriented x3 Extrem General: Yes no clubbing, cyanosis or edema Objective Labs and Meds 06/11/22 06:54 06/11/22 06:54 Lab results: Laboratory Results - last 24 hr 06/10/22 06/10/22 06/10/22 12:26 14:33 14:34 WBC RBC Hgb Hct MCV MCH MCHC RDW Plt Count MPV Immature Gran % (Auto) Neut % (Auto) Lymph % (Auto) [place] % (Auto) Eos % (Auto) Baso % (Auto) Lymph # (Auto) [place] # (Auto) Eos # (Auto) Baso # (Auto) Abs Immat Gran (auto) Absolute Neuts (auto) Absolute Nucleated RBC Nucleated RBC % (auto) PT INR APTT 26.5 aPTT Heparin Protocol Sodium Potassium Chloride Carbon Dioxide Anion Gap BUN Creatinine Estim Creat Clear Calc Estimated GFR POC Glucose 200 H Random Glucose Calcium Troponin I High Sens 1080.1 H* D Urine Color Urine Appearance Urine pH Ur Specific [place] Urine Protein Urine Glucose (UA) Urine Ketones Urine Blood Urine Nitrite Ur Leukocyte Esterase Urine RBC Urine WBC Ur Squamous Epith Cells Urine Bacteria Hyaline Casts Urine Yeast 06/10/22 06/10/22 06/10/22 18:19 19:34 22:06 WBC RBC Hgb Hct MCV MCH MCHC RDW Plt Count MPV Immature Gran % (Auto) Neut % (Auto) Lymph % (Auto) [place] % (Auto) Eos % (Auto) Baso % (Auto) Lymph # (Auto) [place] # (Auto) Eos # (Auto) Baso # (Auto) Abs Immat Gran (auto) Absolute Neuts (auto) Absolute Nucleated RBC Nucleated RBC % (auto) PT INR APTT 38.2 H D aPTT Heparin Protocol Sodium Potassium Chloride Carbon Dioxide Anion Gap BUN Creatinine Estim Creat Clear Calc Estimated GFR POC Glucose 115 Random Glucose Calcium Troponin I High Sens 908.8 H* Urine Color Urine Appearance Urine pH Ur Specific [place] Urine Protein Urine Glucose (UA) Urine Ketones Urine Blood Urine Nitrite Ur Leukocyte Esterase Urine RBC Urine WBC Ur Squamous Epith Cells Urine Bacteria Hyaline Casts Urine Yeast 06/11/22 06/11/22 06/11/22 00:19 05:40 06:54 WBC RBC Hgb Hct MCV MCH MCHC RDW Plt Count MPV Immature Gran % (Auto) Neut % (Auto) Lymph % (Auto) [place] % (Auto) Eos % (Auto) Baso % (Auto) Lymph # (Auto) [place] # (Auto) Eos # (Auto) Baso # (Auto) Abs Immat Gran (auto) Absolute Neuts (auto) Absolute Nucleated RBC Nucleated RBC % (auto) PT 12.8 INR 1.1 APTT aPTT Heparin Protocol 60.6 D Sodium Potassium Chloride Carbon Dioxide Anion Gap BUN Creatinine Estim Creat Clear Calc Estimated GFR POC Glucose Random Glucose Calcium Troponin I High Sens 726.2 H* Urine Color Yellow Urine Appearance Turbid Urine pH 8.5 Ur Specific [place] 1.020 Urine Protein >=1000 (4+) H Urine Glucose (UA) 250 H Urine Ketones Negative Urine Blood Negative Urine Nitrite Negative Ur Leukocyte Esterase Large (3+) H Urine RBC 3-5 H Urine WBC >50 H Ur Squamous Epith Cells >20 Urine Bacteria 4+ Hyaline Casts 3-5 Urine Yeast Present 06/11/22 06/11/22 06/11/22 06:54 06:54 06:54 WBC 12.9 H RBC 3.46 L Hgb 9.7 L Hct 30.8 L MCV 89.0 MCH 28.0 MCHC 31.5 RDW 16.6 H Plt Count 285 MPV 11.2 Immature Gran % (Auto) 0.5 H Neut % (Auto) 72.7 Lymph % (Auto) 14.7 L [place] % (Auto) 10.6 Eos % (Auto) 1.0 Baso % (Auto) 0.5 Lymph # (Auto) 1.9 [place] # (Auto) 1.4 H Eos # (Auto) 0.1 Baso # (Auto) 0.1 Abs Immat Gran (auto) 0.07 H Absolute Neuts (auto) 9.4 H Absolute Nucleated RBC 0.000 Nucleated RBC % (auto) 0.0 PT INR APTT aPTT Heparin Protocol Sodium 141 Potassium 4.5 Chloride 104 Carbon Dioxide 23 Anion Gap 19 BUN 28 H Creatinine 5.50 H* Estim Creat Clear Calc 10.0 Estimated GFR 8 POC Glucose Random Glucose 119 H Calcium 8.8 Troponin I High Sens 481.4 H* Urine Color Urine Appearance Urine pH Ur Specific [place] Urine Protein Urine Glucose (UA) Urine Ketones Urine Blood Urine Nitrite Ur Leukocyte Esterase Urine RBC Urine WBC Ur Squamous Epith Cells Urine Bacteria Hyaline Casts Urine Yeast 06/11/22 07:36 WBC RBC Hgb Hct MCV MCH MCHC RDW Plt Count MPV Immature Gran % (Auto) Neut % (Auto) Lymph % (Auto) [place] % (Auto) Eos % (Auto) Baso % (Auto) Lymph # (Auto) [place] # (Auto) Eos # (Auto) Baso # (Auto) Abs Immat Gran (auto) Absolute Neuts (auto) Absolute Nucleated RBC Nucleated RBC % (auto) PT INR APTT aPTT Heparin Protocol Sodium Potassium Chloride Carbon Dioxide Anion Gap BUN Creatinine Estim Creat Clear Calc Estimated GFR POC Glucose 132 H Random Glucose Calcium Troponin I High Sens Urine Color Urine Appearance Urine pH Ur Specific [place] Urine Protein Urine Glucose (UA) Urine Ketones Urine Blood Urine Nitrite Ur Leukocyte Esterase Urine RBC Urine WBC Ur Squamous Epith Cells Urine Bacteria Hyaline Casts Urine Yeast Progress Note: A&P Assessment and plan (1) NSTEMI (non-ST elevated myocardial infarction): Status: Acute Assessment and Plan: Patient with NSTEMI most likely with probably related to recurrent restenoses and/or other etiology. Myocarditis less likely. She is currently not having any chest pain. Would maximize anti ischemic therapy. Switch her nitropaste to isosorbide 60 mg daily. Also add Norvasc 5 mg for better blood pressure control and is anti ischemic therapy. Continue carvedilol therapy. Aggressive control blood pressure need to be pursued. Continue IV heparin for 72 hours. Continue dual antiplatelet therapy and high-intensity statin therapy. Would add ezetimibe 10 mg to her regimen as well. Management will be conservative given her acute viral illness with COVID. Should consider dialysis today on her regular dialysis day to avoid development of pulmonary edema. Will continue to follow with you Time Spent With Patient Time: Total time managing care of this patient today ____ minutes. Progress Note: Quality Stroke Does the patient have a stroke diagnosis?: No Procedures Date of Service Date of Service: 06/11/22
[2022-06-11 11:21] LABS: Glucose, Whole Blood 170 mg/dL (60-115)
[2022-06-11 11:53] VITALS: BP 164/72; RESP 18; TEMP 37.2; O2SAT 98
--- NOTE | 2022-06-11 12:05 | HO.PM.IMPN ---
Subjective Subjective Date of Service: 06/11/22 Interval History: This history was taken in Macedonian from the patient. Epigastric pain resolved C/o congestion + cough Tmax 100 overnight No chest pain No dyspnea Review of Systems Review of Systems: Yes all other systems are reviewed and are negative Physical Exam Vital Signs: Vital Signs: Last Vital Signs Temp 98.9 F 06/11/22 11:53 Pulse 85 06/11/22 07:35 Resp 18 06/11/22 11:53 BP 164/72 H 06/11/22 11:53 Pulse Ox 98 06/11/22 11:53 O2 Del Method 06/11/22 11:53 O2 Flow Rate 2 06/10/22 16:39 Oxygen Flow Rate 2 06/10/22 04:37 BMI result Body Mass Index 31.1 Const: Other: Gen: in no acute distress HEENT: sclera anicteric, moist mucus membranes Neck: supple Lungs: clear to auscultation bilaterally Heart: regular rate and rhythm, no murmurs Abd: soft, non-tender, non-distended Ext: no edema Skin: warm/well-perfused Neuro: alert and oriented x3, no focal findings Psych: appropriate affect Objective Data Active Medications Acetaminophen (Acetaminophen 325 Mg Tablet) 650 mg PO Q6H PRN PRN Reason: Pain, Moderate (Pain Scale 4-6 Last Admin: 06/11/22 01:03 Dose: 650 mg Documented By: HIWOT Albuterol Sulfate (Albuterol Sulfate 90 Mcg 8 Gm Inhaler) 2 puff INHALE Q2H PRN PRN Reason: Shortness of Breath/Wheezing Amlodipine Besylate (Amlodipine Besylate 5 Mg Tablet) 5 mg PO DAILY [facility]; Protocol Aspirin (Aspirin Enteric Coated 81 Mg Tablet.) 81 mg PO DAILY [facility] Last Admin: 06/11/22 08:01 Dose: 81 mg Documented By: ADAM Atorvastatin Calcium (Atorvastatin Calcium 80 Mg Tablet) 80 mg PO DAILY [facility] Last Admin: 06/11/22 08:01 Dose: 80 mg Documented By: ADAM Benzonatate (Benzonatate 100 Mg Capsule) 100 mg PO TID PRN PRN Reason: Cough Carvedilol (Carvedilol 25 Mg Tablet) 25 mg PO BID [facility]; Protocol Last Admin: 06/11/22 08:01 Dose: 25 mg Documented By: ADAM Dextrose (Dextrose 50 % 25 Gm/50 Ml Vial) 25 gm IVPUSH Q15M PRN; Protocol PRN Reason: per Hypoglycemia Standing Ord. Glucose (Glucose Gel 15 Gm Gel..Gram.) 15 gm PO Q15M PRN; Protocol PRN Reason: per Hypoglycemia Standing Ord. Guaifenesin (Guaifenesin 200 Mg/10 Ml 10 Ml Liquid) 10 ml PO Q4H PRN PRN Reason: Cough Heparin Sodium (Porcine) (Heparin Sodium,Porcine 5,000 Unit/Ml Vial) 3,100 unit 40 unit/kg (3100 unit) IVPUSH PROTOCOL BOLUS PRN; Protocol PRN Reason: 40 unit/kg - Heparin Protocol Last Admin: 06/10/22 23:48 Dose: 3,100 unit Documented By: HIWOT Heparin Sodium (Porcine) (Heparin Sodium,Porcine 5,000 Unit/Ml Vial) 6,200 unit 80 unit/kg (6200 unit) IVPUSH PROTOCOL BOLUS PRN; Protocol PRN Reason: 80 unit/kg - Heparin Protocol Hydralazine HCl (Hydralazine Hcl 25 Mg Tablet) 25 mg PO TID [facility]; Protocol Last Admin: 06/11/22 08:01 Dose: 25 mg Documented By: ADAM Heparin Sodium/Sodium Chloride (Heparin Sodium,Porcine/1/2ns) 25,000 unit in 250 mls @ 0 mls/hr IVCONT .Q0M [facility]; Protocol Last Admin: 06/11/22 08:02 Dose: 14 units/kg/hr, 10.93 mls/hr Documented By: ADAM Co-signed By: AURELIO Azithromycin 500 mg/ Sodium (Chloride) 250 mls @ 125 mls/hr IV Q24H [facility] Stop: 06/12/22 15:59 Last Infusion: 06/10/22 15:17 Dose: 0 mls/hr Documented By: ALTHEA Insulin Glargine (Insulin Glargine,Hum.Rec.Anlog 100 Unit/Ml 10 Ml Vial) 5 unit SUBCUT BEDTIME [facility] Last Admin: 06/10/22 20:22 Dose: 5 unit Documented By: LARA Insulin Human Lispro (Insulin Lispro 100 Unit/Ml 3 Ml Vial) 0 unit SUBCUT QIDACHS [facility]; Protocol Last Admin: 06/11/22 07:47 Dose: Not Given Documented By: ADAM Non-Admin Reason: No Insulin Coverage Isosorbide Mononitrate (Isosorbide Mononitrate 60 Mg Tab.Er.24h) 60 mg PO DAILY [facility]; Protocol Metoclopramide HCl (Metoclopramide Hcl 10 Mg Tablet) 10 mg PO QIDACHS [facility] Last Admin: 06/11/22 08:01 Dose: 10 mg Documented By: ADAM Multivitamins/Vitamin C (Multivitamin Tablet) 1 tab PO DAILY [facility] Last Admin: 06/11/22 08:01 Dose: 1 tab Documented By: ADAM Ondansetron HCl (Ondansetron Hcl 4 Mg/2 Ml Vial) 4 mg IVPUSH Q8H PRN PRN Reason: Nausea and Vomiting Last Admin: 06/10/22 14:24 Dose: 4 mg Documented By: ALTHEA Pantoprazole Sodium (Pantoprazole Sodium 40 Mg/10 Ml Vial) 40 mg IVPUSH BID@0630,1630 [facility] Last Admin: 06/11/22 05:41 Dose: 40 mg Documented By: HIWOT Pharmacy Consult (Consult Rx Perform Med Rec) 1 each MISCELLANE ONCE PRN PRN Reason: Consult order Senna (Sennosides 8.6 Mg Tablet) 17.2 mg PO BEDTIME PRN PRN Reason: Constipation Sodium Chloride (0.9 % Sodium Chloride Flush 3 Ml Syringe) 3 ml IVFLUSH QSHIFT [facility] Last Admin: 06/11/22 08:02 Dose: 3 ml Documented By: ADAM Sucralfate (Sucralfate 1 Gm Tablet) 1 gm PO QIDACHS [facility] Last Admin: 06/11/22 08:00 Dose: 1 gm Documented By: ADAM Ticagrelor (Ticagrelor 90 Mg Tablet) 90 mg PO BID [facility] Last Admin: 06/11/22 08:01 Dose: 90 mg Documented By: ADAM Vitamin D (Cholecalciferol (Vitamin D3) 25 Mcg Tablet) 50 mcg PO DAILY [facility] Last Admin: 06/11/22 08:01 Dose: 50 mcg Documented By: ADAM Labs 06/11/22 06:54 06/11/22 06:54 Labs: Laboratory Results - last 24 hr 0206/10/22 06/10/22 12:26 14:33 14:34 MCV MCH MCHC RDW Plt Count MPV Immature Gran % (Auto) Neut % (Auto) Lymph % (Auto) [place] % (Auto) Eos % (Auto) Baso % (Auto) Lymph # (Auto) [place] # (Auto) Eos # (Auto) Baso # (Auto) Abs Immat Gran (auto) Absolute Neuts (auto) Absolute Nucleated RBC Nucleated RBC % (auto) PT INR APTT 26.5 aPTT Heparin Protocol Anion Gap Estim Creat Clear Calc Estimated GFR POC Glucose 200 H Random Glucose Calcium Troponin I High Sens 1080.1 H* D Urine Color Urine Appearance Urine pH Ur Specific [place] Urine Protein Urine Glucose (UA) Urine Ketones Urine Blood Urine Nitrite Ur Leukocyte Esterase Urine RBC Urine WBC Ur Squamous Epith Cells Urine Bacteria Hyaline Casts Urine Yeast 06/10/22 06/10/22 06/10/22 18:19 19:34 22:06 MCV MCH MCHC RDW Plt Count MPV Immature Gran % (Auto) Neut % (Auto) Lymph % (Auto) [place] % (Auto) Eos % (Auto) Baso % (Auto) Lymph # (Auto) [place] # (Auto) Eos # (Auto) Baso # (Auto) Abs Immat Gran (auto) Absolute Neuts (auto) Absolute Nucleated RBC Nucleated RBC % (auto) PT INR APTT 38.2 H D aPTT Heparin Protocol Anion Gap Estim Creat Clear Calc Estimated GFR POC Glucose 115 Random Glucose Calcium Troponin I High Sens 908.8 H* Urine Color Urine Appearance Urine pH Ur Specific [place] Urine Protein Urine Glucose (UA) Urine Ketones Urine Blood Urine Nitrite Ur Leukocyte Esterase Urine RBC Urine WBC Ur Squamous Epith Cells Urine Bacteria Hyaline Casts Urine Yeast 06/11/22 06/11/22 06/11/22 00:19 05:40 06:54 MCV MCH MCHC RDW Plt Count MPV Immature Gran % (Auto) Neut % (Auto) Lymph % (Auto) [place] % (Auto) Eos % (Auto) Baso % (Auto) Lymph # (Auto) [place] # (Auto) Eos # (Auto) Baso # (Auto) Abs Immat Gran (auto) Absolute Neuts (auto) Absolute Nucleated RBC Nucleated RBC % (auto) PT 12.8 INR 1.1 APTT aPTT Heparin Protocol 60.6 D Anion Gap Estim Creat Clear Calc Estimated GFR POC Glucose Random Glucose Calcium Troponin I High Sens 726.2 H* Urine Color Yellow Urine Appearance Turbid Urine pH 8.5 Ur Specific [place] 1.020 Urine Protein >=1000 (4+) H Urine Glucose (UA) 250 H Urine Ketones Negative Urine Blood Negative Urine Nitrite Negative Ur Leukocyte Esterase Large (3+) H Urine RBC 3-5 H Urine WBC >50 H Ur Squamous Epith Cells >20 Urine Bacteria 4+ Hyaline Casts 3-5 Urine Yeast Present 06/11/22 06/11/22 06/11/22 06:54 06:54 06:54 MCV 89.0 MCH 28.0 MCHC 31.5 RDW 16.6 H Plt Count 285 MPV 11.2 Immature Gran % (Auto) 0.5 H Neut % (Auto) 72.7 Lymph % (Auto) 14.7 L [place] % (Auto) 10.6 Eos % (Auto) 1.0 Baso % (Auto) 0.5 Lymph # (Auto) 1.9 [place] # (Auto) 1.4 H Eos # (Auto) 0.1 Baso # (Auto) 0.1 Abs Immat Gran (auto) 0.07 H Absolute Neuts (auto) 9.4 H Absolute Nucleated RBC 0.000 Nucleated RBC % (auto) 0.0 PT INR APTT aPTT Heparin Protocol Anion Gap 19 Estim Creat Clear Calc 10.0 Estimated GFR 8 POC Glucose Random Glucose 119 H Calcium 8.8 Troponin I High Sens 481.4 H* Urine Color Urine Appearance Urine pH Ur Specific [place] Urine Protein Urine Glucose (UA) Urine Ketones Urine Blood Urine Nitrite Ur Leukocyte Esterase Urine RBC Urine WBC Ur Squamous Epith Cells Urine Bacteria Hyaline Casts Urine Yeast 06/11/22 06/11/22 07:36 11:15 MCV MCH MCHC RDW Plt Count MPV Immature Gran % (Auto) Neut % (Auto) Lymph % (Auto) [place] % (Auto) Eos % (Auto) Baso % (Auto) Lymph # (Auto) [place] # (Auto) Eos # (Auto) Baso # (Auto) Abs Immat Gran (auto) Absolute Neuts (auto) Absolute Nucleated RBC Nucleated RBC % (auto) PT INR APTT aPTT Heparin Protocol Anion Gap Estim Creat Clear Calc Estimated GFR POC Glucose 132 H 170 H Random Glucose Calcium Troponin I High Sens Urine Color Urine Appearance Urine pH Ur Specific [place] Urine Protein Urine Glucose (UA) Urine Ketones Urine Blood Urine Nitrite Ur Leukocyte Esterase Urine RBC Urine WBC Ur Squamous Epith Cells Urine Bacteria Hyaline Casts Urine Yeast ITS Impressions Chest X-Ray 06/10/22 05:25 IMPRESSION: No acute findings. Abdomen/Pelvis CT 06/10/22 05:27 IMPRESSION: * No acute findings within the abdomen or pelvis to explain the patient's symptomatology. * Cardiomegaly, interstitial pulmonary edema and trace bilateral pleural effusions. There are a few patchy groundglass opacities within the right lower lung which may represent an alveolar component of the pulmonary edema. Superimposed infection should be excluded clinically. Fleischner guidelines were followed. TTE 06/10/22 1. Mild LV systolic dysfunction with severe LVH with grade 2 ? diastolic dysfunction with RCA territory regional wall motion? ? abnormality? 2. At least moderate left atrial enlargement ? 3. Mild mitral regurgitation ? 4. Normal RV systolic pressure ? 5. No gross pericardial effusion ? Microbiology Microbiology Results: Microbiology 06/10/22 05:06 Blood Culture - Preliminary Blood - Venous No growth after 24 hours. 06/10/22 04:58 Blood Culture - Preliminary Blood - Venous No growth after 24 hours. Assessment and Plan (1) NSTEMI (non-ST elevated myocardial infarction): Status: Acute Plan hospital d#2 66yo F with CAD s/p SISI LAD and SISI LCX including most recently angioplasty/SISI of ISR LAD in December 2021 but also noted then to have 95% LCX stenosis, ESRD on HD MWF, DM2, GERD, gastritis, HTN, dyslipidemia, neuropathy Presented with epigastric discomfort and admitted for NSTEMI + Covid-19 infection # NSTEMI - Cardiology consulted. Medical management given Covid-19 infection. On heparin gtt x72 hr (06/10-06/13/22). Continue aspirin + ticagrelor. Continue atorvastatin and add ezetimibe. Continue carvedilol + hydralazine. Add Imdur and amlodipine for anti-anginal therapy and control of BP. May eventually require cardiac catheterization when viral illness resolves. # Covid-19 - Not hypoxic, so no dexamethasone indicated. No remdesivir given ESRD. Monitor inflammatory markers # HTN urgency - carevdilol + hydralazine + Imdur + amlodipine # GERD/gastritis - IV PPI + sucralfate # DM2 - basal-bolus insulin # ESRD on HD - HD MWF; Nephro consult pending # DM gastroparesis - metoclopramide # VTE ppx: on heparin # dispo: TBD In my clinical judgment, the patient requires continued inpatient hospitalization for the following reasons: NSTEMI requiring IV heparin Time Spent With Patient Time: Total time managing care of this patient today _50__ minutes. Quality Stroke Does the patient have a stroke diagnosis?: No VTE Prior VTE?: No VTE Risk Level:: Medical - moderate - high VTE Device Contraindication: Treatment Not Indicated VTE Drug Contraindication: N/A - Med Ordered
[2022-06-11] MEDS: Isosorbide Mononitrate 60 MG TAB.ER.24H PO (12:46)
[2022-06-11] MEDS: amLODIPine Besylate 5 MG TABLET PO (12:46)
[2022-06-11] MEDS: Insulin Lispro 100 UNIT/ML 3 ML VIAL SUBCUT ×2 (12:47→20:48)
[2022-06-11] MEDS: Ezetimibe 10 MG TABLET PO (12:47)
[2022-06-11 13:04] LABS: PTT Heparin Drip 41.3 SEC (53-77.9)
[2022-06-11 13:32] LABS: Troponin-I High Sensitivity 404.1 ng/L (<3.5-17.0)
[2022-06-11] MEDS: Heparin Sodium,Porcine 5,000 UNIT/ML VIAL 3100 UNIT IVPUSH (13:44)
[2022-06-11 14:09] LABS: C Reactive Protein 6.86 mg/dL (< or = 0.50); Lactate Dehydrogenase 205 U/L (122-220)
[2022-06-11 14:29] LABS: Procalcitonin 0.76 ng/mL
[2022-06-11 15:19] LABS: Ferritin 2465 ng/mL (10-250)
[2022-06-11 15:54] VITALS: BP 140/73; PULSE 76; RESP 20; TEMP 36.2; O2SAT 98
[2022-06-11] MEDS: Azithromycin 500 MG in 0.9 % Sodium Chloride 250 ML 125 MG IV (15:56)
[2022-06-11 16:31] LABS: Glucose, Whole Blood 109 mg/dL (60-115)
[2022-06-11 19:41] VITALS: BP 164/74; PULSE 88; RESP 166; TEMP 38.2; O2SAT 94
[2022-06-11 20:31] LABS: PTT Heparin Drip 66.4 SEC (53-77.9)
[2022-06-11] MEDS: guaiFENesin 200 MG/10 ML 10 ML LIQUID PO (20:31)
[2022-06-11 20:48] LABS: Glucose, Whole Blood 177 mg/dL (60-115)
[2022-06-11] MEDS: Insulin Glargine,Hum.rec.anlog 100 UNIT/ML 10 ML VIAL SUBCUT (20:48)
[2022-06-11 23:36] VITALS: BP 181/84; PULSE 76; RESP 18; TEMP 36.9; O2SAT 98
[2022-06-12] MEDS: 0.9 % Sodium Chloride Flush 3 ML SYRINGE IVFLUSH ×2 (00:25→17:43)
[2022-06-12 02:34] LABS: PTT Heparin Drip 67.6 SEC (53-77.9)
[2022-06-12 03:16] VITALS: BP 184/81; PULSE 83; RESP 20; TEMP 37.5; O2SAT 97
[2022-06-12 04:30] VITALS: BP 160/72
[2022-06-12] MEDS: Pantoprazole Sodium 40 MG/10 ML VIAL IVPUSH ×2 (05:27→17:43)
[2022-06-12] MEDS: Acetaminophen 325 MG TABLET 650 MG PO (05:27)
[2022-06-12] MEDS: Heparin Sodium,Porcine/1/2NS 25,000 UNIT/250 ML IV.SOLN 12.5 UNIT IVCONT (05:28)
[2022-06-12 07:03] LABS: Hematocrit 28.1 % (37.0-47.0); Mean Corpuscular Hemoglobin 28.2 pg (27.0-33.0); Mean Corpuscular Volume 88.1 fL (80.0-98.0); Mean Platelet Volume 11.4 fL (9.4-12.3); Platelet Count 276 X10*3/uL (160-400); Red Blood Count 3.19 X10*6/uL (4.20-5.50); Red Cell Distribution Width 15.9 % (11.0-16.0); White Blood Count 12.6 X10*3/uL (4.8-10.8)
[2022-06-12 07:37] LABS: Alanine Aminotransferase 9 U/L (0-31); Alkaline Phosphatase 58 U/L (39-117); Anion Gap 18 (12-20); Aspartate Amino Transferase 18 U/L (5-31); Bilirubin Total 0.7 mg/dL (0.0-1.0); Blood Urea Nitrogen 23 mg/dL (9-16); Calcium 8.2 mg/dL (8.4-10.2); Carbon Dioxide 25 mmol/L (22-29); Chloride 100 mmol/L (96-108); Creatinine Clr Calc Pharmacy 14.5; Estimated Glomerular Filt Rate 12; Glucose Random 78 mg/dL (60-115); Potassium 3.8 mmol/L (3.3-5.1); Sodium 139 mmol/L (135-145); Total Protein 6.2 g/dL (6.5-8.0)
[2022-06-12 08:00] VITALS: BP 158/78; PULSE 80; RESP 20; TEMP 37.5; O2SAT 98
[2022-06-12 08:02] LABS: Glucose, Whole Blood 71 mg/dL (60-115)
[2022-06-12] MEDS: Isosorbide Mononitrate 60 MG TAB.ER.24H PO (08:32)
[2022-06-12] MEDS: amLODIPine Besylate 5 MG TABLET PO (08:32)
[2022-06-12] MEDS: Metoclopramide HCl 10 MG TABLET PO ×4 (08:32→21:39)
[2022-06-12] MEDS: Atorvastatin Calcium 80 MG TABLET PO (08:32)
[2022-06-12] MEDS: carvediloL 25 MG TABLET PO ×2 (08:32→21:39)
[2022-06-12] MEDS: Cholecalciferol (Vitamin D3) 25 MCG TABLET 50 MCG PO (08:32)
[2022-06-12] MEDS: Multivitamin TABLET 1 TAB PO (08:32)
[2022-06-12] MEDS: Sucralfate 1 GM TABLET PO ×4 (08:33→21:39)
[2022-06-12] MEDS: hydrALAZINE HCl 25 MG TABLET PO ×3 (08:33→21:39)
[2022-06-12] MEDS: Aspirin Enteric Coated 81 MG TABLET.DR PO (08:33)
[2022-06-12] MEDS: Ezetimibe 10 MG TABLET PO (08:33)
[2022-06-12] MEDS: Ticagrelor 90 MG TABLET PO ×2 (08:33→22:00)
[2022-06-12] MEDS: Sennosides 8.6 MG TABLET 17.2 MG PO (11:10)
--- NOTE | 2022-06-12 11:15 | CONS_ITS ---
DATE OF SERVICE: 06/11/2022 HISTORY OF PRESENT ILLNESS: To summarize, Nicole is a 66-year-old woman with a history of ESRD, on maintenance hemodialysis on Thursday, Thursday, Thursday dialysis. She was admitted because of chest pain and currently being worked up for cardiac etiology. She is due for dialysis today and hence, this consultation. PAST MEDICAL HISTORY: Ongoing medical problems include history of ESRD, on maintenance hemodialysis; longstanding diabetes mellitus; hypertension; coronary artery disease, status post SISI of the mid LAD; history of diabetic polyneuropathy, gastritis, dyslipidemia, history of COVID-19. PAST SURGICAL HISTORY: Includes AV fistula creation and status post cardiac cath. FAMILY HISTORY: Not significant for this admission, although mother and father are . SOCIAL HISTORY: Lives with her children. No history of any smoking or alcohol abuse. ALLERGIES: NO KNOWN DRUG ALLERGIES HAVE BEEN DOCUMENTED. REVIEW OF SYSTEMS: Patient was not able to give review of systems. All information obtained from the chart. PHYSICAL EXAMINATION: GENERAL: The patient is a middle-aged woman, awake, comfortable, not in any distress. NECK: Supple. No JVD. LUNGS: Scattered rhonchi. She has a PermCath on the right side of the chest. HEART: S1, S2 heard. No gallop. ABDOMEN: Soft and nontender. EXTREMITIES: No dependent edema. She has a deformity of the left upper extremity. VITAL SIGNS: Blood pressure 160/80, pulse 88, temperature 99.3. LABORATORY DATA: WBC 12.9, hemoglobin 9.7, platelets 285. Sodium 141, potassium 4.3, BUN 28, creatinine 5.5. IMPRESSION AND PLAN: 66-year-old woman with end-stage renal disease, admitted with chest pain and currently being worked up for the same. From a renal standpoint, she appears well dialyzed. No signs or symptoms of uremia. Fluid status seems acceptable. I will arrange for hemodialysis as per protocol and remove fluid as tolerated. She has anemia due to chronic kidney disease and we will restart Epogen as per protocol as well. Keep her on a low-potassium renal diet. We will be happy to follow her along with the team. Gabriel Diaz MD BPA/MODL / [phone] JACKELINE
--- NOTE | 2022-06-12 11:24 | P.PNNP_ITS ---
Subjective Subjective Date of Service: 06/13/22 Principal diagnosis: NSTEMI Interval history: This history was taken in [place]ian from the patient. Epigastric pain resolved C/o congestion + cough Tmax 100 overnight No chest pain No dyspnea Physical Exam Vital Signs: Vital Signs: Last Vital Signs Temp 99.5 F 06/12/22 08:00 Pulse 80 06/12/22 08:00 Resp 20 06/12/22 08:00 BP 158/78 H 06/12/22 08:00 Pulse Ox 98 06/12/22 08:00 O2 Del Method 06/12/22 08:00 O2 Flow Rate 2 06/12/22 03:16 Oxygen Flow Rate 2 06/10/22 04:37 BMI result Body Mass Index 31.1 Const: Other: Gen: in no acute distress HEENT: sclera anicteric, moist mucus membranes Neck: supple Lungs: clear to auscultation bilaterally Heart: regular rate and rhythm, no murmurs Abd: soft, non-tender, non-distended Ext: no edema Skin: warm/well-perfused Neuro: alert and oriented x3, no focal findings Psych: appropriate affect Objective Data Labs 06/12/22 06:28 06/12/22 06:28 Labs: Laboratory Results - last 24 hr 06/11/22 06/11/22 06/11/22 06:54 12:38 12:38 WBC RBC Hgb Hct MCV MCH MCHC RDW Plt Count MPV Absolute Nucleated RBC Nucleated RBC % (auto) aPTT Heparin Protocol 41.3 L D Sodium Potassium Chloride Carbon Dioxide Anion Gap BUN Creatinine Estim Creat Clear Calc Estimated GFR POC Glucose Random Glucose Calcium Magnesium 2.0 Ferritin 2465 H Total Bilirubin AST ALT Alkaline Phosphatase Lactate Dehydrogenase 205 Troponin I High Sens 404.1 H* C-Reactive Protein 6.86 H Total Protein Albumin Procalcitonin 0.76 06/11/22 06/11/22 06/11/22 16:27 19:48 20:40 WBC RBC Hgb Hct MCV MCH MCHC RDW Plt Count MPV Absolute Nucleated RBC Nucleated RBC % (auto) aPTT Heparin Protocol 66.4 D Sodium Potassium Chloride Carbon Dioxide Anion Gap BUN Creatinine Estim Creat Clear Calc Estimated GFR POC Glucose 109 177 H Random Glucose Calcium Magnesium Ferritin Total Bilirubin AST ALT Alkaline Phosphatase Lactate Dehydrogenase Troponin I High Sens C-Reactive Protein Total Protein Albumin Procalcitonin 06/12/22 06/12/2206/12/23 02:20 06:28 06:28 WBC 12.6 H RBC 3.19 L Hgb 9.0 L Hct 28.1 L MCV 88.1 MCH 28.2 MCHC 32.0 RDW 15.9 Plt Count 276 MPV 11.4 Absolute Nucleated RBC 0.000 Nucleated RBC % (auto) 0.0 aPTT Heparin Protocol 67.6 Sodium 139 Potassium 3.8 Chloride 100 Carbon Dioxide 25 Anion Gap 18 BUN 23 H Creatinine 3.83 H Estim Creat Clear Calc 14.5 Estimated GFR 12 POC Glucose Random Glucose 78 Calcium 8.2 L D Magnesium Ferritin Total Bilirubin 0.7 AST 18 ALT 9 Alkaline Phosphatase 58 Lactate Dehydrogenase Troponin I High Sens C-Reactive Protein Total Protein 6.2 L Albumin 3.0 L Procalcitonin 06/12/22 07:48 WBC RBC Hgb Hct MCV MCH MCHC RDW Plt Count MPV Absolute Nucleated RBC Nucleated RBC % (auto) aPTT Heparin Protocol Sodium Potassium Chloride Carbon Dioxide Anion Gap BUN Creatinine Estim Creat Clear Calc Estimated GFR POC Glucose 71 Random Glucose Calcium Magnesium Ferritin Total Bilirubin AST ALT Alkaline Phosphatase Lactate Dehydrogenase Troponin I High Sens C-Reactive Protein Total Protein Albumin Procalcitonin Microbiology Microbiology Results: Microbiology 06/10/22 05:06 Blood - Venous Blood Culture - Preliminary No growth after 48 hours. 06/10/22 04:58 Blood - Venous Blood Culture - Preliminary No growth after 48 hours. Procedures Date of Service Date of Service: 06/12/22 Assessment & Plan Assessment and plan (1) NSTEMI (non-ST elevated myocardial infarction): Status: Acute Plan hospital d#2 66yo F with CAD s/p SISI LAD and SISI LCX including most recently angioplasty/SISI of ISR LAD in December 2021 but also noted then to have 95% LCX stenosis, ESRD on HD MWF, DM2, GERD, gastritis, HTN, dyslipidemia, neuropathy Presented with epigastric discomfort and admitted for NSTEMI + Covid-19 infection ESRD on HD - HD MWF No s/s of uremia fluid removal as tolerated Keep on Renal diet Time Spent With Patient Time: Total time managing care of this patient today ____ minutes. Progress Note: Quality Stroke Does the patient have a stroke diagnosis?: No
--- NOTE | 2022-06-12 11:31 | P.PNCA_ITS ---
Subjective Subjective Date of Service: 06/12/22 Principal diagnosis: NSTEMI Interval history: Patient denies any chest pain. Does not have any shortness of breath. Current dialysis yesterday. Review of Systems Constitutional: Reports no additional constitutional complaints Cardiovascular: Denies chest pain and Denies orthopnea Gastrointestinal: Reports no additional gastrointestinal complaints Reports system reviewed and no additional complaints, except as documented Psychiatric: Reports no additional psychiatric complaints Endocrine: Reports no additional endocrine complaints Physical Exam Vital Signs: Last Vital Signs Temp 99.5 F 06/12/22 08:00 Pulse 80 06/12/22 08:00 Resp 20 06/12/22 08:00 BP 158/78 H 06/12/22 08:00 Pulse Ox 98 06/12/22 08:00 O2 Del Method 06/12/22 08:00 O2 Flow Rate 2 06/12/22 03:16 Oxygen Flow Rate 2 06/10/22 04:37 BMI result Body Mass Index 31.1 Const General: cooperative, comfortable, no acute distress, alert, awake and tired appearing Nutritional Appearance: overweight Orientation/consciousness: patient oriented x3 Neck Neck: Yes trachea midline, Yes supple and Yes no JVD Resp Effort & Inspection: normal respiratory effort Auscultation: no crackles, no rales and no wheezes Cardio Jugular venous distension: no JVD Palpation: normal PMI Rate: regular rate Rhythm: regular rhythm Heart sounds: S1 normal heart sound present, S2 normal heart sound present, no click, no gallops, no murmurs and no rubs GI Auscultation: normal bowel sounds Neuro General: patient oriented x3 Extrem General: Yes no clubbing, cyanosis or edema Objective Labs and Meds 06/12/22 06:28 06/12/22 06:28 Lab results: Laboratory Results - last 24 hr 06/11/22 06/11/22 06/11/22 06:54 12:38 12:38 WBC RBC Hgb Hct MCV MCH MCHC RDW Plt Count MPV Absolute Nucleated RBC Nucleated RBC % (auto) aPTT Heparin Protocol 41.3 L D Sodium Potassium Chloride Carbon Dioxide Anion Gap BUN Creatinine Estim Creat Clear Calc Estimated GFR POC Glucose Random Glucose Calcium Magnesium 2.0 Ferritin 2465 H Total Bilirubin AST ALT Alkaline Phosphatase Lactate Dehydrogenase 205 Troponin I High Sens 404.1 H* C-Reactive Protein 6.86 H Total Protein Albumin Procalcitonin 0.76 06/11/22 06/11/22 06/11/22 16:27 19:48 20:40 WBC RBC Hgb Hct MCV MCH MCHC RDW Plt Count MPV Absolute Nucleated RBC Nucleated RBC % (auto) aPTT Heparin Protocol 66.4 D Sodium Potassium Chloride Carbon Dioxide Anion Gap BUN Creatinine Estim Creat Clear Calc Estimated GFR POC Glucose 109 177 H Random Glucose Calcium Magnesium Ferritin Total Bilirubin AST ALT Alkaline Phosphatase Lactate Dehydrogenase Troponin I High Sens C-Reactive Protein Total Protein Albumin Procalcitonin 06/12/22 06/12/22 06/12/22 02:20 06:28 06:28 WBC 12.6 H RBC 3.19 L Hgb 9.0 L Hct 28.1 L MCV 88.1 MCH 28.2 MCHC 32.0 RDW 15.9 Plt Count 276 MPV 11.4 Absolute Nucleated RBC 0.000 Nucleated RBC % (auto) 0.0 aPTT Heparin Protocol 67.6 Sodium 139 Potassium 3.8 Chloride 100 Carbon Dioxide 25 Anion Gap 18 BUN 23 H Creatinine 3.83 H Estim Creat Clear Calc 14.5 Estimated GFR 12 POC Glucose Random Glucose 78 Calcium 8.2 L D Magnesium Ferritin Total Bilirubin 0.7 AST 18 ALT 9 Alkaline Phosphatase 58 Lactate Dehydrogenase Troponin I High Sens C-Reactive Protein Total Protein 6.2 L Albumin 3.0 L Procalcitonin 06/12/22 07:48 WBC RBC Hgb Hct MCV MCH MCHC RDW Plt Count MPV Absolute Nucleated RBC Nucleated RBC % (auto) aPTT Heparin Protocol Sodium Potassium Chloride Carbon Dioxide Anion Gap BUN Creatinine Estim Creat Clear Calc Estimated GFR POC Glucose 71 Random Glucose Calcium Magnesium Ferritin Total Bilirubin AST ALT Alkaline Phosphatase Lactate Dehydrogenase Troponin I High Sens C-Reactive Protein Total Protein Albumin Procalcitonin Progress Note: A&P Assessment and plan (1) NSTEMI (non-ST elevated myocardial infarction): Status: Acute Assessment and Plan: Patient admitted with fever and positive COVID as well as NSTEMI. Currently cardiac-vallecillo is stable and with no recurrent chest pain. Continue maximize anti ischemic therapy. Increase amlodipine to 10 mg daily for both anti ischemic therapy as well as better blood pressure control. Continue current metoprolol dose can continue to maximize it as well to reduce baseline heart rate in the 60s and 70s. IV heparin for total of 72 hours. Continue dual antiplatelet the rapy. Continue dual anti lipid evening therapy. Once COVID has resolved, will most likely require cardiac catheterization as outpatient. Will set up for 1-2 weeks. Will continue to follow with you Time Spent With Patient Time: Total time managing care of this patient today ____ minutes. Progress Note: Quality Stroke Does the patient have a stroke diagnosis?: No Procedures Date of Service Date of Service: 06/12/22
[2022-06-12 11:38] LABS: Glucose, Whole Blood 147 mg/dL (60-115)
[2022-06-12 11:42] VITALS: BP 128/60; PULSE 76; RESP 18; TEMP 36.3; O2SAT 95
--- NOTE | 2022-06-12 12:58 | P.PNIM_ITS ---
Subjective Subjective Date of Service: 06/12/22 Interval History: No acute issues overnight. Sats stable on room air Review of Systems Denies chest pain Denies shortness of breath Denies nausea vomiting diarrhea Denies fever chills Physical Exam Vital Signs: Vital Signs: Last Vital Signs Temp 97.3 F 06/12/22 11:42 Pulse 76 06/12/22 11:42 Resp 18 06/12/22 11:42 BP 128/60 06/12/22 11:42 Pulse Ox 95 06/12/22 11:42 O2 Del Method 06/12/22 11:42 O2 Flow Rate 2 06/12/22 03:16 Oxygen Flow Rate 2 06/10/22 04:37 BMI result Body Mass Index 31.1 Const: Other: No acute distress Resp: Other: Clear to auscultation bilaterally no rales rhonchi wheezes Cardio: Other: No S4; positive S1-S2; no S3 murmurs rubs gallops GI: Other: Soft nontender nondistended normoactive bowel sounds Extrem: Other: No edema bilateral Objective Data Active Medications Acetaminophen (Acetaminophen 325 Mg Tablet) 650 mg PO Q6H PRN PRN Reason: Pain, Moderate (Pain Scale 4-6 Last Admin: 06/12/22 05:27 Dose: 650 mg Documented By: BESSIE Albuterol Sulfate (Albuterol Sulfate 90 Mcg 8 Gm Inhaler) 2 puff INHALE Q2H PRN PRN Reason: Shortness of Breath/Wheezing Amlodipine Besylate (Amlodipine Besylate 5 Mg Tablet) 5 mg PO DAILY [facility]; Protocol Last Admin: 06/12/22 08:32 Dose: 5 mg Documented By: JAGUAR Aspirin (Aspirin Enteric Coated 81 Mg Tablet.Dr) 81 mg PO DAILY [facility] Last Admin: 06/12/22 08:33 Dose: 81 mg Documented By: JAGUAR Atorvastatin Calcium (Atorvastatin Calcium 80 Mg Tablet) 80 mg PO DAILY [facility] Last Admin: 06/12/22 08:32 Dose: 80 mg Documented By: JAGUAR Benzonatate (Benzonatate 100 Mg Capsule) 100 mg PO TID PRN PRN Reason: Cough Carvedilol (Carvedilol 25 Mg Tablet) 25 mg PO BID [facility]; Protocol Last Admin: 06/12/22 08:32 Dose: 25 mg Documented By: JAGUAR Dextrose (Dextrose 50 % 25 Gm/50 Ml Vial) 25 gm IVPUSH Q15M PRN; Protocol PRN Reason: per Hypoglycemia Standing Ord. Ezetimibe (Ezetimibe 10 Mg Tablet) 10 mg PO DAILY [facility] Last Admin: 06/12/22 08:33 Dose: 10 mg Documented By: JAGUAR Glucose (Glucose Gel 15 Gm Gel..Gram.) 15 gm PO Q15M PRN; Protocol PRN Reason: per Hypoglycemia Standing Ord. Guaifenesin (Guaifenesin 200 Mg/10 Ml 10 Ml Liquid) 10 ml PO Q4H PRN PRN Reason: Cough Last Admin: 06/11/22 20:31 Dose: 10 ml Documented By: MAE Heparin Sodium (Porcine) (Heparin Sodium,Porcine 5,000 Unit/Ml Vial) 3,100 unit 40 unit/kg (3100 unit) IVPUSH PROTOCOL BOLUS PRN; Protocol PRN Reason: 40 unit/kg - Heparin Protocol Last Admin: 06/11/22 13:44 Dose: 3,100 unit Documented By: MELIA Heparin Sodium (Porcine) (Heparin Sodium,Porcine 5,000 Unit/Ml Vial) 6,200 unit 80 unit/kg (6200 unit) IVPUSH PROTOCOL BOLUS PRN; Protocol PRN Reason: 80 unit/kg - Heparin Protocol Hydralazine HCl (Hydralazine Hcl 25 Mg Tablet) 25 mg PO TID [facility]; Protocol Last Admin: 06/12/22 08:33 Dose: 25 mg Documented By: JAGUAR Heparin Sodium/Sodium Chloride (Heparin Sodium,Porcine/1/2ns) 25,000 unit in 250 mls @ 0 mls/hr IVCONT .Q0M [facility]; Protocol Last Admin: 06/12/22 05:28 Dose: 16 units/kg/hr, 12.5 mls/hr Documented By: BESSIE Co-signed By: LIZC Azithromycin 500 mg/ Sodium (Chloride) 250 mls @ 125 mls/hr IV Q24H [facility] Stop: 06/12/22 15:59 Last Infusion: 06/11/22 18:09 Dose: 0 mls/hr Documented By: MAE Insulin Glargine (Insulin Glargine,Hum.Rec.Anlog 100 Unit/Ml 10 Ml Vial) 5 unit SUBCUT BEDTIME [facility] Last Admin: 06/11/22 20:48 Dose: 5 unit Documented By: MAE Insulin Human Lispro (Insulin Lispro 100 Unit/Ml 3 Ml Vial) 0 unit SUBCUT [facility]; Protocol Last Admin: 06/12/22 11:42 Dose: Not Given Documented By: JAGUAR Non-Admin Reason: No Insulin Coverage Isosorbide Mononitrate (Isosorbide Mononitrate 60 Mg Tab.Er.24h) 60 mg PO DAILY [facility]; Protocol Last Admin: 06/12/22 08:32 Dose: 60 mg Documented By: JAGUAR Metoclopramide HCl (Metoclopramide Hcl 10 Mg Tablet) 10 mg PO [facility] Last Admin: 06/12/22 11:10 Dose: 10 mg Documented By: JAGUAR Multivitamins/Vitamin C (Multivitamin Tablet) 1 tab PO DAILY [facility] Last Admin: 06/12/22 08:32 Dose: 1 tab Documented By: JAGUAR Ondansetron HCl (Ondansetron Hcl 4 Mg/2 Ml Vial) 4 mg IVPUSH Q8H PRN PRN Reason: Nausea and Vomiting Last Admin: 06/10/22 14:24 Dose: 4 mg Documented By: ALTHEA Pantoprazole Sodium (Pantoprazole Sodium 40 Mg/10 Ml Vial) 40 mg IVPUSH BID@0630,1630 [facility] Last Admin: 06/12/22 05:27 Dose: 40 mg Documented By: BESSIE Pharmacy Consult (Consult Rx Perform Med Rec) 1 each MISCELLANE ONCE PRN PRN Reason: Consult order Senna (Sennosides 8.6 Mg Tablet) 17.2 mg PO BEDTIME PRN PRN Reason: Constipation Last Admin: 06/12/22 11:10 Dose: 17.2 mg Documented By: JAGUAR Sodium Chloride (0.9 % Sodium Chloride Flush 3 Ml Syringe) 3 ml IVFLUSH [facility] Last Admin: 06/12/22 08:35 Dose: Not Given Documented By: JAGUAR Non-Admin Reason: IV Running Sucralfate (Sucralfate 1 Gm Tablet) [facility] Last Admin: 06/12/22 11:10 Dose: 1 gm Documented By: JAGUAR Ticagrelor (Ticagrelor 90 Mg Tablet) 90 mg PO BID [facility] Last Admin: 06/12/22 08:33 Dose: 90 mg Documented By: JAGUAR Vitamin D (Cholecalciferol (Vitamin D3) 25 Mcg Tablet) 50 mcg PO DAILY [facility] Last Admin: 06/12/22 08:32 Dose: 50 mcg Documented By: JAGUAR Labs 06/12/22 06:28 06/12/22 06:28 Labs: Laboratory Results - last 24 hr 06/11/22 06/11/22 06/11/22 06:54 12:38 12:38 MCV MCH MCHC RDW Plt Count MPV Absolute Nucleated RBC Nucleated RBC % (auto) aPTT Heparin Protocol 41.3 L D Anion Gap Estim Creat Clear Calc Estimated GFR POC Glucose Random Glucose Calcium Magnesium 2.0 Ferritin 2465 H Total Bilirubin AST ALT Alkaline Phosphatase Lactate Dehydrogenase 205 Troponin I High Sens 404.1 H* C-Reactive Protein 6.86 H Total Protein Albumin Procalcitonin 0.76 06/11/22 06/11/22 06/11/22 16:27 19:48 20:40 MCV MCH MCHC RDW Plt Count MPV Absolute Nucleated RBC Nucleated RBC % (auto) aPTT Heparin Protocol 66.4 D Anion Gap Estim Creat Clear Calc Estimated GFR POC Glucose 109 177 H Random Glucose Calcium Magnesium Ferritin Total Bilirubin AST ALT Alkaline Phosphatase Lactate Dehydrogenase Troponin I High Sens C-Reactive Protein Total Protein Albumin Procalcitonin 06/12/22 06/12/22 06/12/22 02:20 06:28 06:28 MCV 88.1 MCH 28.2 MCHC 32.0 RDW 15.9 Plt Count 276 MPV 11.4 Absolute Nucleated RBC 0.000 Nucleated RBC % (auto) 0.0 aPTT Heparin Protocol 67.6 Anion Gap 18 Estim Creat Clear Calc 14.5 Estimated GFR 12 POC Glucose Random Glucose 78 Calcium 8.2 L D Magnesium Ferritin Total Bilirubin 0.7 AST 18 ALT 9 Alkaline Phosphatase 58 Lactate Dehydrogenase Troponin I High Sens C-Reactive Protein Total Protein 6.2 L Albumin 3.0 L Procalcitonin 06/12/22 06/12/22 07:48 11:32 MCV MCH MCHC RDW Plt Count MPV Absolute Nucleated RBC Nucleated RBC % (auto) aPTT Heparin Protocol Anion Gap Estim Creat Clear Calc Estimated GFR POC Glucose 71 147 H Random Glucose Calcium Magnesium Ferritin Total Bilirubin AST ALT Alkaline Phosphatase Lactate Dehydrogenase Troponin I High Sens C-Reactive Protein Total Protein Albumin Procalcitonin Microbiology Microbiology Results: Microbiology 06/11/22 00:00 Urine Culture - Final Urine clean catch - Urine grimaldo top 06/10/22 05:06 Blood Culture - Preliminary Blood - Venous No growth after 48 hours. 06/10/22 04:58 Blood Culture - Preliminary Blood - Venous No growth after 48 hours. Assessment and Plan (1) NSTEMI (non-ST elevated myocardial infarction): Status: Acute (2) COVID-19: Status: Acute (3) Type 2 diabetes mellitus with other diabetic kidney complication: Status: Acute Plan hospital d#2 66yo F with CAD s/p SISI LAD and SISI LCX including most recently angioplasty/SISI of ISR LAD in December 2021 but also noted then to have 95% LCX stenosis, ESRD on HD MWF, DM2, GERD, gastritis, HTN, dyslipidemia, neuropathy Presented with epigastric discomfort and admitted for NSTEMI + Covid-19 infection 1. NSTEMI -Medical management given Covid-19 infection. -Heparin gtt x72 hr (06/10-06/13/22) -aspirin/ ticagrelor/atorvastatin/ezetimibe/carvedilol/hydralazine. -Imdur/amlodipine for anti-anginal therapy -outpatient catheterization 2.Covid-19 - room air sats acceptable -P.r.n. nebs 3.HTN -acceptable control on current therapies -adjust as indicated 4.GERD/gastritis - IV PPI + sucralfate 5.DM2 -Acceptable control on current therapies -Lantus/Lispro correctional scale 6. ESRD on HD - HD MWF; Nephro consult pending heparin TBD In my clinical judgment, the patient requires continued inpatient hospitalization for the following reasons: NSTEMI requiring IV heparin Time Spent With Patient Time: Total time managing care of this patient today ____ minutes. Quality Stroke Does the patient have a stroke diagnosis?: No VTE Prior VTE?: No VTE Risk Level:: Medical - moderate - high VTE Device Contraindication: Treatment Not Indicated VTE Drug Contraindication: N/A - Med Ordered
--- NOTE | 2022-06-12 13:06 | MHC.CM.PN ---
Patient is Covid (+); CM spoke with Son/ROPE MAKER/Shreyas @ [phone] and addressed IMM with him (original will be mailed certified letter to Shreyas and a copy has been placed on the chart). Patient lives in an apartment with her Son/ROPE MAKER and [id number] and she uses a cane to assist with mobility. Patient's Son is her [employer]OPE [employer] and home/resume said services is the goal; CM has initiated and will follow for dc planning. Patient has received Moderna/Covid vax x1 and her PCP is Dr. Deanna Dong.
[2022-06-12] MEDS: Azithromycin 500 MG in 0.9 % Sodium Chloride 250 ML 125 MG IV (14:34)
[2022-06-12 15:40] VITALS: BP 130/65; PULSE 78; RESP 18; TEMP 36.8; O2SAT 94
[2022-06-12 16:44] LABS: Glucose, Whole Blood 135 mg/dL (60-115)
[2022-06-12 19:35] VITALS: BP 164/63; PULSE 62; RESP 18; TEMP 36.8; O2SAT 98
[2022-06-12 20:32] LABS: Glucose, Whole Blood 152 mg/dL (60-115)
[2022-06-12] MEDS: Insulin Lispro 100 UNIT/ML 3 ML VIAL SUBCUT (21:39)
[2022-06-12] MEDS: Insulin Glargine,Hum.rec.anlog 100 UNIT/ML 10 ML VIAL SUBCUT (21:40)
[2022-06-13] VITALS: BP 139/86; PULSE 76; RESP 16; TEMP 36.9; O2SAT 98
[2022-06-13] MEDS: Heparin Sodium,Porcine/1/2NS 25,000 UNIT/250 ML IV.SOLN 12.5 UNIT IVCONT (01:40)
[2022-06-13 03:19] LABS: OBS1 POSITIVE (NEGATIVE)
[2022-06-13 03:20] LABS: OBS Int Ctl Valid YES
[2022-06-13] MEDS: Acetaminophen 325 MG TABLET 650 MG PO ×2 (04:21→20:37)
--- NOTE | 2022-06-13 05:06 | PM.EVENT ---
Event Note Date of Service: 06/13/22 Event Note: pt noticed to have blood in stool with positive quaiac. WIll hold heparin. h&H stat Time Spent With Patient Time: Total time managing care of this patient today ____ minutes.
[2022-06-13] MEDS: Pantoprazole Sodium 40 MG/10 ML VIAL IVPUSH ×2 (06:07→17:04)
[2022-06-13 07:15] LABS: Hematocrit 25.9 % (37.0-47.0); Hemoglobin 8.2 g/dl (12.0-16.0)
[2022-06-13 07:24] LABS: PTT Heparin Drip 27.1 SEC (53-77.9)
[2022-06-13 07:37] VITALS: BP 160/73; PULSE 74; RESP 14; TEMP 36.9; O2SAT 97
[2022-06-13 07:58] LABS: Glucose, Whole Blood 98 mg/dL (60-115)
--- NOTE | 2022-06-13 11:24 | MHC.CM.PN ---
Per ROUNDS discussion, Patient is not yet medically cleared for dc (IV Heparin); home/resume services is the goal and CM has initiated and will follow for dc planning.
--- NOTE | 2022-06-13 11:31 | PM.PNCARD ---
Subjective Subjective Date of Service: 06/13/22 Principal diagnosis: NSTEMI Interval history: Patient appears low more lethargic and tired today. Undergoing hemodialysis. Blood pressure still remains elevated. Denies any chest pain or shortness of breath. Amlodipine still remains at 5 mg. Review of Systems Constitutional: Reports lethargy and Reports malaise Cardiovascular: Reports no additional cardiovascular complaints Gastrointestinal: Reports no additional gastrointestinal complaints Reports system reviewed and no additional complaints, except as documented Physical Exam Vital Signs: Last Vital Signs Temp 98.4 F 06/13/22 07:37 Pulse 74 06/13/22 07:37 Resp 14 06/13/22 07:37 BP 160/73 H 06/13/22 07:37 Pulse Ox 97 06/13/22 07:37 O2 Del Method 06/13/22 07:37 O2 Flow Rate 2 06/13/22 07:37 Oxygen Flow Rate 2 06/10/22 04:37 BMI result Body Mass Index 31.1 Const General: cooperative, comfortable, no acute distress, alert, awake and tired appearing Nutritional Appearance: overweight Orientation/consciousness: patient oriented x3 Neck Neck: Yes trachea midline, Yes supple and Yes no JVD Resp Effort & Inspection: normal respiratory effort Auscultation: no crackles, no rales and no wheezes Cardio Jugular venous distension: no JVD Palpation: normal PMI Rate: regular rate Rhythm: regular rhythm Heart sounds: S1 normal heart sound present, S2 normal heart sound present, no click, no gallops, no murmurs and no rubs GI Auscultation: normal bowel sounds Neuro General: patient oriented x3 Extrem General: Yes no clubbing, cyanosis or edema Objective Labs and Meds 06/13/22 06:18 06/12/22 06:28 Lab results: Laboratory Results - last 24 hr 06/12/22 06/12/22 06/12/22 11:32 16:36 20:26 Hgb Hct aPTT Heparin Protocol POC Glucose 147 H 135 H 152 H Stool Occult Blood 06/13/22 06/13/22 06/13/22 02:50 06:18 06:18 Hgb 8.2 L Hct 25.9 L aPTT Heparin Protocol 27.1 L D POC Glucose Stool Occult Blood POSITIVE 06/13/22 06/13/22 07:36 07:59 Hgb Hct aPTT Heparin Protocol 28.0 L POC Glucose 98 Stool Occult Blood Progress Note: A&P Assessment and plan (1) NSTEMI (non-ST elevated myocardial infarction): Status: Acute Assessment and Plan: Patient presents with NSTEMI as well as COVID related viral syndrome. Currently cardiac-vallecillo is stable. Currently not having any ongoing chest discomfort of signs or symptoms of heart failure any significant arrhythmias. Will eventually require cardiac catheterization again to evaluate for coronary anatomy although will need to wait till her while syndrome resolves. Continue supportive care. Continue with dialysis between. Continue dual antiplatelet therapy. Continue dual antihyperlipidemic therapy with high-intensity statin and Zetia therapy. Increase amlodipine to 10 mg daily. Continue isosorbide and carvedilol therapy. Continue aggressive control blood pressure for now will hold off on increasing hydralazine therapy. Overall prognosis is guarded. IV heparin can be discontinued Will sign of the case and follow as an outpatient. Time Spent With Patient Time: Total time managing care of this patient today ____ minutes. Progress Note: Quality Stroke Does the patient have a stroke diagnosis?: No Procedures Date of Service Date of Service: 06/13/22
[2022-06-13 12:00] VITALS: BP 170/70; PULSE 78; RESP 14; TEMP 37; O2SAT 97
[2022-06-13 12:17] LABS: Glucose, Whole Blood 195 mg/dL (60-115)
[2022-06-13] MEDS: carvediloL 25 MG TABLET PO ×2 (12:36→20:38)
[2022-06-13] MEDS: amLODIPine Besylate 5 MG TABLET PO (12:36)
[2022-06-13] MEDS: Isosorbide Mononitrate 60 MG TAB.ER.24H PO (12:36)
[2022-06-13] MEDS: Insulin Lispro 100 UNIT/ML 3 ML VIAL SUBCUT ×3 (12:36→20:39)
[2022-06-13] MEDS: Ticagrelor 90 MG TABLET PO ×2 (12:37→20:38)
[2022-06-13] MEDS: Aspirin Enteric Coated 81 MG TABLET.DR PO (12:37)
[2022-06-13] MEDS: Cholecalciferol (Vitamin D3) 25 MCG TABLET 50 MCG PO (12:37)
[2022-06-13] MEDS: Multivitamin TABLET 1 TAB PO (12:38)
[2022-06-13] MEDS: Ezetimibe 10 MG TABLET PO (12:38)
[2022-06-13] MEDS: hydrALAZINE HCl 25 MG TABLET PO ×3 (12:38→20:39)
[2022-06-13] MEDS: Atorvastatin Calcium 80 MG TABLET PO (12:38)
[2022-06-13] MEDS: Sucralfate 1 GM TABLET PO ×3 (12:39→20:38)
[2022-06-13] MEDS: 0.9 % Sodium Chloride Flush 3 ML SYRINGE IVFLUSH ×2 (12:40→17:04)
[2022-06-13] MEDS: Metoclopramide HCl 10 MG TABLET PO ×3 (12:40→20:38)
--- NOTE | 2022-06-13 13:09 | W.PM.DNNEP ---
Subjective Subjective Principal diagnosis: NSTEMI This patient was seen during dialysis. Interval history: No acute issues overnight. Sats stable on room air Physical Exam Vital Signs: Vital Signs: Last Vital Signs Temp 98.6 F 06/13/22 12:00 Pulse 78 06/13/22 12:00 Resp 14 06/13/22 12:00 BP 170/70 H 06/13/22 12:00 Pulse Ox 97 06/13/22 12:00 O2 Del Method 06/13/22 12:00 O2 Flow Rate 2 06/13/22 12:00 Oxygen Flow Rate 2 06/10/22 04:37 BMI result Body Mass Index 31.1 Const: Other: Gen: in no acute distress HEENT: sclera anicteric, moist mucus membranes Neck: supple Lungs: clear to auscultation bilaterally Heart: regular rate and rhythm, no murmurs Abd: soft, non-tender, non-distended Ext: no edema Skin: warm/well-perfused Neuro: alert and oriented x3, no focal findings Psych: appropriate affect Assessment & Plan Assessment and plan (1) NSTEMI (non-ST elevated myocardial infarction): Status: Acute Plan hospital d#2 66yo F with CAD s/p SISI LAD and SISI LCX including most recently angioplasty/SISI of ISR LAD in December 2021 but also noted then to have 95% LCX stenosis, ESRD on HD MWF, DM2, GERD, gastritis, HTN, dyslipidemia, neuropathy Presented with epigastric discomfort and admitted for NSTEMI + Covid-19 infection ESRD on HD - HD MWF No s/s of uremia fluid removal as tolerated Keep on Renal diet Time Spent With Patient Time: Total time managing care of this patient today ____ minutes. Procedures Date of Service Date of Service: 06/13/22
--- NOTE | 2022-06-13 14:55 | HO.PM.IMPN ---
Subjective Subjective Date of Service: 06/13/22 Interval History: Noted to be somnolent during hemodialysis, post hemodialysis feeling better complaining of epigastric discomfort, no hematemesis, no melena noted to have drop in hematocrit, on IV Protonix, IV heparin and Carafate, denies chest pain, no shortness of breath no palpitation no lightheadedness or dizziness. Review of Systems Review of Systems: Yes all other systems are reviewed and are negative Physical Exam Vital Signs: Vital Signs: Last Vital Signs Temp 98.6 F 06/13/22 12:00 Pulse 78 06/13/22 12:00 Resp 14 06/13/22 12:00 BP 170/70 H 06/13/22 12:00 Pulse Ox 97 06/13/22 12:00 O2 Del Method 06/13/22 12:00 O2 Flow Rate 2 06/13/22 12:00 Oxygen Flow Rate 2 06/10/22 04:37 BMI result Body Mass Index 31.1 Const: Other: General awake alert, sitting on chair, in no acute distress. Neck supple no JVD. CVS regular rate rhythm, Respiratory lungs clear to auscultation, no respiratory distress, no wheeze, no rhonchi. Gastrointestinal abdomen soft, mild epigastric discomfort, bowel sounds audible, no guarding , no rigidity. Extremities no edema. Neuro nonfocal Skin no rash Psych appropriate affect Objective Data Active Medications Acetaminophen (Acetaminophen 325 Mg Tablet) 650 mg PO Q6H PRN PRN Reason: Pain, Moderate (Pain Scale 4-6 Last Admin: 06/13/22 04:21 Dose: 650 mg Documented By: KATELYNN Albuterol Sulfate (Albuterol Sulfate 90 Mcg 8 Gm Inhaler) 2 puff INHALE Q2H PRN PRN Reason: Shortness of Breath/Wheezing Amlodipine Besylate (Amlodipine Besylate 5 Mg Tablet) 5 mg PO DAILY [facility]; Protocol Last Admin: 06/13/22 12:36 Dose: 5 mg Documented By: JAGUAR Aspirin (Aspirin Enteric Coated 81 Mg Tablet.) 81 mg PO DAILY [facility] Last Admin: 06/13/22 12:37 Dose: 81 mg Documented By: JAGUAR Atorvastatin Calcium (Atorvastatin Calcium 80 Mg Tablet) 80 mg PO DAILY [facility] Last Admin: 06/13/22 12:38 Dose: 80 mg Documented By: JAGUAR Benzonatate (Benzonatate 100 Mg Capsule) 100 mg PO TID PRN PRN Reason: Cough Carvedilol (Carvedilol 25 Mg Tablet) 25 mg PO BID [facility]; Protocol Last Admin: 06/13/22 12:36 Dose: 25 mg Documented By: JAGUAR Dextrose (Dextrose 50 % 25 Gm/50 Ml Vial) 25 gm IVPUSH Q15M PRN; Protocol PRN Reason: per Hypoglycemia Standing Ord. Ezetimibe (Ezetimibe 10 Mg Tablet) 10 mg PO DAILY [facility] Last Admin: 06/13/22 12:38 Dose: 10 mg Documented By: JAGUAR Glucose (Glucose Gel 15 Gm Gel..Gram.) 15 gm PO Q15M PRN; Protocol PRN Reason: per Hypoglycemia Standing Ord. Guaifenesin (Guaifenesin 200 Mg/10 Ml 10 Ml Liquid) 10 ml PO Q4H PRN PRN Reason: Cough Last Admin: 06/11/22 20:31 Dose: 10 ml Documented By: MAE Heparin Sodium (Porcine) (Heparin Sodium,Porcine 5,000 Unit/Ml Vial) 3,100 unit 40 unit/kg (3100 unit) IVPUSH PROTOCOL BOLUS PRN; Protocol PRN Reason: 40 unit/kg - Heparin Protocol Last Admin: 06/11/22 13:44 Dose: 3,100 unit Documented By: VENJOSE F Heparin Sodium (Porcine) (Heparin Sodium,Porcine 5,000 Unit/Ml Vial) 6,200 unit 80 unit/kg (6200 unit) IVPUSH PROTOCOL BOLUS PRN; Protocol PRN Reason: 80 unit/kg - Heparin Protocol Hydralazine HCl (Hydralazine Hcl 25 Mg Tablet) 25 mg PO TID [facility]; Protocol Last Admin: 06/13/22 12:38 Dose: 25 mg Documented By: JAGUAR Heparin Sodium/Sodium Chloride (Heparin Sodium,Porcine/1/2ns) 25,000 unit in 250 mls @ 0 mls/hr IVCONT .Q0M [facility]; Protocol Last Titration: 06/13/22 04:43 Dose: 0 units/kg/hr, 0 mls/hr Documented By: KATELYNN Co-signed By: YUDY Insulin Glargine (Insulin Glargine,Hum.Rec.Anlog 100 Unit/Ml 10 Ml Vial) 5 unit SUBCUT BEDTIME [facility] Last Admin: 06/12/22 21:40 Dose: 5 unit Documented By: KATELYNN Insulin Human Lispro (Insulin Lispro 100 Unit/Ml 3 Ml Vial) 0 unit SUBCUT QIDAS [facility]; Protocol Last Admin: 06/13/22 12:36 Dose: 2 unit Documented By: JAGUAR Isosorbide Mononitrate (Isosorbide Mononitrate 60 Mg Tab.Er.24h) 60 mg PO DAILY [facility]; Protocol Last Admin: 06/13/22 12:36 Dose: 60 mg Documented By: JAGUAR Metoclopramide HCl (Metoclopramide Hcl 10 Mg Tablet) 10 mg PO QIDAS [facility] Last Admin: 06/13/22 12:40 Dose: 10 mg Documented By: JAGURA Multivitamins/Vitamin C (Multivitamin Tablet) 1 tab PO DAILY [facility] Last Admin: 06/13/22 12:38 Dose: 1 tab Documented By: JAGUAR Ondansetron HCl (Ondansetron Hcl 4 Mg/2 Ml Vial) 4 mg IVPUSH Q8H PRN PRN Reason: Nausea and Vomiting Last Admin: 06/10/22 14:24 Dose: 4 mg Documented By: ALTHEA Pantoprazole Sodium (Pantoprazole Sodium 40 Mg/10 Ml Vial) 40 mg IVPUSH BID@0630,1630 [facility] Last Admin: 06/13/22 06:07 Dose: 40 mg Documented By: KATELYNN Pharmacy Consult (Consult Rx Perform Med Rec) 1 each MISCELLANE ONCE PRN PRN Reason: Consult order Senna (Sennosides 8.6 Mg Tablet) 17.2 mg PO BEDTIME PRN PRN Reason: Constipation Last Admin: 06/12/22 11:10 Dose: 17.2 mg Documented By: JAGUAR Sodium Chloride (0.9 % Sodium Chloride Flush 3 Ml Syringe) [facility] Last Admin: 06/13/22 12:40 Dose: 3 ml Documented By: JAGUAR Sucralfate (Sucralfate 1 Gm Tablet) 1 gm PO QIDAS [facility] Last Admin: 06/13/22 12:39 Dose: 1 gm Documented By: JAGUAR Ticagrelor (Ticagrelor 90 Mg Tablet) 90 mg PO BID [facility] Last Admin: 06/13/22 12:37 Dose: 90 mg Documented By: JAGUAR Vitamin D (Cholecalciferol (Vitamin D3) 25 Mcg Tablet) 50 mcg PO DAILY [facility] Last Admin: 06/13/22 12:37 Dose: 50 mcg Documented By: JAGUAR Labs 06/13/22 06:18 06/12/22 06:28 Labs: Laboratory Results - last 24 hr 06/12/22 06/12/22 06/13/22 16:36 20:26 02:50 aPTT Heparin Protocol POC Glucose 135 H 152 H Stool Occult Blood POSITIVE 06/13/22 06/13/22 06/13/22 06:18 07:36 07:59 aPTT Heparin Protocol 27.1 L D 28.0 L POC Glucose 98 Stool Occult Blood 06/13/22 12:04 aPTT Heparin Protocol POC Glucose 195 H Stool Occult Blood Microbiology Microbiology Results: Microbiology 06/11/22 00:00 Urine Culture - Final Urine clean catch - Urine grimaldo top Assessment and Plan (1) NSTEMI (non-ST elevated myocardial infarction): Status: Acute (2) COVID-19: Status: Acute (3) Type 2 diabetes mellitus with other diabetic kidney complication: Status: Acute Plan 66yo F with CAD s/p SISI LAD and SISI LCX including most recently angioplasty/SISI of ISR LAD in December 2021 but also noted then to have 95% LCX stenosis, ESRD on HD MWF, DM2, GERD, gastritis, HTN, dyslipidemia, neuropathy Presented with epigastric discomfort and admitted for NSTEMI + Covid-19 infection 1. NSTEMI -no chest pain, no palpitations, will discontinue IV heparin since noted to have blood in stools -on aspirin/ ticagrelor/atorvastatin/ezetimibe/carvedilol/hydralazine. -Imdur/amlodipine for anti-anginal therapy -cardiology recommend outpatient catheterization, due to high blood pressure will increase dose of Norvasc to 10 mg 2. Acute on chronic normocytic anemia, question related to GI bleed, COVID infection, gastritis/GERD/pud patient noted to have drop in hematocrit to 25.9, with an episode of bloody bowel movement, will DC heparin, consult GI ,patient has history of GERD and has persistent epigastric discomfort Patient on dual anti-platelet agent, continue Protonix, Carafate, check stool guaiac, check iron studies, follow CBC, recent LDH 205, elevated ferritin, and stable platelets. 2.Covid-19 - room air sats acceptable, will DC oxygen 3.HTN -elevated blood pressures will increase dose of Norvasc to 10 mg follow BP closely 4.GERD/gastritis - complaining of epigastric pain continue PPI + sucralfate, consult Gastroenterology, case discussed with Cardiology they recommend to continue dual antiplatelet therapy to prevent stent thrombosis 5.DM2 -Acceptable control on current therapies, continue Lantus/Lispro correctional scale 6. ESRD on HD - HD MWF; being followed by Nephrology no sinus symptoms of uremia. 7. DVT prophylaxis will place on compression boots In my clinical judgment, the patient requires continued inpatient hospitalization for the following reasons: NSTEMI /uncontrolled blood pressure, further workup for drop in hematocrit. Time Spent With Patient Time: Total time managing care of this patient today ____ minutes. Quality Stroke Does the patient have a stroke diagnosis?: No VTE Prior VTE?: No VTE Risk Level:: Medical - moderate - high VTE Device Contraindication: Treatment Not Indicated VTE Drug Contraindication: N/A - Med Ordered
[2022-06-13 16:00] VITALS: BP 148/67; PULSE 78; RESP 15; TEMP 36.9; O2SAT 92
[2022-06-13 17:13] LABS: Glucose, Whole Blood 167 mg/dL (60-115)
[2022-06-13 19:02] VITALS: BP 110/59; PULSE 80; RESP 16; TEMP 36.4; O2SAT 98
[2022-06-13 20:12] LABS: Glucose, Whole Blood 230 mg/dL (60-115)
[2022-06-13] MEDS: Insulin Glargine,Hum.rec.anlog 100 UNIT/ML 10 ML VIAL SUBCUT (20:39)
[2022-06-13 23:27] VITALS: BP 158/64; PULSE 88; RESP 18; TEMP 36.6; O2SAT 98
[2022-06-14] MEDS: 0.9 % Sodium Chloride Flush 3 ML SYRINGE IVFLUSH ×2 (00:21→08:38)
[2022-06-14 04:00] VITALS: BP 140/62; PULSE 71; RESP 20; TEMP 36.5; O2SAT 98
[2022-06-14] MEDS: Pantoprazole Sodium 40 MG/10 ML VIAL IVPUSH (06:16)
[2022-06-14 06:28] LABS: Hematocrit 28.8 % (37.0-47.0); Hemoglobin 9.3 g/dl (12.0-16.0); Mean Corpuscular HGB Conc 32.3 g/dl (31.0-35.0); Mean Corpuscular Volume 86.7 fL (80.0-98.0); Mean Platelet Volume 11.4 fL (9.4-12.3); Platelet Count 278 X10*3/uL (160-400); Red Blood Count 3.32 X10*6/uL (4.20-5.50); Red Cell Distribution Width 15.9 % (11.0-16.0); White Blood Count 8.1 X10*3/uL (4.8-10.8)
[2022-06-14 07:19] LABS: Iron 45 mcg/dL (30-160); Percent Iron Saturation 47 % (15-50); Total Iron Binding Capacity 96 mcg/dL (228-428); Unsaturated Iron Binding 51 ug/dL
[2022-06-14 07:40] VITALS: BP 168/75; PULSE 69; RESP 20; TEMP 36.6; O2SAT 96
[2022-06-14 07:46] LABS: Glucose, Whole Blood 112 mg/dL (60-115)
--- NOTE | 2022-06-14 08:34 | PM.DS ---
DS: Providers Provider Date of Service: 06/14/22 Date of admission: 06/10/22 11:53 Primary care physician: Deanna Hedrick MD Consults: 06/10/22 08:41 Consult to Cardiology Stat Consulting Provider: Artur Ji Reason for consultation: positive delta tropi Has provider been notified: Yes 06/10/22 13:06 Consult to Nephrology Routine Consulting Provider: Gabriel Diaz Reason for consultation: ESRD dialysis 06/13/22 15:33 Consult to Gastroenterology Routine Consulting Provider: Didi Peres Reason for consultation: anemia /epigastric pain Has provider been notified: No DS: Diagnosis Discharge Diagnosis (1) NSTEMI (non-ST elevated myocardial infarction): Status: Acute (2) COVID-19: Status: Acute (3) Type 2 diabetes mellitus with other diabetic kidney complication: Status: Acute DS: Summary Hospital Course Hospital Course: History of presenting illness Chief complaint, epigastric pain, chest pain and shortness of breath. 66-year-old female with history of coronary artery disease s/p SISI of the mid LAD in 07/2019, insulin-dependent type 2 diabetes, GERD, gastritis, hypertension, ESRD on hemodialysis MWF related to diabetic nephropathy, dyslipidemia, diabetic polyneuropathy presented to the ED early this morning for evaluation of epigastric pain, nausea, chest pain, shortness of breath that started around 03:00 this morning.? She states she drink orange juice and shortly after developed epigastric pain rated as a 3/10 occurring both at rest and with exertion without any radiation.? She describes this as a pressure.? She states that chest pain has resolved but still has mild epigastric pain.? She was febrile on arrival to 101.4.? She is also in hypertensive urgency with BP of 223/89.? Initial troponin 156.9.? EKG showed NSR without any ST T or ST depressions suggestive of acute ischemia.? She was given aspirin, placed on supplemental O2 and started on heparin drip.? Repeat troponin 581.1.? She is also found to have COVID-19 with leukocytosis of 12.8, H/H 10.9/34.2.? Renal function baseline, electrolytes normal.? VBG showed pH 7.48, pCO2 35, PO2 66, HC03 27.? Bedside echo performed.? Discussed with Dr. Ji.? No evidence of CHF, questions myocarditis related to COVID-19 rather than NSTEMI.? CXR negative for any acute cardiopulmonary abnormality.? CT abdomen is without any acute intra-abdominal abnormality but did also no cardiomegaly, interstitial pulmonary edema and trace bilateral pleural effusions as well as a few patchy ground-glass opacities within right lower lung.? Patient to be admitted for COVID-19 related myocarditis. Hospital course. 66yo F with CAD s/p SISI LAD and SISI LCX? including most recently angioplasty/SISI of ISR LAD in December 2021 but also noted then to have 95% LCX stenosis, ESRD on HD MWF, DM2, GERD, gastritis, HTN, dyslipidemia, neuropathy, presented with epigastric discomfort and admitted for NSTEMI + Covid-19 infection. 1. NSTEMI, patient admitted to intermediate care unit was treated medically with IV heparin, was continued on aspirin, Brilinta, statin, CTR, Coreg and hydralazine and was started on Imdur and amlodipine for antianginal therapy patient was followed by track man who recommend outpatient cardiac catheterization, patient has had no chest pain, no palpitations, therefore being discharged home. 2. Acute on chronic normocytic anemia, question related to GI bleed, COVID infection, gastritis/GERD/pud, hematocrit dropped to 25.9, with one episode of bloody bowel movement, likely related to dual antiplatelet therapy and IV heparin, repeat hematocrit improved, iron studies not consistent with iron deficiency, likely has anemia of chronic disease, stable LDH and elevated ferritin, recommend Procrit per Nephrology. 2.Covid-19- stable oxygenation 3.HTN added Norvasc 10 mg to home medications blood pressure is stable. 4.GERD/gastritis presented with epigastric pain treated with Prilosec and Carafate symptoms improved recommend outpatient Gastroenterology follow-up case discussed with Cardiology they recommend to continue dual antiplatelet therapy to prevent stent thrombosis 5.DM2 continue home medications 6. ESRD on HD Time Spent with Patient Time attestation: Total time managing care of this patient today ____ minutes. Discharge coordination time: Greater than 30 minutes Quality: Safe Use of Opioids Does Pt have an Active Cancer Diagnosis on the Problem List?: No Quality: Stroke Does the patient have a stroke diagnosis?: No Physical Exam Vital Signs: Vital Signs: Last Vital Signs Temp 97.9 F 06/14/22 07:40 Pulse 69 06/14/22 07:40 Resp 20 06/14/22 07:40 BP 168/75 H 06/14/22 07:40 Pulse Ox 96 06/14/22 07:40 O2 Del Method 06/14/22 07:40 O2 Flow Rate 1 06/13/22 19:02 Oxygen Flow Rate 2 06/10/22 04:37 BMI result Body Mass Index 31.1 Const: Other: General awake alert, sitting on chair, in no acute distress.? Neck supple no JVD. CVS? regular rate rhythm, Respiratory lungs clear to auscultation, no respiratory distress, no wheeze, no rhonchi. Gastrointestinal abdomen soft, epigastric discomfort resolved, bowel sounds audible, no guarding , no rigidity. Extremities no? edema. Neuro nonfocal Skin no rash Psych appropriate affect DS: Data Data Completed and Pending Completed studies during hospitalization [Text1]: Procedures Performance of Urinary Filtration, Intermittent, Less than 6 Hours Per Day (07/06/21) Labs on day of discharge: Laboratory Results - last 24 hr 06/13/22 06/13/22 06/13/22 12:04 17:08 20:09 WBC RBC Hgb Hct MCV MCH MCHC RDW Plt Count MPV Absolute Nucleated RBC Nucleated RBC % (auto) POC Glucose 195 H 167 H 230 H Iron TIBC % Saturation Unsat Iron Binding 06/14/22 06/14/22 06/14/22 06:10 06:10 07:43 WBC 8.1 RBC 3.32 L Hgb 9.3 L Hct 28.8 L MCV 86.7 MCH 28.0 MCHC 32.3 RDW 15.9 Plt Count 278 MPV 11.4 Absolute Nucleated RBC 0.000 Nucleated RBC % (auto) 0.0 POC Glucose 112 Iron 45 TIBC 96 L % Saturation 47 Unsat Iron Binding 51 Preliminary micro results at discharge 06/10/22 05:06 Blood Culture - Preliminary Blood - Venous No growth after 48 hours. 06/10/22 04:58 Blood Culture - Preliminary Blood - Venous No growth after 48 hours. Discharge Plan Discharge Anticipated Discharge Date/Time: 06/14/22 08:33 Patient Disposition: Home, Self-Care Discharge Diagnosis: Non ST-elevation MA COVID-19 infection Abdominal pain End-stage renal disease on hemodialysis Acute on chronic normocytic anemia likely related to chronic GI bleed Referrals: Deanna Sood MD [Primary Care Provider] - 1 Week Discharge Medications: New sucralfate 1 gram Tablet 1 g PO QIDACHS Qty: 120 0RF isosorbide mononitrate 60 mg Tablet Extended Release 24 Hr 60 mg PO DAILY Qty: 30 0RF Protocol: Hold for SBP< HOLD for SBP < : 90 omeprazole 20 mg Capsule,Delayed Release(Dr/Ec) 20 mg PO BID@0630,1630 Qty: 60 0RF ezetimibe 10 mg Tablet 10 mg PO DAILY Qty: 30 0RF amlodipine 10 mg Tablet 10 mg PO DAILY Qty: 30 0RF Protocol: Hold for SBP< HOLD for SBP < : 90 Continued cholecalciferol (vitamin D3) 50 mcg (2,000 unit) capsule 50 mcg PO DAILY 30 Days Qty: 30 6RF docusate sodium [Colace] 100 mg capsule 100 mg PO BID PRN (Reason: constipation) 90 Days Qty: 180 2RF (DME) miscellaneous medical [facility] See Rx Instructions .ROUTE .MEDSUPPLY Qty: 1 0RF Rx Instructions: hospital bed (DME) pen needle, diabetic [BD Ultra-Fine Rin Pen Needle] 32 gauge x 5/32 needle See Rx Instructions .ROUTE .MEDSUPPLY Qty: 360 3RF Rx Instructions: As directed 4x daily (DME) walker [facility] [place] See Rx Instructions .Route Qty: 1 0RF Rx Instructions: As directed (DME) Shower Chair [facility] [place] See Rx Instructions .Route Qty: 1 0RF Rx Instructions: As directed (DME) raised toilet seat See Rx Instructions .Route .MEDSUPPLY Qty: 1 0RF Rx Instructions: As directed atorvastatin 80 mg tablet 80 mg PO DAILY 90 Days Qty: 90 3RF aspirin [Adult Low Dose Aspirin] 81 mg tablet,delayed release (DR/EC) 81 mg PO DAILY 90 Days Qty: 90 3RF (DME) diaper,brief,adult,disposable Misc See Rx Instructions .ROUTE .MEDSUPPLY Qty: 120 11RF Rx Instructions: Use 1 diaper as needed 6 times a day (DME) underpads [Bed Underpads] Pad See Rx Instructions .ROUTE .MEDSUPPLY Qty: 100 11RF Rx Instructions: Use 1 underpad as needed every 8 hours Brilinta 90 mg tablet 90 mg PO BID 90 Days Qty: 180 1RF Nephro-Josefina 0.8 mg tablet 1 tab PO DAILY 90 Days Qty: 90 3RF acetaminophen 325 mg tablet 650 mg PO Q4H PRN (Reason: pain) 30 Days Qty: 180 1RF carvedilol 25 mg tablet 25 mg PO BID 90 Days Qty: 180 1RF Rx Instructions: must administer with a meal/food insulin glargine [Lantus Solostar U-100 Insulin] 100 unit/mL (3 mL) insulin pen 5 unit subcut BEDTIME hydralazine 25 mg Tablet 25 mg PO TID metoclopramide HCl 10 mg Tablet 10 mg PO QIDACHS insulin lispro [Humalog KwikPen Insulin] 100 unit/mL insulin pen 5 unit subcut TIDAC (DME) FreeStyle Test Strip See Rx Instructions .ROUTE .MEDSUPPLY Qty: 120 11RF Rx Instructions: Use 1 test strips four times a day (DME) hydroseal gauze 7 x 7 See Rx Instructions .Route .MEDSUPPLY Qty: 30 6RF Rx Instructions: As directed (DME) FreeStyle Pedro 14 Day Sensor Kit See Rx Instructions .Route Qty: 1 0RF Rx Instructions: As directed Discharge Orders: Discharge Order (Routine); Ordered 06/14/22 Ordered By: Leighann Ohara Diet: Diabetic diet Activity on Discharge: As tolerated Stand Alone Forms: Patient Portal Discharge page Care Plan Goals: You had non ST-elevation MA, continue aspirin, Brilinta, statin, Coreg, hydralazine you have been started on new medications Imdur ,amlodipine and ezetimibe For your epigastric pain take Prilosec and Carafate, if noted to have blood in stools call primary care physician COVID-19 infection, rest eat healthy food, you have normal oxygenation. Health Concerns: Diabetes mellitus follow diabetic diet monitor blood sugar closely Plan of Treatment: Outpatient follow-up with track man Dr. Merritt call for appointment, follow-up with Nephrology continue hemodialysis as before Follow-up with primary care physician call for appointment Assessment: As above Patient Instructions: Abdominal Pain (ED), Hypertension (ED), COVID-19 (Coronavirus Disease 2019) (ED) Discharge Date/Time: 06/14/22 11:10
[2022-06-14] MEDS: Aspirin Enteric Coated 81 MG TABLET.DR PO (08:35)
[2022-06-14] MEDS: Ticagrelor 90 MG TABLET PO (08:35)
[2022-06-14] MEDS: carvediloL 25 MG TABLET PO (08:36)
[2022-06-14] MEDS: Cholecalciferol (Vitamin D3) 25 MCG TABLET 50 MCG PO (08:36)
[2022-06-14] MEDS: Multivitamin TABLET 1 TAB PO (08:36)
[2022-06-14] MEDS: Sucralfate 1 GM TABLET PO (08:37)
[2022-06-14] MEDS: Atorvastatin Calcium 80 MG TABLET PO (08:37)
[2022-06-14] MEDS: Metoclopramide HCl 10 MG TABLET PO (08:37)
[2022-06-14] MEDS: Isosorbide Mononitrate 60 MG TAB.ER.24H PO (08:37)
[2022-06-14] MEDS: amLODIPine Besylate 10 MG TABLET PO (08:38)
[2022-06-14] MEDS: hydrALAZINE HCl 25 MG TABLET PO (08:38)
[2022-06-14] MEDS: Ezetimibe 10 MG TABLET PO (08:39)
--- NOTE | 2022-06-14 08:43 | MHC.CM.PN ---
Addendum entered by Ailyn Ramirez 06/14/22 09:53: [facility]SP[facility] ARRANGED FOR 1100 HRS Original Note: PT WILL DC HOME TODAY WITH RESUMPTION OF HER [employer] FAMILY TO TRANSPORT
== END 2022-06-14 11:10 | disposition home or self-care (01) | DRG 177 ==
LOC: HO.ED 09:00 → HO.EDOVER 12:10 → HO.IMC 18:55
PROVIDERS: Emergency Medicine Emergency Medical Services; Family Medicine; Hospitalist; Internal Medicine; Admitting Provider Physician Assistant; Emergency Provider Emergency Medicine; PCP Internal Medicine; Visit Provider Hospitalist
DX: U07.1 COVID-19 (principal); I21.4 Non-ST elevation (NSTEMI) myocardial infarction; K29.51 Unspecified chronic gastritis with bleeding; N18.6 End stage renal disease; I12.0 Hypertensive chronic kidney disease with stage 5 chronic kidney disease or end stage renal disease; I25.10 Atherosclerotic heart disease of native coronary artery without angina pectoris; Z95.5 Presence of coronary angioplasty implant and graft; E11.42 Type 2 diabetes mellitus with diabetic polyneuropathy; I16.0 Hypertensive urgency; E11.43 Type 2 diabetes mellitus with diabetic autonomic (poly)neuropathy; K31.84 Gastroparesis; D50.0 Iron deficiency anemia secondary to blood loss (chronic); D63.1 Anemia in chronic kidney disease; E11.22 Type 2 diabetes mellitus with diabetic chronic kidney disease; Z95.1 Presence of aortocoronary bypass graft; Z99.2 Dependence on renal dialysis; E78.5 Hyperlipidemia, unspecified; Z89.112 Acquired absence of left hand; Z79.4 Long term (current) use of insulin; Z79.82 Long term (current) use of aspirin; Z79.899 Other long term (current) drug therapy
CPT/HCPCS: 0241U; 36415; 71045; 74176; 80048; 80053; 81001; 82272; 82728; 82803; 82947; 83540; 83605; 83615; 83735; 84145; 84484; 85014; 85018; 85025; 85027; 85610; 85730; 86140; 87040; 87086; 87635; 90999; 93005; 93306; 99285; J0456; J0885; J1643; J2405; Q9957

== ENCOUNTER → 2022-10-09 12:23 | Outpatient (BNVA) | payer OTHER, SELFPAY | PROVIDERS: PCP Internal Medicine; Visit Provider Nurse Practitioner | DX: K21.9 Gastro-esophageal reflux disease without esophagitis (principal); K59.04 Chronic idiopathic constipation; K30 Functional dyspepsia | CPT/HCPCS: 99212 ==

== ENCOUNTER 2022-10-14 00:04 | Emergency (ER) | payer OTHER, SELFPAY ==
--- NOTE | ~2022-10-14 | XR_ITS ---
EXAMINATION: XR CHEST CLINICAL INFORMATION: Chest pain COMPARISON: 06/10/2022 TECHNIQUE: Frontal view of the chest was obtained. FINDINGS: Right subclavian dual lumen hemodialysis catheter redemonstrated. Normal symmetric lung volumes. No parenchymal consolidation. No pleural effusion. No pneumothorax. Cardiomediastinal silhouette and pulmonary vascularity are within normal limits. No acute osseous abnormalities. XR/XR chest 1V IMPRESSION: No acute findings.
--- NOTE | 2022-10-14 00:11 | ECG_ITS ---
Test Reason : CHEST PAIN Blood Pressure : / mmHG Vent. Rate : 073 BPM Atrial Rate : 073 BPM P-R Int : 144 ms QRS Dur : 076 ms QT Int : 420 ms P-R-T Axes : 033 -30 187 degrees QTc Int : 462 ms Normal sinus rhythm Left axis deviation Minimal voltage criteria for LVH, may be normal variant ( R in aVL ) Septal infarct (cited on or before 10-JUN-2022) ST & T wave abnormality, consider lateral ischemia Abnormal ECG When compared with ECG of 10-JUN-2022 13:35, Nonspecific T wave abnormality, worse in Inferior leads Nonspecific T wave abnormality, worse in Anterior leads QT has shortened Referred By: Generic ED Physician Electronically Signed By:CONCETTA LEE MD
--- NOTE | 2022-10-14 00:13 | ED.CHESTPAIN ---
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 PATIENT DOES GET THIS CHEST PAIN OFF AND ON WHICH IS MOSTLY IN MID CHEST INCREASES ON DEEP INSPIRATION THIS TIME PAIN STARTED AT 23:00. PATIENT DOES MAKE SMALL AMOUNT OF URINE PATIENT GIVEN 324 MG OF ASPIRIN BY EMS AND NITROGLYCERIN SUBLINGUAL WITH PARTIAL RELIEF Related Data Home Medications Medication Instructions Recorded Confirmed hydralazine 25 mg tablet 25 mg PO TID 06/10/22 08/26/22 lisinopril 10 mg tablet 10 mg PO DAILY 10/09/22 Previous Rx's Medication Instructions Recorded walker #1 ea 08/13/21 aspirin 81 mg tablet,delayed 81 mg PO DAILY 90 days #90 tabs 11/07/21 release (Adult Low Dose Aspirin) diaper,brief,adult,disposable #120 ea 12/05/21 underpads (Bed Underpads) #100 ea 12/05/21 carvedilol 25 mg tablet 25 mg PO BID 90 days #180 tabs 07/21/22 ticagrelor 90 mg tablet (Brilinta) 90 mg PO BID 90 days #180 tabs 07/21/22 acetaminophen 325 mg tablet 650 mg PO Q4H PRN pain 30 days 08/26/22 #180 tabs insulin glargine 100 unit/mL (3 5 unit (0.05 mL) subcut BEDTIME 30 08/26/22 mL) subcutaneous pen (Lantus days #1.5 mL Solostar U-100 Insulin) trazodone 50 mg tablet 50 mg PO BEDTIME PRN sleep 90 days 08/26/22 #90 tabs atorvastatin 80 mg tablet 80 mg PO DAILY 90 days #90 tabs 09/18/22 insulin aspart U-100 100 unit/mL 5 unit (0.05 mL) subcut TID 90 09/30/22 subcutaneous solution days #13.5 mL metoclopramide HCl 10 mg tablet 10 mg PO QIDACHS #120 tabs 10/09/22 sucralfate 1 gram tablet 1 g PO QIDACHS #120 tabs 10/09/22 amlodipine 10 mg tablet 10 mg PO DAILY #30 tabs 10/10/22 blood sugar diagnostic (FreeStyle #120 ea 10/10/22 Test strips) cholecalciferol (vitamin D3) 50 50 mcg PO DAILY 30 days #30 caps 10/10/22 mcg (2,000 unit) capsule docusate sodium 100 mg capsule 100 mg PO BID PRN constipation 90 10/10/22 (Colace) days #180 caps ezetimibe 10 mg tablet 10 mg PO DAILY #30 tabs 10/10/22 flash glucose sensor (FreeStyle #1 ea 10/10/22 Pedro 14 Day Sensor kit) insulin syringe-needle U-100 1 mL #100 ea 10/10/22 30 gauge x 1/2 (BD Insulin Syringe Ultra-Fine) isosorbide mononitrate 60 mg 60 mg PO DAILY 30 days #30 tabs 10/10/22 tablet,extended release 24 hr omeprazole 20 mg capsule,delayed 20 mg PO BID@0630,1630 30 days #60 10/10/22 release caps pen needle, diabetic 32 gauge x #90 ea 10/10/22 5/32 (BD Ultra-Fine Rin Pen Needle) vitamin B complex-vitamin C-folic 1 tab PO DAILY 90 days #90 tabs 10/10/22 acid 0.8 mg tablet (Nephro-Josefina) Allergies Allergy/AdvReac Type Severity Reaction Status Date / Time No Known Allergies Allergy Verified 08/26/22 13:41 Review of Systems Review of Systems: Yes all other systems are reviewed and are negative PMF Past Medical History Medical History Abdominal pain Cataract Cough COVID-19 Delayed gastric emptying Diabetic nephropathy associated with type 2 diabetes mellitus Diabetic polyneuropathy associated with type 2 diabetes mellitus DM renal manif type II Dyslipidemia ESRD on hemodialysis Essential hypertension Gastritis GERD (gastroesophageal reflux disease) Type 2 diabetes mellitus with hyperglycemia Type 2 diabetes mellitus with other diabetic kidney complication Vitamin D deficiency Surgical History Arteriovenous fistula for hemodialysis in place, primary History of amputation Status post cardiac catheterization Status post cardiac catheterization Family History Family History Mother Diabetes Hypertension Father Hypertension Social History Social History Household Members: Children Household Members Other:: son & daughter Housing: Apartment Do you presently have visiting nurse or other home services: No Alcohol intake: never Patient Tobacco Use Status: Never used Tobacco Smoked in Last 30 Days: No e-Cigarette/Vaping Use: Never Used Second Hand Smoke Exposure: No Use of substances other than those prescribed or required for medical reasons: No Advance Directives: Yes Advance Directives on File: Yes Advance Directives Date on File: 07/09/21 service: No Current occupational status: disabled Cognitive needs: Yes Hearing needs: No Vision needs: Yes Physical Exam Vital Signs: Vital Signs: Last Vital Signs Temp 98.6 F 10/14/22 00:14 Pulse 68 10/14/22 05:14 Resp 19 10/14/22 05:14 BP 172/67 H 10/14/22 05:14 Pulse Ox 97 10/14/22 05:14 O2 Del Method Room Air 10/14/22 05:14 BMI result Body Mass Index 33.3 Appearance: Alert. Oriented X3. No acute distress. Eyes: No pallor or icterus ENT: Pharynx normal. Oral Mucosa moist Neck: Normal inspection. Neck supple. CVS: Normal heart rate and rhythm. Pulses normal. Respiratory: No respiratory distress. Equal air entry bilateral, no wheezing/rales/rhonchi Shiley catheter right side Abdomen: Soft, mild epigastric tenderness, Bowel sounds are present, no mass palpable, no CVA tenderness Skin: Skin warm and dry. Normal skin color. Normal skin turgor. Extremities: Trace lower extremity edema. No calf tenderness left metacarpal amputation Neuro: Oriented X 3. No motor deficit. Medications Administered Discontinued Medications Generic Name Dose Route Start Last Admin Trade Name Freq PRN Reason Stop Dose Admin Furosemide 100 mg 10/14/22 00:51 10/14/22 00:58 Furosemide 100 Mg/10 Ml Vial IVPUSH 10/14/22 00:52 100 mg ONCE ONE Administration Protocol Nitroglycerin 0.5 inch 10/14/22 00:52 10/14/22 00:59 Nitroglycerin 2 % Oint 1 Gm Packet TRANSDERMA 10/14/22 00:53 0.5 inch ONCE ONE Administration Medical Decision Making Medical Decision Making [facility] Narrative: Patient has significant coronary disease on medical management on Brilinta came with similar epigastric pain as in the past was at [facility] yesterday also also patient complain of mid chest pain since 23:00 without any ischemic changes in the 2 sets of EKG troponin been stable patient been sleeping after arrival denies any pain at this time. Patient is due for dialysis in the a.m. today chest x-ray negative for CHF is advised to continue for dialysis and medical management for coronary artery disease Lab Data [facility] Lab Attestation statement: I reviewed the patient's lab results. 10/14/22 00:58 10/14/22 00:58 Labs: Lab Results 10/14/22 10/14/22 10/14/22 Range/Units 00:58 00:58 00:58 WBC 10.7 (4.8-10.8) X10*3/uL RBC 4.10 L D (4.20-5.50) X10*6/uL Hgb 11.2 L D (12.0-16.0) g/dl Hct 35.1 L D (37.0-47.0) % MCV 85.6 (80.0-98.0) fL MCH 27.3 (27.0-33.0) pg MCHC 31.9 (31.0-35.0) g/dl RDW 17.1 H (11.0-16.0) % Plt Count 246 (160-400) X10*3/uL MPV 11.6 (9.4-12.3) fL Immature Gran % (Auto) 0.2 (0.0-0.4) % Neut % (Auto) 76.0 H (45-73) % Lymph % (Auto) 15.0 L (20-40) % [place] % (Auto) 6.4 (2-11) % Eos % (Auto) 2.0 (0-4) % Baso % (Auto) 0.4 (0-2) % Lymph # (Auto) 1.6 (1.2-4.9) X10*3/uL [place] # (Auto) 0.7 (0.1-1.2) X10*3/uL Eos # (Auto) 0.2 (0.0-0.4) X10*3/uL Baso # (Auto) 0.0 (0.0-0.2) X10*3/uL Abs Immat Gran (auto) 0.02 (0.00-0.03) X10*3/uL Absolute Neuts (auto) 8.1 (2.0-8.3) x10*3/uL Absolute Nucleated RBC 0.000 (0.0-0.012) X10*3/uL Nucleated RBC % (auto) 0.0 (0.0-0.2) /100WBC PT (10.0-13.1) SEC INR (0.9-1.1) APTT (26.0-36.4) SEC Sodium 138 (135-145) mmol/L Potassium 5.0 D (3.3-5.1) mmol/L Chloride 105 (96-108) mmol/L Carbon Dioxide 22 (22-29) mmol/L Anion Gap 16 (12-20) BUN 59 H (9-16) mg/dL Creatinine 6.87 H* (0.5-1.4) mg/dL Estim Creat Clear Calc 7.7 Estimated GFR 6 Random Glucose 219 H (60-115) mg/dL Calcium 8.8 D (8.4-10.2) mg/dL Total Creatine Kinase 49 (26-140) U/L Troponin I High Sens 68.4 H* D (<3.5-17.0) ng/L 10/14/22 10/14/22 10/14/22 Range/Units 00:58 00:58 03:24 WBC (4.8-10.8) X10*3/uL RBC (4.20-5.50) X10*6/uL Hgb (12.0-16.0) g/dl Hct (37.0-47.0) % MCV (80.0-98.0) fL MCH (27.0-33.0) pg MCHC (31.0-35.0) g/dl RDW (11.0-16.0) % Plt Count (160-400) X10*3/uL MPV (9.4-12.3) fL Immature Gran % (Auto) (0.0-0.4) % Neut % (Auto) (45-73) % Lymph % (Auto) (20-40) % [place] % (Auto) (2-11) % Eos % (Auto) (0-4) % Baso % (Auto) (0-2) % Lymph # (Auto) (1.2-4.9) X10*3/uL [place] # (Auto) (0.1-1.2) X10*3/uL Eos # (Auto) (0.0-0.4) X10*3/uL Baso # (Auto) (0.0-0.2) X10*3/uL Abs Immat Gran (auto) (0.00-0.03) X10*3/uL Absolute Neuts (auto) (2.0-8.3) x10*3/uL Absolute Nucleated RBC (0.0-0.012) X10*3/uL Nucleated RBC % (auto) (0.0-0.2) /100WBC PT 12.2 (10.0-13.1) SEC INR 1.1 (0.9-1.1) APTT 26.0 D (26.0-36.4) SEC Sodium (135-145) mmol/L Potassium (3.3-5.1) mmol/L Chloride (96-108) mmol/L Carbon Dioxide (22-29) mmol/L Anion Gap (12-20) BUN (9-16) mg/dL Creatinine (0.5-1.4) mg/dL Estim Creat Clear Calc Estimated GFR Random Glucose (60-115) mg/dL Calcium (8.4-10.2) mg/dL Total Creatine Kinase (26-140) U/L Troponin I High Sens 117.7 H* D (<3.5-17.0) ng/L 10/14/22 Range/Units 05:33 WBC (4.8-10.8) X10*3/uL RBC (4.20-5.50) X10*6/uL Hgb (12.0-16.0) g/dl Hct (37.0-47.0) % MCV (80.0-98.0) fL MCH (27.0-33.0) pg MCHC (31.0-35.0) g/dl RDW (11.0-16.0) % Plt Count (160-400) X10*3/uL MPV (9.4-12.3) fL Immature Gran % (Auto) (0.0-0.4) % Neut % (Auto) (45-73) % Lymph % (Auto) (20-40) % [place] % (Auto) (2-11) % Eos % (Auto) (0-4) % Baso % (Auto) (0-2) % Lymph # (Auto) (1.2-4.9) X10*3/uL [place] # (Auto) (0.1-1.2) X10*3/uL Eos # (Auto) (0.0-0.4) X10*3/uL Baso # (Auto) (0.0-0.2) X10*3/uL Abs Immat Gran (auto) (0.00-0.03) X10*3/uL Absolute Neuts (auto) (2.0-8.3) x10*3/uL Absolute Nucleated RBC (0.0-0.012) X10*3/uL Nucleated RBC % (auto) (0.0-0.2) /100WBC PT (10.0-13.1) SEC INR (0.9-1.1) APTT (26.0-36.4) SEC Sodium (135-145) mmol/L Potassium (3.3-5.1) mmol/L Chloride (96-108) mmol/L Carbon Dioxide (22-29) mmol/L Anion Gap (12-20) BUN (9-16) mg/dL Creatinine (0.5-1.4) mg/dL Estim Creat Clear Calc Estimated GFR Random Glucose (60-115) mg/dL Calcium (8.4-10.2) mg/dL Total Creatine Kinase (26-140) U/L Troponin I High Sens 112.6 H* (<3.5-17.0) ng/L Independent Interpretation I performed an independent interpretation of an: EKG Interpretation: Normal sinus rhythm heart rate 73 beats per minute LVH nonspecific inverted T-waves in inferolateral leads similar to that in the past no acute ischemic change Discharge Plan Discharge Clinical Impression: Chest pain, End stage chronic kidney disease Patient Disposition: Home, Self-Care Instructions: Chest Pain (ED), End Stage Kidney Disease (ED) Additional Instructions: Have dialysis as scheduled today Follow-up with your refinisher Continue Prilosec, sucralfate as prescribed by your PCP Prescriptions: No Action (DME) walker Misc See Rx Instructions .Route Qty: 1 0RF Rx Instructions: As directed aspirin [Adult Low Dose Aspirin] 81 mg tablet,delayed release (DR/EC) 81 mg PO DAILY 90 Days Qty: 90 3RF (DME) diaper,brief,adult,disposable Misc See Rx Instructions .ROUTE .MEDSUPPLY Qty: 120 11RF Rx Instructions: Use 1 diaper as needed 6 times a day (DME) underpads [Bed Underpads] Pad See Rx Instructions .ROUTE .MEDSUPPLY Qty: 100 11RF Rx Instructions: Use 1 underpad as needed every 8 hours Brilinta 90 mg tablet 90 mg PO BID 90 Days Qty: 180 1RF carvedilol 25 mg tablet 25 mg PO BID 90 Days Qty: 180 1RF Rx Instructions: must administer with a meal/food atorvastatin 80 mg tablet 80 mg PO DAILY 90 Days Qty: 90 3RF insulin aspart U-100 100 unit/mL solution 5 unit subcut TID 90 Days Qty: 13.5 2RF (DME) FreeStyle Pedro 14 Day Sensor Kit See Rx Instructions .Route Qty: 1 0RF Rx Instructions: As directed Nephro-Josefina 0.8 mg tablet 1 tab PO DAILY 90 Days Qty: 90 3RF docusate sodium [Colace] 100 mg capsule 100 mg PO BID PRN (Reason: constipation) 90 Days Qty: 180 2RF ezetimibe 10 mg tablet 10 mg PO DAILY Qty: 30 6RF isosorbide mononitrate 60 mg tablet extended release 24 hr 60 mg PO DAILY 30 Days Qty: 30 6RF Protocol: Hold for SBP< HOLD for SBP < : 90 omeprazole 20 mg capsule,delayed release(DR/EC) 20 mg PO BID@0630,1630 30 Days Qty: 60 2RF (DME) pen needle, diabetic [BD Ultra-Fine Rin Pen Needle] 32 gauge x 5/32 needle See Rx Instructions .ROUTE .MEDSUPPLY Qty: 90 3RF Rx Instructions: Use 1 pen needle once a day cholecalciferol (vitamin D3) 50 mcg (2,000 unit) capsule 50 mcg PO DAILY 30 Days Qty: 30 6RF (DME) FreeStyle Test Strip See Rx Instructions .ROUTE .MEDSUPPLY Qty: 120 11RF Rx Instructions: Use 1 test strips four times a day amlodipine 10 mg tablet 10 mg PO DAILY Qty: 30 6RF Protocol: Hold for SBP< HOLD for SBP < : 90 (DME) insulin syringe-needle U-100 [BD Insulin Syringe Ultra-Fine] 1 mL 30 gauge x 1/2 syringe See Rx Instructions .Route Qty: 100 3RF Rx Instructions: test 4 times per day hydralazine 25 mg Tablet 25 mg PO TID insulin glargine [Lantus Solostar U-100 Insulin] 100 unit/mL (3 mL) insulin pen 5 unit subcut BEDTIME 30 Days Qty: 1.5 3RF acetaminophen 325 mg tablet 650 mg PO Q4H PRN (Reason: pain) 30 Days Qty: 180 1RF trazodone 50 mg tablet 50 mg PO BEDTIME PRN (Reason: sleep) 90 Days Qty: 90 1RF lisinopril 10 mg tablet 10 mg PO DAILY sucralfate 1 gram tablet 1 g PO QIDACHS Qty: 120 3RF metoclopramide HCl 10 mg tablet 10 mg PO QIDACHS Qty: 120 3RF
[2022-10-14 00:14] VITALS: BP 138/76; BP 153/63; PULSE 71; PULSE 80; RESP 20; TEMP 37; O2SAT 98; O2SAT 99; BMI 33.3
[2022-10-14] MEDS: Furosemide 100 MG/10 ML VIAL IVPUSH (00:58)
[2022-10-14] MEDS: Nitroglycerin 2 % Oint 1 GM Packet 0.5 INCH TRANSDERMA (00:59)
[2022-10-14 01:03] LABS: MANUAL DIFF FLAG NO
[2022-10-14 01:06] LABS: Basophils Percent Auto 0.4 % (0-2); Eosinophils Absolute Auto 0.2 X10*3/uL (0.0-0.4); Hematocrit 35.1 % (37.0-47.0); Hemoglobin 11.2 g/dl (12.0-16.0); Imm Gran Abs Auto 0.02 X10*3/uL (0.00-0.03); Imm Gran Pct Auto 0.2 % (0.0-0.4); Lymphocytes Absolute Auto 1.6 X10*3/uL (1.2-4.9); Mean Corpuscular HGB Conc 31.9 g/dl (31.0-35.0); Mean Corpuscular Hemoglobin 27.3 pg (27.0-33.0); Mean Corpuscular Volume 85.6 fL (80.0-98.0); Mean Platelet Volume 11.6 fL (9.4-12.3); Monocytes Absolute Auto 0.7 X10*3/uL (0.1-1.2); Monocytes Percent Auto 6.4 % (2-11); Neutrophils Absolute Auto 8.1 x10*3/uL (2.0-8.3); Platelet Count 246 X10*3/uL (160-400); Red Cell Distribution Width 17.1 % (11.0-16.0); White Blood Count 10.7 X10*3/uL (4.8-10.8)
[2022-10-14 01:12] LABS: INTERNATIONAL NORM RATIO 1.1 (0.9-1.1); Prothrombin Time 12.2 SEC (10.0-13.1)
[2022-10-14 01:54] LABS: Troponin-I High Sensitivity 68.4 ng/L (<3.5-17.0)
[2022-10-14 01:55] LABS: Anion Gap 16 (12-20); Blood Urea Nitrogen 59 mg/dL (9-16); Calcium 8.8 mg/dL (8.4-10.2); Carbon Dioxide 22 mmol/L (22-29); Chloride 105 mmol/L (96-108); Creatinine Clr Calc Pharmacy 7.7; Estimated Glomerular Filt Rate 6; Glucose Random 219 mg/dL (60-115); Sodium 138 mmol/L (135-145)
--- NOTE | 2022-10-14 01:56 | PC.NURSE ---
critical creatinine 6.87 and critical troponin 68.4. this rn made dr olvera aware per md repeat blood work in two hours no additional orders
[2022-10-14 02:27] VITALS: BP 150/66; PULSE 67; RESP 14; O2SAT 97
[2022-10-14 03:16] VITALS: BP 122/83; PULSE 66; RESP 18; O2SAT 100
[2022-10-14 03:47] LABS: Troponin-I High Sensitivity 117.7 ng/L (<3.5-17.0)
--- NOTE | 2022-10-14 03:57 | ECG_ITS ---
Test Reason : ABDOMINAL PAIN Blood Pressure : / mmHG Vent. Rate : 068 BPM Atrial Rate : 068 BPM P-R Int : 150 ms QRS Dur : 088 ms QT Int : 462 ms P-R-T Axes : 051 -32 224 degrees QTc Int : 491 ms Normal sinus rhythm Left axis deviation Possible Anterior infarct (cited on or before 10-JUN-2022) T wave abnormality, consider inferolateral ischemia Abnormal ECG When compared with ECG of 14-OCT-2022 00:10, No significant change was found Referred By: Hu Castillo Electronically Signed By:CONCETTA LEE MD
--- NOTE | 2022-10-14 04:10 | PC.NURSE ---
pt denies chest pain at this time. pt reports continued abd pain. repeat ekg ordered per dr olvera due to elevated troponin. repeat ekg obtained and given to dr olvera. no new additional ordered at this time
--- NOTE | 2022-10-14 04:39 | PC.NURSE ---
per dr olvera will repeat 3rd troponin @ 0896. pt currently taking brilinta. pt sleeping positioned on L side lights dimmed
[2022-10-14 05:14] VITALS: BP 172/67; PULSE 68; RESP 19; O2SAT 97
--- NOTE | 2022-10-14 05:33 | PC.NURSE ---
@ 1126 bed teacher reported to this rn bp of 172/67. this rn made dr olvera aware of bp. no new orders per md
[2022-10-14 05:57] LABS: Troponin-I High Sensitivity 112.6 ng/L (<3.5-17.0)
--- NOTE | 2022-10-14 06:18 | PC.NURSE ---
dr olvera informed this rn of plan for discharge. this rn and parts interpreter services called pt's daughter in law jeanne regarding plan for discharge and transportation plan. per daughter in law pt needs ambulance ride home. [facility] awaiting details for ambulance transport home. daughter in-laws phone number [phone]
--- NOTE | 2022-10-14 06:25 | MHC.EDTECH ---
Call out to [facility] @0619 to book BLS transport back home [phone] [place]
[2022-10-14 06:32] VITALS: BP 160/71; PULSE 65; RESP 20; TEMP 36.7; O2SAT 100
[2022-10-14] MEDS: Magnesium Hydrox/Alum Hydrox 30 ML ORAL.SUSP PO (06:50)
--- NOTE | 2022-10-14 06:56 | PC.NURSE ---
Addendum entered by Mckenzie Lyon 10/14/22 06:59: iv removed by this rn Original Note: pt medicated according to jul. pt awaiting ems transport home. report given to on coming nurse regarding discharge
--- NOTE | 2022-10-14 07:56 | PC.NURSE ---
Picked up by EMS to be transported home. Reviewed discharge plan with patient and sent patient home with all personal belongings.
== END 2022-10-14 07:56 | disposition home or self-care (01) ==
PROVIDERS: Emergency Provider Internal Medicine
DX: R07.89 Other chest pain (principal); E11.22 Type 2 diabetes mellitus with diabetic chronic kidney disease; I12.0 Hypertensive chronic kidney disease with stage 5 chronic kidney disease or end stage renal disease; N18.6 End stage renal disease; Z79.899 Other long term (current) drug therapy
CPT/HCPCS: 36415; 71045; 80048; 82550; 84484; 85025; 85610; 85730; 93005; 96374; 99284; J1940

== ENCOUNTER 2022-11-09 13:36 | Inpatient (IN) | payer OTHER, SELFPAY ==
[2022-11-09 13:54] VITALS: BP 172/88; BP 182/77; PULSE 68; PULSE 72; RESP 17; TEMP 36.6; O2SAT 100; O2SAT 99
--- NOTE | 2022-11-09 15:32 | ED.SOB ---
HPI - SOB/Dyspnea General Chief Complaint: Dyspnea Stated Complaint: Fatigue per EMS Time Seen by Provider: 11/09/22 14:11 Source: patient, EMS and felt dyeing machine tender Mode of arrival: EMS Limitations: no limitations History of Present Illness HPI Narrative: 67-year-old female end-stage renal disease on HD last dialysis last dialysis was on Thursday patient started to have shortness of breath since 04:00 a.m., no chest pain, patient been also treated for dialysis catheter in the right chest with antibiotic. No fever, no chills. Related Data Home Medications Medication Instructions Recorded Confirmed hydralazine 25 mg tablet 25 mg PO TID 06/10/22 08/26/22 lisinopril 10 mg tablet 10 mg PO DAILY 10/09/22 Previous Rx's Medication Instructions Recorded walker #1 ea 08/13/21 aspirin 81 mg tablet,delayed 81 mg PO DAILY 90 days #90 tabs 11/07/21 release (Adult Low Dose Aspirin) diaper,brief,adult,disposable #120 ea 12/05/21 underpads (Bed Underpads) #100 ea 12/05/21 carvedilol 25 mg tablet 25 mg PO BID 90 days #180 tabs 07/21/22 ticagrelor 90 mg tablet (Brilinta) 90 mg PO BID 90 days #180 tabs 07/21/22 acetaminophen 325 mg tablet 650 mg PO Q4H PRN pain 30 days 08/26/22 #180 tabs insulin glargine 100 unit/mL (3 5 unit (0.05 mL) subcut BEDTIME 30 08/26/22 mL) subcutaneous pen (Lantus days #1.5 mL Solostar U-100 Insulin) trazodone 50 mg tablet 50 mg PO BEDTIME PRN sleep 90 days 08/26/22 #90 tabs atorvastatin 80 mg tablet 80 mg PO DAILY 90 days #90 tabs 09/18/22 insulin aspart U-100 100 unit/mL 5 unit (0.05 mL) subcut TID 90 09/30/22 subcutaneous solution days #13.5 mL metoclopramide HCl 10 mg tablet 10 mg PO QIDACHS #120 tabs 10/09/22 sucralfate 1 gram tablet 1 g PO QIDACHS #120 tabs 10/09/22 amlodipine 10 mg tablet 10 mg PO DAILY #30 tabs 10/10/22 blood sugar diagnostic (FreeStyle #120 ea 10/10/22 Test strips) cholecalciferol (vitamin D3) 50 50 mcg PO DAILY 30 days #30 caps 10/10/22 mcg (2,000 unit) capsule docusate sodium 100 mg capsule 100 mg PO BID PRN constipation 90 10/10/22 (Colace) days #180 caps ezetimibe 10 mg tablet 10 mg PO DAILY #30 tabs 10/10/22 insulin syringe-needle U-100 1 mL #100 ea 10/10/22 30 gauge x 1/2 (BD Insulin Syringe Ultra-Fine) isosorbide mononitrate 60 mg 60 mg PO DAILY 30 days #30 tabs 10/10/22 tablet,extended release 24 hr omeprazole 20 mg capsule,delayed 20 mg PO BID@0630,1630 30 days #60 10/10/22 release caps pen needle, diabetic 32 gauge x #90 ea 10/10/22 5/32 (BD Ultra-Fine Rin Pen Needle) vitamin B complex-vitamin C-folic 1 tab PO DAILY 90 days #90 tabs 10/10/22 acid 0.8 mg tablet (Nephro-Josefina) flash glucose sensor (FreeStyle #2 ea 10/18/22 Pedro 14 Day Sensor kit) Allergies Allergy/AdvReac Type Severity Reaction Status Date / Time No Known Allergies Allergy Verified 08/26/22 13:41 Review of Systems Review of Systems: All other systems are reviewed and are negative Constitutional: Reports as per HPI and Reports no additional constitutional complaints Eyes: Reports as per HPI and Reports no additional eye complaints Reports system reviewed and no additional complaints, except as documented Cardiovascular: Reports as per HPI and Reports no additional cardiovascular complaints Respiratory: Reports as per HPI and Reports no additional respiratory complaints Gastrointestinal: Reports as per HPI and Reports no additional gastrointestinal complaints Genitourinary: Reports no additional female genitourinary complaints Musculoskeletal: Reports no additional musculoskeletal complaints Skin/Breast: Reports system reviewed and no additional complaints, except as docu Psychiatric: Reports no additional psychiatric complaints Endocrine: Reports no additional endocrine complaints Hematologic/Lymphatic: Reports no additional hematologic/lymphatic complaints Allergic/Immunologic: Reports no additional allergic/immunologic complaints Reports system reviewed and no additional complaints, except as documented and Reports Abnormal speech present [facility] Past Medical History Medical History Abdominal pain Cataract Cough COVID-19 Delayed gastric emptying Diabetic nephropathy associated with type 2 diabetes mellitus Diabetic polyneuropathy associated with type 2 diabetes mellitus DM renal manif type II Dyslipidemia ESRD on hemodialysis Essential hypertension Gastritis GERD (gastroesophageal reflux disease) Type 2 diabetes mellitus with hyperglycemia Type 2 diabetes mellitus with other diabetic kidney complication Vitamin D deficiency Surgical History Arteriovenous fistula for hemodialysis in place, primary History of amputation Status post cardiac catheterization Status post cardiac catheterization Family History Family History Mother Diabetes Hypertension Father Hypertension Social History Social History Household Members: Children Household Members Other:: son & daughter Housing: Apartment Do you presently have visiting nurse or other home services: No Alcohol intake: never Patient Tobacco Use Status: Never used Tobacco e-Cigarette/Vaping Use: Never Used Second Hand Smoke Exposure: No Advance Directives: Yes Advance Directives on File: Yes Advance Directives Date on File: 07/09/21 service: No Current occupational status: disabled Cognitive needs: Yes Hearing needs: No Vision needs: Yes Physical Exam Vital Signs: Vital Signs: Last Vital Signs Temp 97.8 F 11/09/22 13:54 Pulse 72 11/09/22 13:54 Resp 17 11/09/22 13:54 BP 182/77 H 11/09/22 13:54 Pulse Ox 99 11/09/22 13:54 O2 Del Method Room Air 11/09/22 13:54 BMI result Body Mass Index 30.0 Vital signs have been reviewed as appeared to be correct. Blood pressure normal. Heart rate normal. Respiration rate normal. Temperature normal. Oxygen saturation normal. Appearance: Alert. Oriented X3. No acute distress. Head: Normal external exam. Normocephalic. Atraumatic. No Lux signs noted. No raccoon eyes noted Eyes: PERRLA. EOMI. Conjunctiva and sclera normal. Eyelids normal. ENT: TM's Normal. Pharynx normal. Uvula midline. Moist mucous membranes. No trismus noted. No drooling noted. No muffled voice noted. Neck: Normal inspection. Neck supple. FROM. No adenopathy. Thyroid Normal. No meningeal signs. No neck mass noted. CVS: Normal heart rate and rhythm. Heart sound normal. No murmurs noted. Pulses normal throughout. Respiratory: No respiratory distress. Painless inspiration. Breath sounds normal. Bilateral pulmonary bases rales.. Chest nontender. No accessory muscle usage noted or decreased air movement noted. Abdomen: Soft and nontender. Bowel sounds normal in all 4 quadrants. No distention noted. No organomegaly noted. No visible injury noted. Back: No CVA tenderness. Full range of motion noted. Skin: Skin warm and dry. Normal skin color. Normal skin turgor. No rashes/lesions/lacerations noted. Extremities: +2 bilat lower extremity edema. Extremities exhibit normal range of motion. Extremities nontender. Neuro: Oriented X 3. Cranial nerve exam: II-XII are grossly intact No motor deficit. No sensory deficit. Reflexes normal. Course Course Course Narrative: Volume overload needed dialysis the case discussed with who will arrange for dialysis today will admit. Medical Decision Making Differential Diagnosis Differential Diagnoses: The differential diagnosis associated with the presentation includes (Volume overload, congestive heart failure, pneumonia, pleural effusion, electrolyte abnormalities, severe anemia, UTI.) Admission/Observation Consideration of admission/observation: Escalation of care including admission/observation considered Consult Healthcare Provider Management of the patient was discussed with: Hospitalist (Dr. Wells) Lab Data MDM Lab Attestation statement: I reviewed the patient's lab results. 11/09/22 14:14 11/09/22 14:14 Labs: Lab Results 11/09/22 11/09/22 11/09/22 Range/Units 14:14 14:14 14:14 WBC 9.2 (4.8-10.8) X10*3/uL RBC 4.13 L (4.20-5.50) X10*6/uL Hgb 11.5 L (12.0-16.0) g/dl Hct 36.0 L (37.0-47.0) % MCV 87.2 (80.0-98.0) fL MCH 27.8 (27.0-33.0) pg MCHC 31.9 (31.0-35.0) g/dl RDW 16.1 H (11.0-16.0) % Plt Count 233 (160-400) X10*3/uL MPV 11.7 (9.4-12.3) fL Immature Gran % (Auto) 0.3 (0.0-0.4) % Neut % (Auto) 66.7 (45-73) % Lymph % (Auto) 22.2 (20-40) % [place] % (Auto) 7.7 (2-11) % Eos % (Auto) 2.6 (0-4) % Baso % (Auto) 0.5 (0-2) % Lymph # (Auto) 2.1 (1.2-4.9) X10*3/uL [place] # (Auto) 0.7 (0.1-1.2) X10*3/uL Eos # (Auto) 0.2 (0.0-0.4) X10*3/uL Baso # (Auto) 0.1 (0.0-0.2) X10*3/uL Abs Immat Gran (auto) 0.03 (0.00-0.03) X10*3/uL Absolute Neuts (auto) 6.2 (2.0-8.3) x10*3/uL Absolute Nucleated RBC 0.000 (0.0-0.012) X10*3/uL Nucleated RBC % (auto) 0.0 (0.0-0.2) /100WBC Sodium 138 (135-145) mmol/L Potassium 4.1 (3.3-5.1) mmol/L Chloride 101 (96-108) mmol/L Carbon Dioxide 23 (22-29) mmol/L Anion Gap 18 (12-20) BUN 33 H (9-16) mg/dL Creatinine 5.26 H* (0.5-1.4) mg/dL Estim Creat Clear Calc 10.7 Estimated GFR 8 Random Glucose 143 H (60-115) mg/dL Lactic Acid (0.5-2.0) mmol/L Calcium 10.0 D (8.4-10.2) mg/dL Troponin I High Sens 244.7 H* D (<3.5-17.0) ng/L 11/09/22 Range/Units 14:46 WBC (4.8-10.8) X10*3/uL RBC (4.20-5.50) X10*6/uL Hgb (12.0-16.0) g/dl Hct (37.0-47.0) % MCV (80.0-98.0) fL MCH (27.0-33.0) pg MCHC (31.0-35.0) g/dl RDW (11.0-16.0) % Plt Count (160-400) X10*3/uL MPV (9.4-12.3) fL Immature Gran % (Auto) (0.0-0.4) % Neut % (Auto) (45-73) % Lymph % (Auto) (20-40) % [place] % (Auto) (2-11) % Eos % (Auto) (0-4) % Baso % (Auto) (0-2) % Lymph # (Auto) (1.2-4.9) X10*3/uL [place] # (Auto) (0.1-1.2) X10*3/uL Eos # (Auto) (0.0-0.4) X10*3/uL Baso # (Auto) (0.0-0.2) X10*3/uL Abs Immat Gran (auto) (0.00-0.03) X10*3/uL Absolute Neuts (auto) (2.0-8.3) x10*3/uL Absolute Nucleated RBC (0.0-0.012) X10*3/uL Nucleated RBC % (auto) (0.0-0.2) /100WBC Sodium (135-145) mmol/L Potassium (3.3-5.1) mmol/L Chloride (96-108) mmol/L Carbon Dioxide (22-29) mmol/L Anion Gap (12-20) BUN (9-16) mg/dL Creatinine (0.5-1.4) mg/dL Estim Creat Clear Calc Estimated GFR Random Glucose (60-115) mg/dL Lactic Acid 1.5 (0.5-2.0) mmol/L Calcium (8.4-10.2) mg/dL Troponin I High Sens (<3.5-17.0) ng/L Independent Interpretation I performed an independent interpretation of an: Plain X-Ray (Pulmonary congestion with no roger edema.) Chronic Conditions Patient?s care impacted by: Other (ESRD) Discharge Plan Discharge Clinical Impression: CHF (congestive heart failure), End-stage renal disease (ESRD), Dyspnea Patient Disposition: Admitted As Inpatient Prescriptions: No Action (DME) walker Misc See Rx Instructions .Route Qty: 1 0RF Rx Instructions: As directed aspirin [Adult Low Dose Aspirin] 81 mg tablet,delayed release (DR/EC) 81 mg PO DAILY 90 Days Qty: 90 3RF (DME) diaper,brief,adult,disposable Misc See Rx Instructions .ROUTE .MEDSUPPLY Qty: 120 11RF Rx Instructions: Use 1 diaper as needed 6 times a day (DME) underpads [Bed Underpads] Pad See Rx Instructions .ROUTE .MEDSUPPLY Qty: 100 11RF Rx Instructions: Use 1 underpad as needed every 8 hours Brilinta 90 mg tablet 90 mg PO BID 90 Days Qty: 180 1RF carvedilol 25 mg tablet 25 mg PO BID 90 Days Qty: 180 1RF Rx Instructions: must administer with a meal/food atorvastatin 80 mg tablet 80 mg PO DAILY 90 Days Qty: 90 3RF insulin aspart U-100 100 unit/mL solution 5 unit subcut TID 90 Days Qty: 13.5 2RF Nephro-Josefina 0.8 mg tablet 1 tab PO DAILY 90 Days Qty: 90 3RF docusate sodium [Colace] 100 mg capsule 100 mg PO BID PRN (Reason: constipation) 90 Days Qty: 180 2RF ezetimibe 10 mg tablet 10 mg PO DAILY Qty: 30 6RF isosorbide mononitrate 60 mg tablet extended release 24 hr 60 mg PO DAILY 30 Days Qty: 30 6RF Protocol: Hold for SBP< HOLD for SBP < : 90 omeprazole 20 mg capsule,delayed release(DR/EC) 20 mg PO BID@0630,1630 30 Days Qty: 60 2RF (DME) pen needle, diabetic [BD Ultra-Fine Rin Pen Needle] 32 gauge x 5/32 needle See Rx Instructions .ROUTE .MEDSUPPLY Qty: 90 3RF Rx Instructions: Use 1 pen needle once a day cholecalciferol (vitamin D3) 50 mcg (2,000 unit) capsule 50 mcg PO DAILY 30 Days Qty: 30 6RF (DME) FreeStyle Test Strip See Rx Instructions .ROUTE .MEDSUPPLY Qty: 120 11RF Rx Instructions: Use 1 test strips four times a day amlodipine 10 mg tablet 10 mg PO DAILY Qty: 30 6RF Protocol: Hold for SBP< HOLD for SBP < : 90 (DME) insulin syringe-needle U-100 [BD Insulin Syringe Ultra-Fine] 1 mL 30 gauge x 1/2 syringe See Rx Instructions .Route Qty: 100 3RF Rx Instructions: test 4 times per day (DME) FreeStyle Pedro 14 Day Sensor Kit See Rx Instructions .Route Qty: 2 11RF Rx Instructions: As directed hydralazine 25 mg Tablet 25 mg PO TID insulin glargine [Lantus Solostar U-100 Insulin] 100 unit/mL (3 mL) insulin pen 5 unit subcut BEDTIME 30 Days Qty: 1.5 3RF acetaminophen 325 mg tablet 650 mg PO Q4H PRN (Reason: pain) 30 Days Qty: 180 1RF trazodone 50 mg tablet 50 mg PO BEDTIME PRN (Reason: sleep) 90 Days Qty: 90 1RF lisinopril 10 mg tablet 10 mg PO DAILY sucralfate 1 gram tablet 1 g PO QIDACHS Qty: 120 3RF metoclopramide HCl 10 mg tablet 10 mg PO QIDACHS Qty: 120 3RF
--- NOTE | 2022-11-09 15:54 | PM.IMHP ---
History of Present Illness Date of Service: 11/09/22 Chief Complaint: chest pain, abd pain, sob 67-year-old female with history of coronary artery disease s/p SISI of the mid LAD in 07/2019, HFrEF, insulin-dependent type 2 diabetes, GERD, gastritis, hypertension, ESRD on hemodialysis MWF related to diabetic nephropathy, dyslipidemia, diabetic polyneuropathy presented to the ED for evaluation of epigastric pain, diarrhea, chest pain, shortness of breath that started around 04:00 this morning.?very similar to presentation jun 2022, when patient was admitted to [facility] for covid and NSTEMI, plan at that time was to arrange cardiac cath as outpatient. this does not appear to have taken place. in ED cxr c/w pulmonary edema, trop mildly elevated from baseline, ekg with some chronic ischemic changes. Review of Systems Review of Systems: Yes all other systems are reviewed and are negative [facility] Medical History Abdominal pain Cataract Cough COVID-19 Delayed gastric emptying Diabetic nephropathy associated with type 2 diabetes mellitus Diabetic polyneuropathy associated with type 2 diabetes mellitus DM renal manif type II Dyslipidemia ESRD on hemodialysis Essential hypertension Gastritis GERD (gastroesophageal reflux disease) Type 2 diabetes mellitus with hyperglycemia Type 2 diabetes mellitus with other diabetic kidney complication Vitamin D deficiency Family History Mother Diabetes Hypertension Father Hypertension Surgical History Arteriovenous fistula for hemodialysis in place, primary History of amputation Status post cardiac catheterization Status post cardiac catheterization Social History Household Members: Children Household Members Other:: son & daughter Housing: Apartment Do you presently have visiting nurse or other home services: No Alcohol intake: never Patient Tobacco Use Status: Never used Tobacco e-Cigarette/Vaping Use: Never Used Second Hand Smoke Exposure: No Advance Directives: Yes Advance Directives on File: Yes Advance Directives Date on File: 07/09/21 service: No Current occupational status: disabled Cognitive needs: Yes Hearing needs: No Vision needs: Yes Meds Allergies Allergy/AdvReac Type Severity Reaction Status Date / Time No Known Allergies Allergy Verified 08/26/22 13:41 Active Medications: Current Medications Dextrose (Dextrose 50 % 25 Gm/50 Ml Syringe) 25 gm IVPUSH Q15M PRN; Protocol PRN Reason: per Hypoglycemia Standing Ord. Glucose (Glucose Gel 15 Gm Gel..Gram.) 15 gm PO Q15M PRN; Protocol PRN Reason: per Hypoglycemia Standing Ord. Insulin Glargine (Insulin Glargine,Hum.Rec.Anlog 100 Unit/Ml 10 Ml Vial) 5 unit SUBCUT BEDTIME DOLORES Insulin Human Lispro (Insulin Lispro 100 Unit/Ml 3 Ml Vial) 0 unit SUBCUT QIDACHS DOLORES; Protocol Pharmacy Consult (Consult Rx Perform Med Rec) 1 each MISCELLANE ONCE PRN PRN Reason: Consult order Home Medications Medication Instructions Recorded Confirmed Last Taken Type hydralazine 25 mg tablet 25 mg PO TID 06/10/22 08/26/22 06/10/22 History lisinopril 10 mg tablet 10 mg PO DAILY 10/09/22 Unknown History Physical Exam Vital Signs and Narrative: Vital Signs: Last Vital Signs Temp 97.8 F 11/09/22 13:54 Pulse 72 11/09/22 13:54 Resp 17 11/09/22 13:54 BP 182/77 H 11/09/22 13:54 Pulse Ox 99 11/09/22 13:54 O2 Del Method Room Air 11/09/22 13:54 BMI result Body Mass Index 30.0 General: AO X 3, sob, Resp: Crackles bilateral, accessory muscles used CVS: S1,S2,RRR GI: soft, non tender, non distended Neuro: motor grossly intact, alert Psych: appropriate affect, appropriate insight left hand multiple finger ampuations, signs of previous surgery Results Labs 11/09/22 14:14 11/09/22 14:14 Labs: Laboratory Results - last 24 hr 11/09/22 11/09/22 11/09/22 14:14 14:14 14:14 MCV 87.2 MCH 27.8 MCHC 31.9 RDW 16.1 H Plt Count 233 MPV 11.7 Immature Gran % (Auto) 0.3 Neut % (Auto) 66.7 Lymph % (Auto) 22.2 [place] % (Auto) 7.7 Eos % (Auto) 2.6 Baso % (Auto) 0.5 Lymph # (Auto) 2.1 [place] # (Auto) 0.7 Eos # (Auto) 0.2 Baso # (Auto) 0.1 Abs Immat Gran (auto) 0.03 Absolute Neuts (auto) 6.2 Absolute Nucleated RBC 0.000 Nucleated RBC % (auto) 0.0 Anion Gap 18 Estim Creat Clear Calc 10.7 Estimated GFR 8 Random Glucose 143 H Lactic Acid Calcium 10.0 D Troponin I High Sens 244.7 H* D 11/09/22 14:46 MCV MCH MCHC RDW Plt Count MPV Immature Gran % (Auto) Neut % (Auto) Lymph % (Auto) [place] % (Auto) Eos % (Auto) Baso % (Auto) Lymph # (Auto) [place] # (Auto) Eos # (Auto) Baso # (Auto) Abs Immat Gran (auto) Absolute Neuts (auto) Absolute Nucleated RBC Nucleated RBC % (auto) Anion Gap Estim Creat Clear Calc Estimated GFR Random Glucose Lactic Acid 1.5 Calcium Troponin I High Sens Imaging Radiologist's Impressions: Impressions Chest X-Ray 11/09/22 14:09 IMPRESSION: Cardiomegaly with pulmonary vascular congestion from volume overload. Assessment and Plan (1) CHF (congestive heart failure): Status: Acute Plan 67-year-old female with history of coronary artery disease s/p SISI of the mid LAD in 07/2019, HFrEF, insulin-dependent type 2 diabetes, GERD, gastritis, hypertension, ESRD on hemodialysis MWF related to diabetic nephropathy, dyslipidemia, diabetic polyneuropathy presented to the ED for evaluation of epigastric pain, diarrhea, chest pain, shortness of breath chest pain, known CAD dapl, statin follow up troponin cardio eval dyspnea due to acute on chronic systolic chf HD abd pain and diarrhea check ct abd, stool studies ppi DM insulin htn imdur, hydralazine, amlodipine ESRD hd dvt prophylaxis - hep sq full code paitent with significant chest pain and sob due to chf requiring HD due to eSRD, at risk for further decompendsation due to DM, HTN, frailty, therefore, expected to require atleast 2 midnights inpatient. Time Spent With Patient Time: Total time managing care of this patient today ____ minutes. Quality Stroke Does the patient have a stroke diagnosis?: No VTE Prior VTE?: No VTE Risk Level:: Medical - moderate - high VTE Device Contraindication: Treatment Not Indicated VTE Drug Contraindication: N/A - Med Ordered
--- NOTE | 2022-11-09 16:21 | PHA.MEDREC ---
Pharmacy Consult ? Medication Reconciliation Pharmacy has completed the medication reconciliation. asked patient about her medications and she said she could not remember them. Spoke with her daughter over the phone through an ampoule filler. She reports the patient having insurance issues with insulin and currently does not have any. Despite recent claim history, she is no longer taking ezetimibe, omeprazole, Docusate, isosorbide, and metoclopramide.
--- NOTE | 2022-11-09 17:30 | PC.NURSE ---
Patient to dialysis.
--- NOTE | 2022-11-09 19:00 | PC.NURSE ---
I assumed care of patient at 19:00. Patient is at dialysis at this time. This RN reviewed results of the blood work and noted repeat trop 461.5. This RN called to dining host and requested to draw PT/INR at dialysis. This RN called to dialysis, informed RN of results of troponin and informed that dining host will come to draw labs to dialysis. Heparin drip delayed d/t patient at dialysis. Charge nurse informed of above plan.
--- NOTE | 2022-11-09 20:00 | PC.NURSE ---
Patient returned from dialysis, quality assurance monitor chassis applied. Vital signs stable.Supplemental O2 at 2 LPM NC 96%-97%. Patient denies chest pain. Heparin drip started at 14 untis/hr, repeat PTT HD scheduled on 11/10/2022 at 03:15 am, no s/s of active bleeding noted. POC 148. Patient ate her dinner. Patient denies nausea at this time. Call kaur placed within patient's reach. Patient is able to make her needs known.
[2022-11-09 21:27] VITALS: BP 126/50; PULSE 63; RESP 18; TEMP 36.7; O2SAT 96
[2022-11-10 02:10] VITALS: BP 164/88; PULSE 66; RESP 16; TEMP 36.7; O2SAT 95
[2022-11-10 02:32] VITALS: BP 155/81; PULSE 67; RESP 17; TEMP 36.8; O2SAT 100
--- NOTE | 2022-11-10 03:33 | PC.NURSE ---
Patient is resting with her eyes closed, VSS. Patient denies chest, pain, no c/o nausea at this time. PTT HD drawn per phleboltomist, results pending. Call kaur placed within patient's reach.
[2022-11-10 05:35] VITALS: BP 130/62; PULSE 62; RESP 14; TEMP 36.7; O2SAT 98
[2022-11-10 05:50] VITALS: BP 151/65; PULSE 61; RESP 17; TEMP 36.6; O2SAT 100
[2022-11-10 06:23] LABS: Anion Gap 14 (12-20); Blood Urea Nitrogen 24 mg/dL (9-16); Calcium 9.3 mg/dL (8.4-10.2); Carbon Dioxide 22 mmol/L (22-29); Chloride 101 mmol/L (96-108); Creatinine Clr Calc Pharmacy 14.1; Estimated Glomerular Filt Rate 11; Glucose Fasting 88 mg/dL (60-99); Sodium 133 mmol/L (135-145)
--- NOTE | 2022-11-10 06:37 | PC.NURSE ---
Dr. Keen notified of critical troponin 796.6 drawn at 05:55 am.
[2022-11-10 07:11] VITALS: BP 159/74; PULSE 67; RESP 18; O2SAT 97
--- NOTE | 2022-11-10 07:12 | PC.NURSE ---
Alert and oriented, sitting up in bed eating breakfast. Denies pain, sob, or headache. hepain drip running at 14 units/hr. 97% on 2 liters 02. VSS
--- NOTE | 2022-11-10 10:11 | PM.DS ---
DS: Providers Provider Date of Service: 11/10/22 Date of admission: 11/09/22 15:52 Primary care physician: Deanna Hedrick MD Consults: 11/09/22 15:50 Consult to Nephrology Routine Consulting Provider: Gabriel Diaz Reason for consultation: esrd, chf 11/09/22 16:01 Consult to Cardiology Routine Consulting [place] [facility] [place] [facility] Reason for consultation: chest pain, CAD, recent NSTEMI 11/09/22 17:31 Consult to Gastroenterology Routine Consulting Provider: Martina Tariq Reason for consultation: ?rectal findings on CT DS: Diagnosis Discharge Diagnosis (1) CHF (congestive heart failure): Status: Acute DS: Summary Hospital Course Hospital Course: from initial hpi: 67-year-old female with history of coronary artery disease s/p SISI of the mid LAD in 07/2019, HFrEF, insulin-dependent type 2 diabetes, GERD, gastritis, hypertension, ESRD on hemodialysis MWF related to diabetic nephropathy, dyslipidemia, diabetic polyneuropathy presented to the ED? for evaluation of epigastric pain, diarrhea, chest pain, shortness of breath that started around 04:00 this morning.?very similar to presentation jun 2022, when patient was [place] [facility], plan at that time was to arrange cardiac cath as outpatient. this does not appear to have taken place. in ED cxr c/w pulmonary edema, trop mildly elevated from baseline, ekg with some chronic ischemic changes. hospital course: Patient was admitted for chest pain in a patient with known coronary disease. Troponins became positive and diagnosed with NSTEMI. Was continued on dual antiplatelet and statin and started on IV heparin. Was seen by Cardiology recommended transfer to [facility] for cardiac catheterization. Patient's dyspnea was also due to acute on chronic systolic CHF and underwent hemodialysis with improvement pulmonary edema and shortness of breath. Patient noted to have abdominal pain and diarrhea. CT abdomen showed Nonspecific thickening of the rectum. This could represent infectious etiology such as nonspecific proctitis. Infiltrating tumor including mucinous tumor can also appear this way. Correlate with digital rectal exam and follow-up GI evaluation indicated. No obstruction, she should follow up outpatient with GI. For diabetes was continue insulin. Hypertension was continue on Imdur, hydralazine, amlodipine. End-stage renal disease was continue on hemodialysis. Patient will be transferred to [facility]. Time Spent with Patient Time attestation: Total time managing care of this patient today ____ minutes. Discharge coordination time: Greater than 30 minutes Quality: Safe Use of Opioids Does Pt have an Active Cancer Diagnosis on the Problem List?: No Quality: Stroke Does the patient have a stroke diagnosis?: No Physical Exam Vital Signs: Vital Signs: Last Vital Signs Temp 98 F 11/10/22 05:50 Pulse 67 11/10/22 07:11 Resp 18 11/10/22 07:11 BP 159/74 H 11/10/22 07:11 Pulse Ox 97 11/10/22 07:11 O2 Del Method Nasal Cannula 11/10/22 07:11 O2 Flow Rate 2 11/10/22 07:11 BMI result Body Mass Index 30.0 Appearance: Alert. Oriented X3. No acute distress. Head: Normal external exam. Normocephalic. Atraumatic. No Lux signs noted. No raccoon eyes noted Eyes: PERRLA. EOMI. Conjunctiva and sclera normal. Eyelids normal. ENT: TM's Normal. Pharynx normal. Uvula midline. Moist mucous membranes. No trismus noted. No drooling noted. No muffled voice noted. Neck: Normal inspection. Neck supple. FROM. No adenopathy. Thyroid Normal. No meningeal signs. No neck mass noted. CVS: Normal heart rate and rhythm. Heart sound normal. No murmurs noted. Pulses normal throughout. Respiratory: No respiratory distress. Painless inspiration. Breath sounds normal. Bilateral pulmonary bases rales.. Chest nontender. No accessory muscle usage noted or decreased air movement noted. Abdomen: Soft and nontender. Bowel sounds normal in all 4 quadrants. No distention noted. No organomegaly noted. No visible injury noted. Back: No CVA tenderness. Full range of motion noted. Skin: Skin warm and dry. Normal skin color. Normal skin turgor. No rashes/lesions/lacerations noted. Extremities: +2 bilat lower extremity edema. Extremities exhibit normal range of motion. Extremities nontender. Neuro: Oriented X 3. Cranial nerve exam: II-XII are grossly intact No motor deficit. No sensory deficit. Reflexes normal. DS: Data Data Completed and Pending Completed studies during hospitalization [Text1]: Procedures Performance of Urinary Filtration, Intermittent, Less than 6 Hours Per Day (06/10/22) Labs on day of discharge: Laboratory Results - last 24 hr 11/09/22 11/09/22 11/09/22 14:14 14:14 14:14 WBC 9.2 RBC 4.13 L Hgb 11.5 L Hct 36.0 L MCV 87.2 MCH 27.8 MCHC 31.9 RDW 16.1 H Plt Count 233 MPV 11.7 Immature Gran % (Auto) 0.3 Neut % (Auto) 66.7 Lymph % (Auto) 22.2 Pratt % (Auto) 7.7 Eos % (Auto) 2.6 Baso % (Auto) 0.5 Lymph # (Auto) 2.1 Pratt # (Auto) 0.7 Eos # (Auto) 0.2 Baso # (Auto) 0.1 Abs Immat Gran (auto) 0.03 Absolute Neuts (auto) 6.2 Absolute Nucleated RBC 0.000 Nucleated RBC % (auto) 0.0 PT INR aPTT Heparin Protocol Sodium 138 Potassium 4.1 Chloride 101 Carbon Dioxide 23 Anion Gap 18 BUN 33 H Creatinine 5.26 H* Estim Creat Clear Calc 10.7 Estimated GFR 8 POC Glucose Random Glucose 143 H Fasting Glucose Lactic Acid Calcium 10.0 D Troponin I High Sens 244.7 H* D 11/09/22 11/09/22 11/09/22 14:46 16:55 19:58 WBC 10.7 RBC 5.28 D Hgb 14.4 D Hct 46.5 D MCV 88.1 MCH 27.3 MCHC 31.0 RDW 16.3 H Plt Count 297 D MPV 11.5 Immature Gran % (Auto) Neut % (Auto) Lymph % (Auto) Pratt % (Auto) Eos % (Auto) Baso % (Auto) Lymph # (Auto) Pratt # (Auto) Eos # (Auto) Baso # (Auto) Abs Immat Gran (auto) Absolute Neuts (auto) Absolute Nucleated RBC 0.000 Nucleated RBC % (auto) 0.0 PT INR aPTT Heparin Protocol Sodium Potassium Chloride Carbon Dioxide Anion Gap BUN Creatinine Estim Creat Clear Calc Estimated GFR POC Glucose Random Glucose Fasting Glucose Lactic Acid 1.5 Calcium Troponin I High Sens 461.5 H* D 11/09/22 11/09/22 11/10/22 19:58 21:31 03:11 WBC RBC Hgb Hct MCV MCH MCHC RDW Plt Count MPV Immature Gran % (Auto) Neut % (Auto) Lymph % (Auto) Pratt % (Auto) Eos % (Auto) Baso % (Auto) Lymph # (Auto) Pratt # (Auto) Eos # (Auto) Baso # (Auto) Abs Immat Gran (auto) Absolute Neuts (auto) Absolute Nucleated RBC Nucleated RBC % (auto) PT 10.3 INR 0.9 aPTT Heparin Protocol 31.4 L 65.6 D Sodium Potassium Chloride Carbon Dioxide Anion Gap BUN Creatinine Estim Creat Clear Calc Estimated GFR POC Glucose 148 H Random Glucose Fasting Glucose Lactic Acid Calcium Troponin I High Sens 11/10/22 11/10/22 11/10/22 05:55 05:55 05:55 WBC 10.4 RBC 4.38 Hgb 12.2 Hct 37.9 MCV 86.5 MCH 27.9 MCHC 32.2 RDW 16.1 H Plt Count 240 MPV 11.6 Immature Gran % (Auto) Neut % (Auto) Lymph % (Auto) Pratt % (Auto) Eos % (Auto) Baso % (Auto) Lymph # (Auto) Pratt # (Auto) Eos # (Auto) Baso # (Auto) Abs Immat Gran (auto) Absolute Neuts (auto) Absolute Nucleated RBC 0.000 Nucleated RBC % (auto) 0.0 PT 11.7 INR 1.0 aPTT Heparin Protocol Sodium 133 L Potassium 4.0 Chloride 101 Carbon Dioxide 22 Anion Gap 14 BUN 24 H Creatinine 3.98 H Estim Creat Clear Calc 14.1 Estimated GFR 11 POC Glucose Random Glucose Fasting Glucose 88 Lactic Acid Calcium 9.3 D Troponin I High Sens 11/10/22 11/10/22 05:55 07:02 WBC RBC Hgb Hct MCV MCH MCHC RDW Plt Count MPV Immature Gran % (Auto) Neut % (Auto) Lymph % (Auto) Pratt % (Auto) Eos % (Auto) Baso % (Auto) Lymph # (Auto) Pratt # (Auto) Eos # (Auto) Baso # (Auto) Abs Immat Gran (auto) Absolute Neuts (auto) Absolute Nucleated RBC Nucleated RBC % (auto) PT INR aPTT Heparin Protocol Sodium Potassium Chloride Carbon Dioxide Anion Gap BUN Creatinine Estim Creat Clear Calc Estimated GFR POC Glucose 89 Random Glucose Fasting Glucose Lactic Acid Calcium Troponin I High Sens 796.9 H* D Discharge Plan Discharge Anticipated Discharge Date/Time: 11/10/22 09:14 Patient Disposition: Xfer Acute Care Hospital Discharge Diagnosis: nstemi Referrals: [facility] [Outside] - 1 Week Deanna Sood MD [Primary Care Provider] - 1 Week Discharge Medications: New heparin(porcine) in 0.45% NaCl 25,000 unit/250 mL Parenteral Solution 25,000 unit continuous IV infusion .Q0M Qty: 0 0RF Continued (DME) walker Misc See Rx Instructions .Route Qty: 1 0RF Rx Instructions: As directed aspirin [Adult Low Dose Aspirin] 81 mg tablet,delayed release (DR/EC) 81 mg PO DAILY 90 Days Qty: 90 3RF (DME) diaper,brief,adult,disposable Misc See Rx Instructions .ROUTE .MEDSUPPLY Qty: 120 11RF Rx Instructions: Use 1 diaper as needed 6 times a day (DME) underpads [Bed Underpads] Pad See Rx Instructions .ROUTE .MEDSUPPLY Qty: 100 11RF Rx Instructions: Use 1 underpad as needed every 8 hours Brilinta 90 mg tablet 90 mg PO BID 90 Days Qty: 180 1RF carvedilol 25 mg tablet 25 mg PO BID 90 Days Qty: 180 1RF Rx Instructions: must administer with a meal/food atorvastatin 80 mg tablet 80 mg PO DAILY 90 Days Qty: 90 3RF Nephro-Josefina 0.8 mg tablet 1 tab PO DAILY 90 Days Qty: 90 3RF (DME) pen needle, diabetic [BD Ultra-Fine Rin Pen Needle] 32 gauge x 5/32 needle See Rx Instructions .ROUTE .MEDSUPPLY Qty: 90 3RF Rx Instructions: Use 1 pen needle once a day cholecalciferol (vitamin D3) 50 mcg (2,000 unit) capsule 50 mcg PO DAILY 30 Days Qty: 30 6RF (DME) FreeStyle Test Strip See Rx Instructions .ROUTE .MEDSUPPLY Qty: 120 11RF Rx Instructions: Use 1 test strips four times a day amlodipine 10 mg tablet 10 mg PO DAILY Qty: 30 6RF Protocol: Hold for SBP< HOLD for SBP < : 90 (DME) insulin syringe-needle U-100 [BD Insulin Syringe Ultra-Fine] 1 mL 30 gauge x 1/2 syringe See Rx Instructions .Route Qty: 100 3RF Rx Instructions: test 4 times per day (DME) FreeStyle Pedro 14 Day Sensor Kit See Rx Instructions .Route Qty: 2 11RF Rx Instructions: As directed hydralazine 25 mg Tablet 50 mg PO TID melatonin 10 mg Tablet 10 mg PO BEDTIME acetaminophen 325 mg tablet 650 mg PO Q4H PRN (Reason: pain) 30 Days Qty: 180 1RF trazodone 50 mg tablet 50 mg PO BEDTIME PRN (Reason: sleep) 90 Days Qty: 90 1RF lisinopril 10 mg tablet 10 mg PO DAILY sucralfate 1 gram tablet 1 g PO QIDACHS Qty: 120 3RF Discharge Orders: Discharge Order (Routine); Ordered 11/10/22 Ordered By: Reji Wells Diet: Advance to usual diet Activity on Discharge: As tolerated Stand Alone Forms: Patient Portal Discharge page Care Plan Goals: manage nstemi Health Concerns: esrd, nstemi Plan of Treatment: tranfer [facility] Assessment: see above
--- NOTE | 2022-11-10 10:17 | MHC.CM.PN ---
Met with patient and veneer layer in regards to discharge planning. Patient lives with her son and [id number], ambulates with a cane and has [employer] hours through [facility]. PCP verified. Copy of HCP verified to be on file. IMM explained and signed. Per Lead Injection Mold Technician, patient will transfer to [facility] for cardiac cath. This information was explained to [id number], Mayda, via telephone at [phone] with veneer layer and patient present. Continue to monitor for d/c needs.
--- NOTE | 2022-11-10 10:44 | PM.CNCAR ---
History of Present Illness History of Present Illness Date of Service: 11/10/22 Requesting physician: Reji Wells Consult reason: myocardial infarction Chief complaint: chest pain, sob, and abd pain Narrative: I was consulted to see Nicole in cardiology consultation today for NSTEMI. She is a 67-year-old female multiple medical problems with prior history of end-stage renal disease on hemodialysis, Thursday, diffuse coronary disease with prior multiple stenting to LAD, last stenting done last December to for in stent restenoses, with circumflex occlusion with collaterals, type 2 diabetes, systolic dysfunction with heart failure, minimal functionality at home. History was obtained with help of science interpreter. She says she is at home walks with a cane from room to room but does not exercise generally. Denies any recent heart failure symptoms. Came to the hospital with retrosternal chest pressure tightness. She is not the best historian. She said intermittently she has been getting this chest pain since last year. She did not report this. She has been taking all her medications. She was also noted to have elevated BNP and findings consistent with congestive heart failure. She did receive brief dialysis set session yesterday. She had troponins drawn which were positive for myocardial injury. She had EKG changes suggestive lateral ischemia. Cardiology consult was sought for further management plan. Review of Systems Constitutional: Constitutional: Reports no additional constitutional complaints ENT: Reports system reviewed and no additional complaints, except as documented Cardiovascular: Cardiovascular: Reports chest pain at rest, Denies rapid heart rate, Denies leg edema, Denies lightheadedness, Denies palpitations and Reports dyspnea Respiratory: Respiratory: Reports no additional respiratory complaints and Reports dyspnea Gastrointestinal: Gastrointestinal: Reports no additional gastrointestinal complaints Genitourinary: Genitourinary: Reports no additional female genitourinary complaints Musculoskeletal: Musculoskeletal: Reports no additional musculoskeletal complaints Integumentary/Breasts: Skin/Breast: Reports system reviewed and no additional complaints, except as docu Endocrine: Endocrine: Denies palpitations PMFSH Past Medical History Medical History Abdominal pain Cataract Cough COVID-19 Delayed gastric emptying Diabetic nephropathy associated with type 2 diabetes mellitus Diabetic polyneuropathy associated with type 2 diabetes mellitus DM renal manif type II Dyslipidemia ESRD on hemodialysis Essential hypertension Gastritis GERD (gastroesophageal reflux disease) Type 2 diabetes mellitus with hyperglycemia Type 2 diabetes mellitus with other diabetic kidney complication Vitamin D deficiency Family History Family History Mother Diabetes Hypertension Father Hypertension Surgical History Surgical History Arteriovenous fistula for hemodialysis in place, primary History of amputation Status post cardiac catheterization Status post cardiac catheterization Social History Social History Household Members: Children Household Members Other:: son & daughter Housing: Apartment Do you presently have visiting nurse or other home services: No Alcohol intake: never Patient Tobacco Use Status: Never used Tobacco e-Cigarette/Vaping Use: Never Used Second Hand Smoke Exposure: No Advance Directives: Yes Advance Directives on File: Yes Advance Directives Date on File: 07/09/21 Nutrition Risks: No Nutritional Risk service: No Current occupational status: disabled Cognitive needs: Yes Hearing needs: No Vision needs: Yes Meds Allergies Allergy/AdvReac Type Severity Reaction Status Date / Time No Known Allergies Allergy Verified 08/26/22 13:41 Active Medications: Current Medications Amlodipine Besylate (Amlodipine Besylate 10 Mg Tablet) 10 mg PO DAILY [facility]; Protocol Last Admin: 11/10/22 07:35 Dose: 10 mg Aspirin (Aspirin Enteric Coated 81 Mg Tablet.Dr) 81 mg PO DAILY [facility] Last Admin: 11/10/22 07:36 Dose: 81 mg Atorvastatin Calcium (Atorvastatin Calcium 80 Mg Tablet) 80 mg PO DAILY [facility] Last Admin: 11/10/22 07:35 Dose: 80 mg Carvedilol (Carvedilol 25 Mg Tablet) 25 mg PO BID [facility]; Protocol Last Admin: 11/10/22 07:36 Dose: 25 mg Dextrose (Dextrose 50 % 25 Gm/50 Ml Syringe) 25 gm IVPUSH Q15M PRN; Protocol PRN Reason: per Hypoglycemia Standing Ord. Glucose (Glucose Gel 15 Gm Gel..Gram.) 15 gm PO Q15M PRN; Protocol PRN Reason: per Hypoglycemia Standing Ord. Heparin Sodium (Porcine) (Heparin Sodium,Porcine 5,000 Unit/Ml Vial) 3,200 unit 40 unit/kg (3200 unit) IVPUSH PROTOCOL BOLUS PRN; Protocol PRN Reason: 40 unit/kg - Heparin Protocol Heparin Sodium (Porcine) (Heparin Sodium,Porcine 5,000 Unit/Ml Vial) 6,300 unit 80 unit/kg (6300 unit) IVPUSH PROTOCOL BOLUS PRN; Protocol PRN Reason: 80 unit/kg - Heparin Protocol Hydralazine HCl (Hydralazine Hcl 50 Mg Tablet) 50 mg PO TID [facility]; Protocol Last Admin: 11/10/22 07:39 Dose: 50 mg Heparin Sodium/Sodium Chloride (Heparin Sodium,Porcine/1/2ns) 25,000 unit in 250 mls @ 0 mls/hr IVCONT .Q0M [facility]; Protocol Last Admin: 11/09/22 21:13 Dose: 14 units/kg/hr, 11.09 mls/hr Insulin Glargine (Insulin Glargine,Hum.Rec.Anlog 100 Unit/Ml 10 Ml Vial) 5 unit SUBCUT BEDTIME [facility] Last Admin: 11/09/22 21:43 Dose: 5 unit Insulin Human Lispro (Insulin Lispro 100 Unit/Ml 3 Ml Vial) 0 unit SUBCUT QIDACHS [facility]; Protocol Last Admin: 11/10/22 07:43 Dose: Not Given Lisinopril (Lisinopril 10 Mg Tablet) 10 mg PO DAILY [facility]; Protocol Last Admin: 11/10/22 07:36 Dose: 10 mg Melatonin (Melatonin 3 Mg Tablet) 9 mg PO BEDTIME [facility] Last Admin: 11/09/22 21:06 Dose: 9 mg Morphine Sulfate (Morphine Sulfate 2 Mg/Ml Cartridge) 2 mg IVPUSH Q3H PRN; Protocol PRN Reason: moderate pain Nitroglycerin (Nitroglycerin 0.4 Mg Tab.Subl) 0.4 mg SUBLINGUAL Q5MX3 PRN PRN Reason: chest pain Omeprazole (Omeprazole 40 Mg Capsule.Dr) 40 mg PO DAILY@0630 [facility] Last Admin: 11/10/22 06:01 Dose: 40 mg Pharmacy Consult (Consult Rx Perform Med Rec) 1 each MISCELLANE ONCE PRN PRN Reason: Consult order Sodium Chloride (0.9 % Sodium Chloride Flush 3 Ml Syringe) 3 ml IVFLUSH QSHIFT [facility] Last Admin: 11/10/22 07:35 Dose: 3 ml Ticagrelor (Ticagrelor 90 Mg Tablet) 90 mg PO BID [facility] Last Admin: 11/10/22 07:35 Dose: 90 mg Trazodone HCl (Trazodone Hcl 50 Mg Tablet) 50 mg PO BEDTIME PRN PRN Reason: sleep Vitamin D (Cholecalciferol (Vitamin D3) 25 Mcg Tablet) 50 mcg PO DAILY [facility] Last Admin: 11/10/22 07:36 Dose: 50 mcg Home Medications Medication Instructions Recorded Confirmed Last Taken Type hydralazine 25 mg tablet 50 mg PO TID 06/10/22 11/09/22 06/10/22 History lisinopril 10 mg tablet 10 mg PO DAILY 10/09/22 11/09/22 Unknown History melatonin 10 mg tablet 10 mg PO BEDTIME 11/09/22 11/09/22 Unknown History Physical Exam Vital Signs: Vital Signs: Last Vital Signs Temp 98 F 11/10/22 05:50 Pulse 67 11/10/22 07:11 Resp 18 11/10/22 07:11 BP 159/74 H 11/10/22 07:11 Pulse Ox 97 11/10/22 07:11 O2 Del Method Nasal Cannula 11/10/22 07:11 O2 Flow Rate 2 11/10/22 07:11 BMI result Body Mass Index 30.0 Const: General: cooperative, comfortable, no acute distress, alert, awake and tired appearing Nutritional Appearance: overweight Orientation/consciousness: patient oriented x3 HEENT: Head: Yes normocephalic and Yes atraumatic Neck: Neck: Yes trachea midline, Yes supple and Yes no JVD Resp: Effort & Inspection: normal respiratory effort Auscultation: clear to auscultation bilaterally Cardio: Jugular venous distension: no JVD Palpation: abnormal PMI displaced PMI Rate: regular rate Rhythm: regular rhythm Heart sounds: S1 normal heart sound present, S2 normal heart sound present, no click, no gallops, no murmurs and no rubs GI: Auscultation: normal bowel sounds Skin: General skin exam: no rashes or lesions noted Neuro: General: patient oriented x3 and no focal motor deficits Extrem: General: Yes no clubbing, cyanosis or edema Objective Labs and Meds 11/10/22 05:55 11/10/22 05:55 Lab results: Laboratory Results - last 24 hr 11/09/22 11/09/22 11/09/22 14:14 14:14 14:14 WBC 9.2 RBC 4.13 L Hgb 11.5 L Hct 36.0 L MCV 87.2 MCH 27.8 MCHC 31.9 RDW 16.1 H Plt Count 233 MPV 11.7 Immature Gran % (Auto) 0.3 Neut % (Auto) 66.7 Lymph % (Auto) 22.2 [place] % (Auto) 7.7 Eos % (Auto) 2.6 Baso % (Auto) 0.5 Lymph # (Auto) 2.1 [place] # (Auto) 0.7 Eos # (Auto) 0.2 Baso # (Auto) 0.1 Abs Immat Gran (auto) 0.03 Absolute Neuts (auto) 6.2 Absolute Nucleated RBC 0.000 Nucleated RBC % (auto) 0.0 PT INR aPTT Heparin Protocol Sodium 138 Potassium 4.1 Chloride 101 Carbon Dioxide 23 Anion Gap 18 BUN 33 H Creatinine 5.26 H* Estim Creat Clear Calc 10.7 Estimated GFR 8 POC Glucose Random Glucose 143 H Fasting Glucose Lactic Acid Calcium 10.0 D Troponin I High Sens 244.7 H* D 11/09/22 11/09/22 11/09/22 14:46 16:55 19:58 WBC 10.7 RBC 5.28 D Hgb 14.4 D Hct 46.5 D MCV 88.1 MCH 27.3 MCHC 31.0 RDW 16.3 H Plt Count 297 D MPV 11.5 Immature Gran % (Auto) Neut % (Auto) Lymph % (Auto) [place] % (Auto) Eos % (Auto) Baso % (Auto) Lymph # (Auto) [place] # (Auto) Eos # (Auto) Baso # (Auto) Abs Immat Gran (auto) Absolute Neuts (auto) Absolute Nucleated RBC 0.000 Nucleated RBC % (auto) 0.0 PT INR aPTT Heparin Protocol Sodium Potassium Chloride Carbon Dioxide Anion Gap BUN Creatinine Estim Creat Clear Calc Estimated GFR POC Glucose Random Glucose Fasting Glucose Lactic Acid 1.5 Calcium Troponin I High Sens 461.5 H* D 11/09/22 11/09/22 11/10/22 19:58 21:31 03:11 WBC RBC Hgb Hct MCV MCH MCHC RDW Plt Count MPV Immature Gran % (Auto) Neut % (Auto) Lymph % (Auto) [place] % (Auto) Eos % (Auto) Baso % (Auto) Lymph # (Auto) [place] # (Auto) Eos # (Auto) Baso # (Auto) Abs Immat Gran (auto) Absolute Neuts (auto) Absolute Nucleated RBC Nucleated RBC % (auto) PT 10.3 INR 0.9 aPTT Heparin Protocol 31.4 L 65.6 D Sodium Potassium Chloride Carbon Dioxide Anion Gap BUN Creatinine Estim Creat Clear Calc Estimated GFR POC Glucose 148 H Random Glucose Fasting Glucose Lactic Acid Calcium Troponin I High Sens 11/10/22 11/10/22 11/10/22 05:55 05:55 05:55 WBC 10.4 RBC 4.38 Hgb 12.2 Hct 37.9 MCV 86.5 MCH 27.9 MCHC 32.2 RDW 16.1 H Plt Count 240 MPV 11.6 Immature Gran % (Auto) Neut % (Auto) Lymph % (Auto) [place] % (Auto) Eos % (Auto) Baso % (Auto) Lymph # (Auto) [place] # (Auto) Eos # (Auto) Baso # (Auto) Abs Immat Gran (auto) Absolute Neuts (auto) Absolute Nucleated RBC 0.000 Nucleated RBC % (auto) 0.0 PT 11.7 INR 1.0 aPTT Heparin Protocol Sodium 133 L Potassium 4.0 Chloride 101 Carbon Dioxide 22 Anion Gap 14 BUN 24 H Creatinine 3.98 H Estim Creat Clear Calc 14.1 Estimated GFR 11 POC Glucose Random Glucose Fasting Glucose 88 Lactic Acid Calcium 9.3 D Troponin I High Sens 11/10/22 11/10/22 05:55 07:02 WBC RBC Hgb Hct MCV MCH MCHC RDW Plt Count MPV Immature Gran % (Auto) Neut % (Auto) Lymph % (Auto) [place] % (Auto) Eos % (Auto) Baso % (Auto) Lymph # (Auto) [place] # (Auto) Eos # (Auto) Baso # (Auto) Abs Immat Gran (auto) Absolute Neuts (auto) Absolute Nucleated RBC Nucleated RBC % (auto) PT INR aPTT Heparin Protocol Sodium Potassium Chloride Carbon Dioxide Anion Gap BUN Creatinine Estim Creat Clear Calc Estimated GFR POC Glucose 89 Random Glucose Fasting Glucose Lactic Acid Calcium Troponin I High Sens 796.9 H* D EKG shows normal sinus rhythm with lateral T-wave changes suggestive ischemia. Imaging Radiologist's impression: Impressions Chest X-Ray 11/09/22 14:09 IMPRESSION: Cardiomegaly with pulmonary vascular congestion from volume overload. Abdomen/Pelvis CT 11/09/22 16:06 IMPRESSION: 1. Nonspecific thickening of the rectum. This could represent infectious etiology such as nonspecific proctitis. Infiltrating tumor including mucinous tumor can also appear this way. Correlate with digital rectal exam and follow-up GI evaluation indicated. No obstruction. 2. Nonspecific bladder wall thickening. Correlate with urinalysis. 3. Incidental findings at the lung bases as above which can be seen with CHF or volume overload. Fleischner guidelines were followed. Assessment and Plan (1) Acute coronary syndrome: Status: Acute Patient present with symptoms and findings of myocardial injury on cardiac biomarkers an EKG changes suggestive of acute coronary syndrome with high risk features. She has prior complicated CAD requiring multiple interventions. Likelihood of possible restenoses and/or progressive coronary artery disease is likely. She currently does appear to be in florid heart failure. However she should undergo dialysis session today implant for cardiac catheterization. We discussed the need for cardiac catheterization. She understands and agrees. Did speak with her listed contact Mayda about the need for the same. They understand agree. Would start on nitro paste for better blood pressure control. Continue dual antiplatelet therapy with aspirin Brilinta. Continue high-intensity statin therapy. Discuss the need for cardiac catheterization including risk, benefits, alternatives. Continue IV heparin therapy. Transfer to [facility] has been initiated. Please perform a urgent COVID test Time Spent With Patient Time: Total time managing care of this patient today ____ minutes. Procedures Date of Service Date of Service: 11/10/22
--- NOTE | 2022-11-10 11:06 | PC.NURSE ---
Plan is for patient to be transferred to [facility]. Via information writer patient and family updated on plan of care and in agreement. Lab called - received PTT- pending results results this time
[2022-11-10 11:14] VITALS: BP 130/59; PULSE 89; RESP 18
--- NOTE | 2022-11-10 12:09 | PC.NURSE ---
Heparin drip adjusted per protocol. Family at bedside patient resting comfortably , denies pain
--- NOTE | 2022-11-10 12:33 | MHC.EDTECH ---
[phone] Call recieved from Karla for room assignment & accepting Dr. Rodríguez MM5 Rm 18, accepting .
--- NOTE | 2022-11-10 12:36 | MHC.EDTECH ---
Call recieved @ [phone] from Karla from [facility] for bed assignment & accepting Physician. room assignment-5 18 Accepting Physician- . Nurse to Nurse# [phone]
--- NOTE | 2022-11-10 13:01 | PC.NURSE ---
Report given to RN on mass Duncan 5. Family and patient aware.
--- NOTE | 2022-11-10 13:31 | PC.NURSE ---
Transported via ems to room to [facility]. Family and patient aware.
--- NOTE | 2022-11-11 15:22 | CONS_ITS ---
DATE OF SERVICE: 11/10/2022 HISTORY OF PRESENT ILLNESS: I was asked to see the patient to assist in evaluation and management of the patient's dialysis needs in the setting of presenting to the hospital with chest pain. In summary, patient is a 67-year-old ESRD patient with history of coronary artery disease, status post stents, underlying diabetes, GERD, gastritis, hypertension and as mentioned, ESRD on a Thursday, Thursday, Thursday schedule, who presents to the hospital complaining of chest pain and shortness of breath. She actually was dialyzed last night because of the fluid overload. There is mention made that she may need to be transferred to [facility] for cardiac catheterization. Overall, she continues to have some chest discomfort. Her breathing is much improved since her dialysis. PAST MEDICAL HISTORY: As noted above. MEDICATIONS: Medications on admission are noted in the admitting notes. Current medications on the JUL. ALLERGIES: SHE HAS NO KNOWN DRUG ALLERGIES. PHYSICAL EXAMINATION: VITAL SIGNS: Blood pressure of 160/70 with heart rate in the 70s. She is afebrile. HEENT: Head is atraumatic and normocephalic. NECK: Supple. Mucous membranes are moist. LUNGS: Decreased breath sounds at the bases. CARDIAC: Regular rate and rhythm without rub. ABDOMEN: Soft, nontender. EXTREMITIES: No edema. LABORATORY DATA: Hemoglobin 12.2, hematocrit 37.9, white blood cell count 10.4. Sodium 133, potassium 4, chloride 101. IMPRESSIONS: A 67-YEAR-OLD DIABETIC, HYPERTENSIVE, ESRD PATIENT ADMITTED WITH CHEST PAIN, SHORTNESS OF BREATH, CONCERN FOR ACUTE CORONARY SYNDROME. 1. End-stage renal disease. She was dialyzed last night. We will continue on dialysis 3 times a week. We will need to adjust her dialysis schedule and see if she needs dialysis tomorrow. 2. Chest pain, shortness of breath. She has been evaluated by Cardiology. There is a questionable plan to transfer her to [facility] for cardiac cath. 3. Diabetes. 4. Hypertension. RECOMMENDATIONS: At this time include continue her dialysis 3 times a week. Continue routine medications. We will follow the patient with the team. MD MOE Tello/JAY / [phone]
== END 2022-11-10 14:00 | disposition short-term general hospital (02) | DRG 291 ==
LOC: HO.ED 15:38 → HO.EDOVER 16:00
PROVIDERS: Admitting Provider Internal Medicine; Emergency Provider Emergency Medicine; PCP Internal Medicine; Visit Provider Internal Medicine
DX: I13.2 Hypertensive heart and chronic kidney disease with heart failure and with stage 5 chronic kidney disease, or end stage renal disease (principal); I50.23 Acute on chronic systolic (congestive) heart failure; N18.6 End stage renal disease; E11.22 Type 2 diabetes mellitus with diabetic chronic kidney disease; Z99.2 Dependence on renal dialysis; E11.42 Type 2 diabetes mellitus with diabetic polyneuropathy; Z89.112 Acquired absence of left hand; Z20.822 Contact with and (suspected) exposure to COVID-19; I25.10 Atherosclerotic heart disease of native coronary artery without angina pectoris; Z95.5 Presence of coronary angioplasty implant and graft; Z79.82 Long term (current) use of aspirin; Z79.899 Other long term (current) drug therapy
CPT/HCPCS: 36415; 71045; 74176; 80048; 82947; 83605; 84484; 85025; 85027; 85610; 85730; 87040; 87635; 90999; 93005; 99285; J1643; J1940

== ENCOUNTER → 2022-11-09 14:00 | Outpatient (BNV) | payer OTHER, SELFPAY | PROVIDERS: Admitting Provider Internal Medicine; Emergency Provider Emergency Medicine; PCP Internal Medicine; Visit Provider Internal Medicine Cardiovascular Disease | DX: I49.3 Ventricular premature depolarization (principal); R94.31 Abnormal electrocardiogram [ECG] [EKG]; I50.9 Heart failure, unspecified; I24.9 Acute ischemic heart disease, unspecified | CPT/HCPCS: 93010 ==

== ENCOUNTER → 2022-11-09 15:52 | Outpatient (BNV) | payer OTHER, SELFPAY | PROVIDERS: Admitting Provider Internal Medicine; Emergency Provider Emergency Medicine; PCP Internal Medicine; Visit Provider Internal Medicine | DX: I50.9 Heart failure, unspecified (principal) | CPT/HCPCS: 99223; 99239 ==

== ENCOUNTER → 2022-11-09 15:52 | Outpatient (BNV) | payer OTHER, SELFPAY | PROVIDERS: Admitting Provider Internal Medicine; Emergency Provider Emergency Medicine; PCP Internal Medicine; Visit Provider Internal Medicine Cardiovascular Disease | DX: I24.9 Acute ischemic heart disease, unspecified (principal); I50.9 Heart failure, unspecified | CPT/HCPCS: 99222 ==

== ENCOUNTER → 2022-11-11 23:59 | Outpatient (BNV) | payer OTHER, SELFPAY | PROVIDERS: PCP Internal Medicine; Visit Provider Internal Medicine Cardiovascular Disease | DX: I21.4 Non-ST elevation (NSTEMI) myocardial infarction (principal); I50.20 Unspecified systolic (congestive) heart failure | CPT/HCPCS: 0715T; 92928; 92973; 92978; 93458; 99152 ==

== ENCOUNTER 2023-01-12 05:36 | Emergency (ER) | payer OTHER, SELFPAY ==
--- NOTE | 2023-01-12 | ECG_ITS ---
Test Reason : SOB Blood Pressure : / mmHG Vent. Rate : 088 BPM Atrial Rate : 088 BPM P-R Int : 156 ms QRS Dur : 084 ms QT Int : 368 ms P-R-T Axes : 057 -24 232 degrees QTc Int : 445 ms Sinus rhythm with frequent Premature ventricular complexes Minimal voltage criteria for LVH, may be normal variant ( Wren product ) Septal infarct (cited on or before 10-JUN-2022) ST & T wave abnormality, consider inferior ischemia Abnormal ECG When compared with ECG of 09-NOV-2022 14:19, Questionable change in initial forces of Anterior leads Inverted T waves have replaced nonspecific T wave abnormality in Inferior leads Referred By: Generic ED Physician Electronically Signed By:ARIEL JULES
--- NOTE | ~2023-01-12 | XR_ITS ---
EXAMINATION: XR CHEST CLINICAL INFORMATION: Chest pain. Shortness of breath. COMPARISON: Chest x-ray November 09, 2022 TECHNIQUE: Frontal view of the chest was obtained. FINDINGS: Stable prominence of the cardiac silhouette. Stable positioning of tunneled hemodialysis catheter. The lungs are adequately aerated. Similar mild diffuse prominence of interstitial markings. No lobar consolidation. No large pleural effusion. No pneumothorax. Hardware of the cervical spine. XR/XR chest 1V IMPRESSION: Similar mild diffuse prominence of the interstitial markings. Findings suggest mild volume overload.
[2023-01-12 05:37] VITALS: BP 177/89; BP 183/78; PULSE 88; PULSE 89; RESP 17; TEMP 36.8; O2SAT 96; O2SAT 97; BMI 33.8
[2023-01-12 06:10] VITALS: PULSE 87; RESP 14; O2SAT 98
[2023-01-12 06:33] LABS: Basophils Percent Auto 0.2 % (0-2); Eosinophils Absolute Auto 0.1 X10*3/uL (0.0-0.4); Eosinophils Percent Auto 0.8 % (0-4); Hematocrit 32.6 % (37.0-47.0); Hemoglobin 10.7 g/dl (12.0-16.0); Imm Gran Abs Auto 0.06 X10*3/uL (0.00-0.03); Imm Gran Pct Auto 0.5 % (0.0-0.4); Lymphocytes Absolute Auto 1.1 X10*3/uL (1.2-4.9); Lymphocytes Percent Auto 8.2 % (20-40); MANUAL DIFF FLAG NO; Mean Corpuscular HGB Conc 32.8 g/dl (31.0-35.0); Mean Corpuscular Hemoglobin 27.8 pg (27.0-33.0); Mean Corpuscular Volume 84.7 fL (80.0-98.0); Mean Platelet Volume 11.5 fL (9.4-12.3); Monocytes Absolute Auto 1.1 X10*3/uL (0.1-1.2); Monocytes Percent Auto 8.7 % (2-11); Neutrophils Absolute Auto 10.5 x10*3/uL (2.0-8.3); Neutrophils Percent Auto 81.6 % (45-73); Platelet Count 244 X10*3/uL (160-400); Red Blood Count 3.85 X10*6/uL (4.20-5.50); Red Cell Distribution Width 15.1 % (11.0-16.0); White Blood Count 12.9 X10*3/uL (4.8-10.8)
--- NOTE | 2023-01-12 06:53 | ED_ITS ---
HPI - SOB/Dyspnea General Chief Complaint: Dyspnea Stated Complaint: Shortness of breath Time Seen by Provider: 01/12/23 06:34 Source: patient, EMS, RN notes reviewed and old records reviewed Mode of arrival: EMS History of Present Illness HPI Narrative: 67-year-old female with history of coronary artery disease s/p SISI of the mid LAD in 07/2019, HFrEF, insulin-dependent type 2 DM, GERD, gastritis, HTN, ESRD on hemodialysis M/W/F related to diabetic nephropathy, dyslipidemia, diabetic polyneuropathy presented to the ED?via EMS via EMS c/o sudden onset substernal CP, right shoulder pain, and SOB at 03:00AM. Also reports subjective fever days. Denies chills, cough, pedal edema MD elicited complaint: shortness of breath and chest pain Related Data Home Medications Medication Instructions Recorded Confirmed hydralazine 25 mg tablet 50 mg PO TID 06/10/22 11/09/22 melatonin 10 mg tablet 10 mg PO BEDTIME 11/09/22 11/09/22 Previous Rx's Medication Instructions Recorded walker #1 ea 08/13/21 diaper,brief,adult,disposable #120 ea 12/05/21 underpads (Bed Underpads) #100 ea 12/05/21 carvedilol 25 mg tablet 25 mg PO BID 90 days #180 tabs 07/21/22 ticagrelor 90 mg tablet (Brilinta) 90 mg PO BID 90 days #180 tabs 07/21/22 acetaminophen 325 mg tablet 650 mg (2 x 325 mg) PO Q4H PRN 08/26/22 pain 30 days #180 tabs trazodone 50 mg tablet 50 mg PO BEDTIME PRN sleep 90 days 08/26/22 #90 tabs atorvastatin 80 mg tablet 80 mg PO DAILY 90 days #90 tabs 09/18/22 sucralfate 1 gram tablet 1 g PO QIDACHS #120 tabs 10/09/22 amlodipine 10 mg tablet 10 mg PO DAILY #30 tabs 10/10/22 cholecalciferol (vitamin D3) 50 50 mcg PO DAILY 30 days #30 caps 10/10/22 mcg (2,000 unit) capsule insulin syringe-needle U-100 1 mL #100 ea 10/10/22 30 gauge x 1/2 (BD Insulin Syringe Ultra-Fine) pen needle, diabetic 32 gauge x #90 ea 10/10/22 (BD Ultra-Fine Rin Pen Needle) vitamin B complex-vitamin C-folic 1 tab PO DAILY 90 days #90 tabs 10/10/22 acid 0.8 mg tablet (Nephro-Josefina) heparin (porcine) 25,000 unit/250 25,000 unit (250 mL) continuous IV 11/10/22 mL in 0.45 % sodium chloride IV infusion .Q0M #0 mL soln flash glucose sensor (FreeStyle #1 ea 11/18/22 Pedro 2 Sensor kit) lisinopril 20 mg tablet 20 mg PO DAILY 90 days #90 tabs 11/27/22 sennosides 8.6 mg tablet (senna) 8.6 mg PO BEDTIME PRN constipation 12/16/22 30 days #30 tabs aspirin 81 mg tablet,delayed 81 mg PO DAILY 90 days #90 tabs 01/11/23 release (Adult Low Dose Aspirin) Allergies Allergy/AdvReac Type Severity Reaction Status Date / Time No Known Allergies Allergy Verified 08/26/22 13:41 Review of Systems 2 Review of Systems: Constitutional: +subj Fever, No Chills, No Night Sweats, No Fatigue, No Malaise ENT/Mouth: No Hearing loss, No Ear Pain, No Nasal Congestion, No sore throat, No Rhinorrhea, No Swallowing Difficulty Eyes: No Eye Pain, No Swelling, No Redness, No Vision Changes Cardiovascular: + Chest Pain, + SOB, No Dyspnea on Exertion, No Orthopnea, No Edema, No Palpitations Respiratory: No Cough, No Sputum, No Dyspnea Gastrointestinal: No Nausea, No Vomiting, No Diarrhea, No Constipation, No Abdominal pain Genitourinary: No irregular bleeding, No Dysuria, No Urinary Frequency, No Hematuria, No Flank Pain Musculoskeletal:+ joint pain, No Myalgias, No Joint Swelling Skin: No Skin Lesions, No rash Neuro: No Weakness, No Numbness, =No Dizziness, No Headache Yes all other systems are reviewed and are negative Constitutional: Constitutional: Reports as per [facility] Past Medical History Attestation statement: The following information was validated with the patient. Source: old records reviewed Medical History Abdominal pain Cataract Cough COVID-19 Delayed gastric emptying Diabetic nephropathy associated with type 2 diabetes mellitus Diabetic polyneuropathy associated with type 2 diabetes mellitus DM renal manif type II Dyslipidemia ESRD on hemodialysis Essential hypertension Gastritis GERD (gastroesophageal reflux disease) Type 2 diabetes mellitus with hyperglycemia Type 2 diabetes mellitus with other diabetic kidney complication Vitamin D deficiency Surgical History Arteriovenous fistula for hemodialysis in place, primary History of amputation Status post cardiac catheterization Status post cardiac catheterization Family History Family History Mother Diabetes Hypertension Father Hypertension Social History Social History Household Members: Children Household Members Other:: son & daughter Housing: Apartment Do you presently have visiting nurse or other home services: No Alcohol intake: never Patient Tobacco Use Status: Never used Tobacco Smoked in Last 30 Days: No e-Cigarette/Vaping Use: Never Used Second Hand Smoke Exposure: No Use of substances other than those prescribed or required for medical reasons: No Advance Directives: Yes Advance Directives on File: Yes Advance Directives Date on File: 07/09/21 service: No Current occupational status: disabled Cognitive needs: Yes Hearing needs: No Vision needs: Yes Physical Exam 2 Vital Signs: Vital Signs: Last Vital Signs Temp 98.4 F 01/12/23 08:10 Pulse 85 01/12/23 08:10 Resp 25 H 01/12/23 08:10 BP 158/72 H 01/12/23 08:19 Pulse Ox 100 01/12/23 08:10 O2 Del Method Room Air 01/12/23 08:10 O2 Flow Rate 2 01/12/23 06:10 Oxygen Flow Rate 2 01/12/23 05:37 BMI result Body Mass Index 31.2 Const: General: cooperative and no acute distress O rientation/consciousness: patient oriented x3 Limitations: no limitations HEENT: Head: Yes normal to inspection and Yes atraumatic Ears: hearing grossly normal bilaterally General nose exam: Normal external nose present Face and sinus: Yes normal facial exam Eyes: General: appearance normal, both eyes and all related structures EOM: EOMs intact bilaterally Neck: Neck: Yes normal visual inspection and Yes no meningeal signs Chest: Chest palpation & inspection: normal inspection of the chest Resp: Effort & Inspection: normal respiratory effort and no respiratory distress Auscultation: crackles bilateral at the base Cardio: Rate: regular rate Heart sounds: S1 normal heart sound present and S2 normal heart sound present GI: Inspection: Yes normal to inspection Palpation (GI): Soft to palpation, nontender, no guarding and not rigid Skin: Rashes: no rashes Wounds: no wounds Neuro: General: patient oriented x3, tone normal and no meningeal signs C ranial nerves: Yes CN's II-XII intact bilaterally Gait exam (Neuro): Normal gait present Extrem: General: Yes normal to inspection, Yes no pedal edema and Yes no calf tenderness Course Course Course Narrative: -714--chronic anemia. Chronic CKD more elevated than baseline, patient due for dialysis today. Troponin elevated to 1044.1 > case discussed with Cardiology, Dr. Cox recommended treat as NSTEMI and transfer to [facility] -07-spoke with sampler pickup at [facility] Dr. Goins who accepted transfer > sublingual nitro also ordered, 0757--patient denies chest pain at present 0823--XR chest 1V IMPRESSION: Similar mild diffuse prominence of the interstitial markings. Findings suggest mild volume overload. Medications Administered Discontinued Medications Generic Name Dose Route Start Last Admin Trade Name Freq PRN Reason Stop Dose Admin Aspirin 325 mg 01/12/23 07:10 01/12/23 08:08 Aspirin Enteric Coated [address] JANSEN 01/12/23 07:11 325 mg ONCE ONE Administration Atorvastatin Calcium 80 mg 01/12/23 07:10 01/12/23 08:08 Atorvastatin Calcium 80 Mg Tablet PO 01/12/23 07:11 80 mg ONCE ONE Administration Heparin Sodium (Porcine) 4,000 unit 01/12/23 07:10 01/12/23 08:08 Heparin Sodium,Porcine 5,000 Unit/Ml Vial IVPUSH 01/12/23 07:11 4,000 unit ONCE ONE Administration Nitroglycerin 0.4 mg 01/12/23 07:38 01/12/23 08:08 Nitroglycerin 0.4 Mg Tab.Subl SUBLINGUAL 01/12/23 07:39 0.4 mg ONCE ONE Administration Medical Decision Making Medical Decision Making [facility] Narrative: 67-year-old female with history of coronary artery disease s/p SISI of the mid LAD in 07/2019, HFrEF, insulin-dependent type 2 DM, GERD, gastritis, HTN, ESRD on hemodialysis M/W/F related to diabetic nephropathy, dyslipidemia, diabetic polyneuropathy presented to the ED?via EMS via EMS c/o sudden onset substernal CP, right shoulder pain, and SOB at 03:00AM. On exam vital signs stable, initially placed on nasal cannula by EMS, bibasilar crackles, no appreciable pedal. Concern for ACS vs CHF vs acute on chronic CKD vs PNA or viral syndrome. Lower suspicion for dissection/PE Plan: EKG, labs CXR, viral testing, ASA Please refer to course for remaining clinical decision making, interpretation of labs/imaging results, and discussions with consultants and/or family members. Differential Diagnosis Differential Diagnoses: The differential diagnosis associated with the presentation includes As above Admission/Observation Consideration of admission/observation: Escalation of care including admission/observation considered Consult Healthcare Provider Management of the patient was discussed with: Engine Manager (Cardiology) Lab Data MDM Lab Attestation statement: I reviewed the patient's lab results. 01/12/23 07:23 01/12/23 06:28 Labs: Lab Results 01/12/23 01/12/23 01/12/23 Range/Units 06:28 07:23 07:23 WBC 12.9 H 14.7 H (4.8-10.8) X10*3/uL RBC 3.85 L 3.82 L (4.20-5.50) X10*6/uL Hgb 10.7 L 10.7 L (12.0-16.0) g/dl Hct 32.6 L 33.4 L (37.0-47.0) % MCV 84.7 87.4 (80.0-98.0) fL MCH 27.8 28.0 (27.0-33.0) pg MCHC 32.8 32.0 (31.0-35.0) g/dl RDW 15.1 15.1 (11.0-16.0) % Plt Count 244 253 (160-400) X10*3/uL MPV 11.5 11.6 (9.4-12.3) fL Immature Gran % (Auto) 0.5 H (0.0-0.4) % Neut % (Auto) 81.6 H (45-73) % Lymph % (Auto) 8.2 L (20-40) % Chambers % (Auto) 8.7 (2-11) % Eos % (Auto) 0.8 (0-4) % Baso % (Auto) 0.2 (0-2) % Lymph # (Auto) 1.1 L (1.2-4.9) X10*3/uL Chambers # (Auto) 1.1 (0.1-1.2) X10*3/uL Eos # (Auto) 0.1 (0.0-0.4) X10*3/uL Baso # (Auto) 0.0 (0.0-0.2) X10*3/uL Abs Immat Gran (auto) 0.06 H (0.00-0.03) X10*3/uL Absolute Neuts (auto) 10.5 H (2.0-8.3) x10*3/uL Absolute Nucleated RBC 0.000 0.000 (0.0-0.012) X10*3/uL Nucleated RBC % (auto) 0.0 0.0 (0.0-0.2) /100WBC PT 12.4 Cancelled (11.1-13.3) SEC INR 1.0 (0.9-1.1) APTT (26.0-36.4) SEC aPTT Heparin Protocol Sodium 137 (135-145) mmol/L Potassium 4.0 (3.3-5.1) mmol/L Chloride 101 (96-108) mmol/L Carbon Dioxide 20 L (22-29) mmol/L Anion Gap 20 (12-20) BUN 50 H (9-16) mg/dL Creatinine 6.84 H* (0.5-1.4) mg/dL Estim Creat Clear Calc 8.1 Estimated GFR 6 Random Glucose 239 H (60-115) mg/dL Calcium 9.7 (8.4-10.2) mg/dL Troponin I High Sens 1044.1 H* (<3.5-17.0) ng/L COVID-19 ([facility]E) (Negative) COVID-19 Clin Com 01/12/23 Range/Units 07:23 WBC (4.8-10.8) X10*3/uL RBC (4.20-5.50) X10*6/uL Hgb (12.0-16.0) g/dl Hct (37.0-47.0) % MCV (80.0-98.0) fL MCH (27.0-33.0) pg MCHC (31.0-35.0) g/dl RDW (11.0-16.0) % Plt Count (160-400) X10*3/uL MPV (9.4-12.3) fL Immature Gran % (Auto) (0.0-0.4) % Neut % (Auto) (45-73) % Lymph % (Auto) (20-40) % Chambers % (Auto) (2-11) % Eos % (Auto) (0-4) % Baso % (Auto) (0-2) % Lymph # (Auto) (1.2-4.9) X10*3/uL Chambers # (Auto) (0.1-1.2) X10*3/uL Eos # (Auto) (0.0-0.4) X10*3/uL Baso # (Auto) (0.0-0.2) X10*3/uL Abs Immat Gran (auto) (0.00-0.03) X10*3/uL Absolute Neuts (auto) (2.0-8.3) x10*3/uL Absolute Nucleated RBC (0.0-0.012) X10*3/uL Nucleated RBC % (auto) (0.0-0.2) /100WBC PT (11.1-13.3) SEC INR Cancelled (0.9-1.1) APTT 24.3 L (26.0-36.4) SEC aPTT Heparin Protocol Cancelled Sodium (135-145) mmol/L Potassium (3.3-5.1) mmol/L Chloride (96-108) mmol/L Carbon Dioxide (22-29) mmol/L Anion Gap (12-20) BUN (9-16) mg/dL Creatinine (0.5-1.4) mg/dL Estim Creat Clear Calc Estimated GFR Random Glucose (60-115) mg/dL Calcium (8.4-10.2) mg/dL Troponin I High Sens (<3.5-17.0) ng/L COVID-19 ([facility]) Negative (Negative) COVID-19 Clin Com See Note Independent Interpretation I performed an independent interpretation of an: EKG (EKG sinus rhythm with frequent PVCs at a rate of 88. MN interval 156. Questionable change in initial forces of anterior leads when compared to priors. Inverted T-waves have replaced nonspecific T-wave abnormality in inferior leads ) Radiology Impression Discussion of test interpretation with radiology: I have reviewed the radiologist's reading. Independent Historian Clinical information obtained from an independent historian. History obtained from or confirmed by: EMS External Record Review External record reviewed: Inpatient record, Office record, Outpatient record, Prior outpatient labs, Prior outpatient radiology, Primary care record and Outside ED record Tests considered The following testing was considered but not selected: As above Prescription Management I considered prescription management with: Pain Medication Chronic Conditions Patient?s care impacted by: Diabetes, Hypertension and Other Critical Care Time Critical Care Time Critical Care Time: Yes Total Critical Care Time: 60 Attestation: I have personally provided critical care time exclusive of time spent on separately billable procedures. Time includes review of lab data, radiology results, discussion with consultants, and monitoring for potential decompensation. Intervention performed as documented. Discharge Plan Discharge Clinical Impression: Acute non-ST elevation myocardial infarction (NSTEMI) Patient Disposition: [facility] Transfer Details: [facility], Dr. Goins Prescriptions: No Action (DME) walker Misc See Rx Instructions .Route Qty: 1 0RF Rx Instructions: As directed (DME) diaper,brief,adult,disposable Misc See Rx Instructions .ROUTE .MEDSUPPLY Qty: 120 11RF Rx Instructions: Use 1 diaper as needed 6 times a day (DME) underpads [Bed Underpads] Pad See Rx Instructions .ROUTE .MEDSUPPLY Qty: 100 11RF Rx Instructions: Use 1 underpad as needed every 8 hours Brilinta 90 mg tablet 90 mg PO BID 90 Days Qty: 180 1RF carvedilol 25 mg tablet 25 mg PO BID 90 Days Qty: 180 1RF Rx Instructions: must administer with a meal/food atorvastatin 80 mg tablet 80 mg PO DAILY 90 Days Qty: 90 3RF Nephro-Josefina 0.8 mg tablet 1 tab PO DAILY 90 Days Qty: 90 3RF (DME) pen needle, diabetic [BD Ultra-Fine Rin Pen Needle] 32 gauge x 5/32 needle See Rx Instructions .ROUTE .MEDSUPPLY Qty: 90 3RF Rx Instructions: Use 1 pen needle once a day cholecalciferol (vitamin D3) 50 mcg (2,000 unit) capsule 50 mcg PO DAILY 30 Days Qty: 30 6RF amlodipine 10 mg tablet 10 mg PO DAILY Qty: 30 6RF Protocol: Hold for SBP< HOLD for SBP < : 90 (DME) insulin syringe-needle U-100 [BD Insulin Syringe Ultra-Fine] 1 mL 30 gauge x 1/2 syringe See Rx Instructions .Route Qty: 100 3RF Rx Instructions: test 4 times per day (DME) FreeStyle Pedro 2 Sensor Kit See Rx Instructions .Route Qty: 1 11RF Rx Instructions: As directed lisinopril 20 mg tablet 20 mg PO DAILY 90 Days Qty: 90 1RF sennosides [senna] 8.6 mg tablet 8.6 mg PO BEDTIME PRN (Reason: constipation) 30 Days Qty: 30 1RF aspirin [Adult Low Dose Aspirin] 81 mg tablet,delayed release (DR/EC) 81 mg PO DAILY 90 Days Qty: 90 3RF hydralazine 25 mg Tablet 50 mg PO TID melatonin 10 mg Tablet 10 mg PO BEDTIME heparin(porcine) in 0.45% NaCl 25,000 unit/250 mL Parenteral Solution 25,000 unit continuous IV infusion .Q0M Qty: 0 0RF acetaminophen 325 mg tablet 650 mg PO Q4H PRN (Reason: pain) 30 Days Qty: 180 1RF trazodone 50 mg tablet 50 mg PO BEDTIME PRN (Reason: sleep) 90 Days Qty: 90 1RF sucralfate 1 gram tablet 1 g PO QIDACHS Qty: 120 3RF
[2023-01-12 06:57] LABS: Troponin-I High Sensitivity 1044.1 ng/L (<3.5-17.0)
[2023-01-12 06:58] LABS: Anion Gap 20 (12-20); Blood Urea Nitrogen 50 mg/dL (9-16); Calcium 9.7 mg/dL (8.4-10.2); Carbon Dioxide 20 mmol/L (22-29); Chloride 101 mmol/L (96-108); Creatinine Clr Calc Pharmacy 8.1; Estimated Glomerular Filt Rate 6; Glucose Random 239 mg/dL (60-115); Sodium 137 mmol/L (135-145)
[2023-01-12 07:29] VITALS: BMI 31.2
[2023-01-12 07:30] LABS: Hematocrit 33.4 % (37.0-47.0); Hemoglobin 10.7 g/dl (12.0-16.0); Mean Corpuscular Volume 87.4 fL (80.0-98.0); Mean Platelet Volume 11.6 fL (9.4-12.3); Platelet Count 253 X10*3/uL (160-400); Red Blood Count 3.82 X10*6/uL (4.20-5.50); Red Cell Distribution Width 15.1 % (11.0-16.0); White Blood Count 14.7 X10*3/uL (4.8-10.8)
[2023-01-12 07:37] LABS: Prothrombin Time 12.4 SEC (11.1-13.3)
[2023-01-12 07:40] LABS: Partial Thromboplastin Time 24.3 SEC (26.0-36.4)
[2023-01-12 07:46] LABS: COVID-19 Test Negative (Negative); IDNOW Serial# 9DB6401D
[2023-01-12] MEDS: Nitroglycerin 0.4 MG TAB.SUBL SUBLINGUAL (08:08)
[2023-01-12] MEDS: Aspirin Enteric Coated 325 MG TABLET.DR PO (08:08)
[2023-01-12] MEDS: Heparin Sodium,Porcine 5,000 UNIT/ML VIAL 4000 UNIT IVPUSH (08:08)
[2023-01-12] MEDS: Atorvastatin Calcium 80 MG TABLET PO (08:08)
[2023-01-12 08:10] VITALS: BP 197/85; PULSE 85; RESP 25; TEMP 36.9; O2SAT 100
--- NOTE | 2023-01-12 08:18 | PC.NURSE ---
patient sitting up in bed, patient states her last dialysis thursday01/09/23. patient states she is having abd and back pain, denies chest pain.
[2023-01-12 08:19] VITALS: BP 158/72
[2023-01-12 08:36] LABS: Alanine Aminotransferase 13 U/L (0-31); Albumin Level 3.3 g/dL (3.5-5.0); Alkaline Phosphatase 53 U/L (39-117); Aspartate Amino Transferase 17 U/L (5-31); Bilirubin Direct 0.1 mg/dL (0.0-0.5); Bilirubin Total 0.3 mg/dL (0.0-1.0); Magnesium 2.4 mg/dL (1.6-2.6); Total Protein 7.6 g/dL (6.5-8.0)
--- NOTE | 2023-01-12 08:41 | PC.NURSE ---
patient report called to [facility] m5 RN awaiting ambulance arrival for tx
[2023-01-12 08:44] LABS: B Type Natriuretic Peptide 1125 pg/mL (<100)
[2023-01-12] MEDS: Heparin Sodium,Porcine/1/2NS 25,000 UNIT/250 ML IV.SOLN 9.28 UNIT IVCONT (08:49)
== END 2023-01-12 09:17 | disposition short-term general hospital (02) ==
PROVIDERS: Physician Assistant; Emergency Provider Student in an Organized Health Care Education/Training Program; PCP Internal Medicine
DX: I21.4 Non-ST elevation (NSTEMI) myocardial infarction (principal); R07.89 Other chest pain; R06.02 Shortness of breath; I25.10 Atherosclerotic heart disease of native coronary artery without angina pectoris; I10 Essential (primary) hypertension; R50.9 Fever, unspecified; E11.9 Type 2 diabetes mellitus without complications; Z20.822 Contact with and (suspected) exposure to COVID-19; Z20.828 Contact with and (suspected) exposure to other viral communicable diseases; Z79.4 Long term (current) use of insulin; Z79.899 Other long term (current) drug therapy
CPT/HCPCS: 36415; 71045; 80048; 80076; 83735; 83880; 84484; 85025; 85027; 85610; 85730; 87635; 93005; 96374; 96375; 99285; J1643

== ENCOUNTER 2023-01-27 13:15 | Outpatient (AMB) | payer OTHER, SELFPAY ==
--- NOTE | 2023-01-27 13:22 | MHC.PC.OV ---
Vital Signs 01/27/23 13:23 BMI Reason not done Patient refused/unable BP 128/76 Blood Pressure Location Rt radial Position Sitting Intake Visit Reasons: dm Intake Note: Patient here for a follow up DM Clinical Informatics Manager Required: No Accompanied by: Self / Same As Patient Allergies No Known Allergies Allergy (Verified 01/27/23 13:31) Medication List - Last Reconciled 01/27/23 by Deanna Hedrick MD acetaminophen 650 mg (2 x 325 mg) PO Q4H PRN 30 days amlodipine 10 mg See Protocol PO DAILY aspirin (Adult Low Dose Aspirin) 81 mg PO DAILY 90 days atorvastatin 80 mg PO DAILY 90 days B complex-vitamin C-folic acid 0.8 mg (Nephro-Josefina) 1 tab PO DAILY 90 days carvedilol 25 mg PO BID 90 days cholecalciferol (vitamin D3) 50 mcg PO DAILY 30 days diaper,brief,adult,disposable Use 1 diaper as needed 6 times a day flash glucose sensor ([employer] Pedro 2 Sensor kit) As directed heparin(porcine) in 0.45% NaCl 25,000 unit/250 mL 25,000 units (250 mL) continuous IV infusion .Q0M hydralazine 50 mg PO TID 90 days insulin lispro (Humalog KwikPen (U-100) Insulin) 5 units (0.05 mL) subcut TID insulin syringe-needle U-100 (BD Insulin Syringe Ultra-Fine) test 4 times per day lisinopril 20 mg PO DAILY 90 days melatonin 10 mg PO BEDTIME pen needle, diabetic (BD Ultra-Fine Rin Pen Needle) Use 1 pen needle once a day sennosides (senna) 8.6 mg PO BEDTIME PRN 30 days sucralfate 1 g PO QIDACHS ticagrelor (Brilinta) 90 mg PO BID 90 days trazodone 50 mg PO BEDTIME PRN 90 days underpads (Bed Underpads) Use 1 underpad as needed every 8 hours walker As directed Tobacco use date assessed: 07/23/22 Fall risk assessment: No Falls in past year Last assessed Fall Risk: 01/27/23 Dental Screening Dental Screen Date: 01/27/23 Did you have a dental visit in the last 12 months?: No Did you have a dental problem in the last 6 months where you did not have access to dental care?: No Was dental information given to patient?: Patient declined HPI HPI Comments History of Present Illness Details This is a 67-year-old female with diabetes mellitus type 2 on long-term current use of insulin, end-stage renal disease on hemodialysis and congestive heart failure that comes today for follow-up on her conditions. Recently went to ER due to abdominal pain and had elevated troponins most likely due to acute coronary syndrome. Was transferred to [facility] which did a catheterization and place 1 stent. She was out of [facility] for a while. A1c within goal. Receiving hemodialysis 3 times a week. On carvedilol for congestive heart failure. Follow-up with Cardiology. Denies any weight gain. On a wheelchair for gait stability. Alone in the room but were able to talk with chief operator reformer by phone. [facility] Medical History Cataract COVID-19 Type 2 diabetes mellitus with other diabetic kidney complication Delayed gastric emptying GERD (gastroesophageal reflux disease) DM renal manif type II Abdominal pain Cough Gastritis Type 2 diabetes mellitus with hyperglycemia Diabetic nephropathy associated with type 2 diabetes mellitus Diabetic polyneuropathy associated with type 2 diabetes mellitus Vitamin D deficiency ESRD on hemodialysis Dyslipidemia Essential hypertension Surgical History Status post cardiac catheterization Status post cardiac catheterization History of amputation Arteriovenous fistula for hemodialysis in place, primary Family History Mother Diabetes Hypertension Father Hypertension Social History Household Members: Children Household Members Other:: son & daughter Housing: Apartment Do you presently have visiting nurse or other home services: No Alcohol intake: never Patient Tobacco Use Status: Never used Tobacco e-Cigarette/Vaping Use: Never Used Second Hand Smoke Exposure: No Advance Directives Date on File: 07/09/21 service: No Current occupational status: disabled Cognitive needs: Yes Hearing needs: No Vision needs: Yes Questionnaire Thrive Questionnaire Date Thrive assessed: 11/10/22 XOCHITL-7 AMB Questionnaire XOCHITL-7 Date XOCHITL - 7 assessed: 07/23/22 Source: Developed by Drs. Jose Carlos Singh, Stacy Faria, Jeremy Recinos and colleagues, with an educational paddy from [employer]. Review of Systems Const All systems reviewed & are unremarkable except as noted in HPI and below Eyes Reports no additional complaints, Denies change in vision and Denies other visual disturbances Card Denies chest pain at rest, Denies chest pain with activity, Denies edema, Denies irregular heart rhythm, Denies claudication, Denies dyspnea, Denies dyspnea on exertion, Denies orthopnea, Denies paroxysmal nocturnal dyspnea and Denies slow heart rate Resp Denies cough, Denies dyspnea and Denies dyspnea on exertion GI Denies abdominal pain, Denies change in bowel habits, Denies excessive flatus, Denies nausea and Denies vomiting Denies urinary incontinence, Denies urinary hesitancy and Denies urinary urgency Musc Denies abnormal gait, Denies atrophy, Denies deformity and Denies limited range of motion Skin/Breast Denies bleeding lesions, Denies changing lesions and Denies rash Neuro Denies abnormal gait and Denies lack of coordination Physical exam (Primary Care) Vital Signs: Last Vital Signs BP 128/76 01/27/23 13:23 Tobacco/Smoking Status: Tobacco use Status Tobacco use date assessed 07/23/22 01/27/23 13:26 Patient Tobacco Use Status Never used Tobacco 01/27/23 13:26 e-Cigarette/Vaping Use Never Used 01/27/23 13:26 Thrive Assessment: Date of Thrive Assessment Date Thrive assessed 11/10/22 01/27/23 13:26 Const Limitations: wheelchair Eyes General: appearance normal, both eyes and all related structures Eyelids: Yes eyelids normal Conjunctivae: conjunctivae normal Neck Neck: Yes normal visual inspection and Yes supple Resp Effort & Inspection: normal respiratory effort Auscultation: clear to auscultation bilaterally Cardio Jugular venous distension: no JVD Rate: regular rate Rhythm: regular rhythm Heart sounds: S1 normal heart sound present and S2 normal heart sound present Extrem Other: left hand amputation General: Yes full ROM Results AMB Hemoglobin A1c AMB Hemoglobin A1c 6.8 % Last Edit by SCOTT Hendricks on 01/27/23 13:36 Results Reviewed Results Reviewed: Laboratory Last Values Hgb A1c (Clinic) 6.8 % (4.0-6.0) H 01/27/23 13:26 Assessment and Plan Assessment & Plan (1) Acute coronary syndrome: Code(s): I24.9 - Acute ischemic heart disease, unspecified Plan: Continue Brilinta. Follow-up with Cardiology. (2) CHF (congestive heart failure): Code(s): I50.9 - Heart failure, unspecified Plan: Continue carvedilol. The goal is to not gain 5 lb in a week. (3) ESRD on hemodialysis: Code(s): N18.6 - End stage renal disease; Z99.2 - Dependence on renal dialysis Plan: Continue hemodialysis 3 times a week. (4) Type 2 diabetes mellitus with hyperglycemia: Code(s): E11.65 - Type 2 diabetes mellitus with hyperglycemia Qualifiers: Diabetes mellitus terminal supervisor insulin use: with terminal supervisor use Qualified Code(s): E11.65 - Type 2 diabetes mellitus with hyperglycemia; Z79.4 - terminal gauger supervisor (current) use of insulin Plan: Continue short-acting insulin. A1c goal is equal or less than 7%. Orders: Orders Lipid Panel Today E78.5 - Hyperlipidemia, unspecified Complete Blood Count Auto Diff Today D72.829 - Elevated white blood cell count, unspecified AMB Hemoglobin A1c Today E11.65 - Type 2 diabetes mellitus with hyperglycemia Microalbumin, Random (w Creat) Today E11.9 - Type 2 diabetes mellitus without complications Comprehensive [place]. Panel Fast Today E11.65 - Type 2 diabetes mellitus with hyperglycemia Medications: New losartan 50 mg PO DAILY 90 days 90 tabs 1RF Refilled ticagrelor (Brilinta) 90 mg PO BID 90 days 180 tabs 1RF atorvastatin 80 mg PO DAILY 90 days 90 tabs 3RF carvedilol must administer with a meal/food 25 mg PO BID 90 days 180 tabs 1RF insulin lispro (Humalog KwikPen (U-100) Insulin) or as directed 5 units (0.05 mL) subcut TID 15 mL 11RF E11.65 - Type 2 diabetes mellitus with hyperglycemia, Z79.4 - terminal gauger supervisor (current) use of insulin Discontinued lisinopril Discontinued Reason: Patient Completed Course 20 mg PO DAILY 90 days 90 tabs 1RF Coding Level of Care Code Est Pt Level 4 (17848) Diagnoses Acute coronary syndrome I24.9 CHF (congestive heart failure) I50.9 ESRD on hemodialysis N18.6; Z99.2 Type 2 diabetes mellitus with hyperglycemia, with long-term current use of insulin E11.65; Z79.4 Diabetes mellitus terminal supervisor insulin use: with terminal supervisor use Time Spent (min) 26
[2023-01-27 13:23] VITALS: BP 128/76
== END 2023-01-27 13:45 | disposition home or self-care (01) ==
PROVIDERS: Visit Provider Internal Medicine
DX: I24.9 Acute ischemic heart disease, unspecified (principal); I50.9 Heart failure, unspecified; N18.6 End stage renal disease; Z99.2 Dependence on renal dialysis; E11.65 Type 2 diabetes mellitus with hyperglycemia; Z79.4 Long term (current) use of insulin
CPT/HCPCS: 83036; 99214

== ENCOUNTER 2023-08-06 17:00 | Outpatient (AMB) | payer OTHER, SELFPAY ==
[2023-08-06 17:11] VITALS: BP 136/82; BMI 30.7
--- NOTE | 2023-08-06 17:11 | MHC.PC.OV ---
Vital Signs 08/06/23 17:11 Height 5 ft 2 in Weight 168 lb BMI 30.7 BP 136/82 Blood Pressure Location Rt brachial Position Sitting Intake Visit Reasons: follow up and eval if ok to travel Intake Note: Patient here for a follow up, evaluate to see if ok to travel Operations Project Manager Required: No Accompanied by: daughter in law Allergies diphenhydramine [From Benadryl] Adverse Reaction (Severe, Verified 08/06/23 17:23) dizziness, itch Medication List - Last Reconciled 08/06/23 by Deanna Hedrick MD acetaminophen 650 mg (2 x 325 mg) PO Q4H PRN 30 days amlodipine 10 mg See Protocol PO DAILY aspirin (Adult Low Dose Aspirin) 81 mg PO DAILY 90 days atorvastatin 80 mg PO DAILY 90 days B complex-vitamin C-folic acid 0.8 mg (Nephro-Josefina) 1 tab PO DAILY 90 days carvedilol 25 mg PO BID 90 days cholecalciferol (vitamin D3) 50 mcg PO DAILY diaper,brief,adult,disposable Use 1 diaper as needed 6 times a day flash glucose sensor ([employer] Pedro 2 Sensor kit) As directed heparin(porcine) in 0.45% NaCl 25,000 unit/250 mL 25,000 units (250 mL) continuous IV infusion .Q0M hydralazine 50 mg PO TID 90 days insulin lispro (Humalog KwikPen (U-100) Insulin) 5 units (0.05 mL) subcut TID insulin syringe-needle U-100 (BD Insulin Syringe Ultra-Fine) test 4 times per day losartan 50 mg PO DAILY 90 days melatonin 10 mg PO BEDTIME pen needle, diabetic (BD Ultra-Fine Rin Pen Needle) Use 1 pen needle once a day sennosides (senna) 8.6 mg PO BEDTIME PRN 30 days sucralfate 1 g PO QIDACHS ticagrelor (Brilinta) 90 mg PO BID 90 days trazodone 50 mg PO BEDTIME PRN 90 days underpads (Bed Underpads) Use 1 underpad as needed every 8 hours walker As directed Tobacco use date assessed: 08/06/23 Fall risk assessment: No Falls in past year Last assessed Fall Risk: 08/06/23 Dental Screening Dental Screen Date: 08/06/23 Did you have a dental visit in the last 12 months?: No Did you have a dental problem in the last 6 months where you did not have access to dental care?: No Was dental information given to patient?: Patient has dentist HPI HPI Comments History of Present Illness Details This is a sushi 7-year-old female with diabetes mellitus type 2 on long-term current use of insulin, hypertension, hyperlipidemia, end-stage renal disease on hemodialysis and chronic systolic congestive heart failure that comes today accompanied by RN CASE MANAGER for follow-up on her conditions. She is wheelchair-bound due to chronic low back pain and bilateral leg weakness. Has left transmetacarpal amputation due to complications after doing a fistula and gets dialysis by central vein. Her A1c is elevated and I will add a long-acting insulin. Blood pressure stable. Lipid panel was ordered. She takes hemodialysis 3 times a week. Last cardiology visit was in 2021 and she has been having transportation issues by [employer] insurance and this is why she has not been able to make it to the appointments. Last echocardiogram 2021 showing ejection fraction of 40-45%. She denies gaining 5 lb in a week. No leg swelling. No chest pain or shortness of breath. She would like to go to visit [place] but last time she visit Cardiology they told her that she was not able to fly. I told her that I was going to do a cardiology referral so that she can discuss this issue with them. [facility] Medical History (Updated 08/08/23 @ 10:08 by Deanna Hedrick MD) Acute coronary syndrome Cataract COVID-19 Type 2 diabetes mellitus with other diabetic kidney complication Delayed gastric emptying GERD (gastroesophageal reflux disease) DM renal manif type II Abdominal pain Cough Gastritis Type 2 diabetes mellitus with hyperglycemia Diabetic nephropathy associated with type 2 diabetes mellitus Diabetic polyneuropathy associated with type 2 diabetes mellitus Vitamin D deficiency ESRD on hemodialysis Dyslipidemia Essential hypertension Surgical History Status post cardiac catheterization Status post cardiac catheterization History of amputation Arteriovenous fistula for hemodialysis in place, primary Family History Mother Diabetes Hypertension Father Hypertension Social History Household Members: Children Household Members Other:: son & daughter Housing: Apartment Do you presently have visiting nurse or other home services: No Alcohol intake: never Comment: called report to [facility] Patient Tobacco Use Status: Never used Tobacco e-Cigarette/Vaping Use: Never Used Second Hand Smoke Exposure: No Advance Directives Date on File: 07/09/21 service: No Current occupational status: disabled Cognitive needs: Yes Hearing needs: No Vision needs: Yes Questionnaire PHQ-9 Over the last 2 weeks, how often have you been bothered by any of the following problems? 1. Little interest or pleasure in doing things: not at all 2. Feeling down, depressed, or hopeless: not at all 3. Trouble falling or staying asleep, or sleeping too much: not at all 4. Feeling tired or having little energy: not at all 5. Poor appetite or overeating: not at all 6. Feeling bad about yourself - or that you are a failure or have let yourself or your family down: not at all 7. Trouble concentrating on things, such as reading the newspaper or watching television: not at all 8. Moving or speaking so slowly that other people could have noticed. Or the opposite - being so fidgety or restless that you have been moving around a lot more than usual: not at all 9. Thoughts that you would be better off or of hurting yourself in some way: not at all Total score: 0 Depression Screening Interpretation: Negative Depression Screening Done: Yes 13677 - PHQ-9 Billing: Yes Source: Developed by Drs. Jose Carlos Singh, Stacy Faria, Jeremy Recinos and colleagues, with an educational paddy from [employer]. Thrive Questionnaire Date Thrive assessed: 08/06/23 I am a: Patient What is your living situation today?: I have a steady place to live Within the past 12 months, did the food you bought not last and you didn't have the money to get more?: Never true Within the past 12 months, did you worry whether your food would run out before you got money to buy more?: Never true Do you have trouble paying for medicines?: No Do you have trouble getting transportation to medical appointments?: No Do you have trouble paying your heating and electricity bill?: No Do you have trouble taking care of your child, family member or friend?: No Do you have trouble with day-to-day activities such as bathing, preparing meals, shopping, managing finances, etc.?: No Are you currently unemployed and looking for a job?: No Are you interested in more education?: No Please select the resources that you would like help with: None Currently or been in a relationship where the following occur: no concerns reported THRIVE Score: 0 AUDIT C Alcohol Use Questionnaire (AUDIT-C) 1. How often do you have a drink containing alcohol?: Never Total Score: 0 Score Reviewed/Action Taken: No XOCHITL-7 AMB Questionnaire XOCHITL-7 Date XOCHITL - 7 assessed: 08/06/23 Feeling nervous, anxious, or on edge: 0 = Not at all Not being able to stop or control worryin = Not at all Worrying too much about different things: 0 = Not at all Trouble relaxin = Not at all Being so restless that it is hard to sit still: 0 = Not at all Becoming easily annoyed or irritable: 0 = Not at all Feeling afraid as if something awful might happen: 0 = Not at all Total XOCHITL-7 score (0-4 normal; 5-9 mild; 10-14 moderate; 15-21 severe): 0 Source: Developed by Drs. Jose Carlos Singh, Stacy Faria, Jeremy Recinos and colleagues, with an educational paddy from [employer]. XOCHITL-7 Assessment Billing XOCHITL-7 Assessment Tool: XOCHITL-7 Assessment 79782 Review of Systems Const All systems reviewed & are unremarkable except as noted in HPI and below Eyes Reports no additional complaints, Denies change in vision and Denies other visual disturbances Card Denies chest pain at rest, Denies chest pain with activity, Denies edema, Denies irregular heart rhythm, Denies claudication, Denies dyspnea, Denies dyspnea on exertion, Denies orthopnea, Denies paroxysmal nocturnal dyspnea and Denies slow heart rate Resp Denies cough, Denies dyspnea and Denies dyspnea on exertion Physical exam (Primary Care) Vital Signs: Last Vital Signs BP 136/82 08/06/23 17:11 BMI result Body Mass Index 30.7 Tobacco/Smoking Status: Tobacco use Status Tobacco use date assessed 08/06/23 08/06/23 17:19 Patient Tobacco Use Status Never used Tobacco 08/06/23 17:19 e-Cigarette/Vaping Use Never Used 08/06/23 17:19 PHQ-9: PHQ-9 Score PHQ-9: Total score 0 08/06/23 17:25 Depression Screening Interpretation: Negative Thrive Assessment: Date of Thrive Assessment Date Thrive assessed 08/06/23 08/06/23 17:19 Currently or been in a relationship where the following occur: no concerns reported Const Orientation/consciousness: patient oriented x3 Limitations: wheelchair Resp Effort & Inspection: normal respiratory effort Auscultation: clear to auscultation bilaterally Cardio Jugular venous distension: no JVD Rate: regular rate Rhythm: regular rhythm Heart sounds: S1 normal heart sound present and S2 normal heart sound present Neuro General: patient oriented x3 Extrem Other: Left transmetacarpal amputation. Psych Appearance: grossly normal Results AMB Hemoglobin A1c AMB Hemoglobin A1c 8.7 % Last Edit by SCOTT Hendricks on 08/06/23 17:20 Results Reviewed Results Reviewed: Laboratory Last Values Hgb A1c (Clinic) 8.7 % (4.0-6.0) H 08/06/23 17:05 Assessment and Plan Assessment & Plan (1) Type 2 diabetes mellitus with hyperglycemia: Code(s): E11.65 - Type 2 diabetes mellitus with hyperglycemia Qualifiers: Diabetes mellitus [facility] insulin use: with [facility] use Qualified Code(s): E11.65 - Type 2 diabetes mellitus with hyperglycemia; Z79.4 - roasterman (current) use of insulin Plan: Continue short-acting insulin. Start long-acting insulin. A1c goal is equal or less than 7%. (2) ESRD on hemodialysis: Code(s): N18.6 - End stage renal disease; Z99.2 - Dependence on renal dialysis Plan: Continue hemodialysis 3 times a week. (3) CHF (congestive heart failure): Code(s): I50.9 - Heart failure, unspecified Plan: Referred to cardiology. The goal is to not gain 5 lb in a week. Continue carvedilol. Repeat echocardiogram. (4) Hyperlipidemia LDL goal <70: Code(s): E78.5 - Hyperlipidemia, unspecified Plan: Continue statins. LDL goal is less than 70. (5) Essential hypertension: Code(s): I10 - Essential (primary) hypertension Plan: Continue amlodipine. Blood pressure goal is equal or less than 130/80. Orders: Orders AMB Hemoglobin A1c 08/06/23 E11.9 - Type 2 diabetes mellitus without complications CA echo transthoracic complete 08/06/23 I50.9 - Heart failure, unspecified Complete Blood Count Auto Diff 08/06/23 D64.9 - Anemia, unspecified Lipid Panel 08/06/23 E78.5 - Hyperlipidemia, unspecified Microalbumin, Random (w Creat) 08/06/23 E11.9 - Type 2 diabetes mellitus without complications Comprehensive [place]. Panel Fast 08/06/23 E11.65 - Type 2 diabetes mellitus with hyperglycemia, Z79.4 - roasterman (current) use of insulin NT-proBNP Today I50.9 - Heart failure, unspecified IRON PROFILE 08/06/23 D64.9 - Anemia, unspecified Vitamin B12 and Folate 08/06/23 E53.8 - Deficiency of other specified B group vitamins Vitamin D 25-OH Total 08/06/23 E55.9 - Vitamin D deficiency, unspecified NT-proBNP 08/06/23 I50.9 - Heart failure, unspecified Referrals Cardiology Referral I50.9 - Heart failure, unspecified Medications: New lidocaine 5% leave on most painful area for up to 12 hrs 1 patch topical DAILY 30 days PRN 30 ea 3RF pain M54.50 - Low back pain, unspecified insulin glargine (Lantus Solostar U-100 Insulin) 3 units (0.03 mL) subcut QPM 30 days 0.9 mL 6RF E11.65 - Type 2 diabetes mellitus with hyperglycemia, Z79.4 - [facility] (current) use of insulin Refilled pen needle, diabetic (BD Ultra-Fine Rin Pen Needle) Use 1 pen needle once a day 90 ea 3RF E11.65 - Type 2 diabetes mellitus with hyperglycemia, Z79.4 - roasterman (current) use of insulin acetaminophen 650 mg (2 x 325 mg) PO Q4H 30 days PRN 180 tabs 1RF pain Coding Level of Care Code Est Pt Level 4 (88982) Diagnoses Type 2 diabetes mellitus with hyperglycemia, with long-term current use of insulin E11.65; Z79.4 Diabetes mellitus tank terminal gauger insulin use: with [facility] use ESRD on hemodialysis N18.6; Z99.2 CHF (congestive heart failure) I50.9 Hyperlipidemia LDL goal <70 E78.5 Essential hypertension I10 Additional Codes XOCHITL-7 Assessment Billing - XOCHITL-7 Assessment Tool: XOCHITL-7 Assessment [id number] ([id number]) Time Spent (min) 25
== END 2023-08-06 17:18 | disposition home or self-care (01) ==
PROVIDERS: PCP Internal Medicine; Visit Provider Internal Medicine
DX: E11.9 Type 2 diabetes mellitus without complications (principal)
CPT/HCPCS: 83036; 99214

== ENCOUNTER 2023-08-10 00:52 | Emergency (ER) | payer OTHER, SELFPAY ==
[2023-08-10] VITALS (11 sets, daily range): BP systolic 136–177; BP diastolic 55–90; PULSE 68–81; RESP 13–24; TEMP 36.8–37.2; O2SAT 94–100; BMI 31.0
--- NOTE | ~2023-08-10 | XR_ITS ---
EXAMINATION: XR CHEST CLINICAL INFORMATION: Chest pain. Shortness of breath. COMPARISON: 01/12/2023. TECHNIQUE: Frontal view of the chest was obtained. FINDINGS: The cardiomediastinal silhouette is normal. There is mild diffuse increased markings. A dual-lumen central catheter overlies the lower SVC/right atrium. There is no focal lung consolidation or pleural effusion. The bony structures and soft tissues are unremarkable. XR/XR chest 1V IMPRESSION: Mild diffuse increased pulmonary markings may be projectional or chronic versus interstitial edema. No focal consolidation or pleural effusion.
--- NOTE | 2023-08-10 01:05 | ECG_ITS ---
Test Reason : CHEST PAIN Blood Pressure : / mmHG Vent. Rate : 073 BPM Atrial Rate : 073 BPM P-R Int : 152 ms QRS Dur : 082 ms QT Int : 456 ms P-R-T Axes : 048 -31 152 degrees QTc Int : 502 ms Normal sinus rhythm Left axis deviation Moderate voltage criteria for LVH, may be normal variant ( R in aVL , [place] product ) Septal infarct (cited on or before 10-JUN-2022) ST & T wave abnormality, consider lateral ischemia Abnormal ECG When compared with ECG of 12-JAN-2023 05:52, Lateral T wave inversions present Referred By: Alycia Villegas Electronically Signed By:Adan Arriaga
--- NOTE | 2023-08-10 01:10 | PC.NURSE ---
Dr. Villegas to bedside. aware of bp.
[2023-08-10 01:16] LABS: MANUAL DIFF FLAG NO
[2023-08-10 01:18] LABS: Venous Blood Gas Refer to POC result
[2023-08-10 01:19] LABS: Basophils Absolute Auto 0.1 X10*3/uL (0.0-0.2); Basophils Percent Auto 0.4 % (0-2); Eosinophils Absolute Auto 0.3 X10*3/uL (0.0-0.4); Eosinophils Percent Auto 2.4 % (0-4); Hematocrit 33.5 % (37.0-47.0); Hemoglobin 11.1 g/dl (12.0-16.0); Imm Gran Abs Auto 0.03 X10*3/uL (0.00-0.03); Imm Gran Pct Auto 0.3 % (0.0-0.4); Lymphocytes Absolute Auto 1.9 X10*3/uL (1.2-4.9); Mean Corpuscular HGB Conc 33.1 g/dl (31.0-35.0); Mean Corpuscular Hemoglobin 28.5 pg (27.0-33.0); Mean Corpuscular Volume 86.1 fL (80.0-98.0); Mean Platelet Volume 11.9 fL (9.4-12.3); Monocytes Absolute Auto 0.8 X10*3/uL (0.1-1.2); Monocytes Percent Auto 6.6 % (2-11); Neutrophils Absolute Auto 8.7 x10*3/uL (2.0-8.3); Neutrophils Percent Auto 74.3 % (45-73); Platelet Count 239 X10*3/uL (160-400); Red Blood Count 3.89 X10*6/uL (4.20-5.50); Red Cell Distribution Width 15.8 % (11.0-16.0); White Blood Count 11.7 X10*3/uL (4.8-10.8)
--- NOTE | 2023-08-10 01:20 | ED.CHESTPAIN ---
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 Patient denies missing any dialysis sessions, cough, sick contacts, fevers/chills, patient denies any decrease in appetite and states that she has been able to eat her meals as regular. Related Data Home Medications ?Medication ?Instructions ?Recorded ?Confirmed melatonin 10 mg tablet 10 mg PO BEDTIME 11/09/22 08/06/23 Previous Rx's ?Medication ?Instructions ?Recorded walker #1 ea 08/13/21 diaper,brief,adult,disposable #120 ea 12/05/21 underpads (Bed Underpads) #100 ea 12/05/21 trazodone 50 mg tablet 50 mg PO BEDTIME PRN sleep 90 days 08/26/22 #90 tabs sucralfate 1 gram tablet 1 g PO QIDACHS #120 tabs 10/09/22 amlodipine 10 mg tablet 10 mg PO DAILY #30 tabs 10/10/22 insulin syringe-needle U-100 1 mL #100 ea 10/10/22 30 gauge x 1/2 (BD Insulin Syringe Ultra-Fine) vitamin B complex-vitamin C-folic 1 tab PO DAILY 90 days #90 tabs 10/10/22 acid 0.8 mg tablet (Nephro-Josefina) heparin (porcine) 25,000 unit/250 25,000 unit (250 mL) continuous IV 11/10/22 mL in 0.45 % sodium chloride IV infusion .Q0M #0 mL soln flash glucose sensor (FreeStyle #1 ea 11/18/22 Pedro 2 Sensor kit) sennosides 8.6 mg tablet (senna) 8.6 mg PO BEDTIME PRN constipation 12/16/22 30 days #30 tabs aspirin 81 mg tablet,delayed 81 mg PO DAILY 90 days #90 tabs 01/11/23 release (Adult Low Dose Aspirin) hydralazine 50 mg tablet 50 mg PO TID 90 days #270 tabs 01/14/23 atorvastatin 80 mg tablet 80 mg PO DAILY 90 days #90 tabs 01/27/23 carvedilol 25 mg tablet 25 mg PO BID 90 days #180 tabs 01/27/23 insulin lispro 100 unit/mL 5 unit (0.05 mL) subcut TID #15 mL 01/27/23 subcutaneous pen (Humalog KwikPen (U-100) Insulin) ticagrelor 90 mg tablet (Brilinta) 90 mg PO BID 90 days #180 tabs 01/27/23 cholecalciferol (vitamin D3) 50 50 mcg PO DAILY #90 caps 03/28/23 mcg (2,000 unit) capsule losartan 50 mg tablet 50 mg PO DAILY 90 days #90 tabs 06/30/23 acetaminophen 325 mg tablet 650 mg (2 x 325 mg) PO Q4H PRN 08/06/23 pain 30 days #180 tabs insulin glargine 100 unit/mL (3 3 unit (0.03 mL) subcut QPM 30 08/06/23 mL) subcutaneous pen (Lantus days #0.9 mL Solostar U-100 Insulin) lidocaine 5 % topical patch 1 patch topical DAILY PRN pain 30 08/06/23 days #30 ea pen needle, diabetic 32 gauge x #90 ea 08/06/23 5/32 (BD Ultra-Fine Rin Pen Needle) Allergies Allergy/AdvReac Type Severity Reaction Status Date / Time diphenhydramine AdvReac Severe dizziness, Verified 08/10/23 01:04 [From Benadryl] itch Review of Systems Review of Systems: Pertinent positives and negatives as stated in HPI [facility] Past Medical History Source: nursing notes reviewed Medical History Acute coronary syndrome Cataract COVID-19 Type 2 diabetes mellitus with other diabetic kidney complication Delayed gastric emptying GERD (gastroesophageal reflux disease) DM renal manif type II Abdominal pain Cough Gastritis Type 2 diabetes mellitus with hyperglycemia Diabetic nephropathy associated with type 2 diabetes mellitus Diabetic polyneuropathy associated with type 2 diabetes mellitus Vitamin D deficiency ESRD on hemodialysis Dyslipidemia Essential hypertension Surgical History Status post cardiac catheterization Status post cardiac catheterization History of amputation Arteriovenous fistula for hemodialysis in place, primary Family History Family History Mother Diabetes Hypertension Father Hypertension Social History Social History Household Members: Children Household Members Other:: son & daughter Housing: Apartment Do you presently have visiting nurse or other home services: No Alcohol intake: never Comment: called report to [facility] [place] Patient Tobacco Use Status: Never used Tobacco Smoked in Last 30 Days: No e-Cigarette/Vaping Use: Never Used Second Hand Smoke Exposure: No Use of substances other than those prescribed or required for medical reasons: No Advance Directives: Yes Advance Directives on File: Yes Advance Directives Date on File: 07/09/21 service: No Current occupational status: disabled Cognitive needs: Yes Hearing needs: No Vision needs: Yes Physical Exam Vital Signs: Vital Signs: Last Vital Signs Temp 98.5 F 08/10/23 03:05 Pulse 71 08/10/23 03:10 Resp 17 08/10/23 03:10 BP 136/62 08/10/23 03:10 Pulse Ox 97 08/10/23 03:10 O2 Del Method Room Air 08/10/23 03:10 BMI result Body Mass Index 31.0 VITAL SIGNS: Reviewed. GENERAL: Well developed, well nourished, in mild distress. HEAD: Normocephalic/atraumatic EYES: PERRLA, EOMI EARS: Ext canals without abnormality NOSE: Nares patent bilateral OROPHARYNX: no oral lesions noted, posterior pharynx clear NECK: Supple, no adenopathy LUNGS: Good inspiratory effort with bibasilar rales, otherwise no crackles/rhonchi appreciated. SpO2<100>; CHEST WALL: Left anterior chest wall dialysis catheter without surrounding erythema or induration. CARDIOVASCULAR: Regular rate and rhythm without noted murmurs, no JVD or lower extremity edema. ABDOMEN: Soft, non-tender, non-distended with bowel sounds. MUSCULOSKELETAL: No tenderness, deformities, or effusions noted on gross inspection. EXTREMITIES: No cyanosis, clubbing or edema. SKIN: Inspection of the skin reveals no rashes NEUROLOGIC: Alert and oriented x 4. Strength and sensation to light touch were grossly intact x 4. Medications Administered Discontinued Medications Generic Name Dose Route Start Last Admin Trade Name Tyler PRN Reason Stop Dose Admin Magnesium Sulfate/Dextrose 1 gm in 100 mls @ 300 mls/hr 08/10/23 01:26 08/10/23 02:15 Magnesium Sulfate/D5w IV 08/10/23 01:45 Infused ONCE ONE Infusion Nitroglycerin 0.5 inch 08/10/23 02:56 08/10/23 03:10 Nitroglycerin 2 % Oint 1 Gm Packet TRANSDERMA 08/10/23 02:57 0.5 inch ONCE ONE Administration Nitroglycerin 0.4 mg 08/10/23 03:16 08/10/23 03:22 Nitroglycerin 0.4 Mg Tab.Subl SUBLINGUAL 08/10/23 03:17 0.4 mg ONCE ONE Administration Medical Decision Making Medical Decision Making MDM Narrative: 67-year-old female with history and clinical presentation, DDX: ACS, CHF, lower clinical suspicion for viral or ammonia etiologies. 0209: Currently remains having chest pain, will give 1/2 inch nitro paste, troponin is elevated to over 1100 with an elevated BNP and no missed dialysis sessions, there are no acute changes on EKG, I discussed this case with on-call area intelligence technician Dr. Ji who agrees no EKG changes but if patient continues to have chest pain that she should be transfer to [facility]. 0255: I spoke with [facility] cardiology who wishes for an update after patient receives nitroglycerin. HEART Score: 9 I confirmed that EMS provided additional aspirin but no nitro. I discontinued the 1/2 inch of nitro paste and instead provided patient with sublingual nitro and on re-evaluation she reports improvement of her chest pain and states that it has completely resolved. I reviewed all investigations and hematologic indices are grossly stable with baseline leukocytosis and left shift as well as normocytic anemia no thrombocytopenia. Patient has remained afebrile and denies presence of any cough. Coagulation studies demonstrate INR-1. ABG does not demonstrate any evidence of respiratory acidosis or hypercapnia. Chemistry indices demonstrate a stable renal labs consistent with known underlying ESRD dependent on dialysis. There are no electrolyte derangements. As mentioned above, troponin is noted to be elevated as well as BNP. Patient will receive 60 mg of Lasix. Chest x-ray consistent for interstitial edema but otherwise no infiltrate. 0448: I discussed the case with Dr. Connelly who accepts patient in transfer to the medicine team with Cardiology consultation, agrees with heparin. I have been informed by [facility] transfer [place] that they do not have any current beds available and that patient transfer will be pending discharges at [facility]. Patient placed in physician observation because the patient needed more time for transfer to [facility] for NSTEMI. At the time observation was started the patient's vital signs were stable, patient is alert and oriented, neuro: Nonfocal, CV RRR, lungs clear Differential Diagnosis Differential Diagnoses: The differential diagnosis associated with the presentation includes Please see the discussion above Admission/Observation Consideration of admission/observation: Escalation of care including admission/observation considered Please see the discussion above Consult Healthcare Provider Management of the patient was discussed with: Dye Room Helper Please see the discussion above Lab Data MDM Lab Attestation statement: I reviewed the patient's lab results. Please see the discussion above 08/10/23 01:12 08/10/23 01:12 Labs: Lab Results 08/10/23 08/10/23 Range/Units 01:12 01:15 WBC 11.7 H (4.8-10.8) X10*3/uL RBC 3.89 L (4.20-5.50) X10*6/uL Hgb 11.1 L (12.0-16.0) g/dl Hct 33.5 L (37.0-47.0) % MCV 86.1 (80.0-98.0) fL MCH 28.5 (27.0-33.0) pg MCHC 33.1 (31.0-35.0) g/dl RDW 15.8 (11.0-16.0) % Plt Count 239 (160-400) X10*3/uL MPV 11.9 (9.4-12.3) fL Immature Gran % (Auto) 0.3 (0.0-0.4) % Neut % (Auto) 74.3 H (45-73) % Lymph % (Auto) 16.0 L (20-40) % [place] % (Auto) 6.6 (2-11) % Eos % (Auto) 2.4 (0-4) % Baso % (Auto) 0.4 (0-2) % Lymph # (Auto) 1.9 (1.2-4.9) X10*3/uL [place] # (Auto) 0.8 (0.1-1.2) X10*3/uL Eos # (Auto) 0.3 (0.0-0.4) X10*3/uL Baso # (Auto) 0.1 (0.0-0.2) X10*3/uL Abs Immat Gran (auto) 0.03 (0.00-0.03) X10*3/uL Absolute Neuts (auto) 8.7 H (2.0-8.3) x10*3/uL Absolute Nucleated RBC 0.000 (0.0-0.012) X10*3/uL Nucleated RBC % (auto) 0.0 (0.0-0.2) /100WBC PT 11.8 (11.1-13.3) SEC INR 1.0 (0.9-1.1) VBG pH 7.48 H (7.32-7.43) VBG pCO2 37 mmHg VBG pO2 49 mmHg VBG HCO3 28 H (22-26) mmol/L VBG O2 Saturation 77.0 % VBG Base Excess 4.6 mmol/L Sodium 138 (135-145) mmol/L Potassium 4.4 (3.3-5.1) mmol/L Chloride 101 (96-108) mmol/L Carbon Dioxide 24 (22-29) mmol/L Anion Gap 17 (12-20) BUN 41 H (9-16) mg/dL Creatinine 6.78 H* (0.5-1.4) mg/dL Estim Creat Clear Calc 7.8 Estimated GFR 6 Random Glucose 213 H (60-115) mg/dL Calcium 9.4 (8.4-10.2) mg/dL Total Bilirubin 0.4 (0.0-1.0) mg/dL AST 26 (5-31) U/L ALT 14 (0-31) U/L Alkaline Phosphatase 54 (39-117) U/L Troponin I High Sens 1159.8 H* (<3.5-17.0) ng/L B-Natriuretic Peptide 2214 H (<100) pg/mL Total Protein 7.4 (6.5-8.0) g/dL Albumin 3.2 L (3.5-5.0) g/dL Independent Interpretation I performed an independent interpretation of an: EKG Interpretation: Normal sinus rhythm, HR-73, no STEMI, NM/QRS within normal limits, QTC-502 (will treat with magnesium), on comparison with EKG from 01/12/2023 I do not notice any significant changes. Radiology Impression Discussion of test interpretation with radiology: I have reviewed the radiologist's reading. Radiologist Impression: Please see the discussion above External Record Review External record reviewed: Outpatient record, Prior outpatient labs, Prior outpatient radiology and Other PCI records from [facility] Chronic Conditions Patient?s care impacted by: Diabetes, Hypertension and Other ESRD Critical Care Time Critical Care Time Critical Care Time: Yes Total Critical Care Time: 90 Attestation: I personally attest to this time spent taking care of the patient. Discharge Plan Discharge Clinical Impression: Non-ST elevation [facility] (NSTEMI) Patient Disposition: [facility] Transfer Details: Cardiology, chest pain Prescriptions: No Action (DME) walker Misc See Rx Instructions .Route Qty: 1 0RF Rx Instructions: As directed (DME) diaper,brief,adult,disposable Misc See Rx Instructions .ROUTE .MEDSUPPLY Qty: 120 11RF Rx Instructions: Use 1 diaper as needed 6 times a day (DME) underpads [Bed Underpads] Pad See Rx Instructions .ROUTE .MEDSUPPLY Qty: 100 11RF Rx Instructions: Use 1 underpad as needed every 8 hours Nephro-Josefina 0.8 mg tablet 1 tab PO DAILY 90 Days Qty: 90 3RF amlodipine 10 mg tablet 10 mg PO DAILY Qty: 30 6RF Protocol: Hold for SBP< HOLD for SBP < : 90 (DME) insulin syringe-needle U-100 [BD Insulin Syringe Ultra-Fine] 1 mL 30 gauge x 1/2 syringe See Rx Instructions .Route Qty: 100 3RF Rx Instructions: test 4 times per day (DME) FreeStyle Pedro 2 Sensor Kit See Rx Instructions .Route Qty: 1 11RF Rx Instructions: As directed sennosides [senna] 8.6 mg tablet 8.6 mg PO BEDTIME PRN (Reason: constipation) 30 Days Qty: 30 1RF aspirin [Adult Low Dose Aspirin] 81 mg tablet,delayed release (DR/EC) 81 mg PO DAILY 90 Days Qty: 90 3RF hydralazine 50 mg tablet 50 mg PO TID 90 Days Qty: 270 2RF cholecalciferol (vitamin D3) 50 mcg (2,000 unit) capsule 50 mcg PO DAILY Qty: 90 2RF losartan 50 mg tablet 50 mg PO DAILY 90 Days Qty: 90 1RF melatonin 10 mg Tablet 10 mg PO BEDTIME heparin(porcine) in 0.45% NaCl 25,000 unit/250 mL Parenteral Solution 25,000 unit continuous IV infusion .Q0M Qty: 0 0RF Brilinta 90 mg tablet 90 mg PO BID 90 Days Qty: 180 1RF atorvastatin 80 mg tablet 80 mg PO DAILY 90 Days Qty: 90 3RF carvedilol 25 mg tablet 25 mg PO BID 90 Days Qty: 180 1RF Rx Instructions: must administer with a meal/food insulin lispro [Humalog KwikPen Insulin] 100 unit/mL insulin pen 5 unit subcut TID Qty: 15 11RF Rx Instructions: or as directed acetaminophen 325 mg tablet 650 mg PO Q4H PRN (Reason: pain) 30 Days Qty: 180 1RF lidocaine 5 % adhesive patch,medicated 1 patch topical DAILY PRN (Reason: pain) 30 Days Qty: 30 3RF Rx Instructions: leave on most painful area for up to 12 hrs insulin glargine [Lantus Solostar U-100 Insulin] 100 unit/mL (3 mL) insulin pen 3 unit subcut QPM 30 Days Qty: 0.9 6RF (DME) pen needle, diabetic [BD Ultra-Fine Rin Pen Needle] 32 gauge x 5/32 needle See Rx Instructions .ROUTE .MEDSUPPLY Qty: 90 3RF Rx Instructions: Use 1 pen needle once a day trazodone 50 mg tablet 50 mg PO BEDTIME PRN (Reason: sleep) 90 Days Qty: 90 1RF sucralfate 1 gram tablet 1 g PO QIDACHS Qty: 120 3RF Print Language: Nicaraguan
[2023-08-10 01:24] LABS: VBG Base Excess 4.6 mmol/L; VBG HCO3 28 mmol/L (22-26); VBG pCO2 37 mmHg; VBG pH 7.48 (7.32-7.43); VBG pO2 49 mmHg
[2023-08-10 01:26] LABS: Prothrombin Time 11.8 SEC (11.1-13.3)
[2023-08-10 01:39] LABS: B Type Natriuretic Peptide 2214 pg/mL (<100)
[2023-08-10 01:40] LABS: Alanine Aminotransferase 14 U/L (0-31); Albumin Level 3.2 g/dL (3.5-5.0); Alkaline Phosphatase 54 U/L (39-117); Anion Gap 17 (12-20); Aspartate Amino Transferase 26 U/L (5-31); Bilirubin Total 0.4 mg/dL (0.0-1.0); Blood Urea Nitrogen 41 mg/dL (9-16); Calcium 9.4 mg/dL (8.4-10.2); Carbon Dioxide 24 mmol/L (22-29); Chloride 101 mmol/L (96-108); Creatinine Clr Calc Pharmacy 7.8; Estimated Glomerular Filt Rate 6; Glucose Random 213 mg/dL (60-115); Potassium 4.4 mmol/L (3.3-5.1); Sodium 138 mmol/L (135-145); Total Protein 7.4 g/dL (6.5-8.0)
[2023-08-10 01:41] LABS: Troponin-I High Sensitivity 1159.8 ng/L (<3.5-17.0)
[2023-08-10] MEDS: Magnesium Sulfate/D5W 1 GM/100 ML PIGGYBACK IV (01:53)
--- NOTE | 2023-08-10 01:56 | PC.NURSE ---
daughter Kamini [phone]
[2023-08-10] MEDS: Nitroglycerin 2 % Oint 1 GM Packet 0.5 INCH TRANSDERMA (03:10)
--- NOTE | 2023-08-10 03:18 | PC.NURSE ---
nitro paste removed per Dr. Villegas.
[2023-08-10] MEDS: Nitroglycerin 0.4 MG TAB.SUBL SUBLINGUAL (03:22)
--- NOTE | 2023-08-10 04:50 | PC.NURSE ---
pt reports cp has resolved. Dr. Villegas aware. pt reports some back pain.
[2023-08-10] MEDS: Furosemide 100 MG/10 ML VIAL 60 MG IVPUSH (05:13)
[2023-08-10 05:17] LABS: Hematocrit 31.4 % (37.0-47.0); Hemoglobin 10.3 g/dl (12.0-16.0); Mean Corpuscular HGB Conc 32.8 g/dl (31.0-35.0); Mean Corpuscular Hemoglobin 28.4 pg (27.0-33.0); Mean Corpuscular Volume 86.5 fL (80.0-98.0); Mean Platelet Volume 11.5 fL (9.4-12.3); Platelet Count 226 X10*3/uL (160-400); Red Blood Count 3.63 X10*6/uL (4.20-5.50); Red Cell Distribution Width 15.7 % (11.0-16.0); White Blood Count 11.4 X10*3/uL (4.8-10.8)
--- NOTE | 2023-08-10 05:24 | PC.NURSE ---
pt daughter called to educate on pts plan of care per pt request. pt also states med list is with daughter; daughter states she does not have the list at this time. daughter will call back when she has this list. med rec unable to be done at this time.
[2023-08-10 05:27] LABS: Prothrombin Time 11.6 SEC (11.1-13.3)
[2023-08-10 05:30] LABS: PTT Heparin Drip 27.4 SEC (53-77.9); Partial Thromboplastin Time 27.6 SEC (26.0-36.8)
[2023-08-10 05:38] LABS: Troponin-I High Sensitivity 1292.4 ng/L (<3.5-17.0)
[2023-08-10] MEDS: Heparin Sodium,Porcine/1/2NS 25,000 UNIT/250 ML IV.SOLN 9.22 UNIT IVCONT (05:56)
[2023-08-10] MEDS: Heparin Sodium,Porcine 5,000 UNIT/ML VIAL 4000 UNIT IVPUSH (06:06)
[2023-08-10] MEDS: ondansetron HCL 4 MG/2 ML VIAL IVPUSH (08:45)
--- NOTE | 2023-08-10 08:47 | PC.NURSE ---
patient denies any chest pain, reporting lower back pain. patient up to use commode w/ one assist. requesting medication for nausea - patient also having diarrhea at this time.
[2023-08-10 12:26] LABS: PTT Heparin Drip 54.9 SEC (53-77.9)
--- NOTE | 2023-08-10 13:42 | PC.NURSE ---
PTT reviewed with JACKSON Huang, no adjustment needed per protocol, next PTT to be drawn at 1900, order placed.
--- NOTE | 2023-08-10 14:13 | PC.NURSE ---
NO WORD FROM [facility] YET, [employer] COACH ASKED TO MAKE CONTACT AGAIN FOR TRANSFER. PER MD, PT TO REMAIN NPO GIVEN LIKELIHOOD OF GOING TO OUTREACH LIBRARIAN TODAY.
[2023-08-10 14:28] LABS: Glucose, Whole Blood 136 mg/dL (60-115)
--- NOTE | 2023-08-10 16:31 | PC.NURSE ---
[phone] [facility]
--- NOTE | 2023-08-10 18:50 | PC.NURSE ---
Nurse to Nurse report given to Oskar on MM7, all questions answered, EMS at bedside to transfer patient to [facility].
== END 2023-08-10 19:21 | disposition short-term general hospital (02) ==
PROVIDERS: Emergency Provider Student in an Organized Health Care Education/Training Program; PCP Internal Medicine
DX: I21.4 Non-ST elevation (NSTEMI) myocardial infarction (principal); I12.0 Hypertensive chronic kidney disease with stage 5 chronic kidney disease or end stage renal disease; E11.22 Type 2 diabetes mellitus with diabetic chronic kidney disease; N18.6 End stage renal disease; Z99.2 Dependence on renal dialysis
CPT/HCPCS: 36415; 71045; 80053; 82803; 82947; 83880; 84484; 85025; 85027; 85610; 85730; 93005; 96365; 96375; 99285; J1644; J1940; J2405; J3475

== ENCOUNTER → 2023-08-10 01:05 | Outpatient (BNV) | payer OTHER, SELFPAY | PROVIDERS: Emergency Provider Student in an Organized Health Care Education/Training Program; PCP Internal Medicine; Visit Provider Internal Medicine Cardiovascular Disease | DX: R94.31 Abnormal electrocardiogram [ECG] [EKG] (principal) | CPT/HCPCS: 93010 ==

== ENCOUNTER 2023-08-25 09:11 | Outpatient (AMB) | payer OTHER, SELFPAY ==
[2023-08-25 09:27] VITALS: BP 140/64; PULSE 61; BMI 30.5
--- NOTE | 2023-08-25 09:27 | MHC.OFFVIS ---
Vital Signs 08/25/23 09:27 Height 5 ft 2 in Weight 167 lb BMI 30.5 BP 140/64 H Blood Pressure Location Rt brachial Position Sitting Pulse 61 Pulse Source Pulse Oximeter Intake Visit [place] [facility] [place] [place] followup stroke Engraver Copperplate Required: Yes Engraver Copperplate Name: [id number] Accompanied by: Other Relationship Allergies diphenhydramine [From Benadryl] Adverse Reaction (Severe, Verified 08/10/23 01:04) dizziness, itch Medication List - Last Reconciled 08/25/23 by NILA Hartman acetaminophen 650 mg (2 x 325 mg) PO Q4H PRN 30 days amlodipine 10 mg See Protocol PO DAILY aspirin (Adult Low Dose Aspirin) 81 mg PO DAILY 90 days atorvastatin 80 mg PO DAILY 90 days B complex-vitamin C-folic acid 0.8 mg (Nephro-Josefina) 1 tab PO DAILY 90 days carvedilol 25 mg PO BID 90 days cholecalciferol (vitamin D3) 50 mcg PO DAILY diaper,brief,adult,disposable Use 1 diaper as needed 6 times a day flash glucose sensor (FreeStyle Pedro 2 Sensor kit) As directed heparin(porcine) in 0.45% NaCl 25,000 unit/250 mL 25,000 units (250 mL) continuous IV infusion .Q0M hydralazine 50 mg PO TID 90 days insulin glargine (Lantus Solostar U-100 Insulin) 3 units (0.03 mL) subcut QPM 30 days insulin lispro (Humalog KwikPen (U-100) Insulin) 5 units (0.05 mL) subcut TID insulin syringe-needle U-100 (BD Insulin Syringe Ultra-Fine) test 4 times per day lidocaine 5% 1 patch topical DAILY PRN 30 days losartan 50 mg PO DAILY 90 days melatonin 10 mg PO BEDTIME pen needle, diabetic (BD Ultra-Fine Rin Pen Needle) Use 1 pen needle once a day sennosides (senna) 8.6 mg PO BEDTIME PRN 30 days sucralfate 1 g PO QIDACHS ticagrelor (Brilinta) 90 mg PO BID 90 days trazodone 50 mg PO BEDTIME PRN 90 days underpads (Bed Underpads) Use 1 underpad as needed every 8 hours walker As directed HPI HPI [facility] [place] [place] followup / stroke: Details: Nicole is a 67 yo female with PMH of HTN, HLD, DM, PVD with transmetacarpal amputation, ESRD on dialysis, CAD, coronary stents, NSTEMIs, repeated coronary PCIs, CHF who was recently presented to [facility] [place] with chest discomfort and ruled in for ACS. She was transferred to [facility] where she underwent cardiac catheterization showing LAD in stent stenosis with PCI, ischemic cardiomyopathy. Today she reports that she has been doing well since her hospital discharge. She has not had any recurrent chest discomfort. She is mostly sedentary and arrives to this visit on EMS stretcher. She has some shortness of breath with activity which is not new. No PND, orthopnea or edema. No lightheadedness, presyncope, syncope, falls. She uses a wheelchair at home. She attends dialysis 3 times weekly. Daughter is present. Certified front desk supervisor used. [facility] Medical History Acute coronary syndrome Cataract COVID-19 Type 2 diabetes mellitus with other diabetic kidney complication Delayed gastric emptying GERD (gastroesophageal reflux disease) DM renal manif type II Abdominal pain Cough Gastritis Type 2 diabetes mellitus with hyperglycemia Diabetic nephropathy associated with type 2 diabetes mellitus Diabetic polyneuropathy associated with type 2 diabetes mellitus Vitamin D deficiency ESRD on hemodialysis Dyslipidemia Essential hypertension Surgical History Status post cardiac catheterization Status post cardiac catheterization History of amputation Arteriovenous fistula for hemodialysis in place, primary Family History Mother Diabetes Hypertension Father Hypertension Social History Household Members: Children Household Members Other:: son & daughter Housing: Apartment Do you presently have visiting nurse or other home services: No Alcohol intake: never Comment: called report to [facility] [place] Patient Tobacco Use Status: Never used Tobacco e-Cigarette/Vaping Use: Never Used Second Hand Smoke Exposure: No Advance Directives Date on File: 07/09/21 service: No Current occupational status: disabled Cognitive needs: Yes Hearing needs: No Vision needs: Yes Review of Systems Const All systems reviewed & are unremarkable except as noted in HPI and below Denies chills, Denies fatigue, Denies fever(s), Denies frequent falls, Denies weakness, Denies weight gain and Denies weight loss ENT Denies dizziness Card Denies chest pain, Denies leg edema, Denies lightheadedness, Denies palpitations, Reports dyspnea and Denies dyspnea on exertion Resp Denies cough, Reports dyspnea and Denies dyspnea on exertion GI Denies hematochezia Musc Denies abnormal gait, Reports back pain, Reports muscle weakness, Denies numbness, Denies radiating pain into limb and Denies tingling Neuro Denies abnormal gait, Denies dizziness, Denies frequent falls, Denies numbness, Denies tingling and Denies weakness Endo Denies fatigue and Denies palpitations Physical Exam Vital Signs: Last Vital Signs Pulse 61 08/25/23 09:27 BP 140/64 H 08/25/23 09:27 BMI result Body Mass Index 30.5 Const General: comfortable and no acute distress Orientation/consciousness: patient oriented x3 Neck Neck: Yes normal visual inspection and Yes no JVD Resp Effort & Inspection: normal respiratory effort Auscultation: clear to auscultation bilaterally, no rales, no rhonchi and no wheezes Cardio Jugular venous distension: no JVD Rate: regular rate Rhythm: regular rhythm Heart sounds: S1 normal heart sound present, S2 normal heart sound present, no murmurs and no rubs Neuro General: patient oriented x3 Extrem Other: right femoral pulse palpable, nontender General: Yes normal to inspection and No no pedal edema Psych Appearance: grossly normal Mental Status: mental status grossly normal Speech and movement: Normal speech and movement present Assessment & Plan Assessment & Plan (1) Non-ST elevation IA (NSTEMI): Code(s): I21.4 - Non-ST elevation (NSTEMI) myocardial infarction Category: Medical Plan: History of CAD with SISI to left circumflex in 2015, with occluded stent not amenable to PCI with NSTEMI 07/2021 and cardiac cath showing severe 2 vessel disease. CTS eval done and patient not a good surgical candidate. She then had repeat cardiac catheterization with SISI placed to the LAD. She continued to have residual proximal circumflex stenosis. She had reported intermittent chest discomfort and plan was for cardiac catheterization for left circumflex stenting. Cardiac catheterization was done on 12/26/2021 showing restenoses of the proximal LAD, also mid circumflex proximal 95% stenosis. She had angioplasty and stent of the proximal LAD. Plan for medical management for the circumflex at that time. NSTEMI 11/2022 and had cardiac catheterization showing mid LAD 100% stenosis, proximal LAD stent 100% ISR, angioplasty and SISI placed, left circumflex old stent occluded with [id number]-[id number] collaterals. She again had NSTEMI 08/2023 and underwent cardiac catheterization showing proximal LAD stenosis, PCI performed. Recommendation is for dual anti-platelet therapy indefinitely. Notes also recommend CTS consultation due to high likelihood of restenosis of the LAD. Will check with her primary manager graphic as this patient previously was deemed not a good candidate. She is multiple comorbidities including end-stage renal disease and dialysis, peripheral vascular disease. At this time she denies any chest discomfort. She does have some shortness of breath with activity. She does not appear fluid overloaded on examination. Continue current meds without change. Continue aspirin indefinitely, continue Brilinta (for Plavix) indefinitely. Continue high-dose atorvastatin with ideal LDL goal less than 70, carvedilol. Discussed all the above with patient and daughter and they state understanding of current cardiac condition. Not a good candidate for cardiac rehab due to difficulty with mobility, transportation. Cardiology follow-up in 3 months, sooner if needed (2) CHF (congestive heart failure): Code(s): I50.9 - Heart failure, unspecified Category: Medical Plan: Last echo 08/11/2023 shows EF 30-35%, mid to distal inferior lateral wall severely hypokinetic, lateral wall severely hypokinetic, distal septal wall akinetic, apex dyskinetic [id number] TR PAF 55 mmHg, moderate pulmonary hypertension. No clinical signs of acute heart failure on examination. Patient undergoes dialysis 3 times weekly. (3) Status post cardiac catheterization: Comment: 07/09/2021, left main normal, lad mid 90% stenosis, diffuse severe disease involving the diagonal branches, SUSTAINABLE LANDSCAPE ARCHITECT of mid circumflex, [id number] and btjwt-wy-[id number] collaterals, prior stents seen in the mid subsection, proximal circumflex 80% stenosis, RCA mild luminal irregularities less than 30%, collateral flow from the distal LAD to 2nd OM and distal RCA to the mid circumflex Code(s): Z98.890 - Other specified postprocedural states Category: Surgical Plan: As above (4) Status post cardiac catheterization: Comment: 07/11/2021 angioplasty, intravascular shockwave lithotripsy arthrectomy of the mid LAD with placement of a drug-eluting stent with excellent angiographic results Code(s): Z98.890 - Other specified postprocedural states Category: Surgical (5) S/P cardiac catheterization: Comment: 12/26/2021 showing proximal LAD 99% severe InStent restenosis, balloon angioplasty and SISI placed, left circumflex, severe disease to be managed medically Code(s): Z98.890 - Other specified postprocedural states Category: Surgical Plan: As above (6) S/P cardiac cath: Comment: 11/11/2022, mid LAD 100% stenosis, proximal LAD 100% ISR, balloon angioplasty with SISI placed, left circumflex proximal 90% stenosis, old stent occluded, [id number]-ie-pftt collaterals, RCA less than 30% stenosis, collaterals from the distal LAD to the 2nd OM, distal RCA to the mid circumflex Code(s): Z98.890 - Other specified postprocedural states Category: Surgical (7) S/P cardiac cath: Comment: 08/11/2023, left main distal 35% stenosis, proximal LAD stent 80% stenosis, mid LAD stent 95% stenosis, left circumflex ostial 99% stenosis, stent mid circumflex 100% stenosis, 1st OM 95% stenosis, 2nd OM 99% stenosis, RCA mild diffuse disease, collateral flow from the distal LAD to 2nd OM, collateral flow from distal RCA to mid circumflex, PCI of proximal and mid LAD Code(s): Z98.890 - Other specified postprocedural states Category: Surgical Plan: As above (8) Essential hypertension: Code(s): I10 - Essential (primary) hypertension Category: Medical Plan: Blood pressure mildly elevated today. She reports that blood pressure is low at times during dialysis. She has not missed any dialysis treatments. No med changes made today (9) End-stage renal disease (ESRD): Code(s): N18.6 - End stage renal disease Category: Medical Plan: Dialysis 3 times weekly. [facility] (10) Hospital discharge follow-up: Code(s): Z09 - Encounter for follow-up examination after completed treatment for conditions other than malignant neoplasm Category: Medical Plan: NSTEMI (11) Wheelchair bound: Code(s): Z99.3 - Dependence on wheelchair Category: Medical Plan: Sedentary Plan Time spent on chart review, documentation, interview and assessment
== END 2023-08-25 10:08 | disposition home or self-care (01) ==
PROVIDERS: PCP Internal Medicine; Visit Provider Nurse Practitioner Family
DX: I21.4 Non-ST elevation (NSTEMI) myocardial infarction (principal); I50.9 Heart failure, unspecified; Z98.890 Other specified postprocedural states; I12.0 Hypertensive chronic kidney disease with stage 5 chronic kidney disease or end stage renal disease; N18.6 End stage renal disease; Z09 Encounter for follow-up examination after completed treatment for conditions other than malignant neoplasm; Z99.3 Dependence on wheelchair
CPT/HCPCS: 99214

== ENCOUNTER → 2023-08-25 09:11 | Outpatient (BNVA) | payer OTHER, SELFPAY | PROVIDERS: PCP Internal Medicine; Visit Provider Nurse Practitioner Family | DX: Z09 Encounter for follow-up examination after completed treatment for conditions other than malignant neoplasm (principal); I25.2 Old myocardial infarction; I13.2 Hypertensive heart and chronic kidney disease with heart failure and with stage 5 chronic kidney disease, or end stage renal disease; N18.6 End stage renal disease; I50.9 Heart failure, unspecified; Z98.890 Other specified postprocedural states; Z99.3 Dependence on wheelchair | CPT/HCPCS: 99212 ==

== ENCOUNTER 2023-09-02 15:35 | Outpatient (AMB) | payer OTHER, SELFPAY ==
--- NOTE | 2023-09-02 15:51 | A.OFFPC_ITS ---
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 Required: No Accompanied by: BALANCE BRIDGE ASSEMBLER Allergies diphenhydramine [From Benadryl] Adverse Reaction (Severe, Verified 09/02/23 16:12) dizziness, itch Medication List - Last Reconciled 09/02/23 by Deanna Hedrick MD acetaminophen 650 mg (2 x 325 mg) PO Q4H PRN 30 days amlodipine 10 mg See Protocol PO DAILY aspirin (Adult Low Dose Aspirin) 81 mg PO DAILY 90 days atorvastatin 80 mg PO DAILY 90 days B complex-vitamin C-folic acid 0.8 mg (Nephro-Josefina) 1 tab PO DAILY 90 days carvedilol 25 mg PO BID 90 days cholecalciferol (vitamin D3) 50 mcg PO DAILY diaper,brief,adult,disposable Use 1 diaper as needed 6 times a day flash glucose sensor (FreeStyle Pedro 2 Sensor kit) As directed heparin(porcine) in 0.45% NaCl 25,000 unit/250 mL 25,000 units (250 mL) continuous IV infusion .Q0M hydralazine 50 mg PO TID 90 days insulin glargine (Lantus Solostar U-100 Insulin) 3 units (0.03 mL) subcut QPM 30 days insulin lispro (Humalog KwikPen (U-100) Insulin) 5 units (0.05 mL) subcut TID insulin syringe-needle U-100 (BD Insulin Syringe Ultra-Fine) test 4 times per day lidocaine 5% 1 patch topical DAILY PRN 30 days losartan 50 mg PO DAILY 90 days melatonin 10 mg PO BEDTIME pen needle, diabetic (BD Ultra-Fine Rin Pen Needle) Use 1 pen needle once a day sennosides (senna) 8.6 mg PO BEDTIME PRN 30 days sucralfate 1 g PO QIDACHS ticagrelor (Brilinta) 90 mg PO BID 90 days trazodone 50 mg PO BEDTIME PRN 90 days underpads (Bed Underpads) Use 1 underpad as needed every 8 hours walker As directed Tobacco use date assessed: 08/06/23 Fall risk assessment: No Falls in past year Last assessed Fall Risk: 09/02/23 Dental Screening Dental Screen Date: 08/06/23 HPI HPI Comments History of Present Illness Details This is a 67-year-old female with diabetes mellitus type 2 on long-term current use of insulin, end-stage renal disease on hemodialysis and congestive heart failure that comes today accompanied by BALANCE BRIDGE ASSEMBLER for her physical exam. Last A1c was elevated and I will increase Lantus from 3 units to 5 units once a day. She received hemodialysis 3 times a week and is not on any over low today. Left central line is clean. Has congestive heart failure in which last ejection fraction was last month from 30-35% and follows with cardiology. Has not gain 5 lb in a week and seems euvolemic. Not able to have a mammogram due to not able to be standing. She had stool for occult blood positive and had a colonoscopy few years ago which was negative but I do not have the results and she does not remember where it was. Will order bone density. [facility] Medical History (Updated 09/02/23 @ 19:45 by Deanna Hedrick MD) Acute coronary syndrome Cataract COVID-19 Type 2 diabetes mellitus with other diabetic kidney complication Delayed gastric emptying GERD (gastroesophageal reflux disease) DM renal manif type II Abdominal pain Cough Gastritis Type 2 diabetes mellitus with hyperglycemia Diabetic nephropathy associated with type 2 diabetes mellitus Diabetic polyneuropathy associated with type 2 diabetes mellitus Vitamin D deficiency ESRD on hemodialysis Dyslipidemia Essential hypertension Surgical History Status post cardiac catheterization Status post cardiac catheterization History of amputation Arteriovenous fistula for hemodialysis in place, primary Family History Mother Diabetes Hypertension Father Hypertension Social History (Updated 09/02/23 @ 16:20 by Deanna Hedrick MD) Household Members: Children Household Members Other:: son & daughter Housing: Apartment Do you presently have visiting nurse or other home services: No Alcohol intake: never Comment: [place] [facility] [place] Tobacco Use Status: Former Tobacco user e-Cigarette/Vaping Use: Never Used Second Hand Smoke Exposure: No Advance Directives Date on File: 07/09/21 service: No Current occupational status: disabled Cognitive needs: Yes Hearing needs: No Vision needs: Yes Questionnaire Thrive Questionnaire Date Thrive assessed: 08/06/23 XOCHITL-7 AMB Questionnaire XOCHITL-7 Date XOCHITL - 7 assessed: 08/06/23 Source: Developed by Drs. Jose Carlos Singh, Stacy Faria, Jeremy Recinos and colleagues, with an educational paddy from [email or web address]. Review of Systems Const All systems reviewed & are unremarkable except as noted in HPI and below Eyes Reports no additional complaints, Denies change in vision and Denies other visual disturbances Card Denies chest pain at rest, Denies chest pain with activity, Denies edema, Denies irregular heart rhythm, Denies claudication, Denies dyspnea, Denies dyspnea on exertion, Denies orthopnea, Denies paroxysmal nocturnal dyspnea and Denies slow heart rate Resp Denies cough, Denies dyspnea and Denies dyspnea on exertion Physical exam (Primary Care) Vital Signs: Last Vital Signs BP 118/60 09/02/23 15:58 BMI result Body Mass Index 30.5 Tobacco/Smoking Status: Tobacco use Status Tobacco use date assessed 08/06/23 09/02/23 15:53 Patient Tobacco Use Status Former Tobacco user 09/02/23 16:20 e-Cigarette/Vaping Use Never Used 09/02/23 16:20 Thrive Assessment: Date of Thrive Assessment Date Thrive assessed 08/06/23 09/02/23 15:53 Const Orientation/consciousness: patient oriented x3 HENMT Head: Yes normal to inspection, Yes normocephalic and Yes atraumatic Ears: external ears normal Eyes General: appearance normal, both eyes and all related structures Eyelids: Yes eyelids normal Conjunctivae: conjunctivae normal Neck Neck: Yes normal visual inspection and Yes supple Resp Effort & Inspection: normal respiratory effort Auscultation: clear to auscultation bilaterally Cardio Jugular venous distension: no JVD Rate: regular rate Rhythm: regular rhythm Heart sounds: S1 normal heart sound present and S2 normal heart sound present GI Inspection: Yes normal to inspection Palpation (GI): Soft to palpation and nontender Auscultation: normal bowel sounds Skin General skin exam: no rashes or lesions noted Neuro General: patient oriented x3 and no focal motor deficits Extrem General: Yes full ROM Psych Appearance: grossly normal Assessment and Plan Assessment & Plan (1) CHF (congestive heart failure): Code(s): I50.9 - Heart failure, unspecified Qualifiers: Heart failure type: systolic Heart failure chronicity: chronic Qualified Code(s): I50.22 - Chronic systolic (congestive) heart failure Plan: Continue carvedilol. The goal is not to gain 5 lb in a week. Follow-up with [facility]. (2) Physical exam: Code(s): Z00.00 - Encounter for general adult medical examination without abnormal findings Plan: Repeat in a year. (3) Type 2 diabetes mellitus with hyperglycemia: Code(s): E11.65 - Type 2 diabetes mellitus with hyperglycemia Qualifiers: Diabetes mellitus mcc insulin use: with mcc use Qualified Code(s): E11.65 - Type 2 diabetes mellitus with hyperglycemia; Z79.4 - rodent exterminator (current) use of insulin Plan: Increase Lantus to 5 Units. A1c goal is equal or less than 7 %. (4) ESRD on hemodialysis: Code(s): N18.6 - End stage renal disease; Z99.2 - Dependence on renal dialysis Plan: Continue HD three times a week. Medications: New 2 zolpidem 5 mg PO BEDTIME PRN 30 tabs 0RF sleep 30 days [wheelchair] As directed 1 ea 0RF I50.9 - Heart failure, unspecified, M51.36 - Other intervertebral disc degeneration, lumbar region, N18.6 - End stage renal disease, Z99.2 - Dependence on renal dialysis Changed From insulin glargine (Lantus Solostar U-100 Insulin) 3 units (0.03 mL) subcut QPM 30 days 0.9 mL 6RF E11.65 - Type 2 diabetes mellitus with hyperglycemia, Z79.4 - senior care (current) use of insulin To insulin glargine (Lantus Solostar U-100 Insulin) 5 units (0.05 mL) subcut QPM 1.5 mL 6RF 30 days E11.65 - Type 2 diabetes mellitus with hyperglycemia, Z79.4 - rodent exterminator (current) use of insulin Discontinued trazodone Discontinued Reason: Patient Completed Course 50 mg PO BEDTIME 90 days PRN 90 tabs 1RF sleep Coding Level of Care Code Est Pt Prev Care >65y(24068) Diagnoses Chronic systolic congestive heart failure I50.22 Heart failure type: systolic Heart failure chronicity: chronic Physical exam Z00.00 Type 2 diabetes mellitus with hyperglycemia, with long-term current use of insulin E11.65; Z79.4 Diabetes mellitus extermination supervisor insulin use: with mcc use ESRD on hemodialysis N18.6; Z99.2 Time Spent (min) 35
[2023-09-02 15:58] VITALS: BP 118/60; BMI 30.5
== END 2023-09-02 16:32 | disposition home or self-care (01) ==
PROVIDERS: PCP Internal Medicine; Visit Provider Internal Medicine
DX: Z00.00 Encounter for general adult medical examination without abnormal findings (principal); I50.22 Chronic systolic (congestive) heart failure; E11.65 Type 2 diabetes mellitus with hyperglycemia; Z79.4 Long term (current) use of insulin; N18.6 End stage renal disease; Z99.2 Dependence on renal dialysis
CPT/HCPCS: 99397

== ENCOUNTER 2023-10-15 09:26 | Outpatient (AMB) | payer OTHER, SELFPAY ==
--- NOTE | 2023-10-15 10:41 | A.OFFVIS_ITS ---
Vital Signs 10/15/23 10:42 Height 5 ft 2 in BMI Reason not done Patient refused/unable BP 110/62 Blood Pressure Location Rt brachial Position Sitting Pulse 73 Pulse Source Pulse Oximeter Intake Visit Reasons: f/u after cardiac cath Bulk Mail Clerk Required: Yes Bulk Mail Clerk Name: [id number]/[email or web address] Accompanied by: Daughter Allergies diphenhydramine [From Benadryl] Adverse Reaction (Severe, Verified 09/02/23 16:12) dizziness, itch Medication List - Last Reconciled 10/15/23 by NILA Hartman acetaminophen 650 mg (2 x 325 mg) PO Q4H PRN 30 days amlodipine 10 mg See Protocol PO DAILY aspirin (Adult Low Dose Aspirin) 81 mg PO DAILY 90 days atorvastatin 80 mg PO DAILY 90 days B complex-vitamin C-folic acid 0.8 mg (Nephro-Josefina) 1 tab PO DAILY 90 days carvedilol 25 mg PO BID 90 days cholecalciferol (vitamin D3) 50 mcg PO DAILY diaper,brief,adult,disposable Use 1 diaper as needed 6 times a day flash glucose sensor (FreeStyle Pedro 2 Sensor kit) As directed heparin(porcine) in 0.45% NaCl 25,000 unit/250 mL 25,000 units (250 mL) continuous IV infusion .Q0M hydralazine 50 mg PO TID 90 days insulin glargine (Lantus Solostar U-100 Insulin) 5 units (0.05 mL) subcut QPM 30 days insulin lispro (Humalog KwikPen (U-100) Insulin) 5 units (0.05 mL) subcut TID insulin syringe-needle U-100 (BD Insulin Syringe Ultra-Fine) test 4 times per day lidocaine 5% 1 patch topical DAILY PRN 30 days losartan 50 mg PO DAILY 90 days pen needle, diabetic (BD Ultra-Fine Rin Pen Needle) Use 1 pen needle once a day sennosides (senna) 8.6 mg PO BEDTIME PRN 30 days sucralfate 1 g PO QIDACHS ticagrelor (Brilinta) 90 mg PO BID 90 days underpads (Bed Underpads) Use 1 underpad as needed every 8 hours [wheelchair As directed] zolpidem 5 mg PO BEDTIME PRN 30 days HPI HPI f/u after cardiac cath: Details: Nicole is a 68 yo female with PMH of HTN, HLD, DM, PVD with transmetacarpal amputation, ESRD on dialysis, CAD, coronary stents, NSTEMIs, repeated coronary PCIs, CHF who was recently presented to [facility] with chest discomfort and ruled in for ACS. She was transferred to [facility] where she underwent cardiac catheterization showing LAD in stent stenosis with PCI, ischemic cardiomyopathy. The plan is for medical management. Since last visit she did have an admission to [facility] with GI issues. Today she reports that she has been doing well since her hospital discharge. She is no longer having any abdominal discomfort, diarrhea. She denies any chest discomfort at rest or during activity. She is mostly sedentary and arrives to this visit in a wheelchair. She has some shortness of breath with activity which is not new. No PND, orthopnea or edema. No lightheadedness, presyncope, syncope, falls. She attends dialysis 3 times weekly and reports compliance. Daughter is present. Certified sound art instructor used. [facility] Medical History Acute coronary syndrome Cataract COVID-19 Type 2 diabetes mellitus with other diabetic kidney complication Delayed gastric emptying GERD (gastroesophageal reflux disease) DM renal manif type II Abdominal pain Cough Gastritis Type 2 diabetes mellitus with hyperglycemia Diabetic nephropathy associated with type 2 diabetes mellitus Diabetic polyneuropathy associated with type 2 diabetes mellitus Vitamin D deficiency ESRD on hemodialysis Dyslipidemia Essential hypertension Surgical History Status post cardiac catheterization Status post cardiac catheterization History of amputation Arteriovenous fistula for hemodialysis in place, primary Family History Mother Diabetes Hypertension Father Hypertension Social History Household Members: Children Household Members Other:: son & daughter Housing: Apartment Do you presently have visiting nurse or other home services: No Alcohol intake: never Comment: called report to [facility] [place] [place] Patient Tobacco Use Status: Former Tobacco user e-Cigarette/Vaping Use: Never Used Second Hand Smoke Exposure: No Advance Directives Date on File: 07/09/21 service: No Current occupational status: disabled Cognitive needs: Yes Hearing needs: No Vision needs: Yes Review of Systems Const All systems reviewed & are unremarkable except as noted in HPI and below Denies chills, Denies fatigue, Denies fever(s), Denies frequent falls, Denies weakness, Denies weight gain and Denies weight loss ENT Denies dizziness Card Denies chest pain, Denies leg edema, Denies lightheadedness, Denies palpitations, Denies dyspnea and Denies dyspnea on exertion Resp Denies cough, Denies dyspnea and Denies dyspnea on exertion GI Denies hematochezia Musc Reports abnormal gait, Denies limited range of motion, Denies muscle cramps, Denies muscle weakness, Denies numbness, Denies radiating pain into limb and Denies tingling Neuro Reports abnormal gait, Denies dizziness, Denies frequent falls, Denies numbness, Denies tingling and Denies weakness Endo Denies fatigue and Denies palpitations Physical Exam Vital Signs: Last Vital Signs Pulse 73 10/15/23 10:42 BP 110/62 10/15/23 10:42 Const Other: sitting in wheelchair General: comfortable and no acute distress Orientation/consciousness: patient oriented x3 Neck Neck: Yes normal visual inspection and Yes no JVD Resp Effort & Inspection: normal respiratory effort Auscultation: clear to auscultation bilaterally, no rales, no rhonchi and no wheezes Cardio Jugular venous distension: no JVD Rate: regular rate Rhythm: regular rhythm Heart sounds: S1 normal heart sound present, S2 normal heart sound present, no murmurs and no rubs Neuro General: patient oriented x3 Extrem Other: right femoral pulse palpable, nontender General: Yes normal to inspection and No no pedal edema Psych Appearance: grossly normal Mental Status: mental status grossly normal Speech and movement: Normal speech and movement present Assessment & Plan Assessment & Plan (1) Non-ST elevation NE (NSTEMI): Code(s): I21.4 - Non-ST elevation (NSTEMI) myocardial infarction Category: Medical Plan: History of CAD with SISI to left circumflex in 2015, with occluded stent not amenable to PCI with NSTEMI 07/2021 and cardiac cath showing severe 2 vessel disease. CTS eval done and patient not a good surgical candidate. She then had repeat cardiac catheterization with SISI placed to the LAD. She continued to have residual proximal circumflex stenosis. She had reported intermittent chest discomfort. Cardiac catheterization was done on 12/26/2021 showing restenoses of the proximal LAD, also mid circumflex proximal 95% stenosis. She had angiopl asty and stent of the proximal LAD. Plan for medical management for the circumflex at that time. NSTEMI 11/2022 and had cardiac catheterization showing mid LAD 100% stenosis, proximal LAD stent 100% ISR, angioplasty and SISI placed, left circumflex old stent occluded with [id number] collaterals. She again had NSTEMI 08/2023 and underwent cardiac catheterization showing proximal LAD stenosis, PCI performed. Recommendation is for dual anti-platelet therapy indefinitely. Notes also recommend CTS consultation due to high likelihood of restenosis of the LAD - this was discussed with Dr. Ervin ventura and he states that she has previously been evaluated and she is not a good candidate. Will continue pursue medical management. She has multiple comorbidities including end-stage renal disease and dialysis, peripheral vascular disease. At this time she denies any chest discomfort. She does have some shortness of breath with activity. She does not appear fluid overloaded on examination. C ontinue current meds without change. Continue aspirin indefinitely, continue Brilinta (or Plavix) indefinitely. Continue high-dose atorvastatin with ideal LDL goal less than 70, carvedilol. Reviewed all the above with patient and daughter and they state understanding of current cardiac condition. Not a good candidate for cardiac rehab due to difficulty with mobility, transportation. Cardiology follow-up in 3-4 months, sooner if needed (2) CHF (congestive heart failure): Code(s): I50.9 - Heart failure, unspecified Category: Medical Plan: Last echo 08/11/2023 shows EF 30-35%, mid to distal inferior lateral wall severely hypokinetic, lateral wall severely hypokinetic, distal septal wall akinetic, apex dyskinetic [id number] TR PAF 55 mmHg, moderate pulmonary hypertension. No clinical signs of acute heart failure on examination. Patient undergoes dialysis 3 times weekly. History of having pulmonary edema 2 months ago. No recurrent episodes since that time. (3) Status post cardiac catheterization: Comment: 07/09/2021, left main normal, lad mid 90% stenosis, diffuse severe disease involving the diagonal branches, IT DISASTER RECOVERY MANAGER of mid circumflex, [id number] and r [id number] collaterals, prior stents seen in the mid subsection, proximal circumflex 80% stenosis, RCA mild luminal irregularities less than 30%, collateral flow from the distal LAD to 2nd OM and distal RCA to the mid circumflex Code(s): Z98.890 - Other specified postprocedural states Category: Surgical Plan: As above (4) Status post cardiac catheterization: Comment: 07/11/2021 angioplasty, intravascular shockwave lithotripsy arthrectomy of the mid LAD with placement of a drug-eluting stent with excellent angiographic results Code(s): Z98.890 - Other specified postprocedural states Category: Surgical (5) S/P cardiac catheterization: Comment: 12/26/2021 showing proximal LAD 99% severe InStent restenosis, balloon angioplasty and SISI placed, left circumflex, severe disease to be managed medically Code(s): Z98.890 - Other specified postprocedural states Category: Surgical Plan: As above (6) S/P cardiac cath: Comment: 11/11/2022, mid LAD 100% stenosis, proximal LAD 100% ISR, balloon angioplasty with SISI placed, left circumflex proximal 90% stenosis, old stent occluded, [id number]-me-[id number] collaterals, RCA less than 30% stenosis, collaterals from the distal LAD to the 2nd OM, distal RCA to the mid circumflex Code(s): Z98.890 - Other specified postprocedural states Category: Surgical (7) S/P cardiac cath: Comment: 08/11/2023, left main distal 35% stenosis, proximal LAD stent 80% stenosis, mid LAD stent 95% stenosis, left circumflex ostial 99% stenosis, stent mid circumflex 100% stenosis, 1st OM 95% stenosis, 2nd OM 99% stenosis, RCA mild diffuse disease, collateral flow from the distal LAD to 2nd OM, collateral flow from distal RCA to mid circumflex, PCI of proximal and mid LAD Code(s): Z98.890 - Other specified postprocedural states Category: Surgical Plan: As above (8) Essential hypertension: Code(s): I10 - Essential (primary) hypertension Category: Medical Plan: Blood pressure normal today. She reports that blood pressure is low at times during dialysis. She has not missed any dialysis treatments. No med changes made today (9) End-stage renal disease (ESRD): Code(s): N18.6 - End stage renal disease Category: Medical Plan: Dialysis 3 times weekly. [facility] (10) Hospital discharge follow-up: Code(s): Z09 - Encounter for follow-up examination after completed treatment for conditions other than malignant neoplasm Category: Medical Plan: Recent [facility] admit, noncardiac (11) Wheelchair bound: Code(s): Z99.3 - Dependence on wheelchair Category: Medical Plan: Sedentary Plan Time spent on chart review, documentation, interview and assessment Coding Level of Care Code Est Pt Level 4 (33236) Diagnoses Non-ST elevation NE (NSTEMI) I21.4 CHF (congestive heart failure) I50.9 Status post cardiac catheterization Z98.890 Essential hypertension I10 End-stage renal disease (ESRD) N18.6 Hospital discharge follow-up Z09 Wheelchair bound Z99.3 Time Spent (min) 30
[2023-10-15 10:42] VITALS: BP 110/62; PULSE 73
== END 2023-10-15 11:27 | disposition home or self-care (01) ==
PROVIDERS: PCP Internal Medicine; Visit Provider Nurse Practitioner Family
DX: I21.4 Non-ST elevation (NSTEMI) myocardial infarction (principal); I50.9 Heart failure, unspecified; Z98.890 Other specified postprocedural states; I12.0 Hypertensive chronic kidney disease with stage 5 chronic kidney disease or end stage renal disease; N18.6 End stage renal disease; Z09 Encounter for follow-up examination after completed treatment for conditions other than malignant neoplasm; Z99.3 Dependence on wheelchair
CPT/HCPCS: 99214

== ENCOUNTER → 2023-10-15 09:26 | Outpatient (BNVA) | payer OTHER, SELFPAY | PROVIDERS: PCP Internal Medicine; Visit Provider Nurse Practitioner Family | DX: Z09 Encounter for follow-up examination after completed treatment for conditions other than malignant neoplasm (principal); I50.9 Heart failure, unspecified; I13.2 Hypertensive heart and chronic kidney disease with heart failure and with stage 5 chronic kidney disease, or end stage renal disease; N18.6 End stage renal disease; I25.2 Old myocardial infarction; Z99.3 Dependence on wheelchair; Z98.890 Other specified postprocedural states | CPT/HCPCS: 99212 ==

== ENCOUNTER 2024-01-12 14:29 | Outpatient (AMB) | payer OTHER, SELFPAY ==
--- NOTE | 2024-01-12 14:59 | A.OFFPC_ITS ---
Vital Signs 01/12/24 15:04 Height 5 ft 2 in BMI Reason not done Patient refused/unable BP 114/76 Blood Pressure Location Lt brachial Position Sitting Intake Visit Reasons: [facility] 2-01/04 RT foot ulcer/pain Costume Design Teacher Required: No Accompanied by: daughter in law Allergies diphenhydramine [From Benadryl] Adverse Reaction (Severe, Verified 01/12/24 15:20) dizziness, itch Medication List - Last Reconciled 01/12/24 by Deanna Hedrick MD acetaminophen 650 mg (2 x 325 mg) PO Q4H PRN 30 days amlodipine 10 mg See Protocol PO DAILY aspirin (Adult Low Dose Aspirin) 81 mg PO DAILY 90 days atorvastatin 80 mg PO DAILY 90 days B complex-vitamin C-folic acid 0.8 mg (Nephro-Josefina) 1 tab PO DAILY 90 days carvedilol 25 mg PO BID 90 days cholecalciferol (vitamin D3) 50 mcg PO DAILY diaper,brief,adult,disposable Use 1 diaper as needed 6 times a day flash glucose sensor ([employer] X-Changeyle Pedro 2 Sensor kit) As directed gabapentin 300 mg PO DAILY heparin(porcine) in 0.45% NaCl 25,000 unit/250 mL 25,000 units (250 mL) continuous IV infusion .Q0M [hospital bed As directed] hydralazine 50 mg PO TID insulin glargine (Lantus Solostar U-100 Insulin) 5 units (0.05 mL) subcut QPM 30 days insulin lispro (Humalog KwikPen (U-100) Insulin) 5 units (0.05 mL) subcut TID insulin syringe-needle U-100 (BD Insulin Syringe Ultra-Fine) test 4 times per day lidocaine 5% 1 patch topical DAILY PRN 30 days losartan 50 mg PO DAILY 90 days pen needle, diabetic (BD Ultra-Fine Rin Pen Needle) Use 1 pen needle once a day sennosides (senna) 8.6 mg PO BEDTIME PRN 30 days sucralfate 1 g PO QIDACHS ticagrelor (Brilinta) 90 mg PO BID 90 days underpads (Bed Underpads) Use 1 underpad as needed every 8 hours [wheelchair As directed] zolpidem 5 mg PO BEDTIME PRN 30 days Tobacco use date assessed: 08/06/23 Fall risk assessment: No Falls in past year Last assessed Fall Risk: 01/12/24 Dental Screening Dental Screen Date: 01/12/24 Did you have a dental visit in the last 12 months?: No Did you have a dental problem in the last 6 months where you did not have access to dental care?: No Was dental information given to patient?: Patient declined HPI HPI Comments History of Present Illness Details This is a 68-year-old female with diabetes mellitus type 2 on long-term current use of insulin, hypertension, end-stage renal disease on hemodialysis and chronic systolic congestive heart failure that comes today on a stretcher complaining of a right foot wound that has been bothering her for few months. It does not look infected and it is surrounded by hyperpigmented skin. She is accompanied by bottom precipitator operator which says that the wound started as blister follow-up blood that burst and dried. I will refer her to wound care for this matter. A1c mildly elevated. Blood pressure stable. On hemodialysis 3 times a week. Echocardiogram done this year shows ejection fraction of 25-35% and this is follow by cardiology. Denies any chest pain or shortness on breath. Denies gaining 5 lb in a week. Seems euvolemic today. [facility] Medical History (Updated 01/12/24 @ 15:32 by Deanna Hedrick MD) Acute coronary syndrome Cataract COVID-19 Type 2 diabetes mellitus with other diabetic kidney complication Delayed gastric emptying GERD (gastroesophageal reflux disease) DM renal manif type II Abdominal pain Cough Gastritis Type 2 diabetes mellitus with hyperglycemia Diabetic nephropathy associated with type 2 diabetes mellitus Diabetic polyneuropathy associated with type 2 diabetes mellitus Vitamin D deficiency ESRD on hemodialysis Dyslipidemia Essential hypertension Surgical History Status post cardiac catheterization Status post cardiac catheterization History of amputation Arteriovenous fistula for hemodialysis in place, primary Family History Mother Diabetes Hypertension Father Hypertension Social History Household Members: Children Household Members Other:: son & daughter Housing: Apartment Do you presently have visiting nurse or other home services: No Alcohol intake: never Comment: called report to [facility] [place] Patient Tobacco Use Status: Former Tobacco user e-Cigarette/Vaping Use: Never Used Second Hand Smoke Exposure: No Advance Directives Date on File: 07/09/21 service: No Current occupational status: disabled Cognitive needs: Yes Hearing needs: No Vision needs: Yes Questionnaire Thrive Questionnaire Date Thrive assessed: 08/06/23 XOCHITL-7 AMB Questionnaire XOCHITL-7 Date XOCHITL - 7 assessed: 08/06/23 Source: Developed by Drs. Jose Carlos Singh, Stacy Faria, Jeremy Recinos and colleagues, with an educational paddy from [employer] Review of Systems Const All systems reviewed & are unremarkable except as noted in HPI and below Card Denies chest pain at rest, Denies chest pain with activity, Denies edema, Denies irregular heart rhythm, Denies claudication, Denies dyspnea, Denies dyspnea on exertion, Denies orthopnea, Denies paroxysmal nocturnal dyspnea and Denies slow heart rate Resp Denies cough, Denies dyspnea and Denies dyspnea on exertion GI Denies abdominal pain, Denies change in bowel habits, Denies excessive flatus, Denies nausea and Denies vomiting Denies urinary incontinence, Denies urinary hesitancy and Denies urinary urgency Musc Denies atrophy, Denies deformity and Denies limited range of motion Skin/Breast Denies bleeding lesions, Denies changing lesions, Denies rash and Reports wounds Physical exam (Primary Care) Vital Signs: Last Vital Signs BP 114/76 01/12/24 15:04 Tobacco/Smoking Status: Tobacco use Status Tobacco use date assessed 08/06/23 01/12/24 14:59 Patient Tobacco Use Status Former Tobacco user 01/12/24 14:59 e-Cigarette/Vaping Use Never Used 01/12/24 14:59 Thrive Assessment: Date of Thrive Assessment Date Thrive assessed 08/06/23 01/12/24 14:59 Const Limitations: other limitations (stretcher) Resp Effort & Inspection: normal respiratory effort Auscultation: clear to auscultation bilaterally Cardio Jugular venous distension: no JVD Rate: regular rate Rhythm: regular rhythm Heart sounds: S1 normal heart sound present and S2 normal heart sound present Skin Other: right foot open wound 1 in x 0.5 in Wounds: wounds noted (right plantar wound at the heel) Results AMB Hemoglobin A1c AMB Hemoglobin A1c 7.4 % Last Edit by SCOTT Hendricks on 09/10/24 15:1 1 Results Reviewed Results Reviewed: Laboratory Last Values Hgb A1c (Clinic) 7.4 % (4.0-6.0) H 01/12/24 14:57 Assessment and Plan Assessment & Plan (1) Open wound of right foot: Code(s): S91.301A - Unspecified open wound, right foot, initial encounter Plan: Referred to wound care. (2) CHF (congestive heart failure): Code(s): I50.9 - Heart failure, unspecified Qualifiers: Heart failure chronicity: chronic Heart failure type: systolic Qualified Code(s): I50.22 - Chronic systolic (congestive) heart failure Plan: Continue carvedilol. The goal is to not gain 5 lb in a week. Follow-up with Cardiology. (3) Type 2 diabetes mellitus with hyperglycemia: Code(s): E11.65 - Type 2 diabetes mellitus with hyperglycemia Qualifiers: Diabetes mellitus rodent exterminator insulin use: with longterm use Qualified Code(s): E11.65 - Type 2 diabetes mellitus with hyperglycemia; Z79.4 - director long term care (current) use of insulin Plan: Continue insulin. A1c goal is equal or less than 7%. (4) Essential hypertension: Code(s): I10 - Essential (primary) hypertension Plan: Continue amlodipine and losartan. Blood pressure goal is equal or less than 130/80. (5) ESRD on hemodialysis: Code(s): N18.6 - End stage renal disease; Z99.2 - Dependence on renal dialysis Plan: Continue hemodialysis 3 times a week. Follow-up with nephrology. Orders: Orders AMB Hemoglobin A1c Today E11.65 - Type 2 diabetes mellitus with hyperglycemia, Z79.4 - director long term care (current) use of insulin Referrals Wound Care Referral S91.301A - Unspecified open wound, right foot, initial encounter Coding Level of Care Code Est Pt Level 4 (32206) Complex EM visit Add On G2211 Diagnoses Open wound of right foot S91.301A Chronic systolic congestive heart failure I50.22 Heart failure chronicity: chronic Heart failure type: systolic Type 2 diabetes mellitus with hyperglycemia, with long-term current use of insulin E11.65; Z79.4 Diabetes mellitus longterm insulin use: with rodent exterminator use Essential hypertension I10 ESRD on hemodialysis N18.6; Z99.2 Time Spent (min) 25
[2024-01-12 15:04] VITALS: BP 114/76
== END 2024-01-12 15:34 | disposition home or self-care (01) ==
PROVIDERS: PCP Internal Medicine; Visit Provider Internal Medicine
DX: I12.0 Hypertensive chronic kidney disease with stage 5 chronic kidney disease or end stage renal disease (principal); I50.22 Chronic systolic (congestive) heart failure; E11.65 Type 2 diabetes mellitus with hyperglycemia; Z79.4 Long term (current) use of insulin; N18.6 End stage renal disease; Z99.2 Dependence on renal dialysis; S91.301A Unspecified open wound, right foot, initial encounter
CPT/HCPCS: 83036; 99214; G2211

== ENCOUNTER 2024-01-21 09:21 | Outpatient (AMB) | payer OTHER, SELFPAY ==
[2024-01-21 09:53] VITALS: BP 100/62; PULSE 76
--- NOTE | 2024-01-21 09:53 | MHC.OFFVIS ---
Vital Signs 01/21/24 09:53 Height 5 ft 2 in BP 100/62 Blood Pressure Location Rt brachial Position Sitting Pulse 76 Pulse Source Pulse Oximeter Intake Visit Reasons: 4m follow up Spreading Machine Operator Required: No Spreading Machine Operator Services: Spreading Machine Operator Present Spreading Machine Operator Name: Salvatore [id number] Operations Inspector: Operations Inspector Present Allergies diphenhydramine [From Benadryl] Adverse Reaction (Severe, Verified 01/21/24 09:59) dizziness, itch Medication List - Last Reconciled 01/21/24 by NILA Hartman acetaminophen 650 mg (2 x 325 mg) PO Q4H PRN 30 days amlodipine 10 mg See Protocol PO DAILY aspirin (Adult Low Dose Aspirin) 81 mg PO DAILY 90 days atorvastatin 80 mg PO DAILY 90 days carvedilol 25 mg PO BID 90 days cholecalciferol (vitamin D3) 50 mcg PO DAILY diaper,brief,adult,disposable Use 1 diaper as needed 6 times a day flash glucose sensor (FreeStyle Pedro 2 Sensor kit) As directed gabapentin 300 mg PO DAILY heparin(porcine) in 0.45% NaCl 25,000 unit/250 mL 25,000 units (250 mL) continuous IV infusion .Q0M [hospital bed As directed] insulin glargine (Lantus Solostar U-100 Insulin) 5 units (0.05 mL) subcut QPM 30 days insulin lispro (Humalog KwikPen (U-100) Insulin) 5 units (0.05 mL) subcut TID insulin syringe-needle U-100 (BD Insulin Syringe Ultra-Fine) test 4 times per day lidocaine 5% 1 patch topical DAILY PRN 30 days losartan 50 mg PO DAILY 90 days pen needle, diabetic (BD Ultra-Fine Rin Pen Needle) Use 1 pen needle once a day sennosides (senna) 8.6 mg PO BEDTIME PRN 30 days sucralfate 1 g PO QIDACHS ticagrelor (Brilinta) 90 mg PO BID 90 days underpads (Bed Underpads) Use 1 underpad as needed every 8 hours [wheelchair As directed] zolpidem 5 mg PO BEDTIME PRN 30 days HPI HPI 4m follow up: Details: Nicole is a 68 yo female with PMH of HTN, HLD, DM, PVD with transmetacarpal amputation, ESRD on dialysis, CAD, coronary stents, NSTEMIs, repeated coronary PCIs, CHF who was recently presented to [facility] [place] with chest discomfort and ruled in for ACS. She was transferred to [facility] where she underwent cardiac catheterization showing LAD in stent stenosis with PCI, ischemic cardiomyopathy. The plan is for medical management. She was admitted to [facility] overnight earlier this week with shortness of breath and treated for pulmonary edema. She had dialysis performed. Today she reports that she has been doing well since her hospital discharge. She tells me her breathing is comfortable. No PND, orthopnea or edema. She has not had recent chest discomfort at rest or during activity. She is mostly sedentary. She arrives to this visit on an ambulance stretcher. She tells me she only walks a few steps in her home. Does have a wound on her right heel and will be going to the wound care for that. She has some lightheadedness at times. No palpitations, presyncope, syncope, falls. She attends dialysis 3 times weekly and reports compliance. Daughter is present. Certified duty manager used. [facility] Medical History Acute coronary syndrome Cataract COVID-19 Type 2 diabetes mellitus with other diabetic kidney complication Delayed gastric emptying GERD (gastroesophageal reflux disease) DM renal manif type II Abdominal pain Cough Gastritis Type 2 diabetes mellitus with hyperglycemia Diabetic nephropathy associated with type 2 diabetes mellitus Diabetic polyneuropathy associated with type 2 diabetes mellitus Vitamin D deficiency ESRD on hemodialysis Dyslipidemia Essential hypertension Surgical History Status post cardiac catheterization Status post cardiac catheterization History of amputation Arteriovenous fistula for hemodialysis in place, primary Family History Mother Diabetes Hypertension Father Hypertension Social History Household Members: Children Household Members Other:: son & daughter Housing: Apartment Do you presently have visiting nurse or other home services: No Alcohol intake: never Comment: called report to [facility] Patient Tobacco Use Status: Former Tobacco user e-Cigarette/Vaping Use: Never Used Second Hand Smoke Exposure: No Advance Directives Date on File: 07/09/21 service: No Current occupational status: disabled Cognitive needs: Yes Hearing needs: No Vision needs: Yes Review of Systems Const All systems reviewed & are unremarkable except as noted in HPI and below ENT Reports dizziness Card Denies chest pain, Denies chest pain at rest, Denies chest pain with activity, Denies rapid heart rate, Denies pedal edema, Denies edema, Denies leg edema, Denies lightheadedness, Denies palpitations, Denies dyspnea, Denies dyspnea on exertion and Denies orthopnea Resp Denies cough, Denies dyspnea and Denies dyspnea on exertion GI Denies hematochezia and Denies change in stool character Musc Details: wound right heel Reports abnormal gait, Denies limited range of motion, Reports muscle weakness, Denies numbness, Denies radiating pain into limb, Denies stiffness and Denies tingling Neuro Reports abnormal gait, Reports dizziness, Denies numbness and Denies tingling Endo Denies palpitations Physical Exam Vital Signs: Last Vital Signs Pulse 76 01/21/24 09:53 BP 100/62 01/21/24 09:53 Const Other: Laying on EMS stretcher General: comfortable and no acute distress Orientation/consciousness: patient oriented x3 Neck Neck: Yes normal visual inspection Resp Effort & Inspection: normal respiratory effort Auscultation: clear to auscultation bilaterally, no rales, no rhonchi and no wheezes Cardio Jugular venous distension: no JVD Rate: regular rate Rhythm: regular rhythm Heart sounds: S1 normal heart sound present, S2 normal heart sound present, no murmurs and no rubs Neuro General: patient oriented x3 Extrem General: Yes normal to inspection and No no pedal edema Psych Appearance: grossly normal Mental Status: mental status grossly normal Speech and movement: Normal speech and movement present Assessment & Plan Assessment & Plan (1) Non-ST elevation MO (NSTEMI): Code(s): I21.4 - Non-ST elevation (NSTEMI) myocardial infarction Category: Medical Plan: History of CAD with SISI to left circumflex in 2016, with occluded stent not amenable to PCI with NSTEMI 07/2021 and cardiac cath showing severe 2 vessel disease. CTS eval done and patient not a good surgical candidate. She then had repeat cardiac catheterization with SISI placed to the LAD. She continued to have residual proximal circumflex stenosis. She had reported intermittent chest discomfort. Cardiac catheterization was done on 12/26/2021 showing restenoses of the proximal LAD, also mid circumflex proximal 95% stenosis. She had angioplasty and stent of the proximal LAD. Plan for medical management for the circumflex at that time. NSTEMI 11/2022 and had cardiac catheterization showing mid LAD 100% stenosis, proximal LAD stent 100% ISR, angioplasty and SISI placed, left circumflex old stent occluded with [id number] collaterals. She again had NSTEMI 08/2023 and underwent cardiac catheterization showing proximal LAD stenosis, PCI performed. Recommendation is for dual anti-platelet therapy indefinitely. Notes also recommend CTS consultation due to high likelihood of restenosis of the LAD - this was discussed with Dr. Arriaga after last visit and he confirms that she has previously been evaluated and she is not a good candidate. Will continue pursue medical management. She has multiple comorbidities including end-stage renal disease and dialysis, peripheral vascular disease. At this time she continues to deny chest discomfort. She does have some shortness of breath with activity but is very sedentary. She does not appear fluid overloaded on examination. Continue current meds without change. Continue aspirin indefinitely, continue Brilinta (or Plavix) indefinitely. Continue high-dose atorvastatin with ideal LDL goal less than 70, carvedilol. Reviewed all the above with patient and daughter and they state understanding of current cardiac condition. Not a good candidate for cardiac rehab due to difficulty with mobility, transportation. Cardiology follow-up in 4 months, sooner if needed (2) CHF (congestive heart failure): Code(s): I50.9 - Heart failure, unspecified Category: Medical Plan: Last echo 08/11/2023 shows EF 30-35%, mid to distal inferior lateral wall severely hypokinetic, lateral wall severely hypokinetic, distal septal wall akinetic, apex dyskinetic [id number] TR PAF 55 mmHg, moderate pulmonary hypertension. [facility] admission earlier this week with pulmonary edema. She is a dialysis patient and underwent treatment. On exam today she has no signs of acute heart failure on examination. Patient undergoes dialysis 3 times weekly and says she has not missed any appointments. Follows closely with Nephrology. (3) Status post cardiac catheterization: Comment: 07/09/2021, left main normal, lad mid 90% stenosis, diffuse severe disease involving the diagonal branches, SENIOR TECHNICAL RECRUITER of mid circumflex, [id number] and [id number] collaterals, prior stents seen in the mid subsection, proximal circumflex 80% stenosis, RCA mild luminal irregularities less than 30%, collateral flow from the distal LAD to 2nd OM and distal RCA to the mid circumflex Code(s): Z98.890 - Other specified postprocedural states Category: Surgical Plan: As above (4) Status post cardiac catheterization: Comment: 07/11/2021 angioplasty, intravascular shockwave lithotripsy arthrectomy of the mid LAD with placement of a drug-eluting stent with excellent angiographic results Code(s): Z98.890 - Other specified postprocedural states Category: Surgical (5) S/P cardiac catheterization: Comment: 12/26/2021 showing proximal LAD 99% severe InStent restenosis, balloon angioplasty and SISI placed, left circumflex, severe disease to be managed medically Code(s): Z98.890 - Other specified postprocedural states Category: Surgical Plan: As above (6) S/P cardiac cath: Comment: 11/11/2022, mid LAD 100% stenosis, proximal LAD 100% ISR, balloon angioplasty with SISI placed, left circumflex proximal 90% stenosis, old stent occluded, [id number] collaterals, RCA less than 30% stenosis, collaterals from the distal LAD to the 2nd OM, distal RCA to the mid circumflex Code(s): Z98.890 - Other specified postprocedural states Category: Surgical (7) S/P cardiac cath: Comment: 08/11/2023, left main distal 35% stenosis, proximal LAD stent 80% stenosis, mid LAD stent 95% stenosis, left circumflex ostial 99% stenosis, stent mid circumflex 100% stenosis, 1st OM 95% stenosis, 2nd OM 99% stenosis, RCA mild diffuse disease, collateral flow from the distal LAD to 2nd OM, collateral flow from distal RCA to mid circumflex, PCI of proximal and mid LAD Code(s): Z98.890 - Other specified postprocedural states Category: Surgical Plan: As above (8) Essential hypertension: Code(s): I10 - Essential (primary) hypertension Category: Medical Plan: Blood pressure low normal today. Blood pressure is checked frequently during dialysis. She has not missed any dialysis treatments. No med changes made today (9) End-stage renal disease (ESRD): Code(s): N18.6 - End stage renal disease Category: Medical Plan: Dialysis 3 times weekly. [facility] (10) Hospital discharge follow-up: Code(s): Z09 - Encounter for follow-up examination after completed treatment for conditions other than malignant neoplasm Category: Medical Plan: Recent [facility] admit, pulmonary edema Plan Time spent on chart review, documentation, interview and assessment Coding Level of Care Code Est Pt Level 4 (92823) Diagnoses Non-ST elevation MO (NSTEMI) I21.4 CHF (congestive heart failure) I50.9 Status post cardiac catheterization Z98.890 Essential hypertension I10 End-stage renal disease (ESRD) N18.6 Hospital discharge follow-up Z09 Time Spent (min) 30
== END 2024-01-21 10:30 | disposition home or self-care (01) ==
PROVIDERS: PCP Internal Medicine; Visit Provider Nurse Practitioner Family
DX: I21.4 Non-ST elevation (NSTEMI) myocardial infarction (principal); I50.9 Heart failure, unspecified; Z98.890 Other specified postprocedural states; I12.0 Hypertensive chronic kidney disease with stage 5 chronic kidney disease or end stage renal disease; N18.6 End stage renal disease; Z09 Encounter for follow-up examination after completed treatment for conditions other than malignant neoplasm
CPT/HCPCS: 99214

== ENCOUNTER → 2024-01-21 09:21 | Outpatient (BNVA) | payer OTHER, SELFPAY | PROVIDERS: PCP Internal Medicine; Visit Provider Nurse Practitioner Family | DX: Z09 Encounter for follow-up examination after completed treatment for conditions other than malignant neoplasm (principal); I25.2 Old myocardial infarction; I13.2 Hypertensive heart and chronic kidney disease with heart failure and with stage 5 chronic kidney disease, or end stage renal disease; I50.9 Heart failure, unspecified; N18.6 End stage renal disease; Z98.890 Other specified postprocedural states | CPT/HCPCS: 99212 ==